=== PATIENT | female | born 1980 | race African-American/Black ===

== ENCOUNTER 2016-07-03 20:55 | Emergency (ER) | payer MEDICARE, OTHER ==
[2016-07-03] MEDS ORDERED: AMOXIC-POT CLAV 875MG STARTER 2 EACH TABLET PO STA (22:50)
--- NOTE | 2016-07-03 22:53 | ED ---
ENT HPI - General Chief complaint: ENT Stated complaint: Throat Pain Time Seen by Provider: 07/03/16 22:39 Source: patient Mode of arrival: ambulatory Limitations: no limitations - History of Present Illness Initial comments: 36-year-old female presents to the ER complaining of sudden onset of sore throat and tooth pain mainly on the left side that started this morning. She states that she did try saltwater gargles but it wasn't helping. She was concerned that this may irritate her asthma and wanted to be evaluated at the ER. She also states that she does not have a primary care physician that she follows with normally. She states that she is having pain with swallowing and does feel hot and cold chills. She is not taking any medications at this time. She denies nausea, vomiting, diarrhea, headache, abdominal pain. - Related Data Home Medications Medication Instructions Recorded Confirmed Ergocalciferol [Vitamin D2] 50,000 unit PO MO 04/25/16 04/25/16 Ibuprofen [Motrin] 800 mg PO BID 04/25/16 04/25/16 Previous Rx's Medication Instructions Recorded Amoxicillin/Potassium Clav 1 tab PO Q12HR #20 tab 07/03/16 [Augmentin 875-125 Tablet] Fluconazole [Diflucan] 150 mg PO ONCE #1 tab 07/03/16 Allergies Allergy/AdvReac Type Severity Reaction Status Date / Time prednisone Allergy Swelling Verified 04/25/16 08:53 ibuprofen [From Motrin] AdvReac Nausea & Verified 04/25/16 08:53 Vomiting Review of Systems ROS Statement: Those systems with pertinent positive or pertinent negative responses have been documented in the HPI. ROS Other: All systems not noted in ROS Statement are negative. Past Medical History Past Medical History: Asthma, COPD Additional Past Medical History / Comment(s): bipolar, schizophrenia History of Any Multi-Drug Resistant Organisms: None Reported Past Surgical History: Section Past Psychological History: Anxiety, Bipolar, Depression, Schizophrenia Smoking Status: Former smoker Past Alcohol Use History: None Reported Past Drug Use History: None Reported General Exam Limitations: no limitations General appearance: alert, in no apparent distress Head exam: Present: atraumatic, normocephalic Eye exam: Present: normal appearance, PERRL, EOMI Pupils: Present: normal accommodation ENT exam: Present: mucous membranes moist, TM's normal bilaterally, normal external ear exam, other (Mild tonsillitis bilaterally, left upper tooth pain with palpation without obvious abscess or facial swelling.) Neck exam: Present: normal inspection, full ROM, lymphadenopathy (Mild left cervical) Respiratory exam: Present: normal lung sounds bilaterally Cardiovascular Exam: Present: regular rate, normal rhythm Neurological exam: Present: alert, oriented X3, CN II-XII intact Psychiatric exam: Present: normal affect, normal mood Skin exam: Present: warm, dry, intact Course Vital Signs 07/03/16 07/03/16 21:46 22:59 Temperature 97.6 F 97.8 F Pulse Rate 75 72 Respiratory 18 16 Rate Blood Pressure 110/71 118/80 O2 Sat by Pulse 100 100 Oximetry Medical Decision Making - Medical Decision Making 36-year-old female presented to the ER with complaints of pharyngitis and tooth pain. She did have some tooth tenderness with palpation in the upper right as well as some mild tonsillitis. Due to tooth pain will recommend oral antibiotics. Since I will be placing the patient on antibiotics that did not feel it necessary to do a throat swab that she also was not running a fever. The antibiotics would cover if there is any bacterial component to the pharyngitis. Explained to patient that the throat swab would not change my treatment plan and she was agreeable and understanding of this. Instructed to finish the full course of antibiotics and was given starter pack today. She may take Tylenol at home for any pain or discomfort and continue saltwater gargles. I stressed the importance of her having a primary care physician and going to them for chronic problems and issues that can be handled by them. She stated that the current certified lactation educator family physician would not work for her because she had a falling out with that physician in the past. All questions were answered and patient should return to the ER if any worsening symptoms or concerns. Disposition Clinical Impression: Acute viral pharyngitis, Pain in tooth Disposition: HOME SELF-CARE Condition: Good Instructions: Pharyngitis (ED), Toothache (ED) Additional Instructions: Return to ER if worsening symptoms or concerns. Prescriptions: Amoxicillin/Potassium Clav [Augmentin 875-125 Tablet] 1 tab PO Q12HR #20 tab Fluconazole [Diflucan] 150 mg PO ONCE #1 tab Referrals: Marcial Portillo MD [STAFF PHYSICIAN] - 1-2 days Time of Disposition: 22:53
[2016-07-03 23:00] VITALS: BP 118/80; PULSE 72; RESP 16; TEMP 97.8
== END 2016-07-03 22:59 | disposition home or self-care (01) ==
LOC: EC 20:55
DX: J02.8 Acute pharyngitis due to other specified organisms (principal); B97.89 Other viral agents as the cause of diseases classified elsewhere; K08.89 Other specified disorders of teeth and supporting structures; J45.909 Unspecified asthma, uncomplicated; J44.9 Chronic obstructive pulmonary disease, unspecified; Z79.899 Other long term (current) drug therapy; Z88.8 Allergy status to other drugs, medicaments and biological substances; Z87.891 Personal history of nicotine dependence
CPT/HCPCS: 99282

== ENCOUNTER 2016-08-10 21:34 | Emergency (ER) | payer MEDICARE, OTHER ==
[2016-08-10] MEDS ORDERED: ONDANSETRON ODT 4 MG TAB PO STA (22:24)
[2016-08-10] MEDS ORDERED: AMOXICILLIN 875 MG TAB PO STA (23:14)
--- NOTE | 2016-08-10 23:16 | ED ---
General Adult HPI - General Chief complaint: Nausea/Vomiting/Diarrhea Stated complaint: Cold Symptoms Time Seen by Provider: 08/10/16 22:18 Source: patient Mode of arrival: ambulatory Limitations: no limitations - History of Present Illness Initial comments: This patient is a 36-year-old woman who presents with 2 complaints. The first complaint is that she has been having some right ear pain going on for about 2 days now. She describes a pressure, now moderate intensity, constant, without worsening or relieving factors. She has also had a few episodes of vomiting and diarrhea, without any associated abdominal pain. She denies seeing any blood in the emesis or in the bowel movements. Onset/Timin -: days(s) - Related Data Previous Rx's Medication Instructions Recorded Amoxicillin 500 mg PO Q8H #21 capsule 08/10/16 Allergies Allergy/AdvReac Type Severity Reaction Status Date / Time prednisone Allergy Swelling Verified 08/10/16 22:17 ibuprofen [From Motrin] AdvReac Nausea & Verified 08/10/16 22:17 Vomiting Review of Systems ROS Statement: Those systems with pertinent positive or pertinent negative responses have been documented in the HPI. ROS Other: All systems not noted in ROS Statement are negative. Constitutional: Denies: fever, chills ENT: Reports: as per HPI, ear pain, congestion. Denies: throat pain, hearing loss, epistaxis Respiratory: Denies: cough, dyspnea, wheezes Cardiovascular: Denies: chest pain, palpitations, syncope Gastrointestinal: Reports: nausea, vomiting. Denies: abdominal pain, diarrhea, melena, hematochezia Genitourinary: Denies: dysuria, hematuria Musculoskeletal: Denies: back pain Skin: Denies: rash Neurological: Denies: headache Past Medical History Past Medical History: Asthma, COPD Additional Past Medical History / Comment(s): bipolar, schizophrenia History of Any Multi-Drug Resistant Organisms: None Reported Past Surgical History: Section Past Psychological History: Anxiety, Bipolar, Depression, Schizophrenia Smoking Status: Former smoker Past Alcohol Use History: None Reported Past Drug Use History: None Reported General Exam Limitations: no limitations General appearance: alert, in no apparent distress Head exam: Present: atraumatic, normocephalic, normal inspection Eye exam: Present: normal appearance. Absent: scleral icterus, conjunctival injection ENT exam: Present: normal oropharynx, mucous membranes moist, other (Right tympanic membrane injected. No rupture. Trace of clear effusion. No tragus tenderness. No external auditory canal edema or erythema.) Neck exam: Present: normal inspection, full ROM. Absent: tenderness, meningismus, lymphadenopathy Respiratory exam: Present: normal lung sounds bilaterally. Absent: respiratory distress, wheezes, rales, rhonchi, stridor Cardiovascular Exam: Present: regular rate, normal rhythm, normal heart sounds. Absent: systolic murmur, diastolic murmur, rubs, gallop GI/Abdominal exam: Present: soft. Absent: distended, tenderness, guarding, rebound, mass Extremities exam: Present: normal inspection, normal capillary refill. Absent: pedal edema, calf tenderness Back exam: Absent: CVA tenderness (R), CVA tenderness (L) Neurological exam: Present: alert Skin exam: Present: warm, dry, intact, normal color. Absent: rash Course Vital Signs 08/10/16 08/10/16 21:43 22:35 Temperature 97.6 F 98.2 F Pulse Rate 70 72 Respiratory 18 16 Rate Blood Pressure 128/72 87/56 O2 Sat by Pulse 100 98 Oximetry Disposition Clinical Impression: Otitis media, Vomiting Disposition: HOME SELF-CARE Condition: Good Instructions: Acute Nausea and Vomiting (ED) Prescriptions: Amoxicillin 500 mg PO Q8H #21 capsule Referrals: None,Stated [Primary Care Provider] - 1-2 days
[2016-08-11] VITALS: BP 101/57; PULSE 85; RESP 18; TEMP 98
== END 2016-08-10 23:59 | disposition home or self-care (01) ==
LOC: EC 21:34
DX: R11.2 Nausea with vomiting, unspecified (principal); H66.91 Otitis media, unspecified, right ear; R19.7 Diarrhea, unspecified; Z87.891 Personal history of nicotine dependence; Z88.6 Allergy status to analgesic agent; Z88.8 Allergy status to other drugs, medicaments and biological substances
CPT/HCPCS: 99283

== ENCOUNTER 2016-09-24 07:02 | Observation (INO) | payer MEDICARE, OTHER ==
[2016-09-24] MEDS ORDERED: IPRATROPIUM-ALBUTEROL 3 ML NEB INHALATION STA (07:36)
[2016-09-24] MEDS ORDERED: SODIUM CHLORIDE 0.9% 1,000 ML IV STA (07:36)
[2016-09-24 08:09] LABS: Basophils % (A) 0 %; CHCM 33.2; Eosinophils # (A) 0.1 k/uL (0-0.7); Eosinophils % (A) 2 %; HDW 2.35; Luc # (Auto) 0.13; Luc % (Auto) 3; Lymphocytes # (A) 1.4 k/uL (1.0-4.8); Lymphocytes % (A) 29 %; MCH 29.5 pg (25.0-35.0); MCHC 32.5 g/dL (31.0-37.0); MCV 90.8 fL (80.0-100.0); Mean Platelet Volume 7.3; Monocytes # (A) 0.4 k/uL (0-1.0); Monocytes % (A) 8 %; Neutrophils # (A) 2.7 k/uL (1.3-7.7); Neutrophils % (A) 58 %; RBC 4.07 m/uL (3.80-5.40); RDW 13.3 % (11.5-15.5); WBC 4.6 k/uL (3.8-10.6); WBC (Perox) 4.59
[2016-09-24] MEDS: NITROGLYCERIN OINT 1 INCH/GM PACKET TOPICAL STA ×2 (08:25→08:26)
[2016-09-24 08:28] LABS: Prothrombin Time 10.5 sec (9.0-12.0)
[2016-09-24 08:30] LABS: ALT 24 U/L (9-52); AST 24 U/L (14-36); Alkaline Phosphatase 50 U/L (38-126); Anion Gap 10 mmol/L; Blood Urea Nitrogen 14 mg/dL (7-17); Calcium 9.3 mg/dL (8.4-10.2); Carbon Dioxide 24 mmol/L (22-30); Chloride 108 mmol/L (98-107); Glucose 99 mg/dL (74-99); Non-African American GFR(MDRD) >60 (>60 ml/min/1.73 sqM); Potassium 3.9 mmol/L (3.5-5.1); Sodium 142 mmol/L (137-145); Total Bilirubin 0.5 mg/dL (0.2-1.3); Total Protein 7.6 g/dL (6.3-8.2)
[2016-09-24 08:35] LABS: Creatine Kinase 201 U/L (30-135)
--- NOTE | 2016-09-24 08:40 | ED ---
SOB HPI - General Chief Complaint: Shortness of Breath Stated Complaint: Diff breathing Time Seen by Provider: 09/24/16 07:27 Source: patient Mode of arrival: ambulatory Limitations: no limitations - History of Present Illness Initial Comments: 36 years old female presented with a palpitation and the chest pain, she stated she felt that she had a panic attack with chest pain and the palpitation and she feel it hurts to breathe it all started 6 AM today she does have a history of asthma she had some chills and she been coughing up some phlegm she quit smoking in in recent past. Denies any fever at this point no abdominal pain no frequency urgency dysuria no symptoms of TIA or CVA - Related Data Previous Rx's Medication Instructions Recorded Amoxicillin 500 mg PO Q8H #21 capsule 08/10/16 Allergies Allergy/AdvReac Type Severity Reaction Status Date / Time prednisone Allergy Swelling Verified 09/24/16 07:16 ibuprofen [From Motrin] AdvReac Nausea & Verified 09/24/16 07:16 Vomiting Review of Systems ROS Statement: Those systems with pertinent positive or pertinent negative responses have been documented in the HPI. ROS Other: All systems not noted in ROS Statement are negative. Past Medical History Past Medical History: Asthma, COPD Additional Past Medical History / Comment(s): bipolar, schizophrenia History of Any Multi-Drug Resistant Organisms: None Reported Past Surgical History: Section Past Psychological History: Anxiety, Bipolar, Depression, Schizophrenia Smoking Status: Former smoker Past Alcohol Use History: None Reported Past Drug Use History: None Reported General Exam Limitations: no limitations Course Vital Signs 09/24/16 09/24/16 09/24/16 07:12 07:23 08:13 Temperature 97.4 F L Pulse Rate 79 88 Respiratory 18 18 Rate Blood Pressure 98/54 O2 Sat by Pulse 99 Oximetry 09/24/16 08:22 Temperature Pulse Rate 84 Respiratory Rate Blood Pressure O2 Sat by Pulse Oximetry EKG is normal sinus rhythm ventricular rate is 65 NM interval is 156 QRS duration is 90 QT/QTc is 46/422 review of this EKG reveal a T-wave inversion in lead [address] elevation or ST depression noticed in the other leads, but this EKG was compared with old EKG from 04/25/2016 looks pretty similar Medical Decision Making - Lab Data Result diagrams: 09/24/16 07:50 09/24/16 07:50 Lab Results 09/24/16 09/24/16 09/24/16 Range/Units 07:50 07:50 07:50 WBC 4.6 (3.8-10.6) k/uL RBC 4.07 (3.80-5.40) m/uL Hgb 12.0 (11.4-16.0) gm/dL Hct 37.0 (34.0-46.0) % MCV 90.8 (80.0-100.0) fL MCH 29.5 (25.0-35.0) pg MCHC 32.5 (31.0-37.0) g/dL RDW 13.3 (11.5-15.5) % Plt Count 279 (150-450) k/uL Neutrophils % 58 % Lymphocytes % 29 % Monocytes % 8 % Eosinophils % 2 % Basophils % 0 % Neutrophils # 2.7 (1.3-7.7) k/uL Lymphocytes # 1.4 (1.0-4.8) k/uL Monocytes # 0.4 (0-1.0) k/uL Eosinophils # 0.1 (0-0.7) k/uL Basophils # 0.0 (0-0.2) k/uL PT (9.0-12.0) sec INR (<1.1) APTT (22.0-30.0) sec D-Dimer (<0.60) mg/L FEU Sodium 142 (137-145) mmol/L Potassium 3.9 (3.5-5.1) mmol/L Chloride 108 H (98-107) mmol/L Carbon Dioxide 24 (22-30) mmol/L Anion Gap 10 mmol/L BUN 14 (7-17) mg/dL Creatinine 0.60 (0.52-1.04) mg/dL Est GFR (MDRD) Af Amer >60 (>60 ml/min/1.73 sqM) Est GFR (MDRD) Non-Af >60 (>60 ml/min/1.73 sqM) Glucose 99 (74-99) mg/dL Calcium 9.3 (8.4-10.2) mg/dL Total Bilirubin 0.5 (0.2-1.3) mg/dL AST 24 (14-36) U/L ALT 24 (9-52) U/L Alkaline Phosphatase 50 (38-126) U/L Total Creatine Kinase 201 H (30-135) U/L CK-MB (CK-2) 0.6 (0.0-2.4) ng/mL CK-MB (CK-2) Rel Index 0.3 Troponin I <0.012 (0.000-0.034) ng/mL NT-Pro-B Natriuret Pep pg/mL Total Protein 7.6 (6.3-8.2) g/dL Albumin 4.1 (3.5-5.0) g/dL TSH 0.953 (0.465-4.680) mIU/L 09/24/16 09/24/16 Range/Units 07:50 07:50 WBC (3.8-10.6) k/uL RBC (3.80-5.40) m/uL Hgb (11.4-16.0) gm/dL Hct (34.0-46.0) % MCV (80.0-100.0) fL MCH (25.0-35.0) pg MCHC (31.0-37.0) g/dL RDW (11.5-15.5) % Plt Count (150-450) k/uL Neutrophils % % Lymphocytes % % Monocytes % % Eosinophils % % Basophils % % Neutrophils # (1.3-7.7) k/uL Lymphocytes # (1.0-4.8) k/uL Monocytes # (0-1.0) k/uL Eosinophils # (0-0.7) k/uL Basophils # (0-0.2) k/uL PT 10.5 (9.0-12.0) sec INR 1.0 (<1.1) APTT 19.6 L (22.0-30.0) sec D-Dimer 0.32 (<0.60) mg/L FEU Sodium (137-145) mmol/L Potassium (3.5-5.1) mmol/L Chloride (98-107) mmol/L Carbon Dioxide (22-30) mmol/L Anion Gap mmol/L BUN (7-17) mg/dL Creatinine (0.52-1.04) mg/dL Est GFR (MDRD) Af Amer (>60 ml/min/1.73 sqM) Est GFR (MDRD) Non-Af (>60 ml/min/1.73 sqM) Glucose (74-99) mg/dL Calcium (8.4-10.2) mg/dL Total Bilirubin (0.2-1.3) mg/dL AST (14-36) U/L ALT (9-52) U/L Alkaline Phosphatase (38-126) U/L Total Creatine Kinase (30-135) U/L CK-MB (CK-2) (0.0-2.4) ng/mL CK-MB (CK-2) Rel Index Troponin I (0.000-0.034) ng/mL NT-Pro-B Natriuret Pep 17 pg/mL Total Protein (6.3-8.2) g/dL Albumin (3.5-5.0) g/dL TSH (0.465-4.680) mIU/L Critical Care Time Total Critical Care Time: 45 Critical Care Time: She has chest pain since 6 AM with shortness of breath, labs were reviewed, d- dimer, CBC, compressive metabolic panel, troponin, chest x-ray are unremarkable and these were discussed with the patient patient still has chest pain and she said her dad at very young age with heart disease and mother has heart disease as well as her brother does she will feel more comfortable staying in the hospital I agree with that she be heparinized and now she be admitted under unstable angina to hospitalist with a cardiology consult Disposition Clinical Impression: Shortness of breath, Chest pain Disposition: ADMITTED IP TO THIS HOSP Condition: Fair
[2016-09-24 08:47] LABS: Creatine Kinase MB 0.6 ng/mL (0.0-2.4); Troponin I <0.012 ng/mL (0.000-0.034)
[2016-09-24 08:52] LABS: Partial Thromboplastin Time 19.6 sec (22.0-30.0)
--- NOTE | 2016-09-24 08:59 | XR ---
EXAMINATION TYPE: XR chest 2V DATE OF EXAM: 09/24/2016 8:54 AM COMPARISON: 04/25/2016 HISTORY: 36-year-old female difficulty breathing TECHNIQUE: AP and lateral views FINDINGS: The cardiomediastinal silhouette, aorta, and pulmonary vasculature are within normal limits. Some und erpenetration due to AP portable technique. Strandy atelectasis at the left base. Otherwise, lungs an d pleural spaces are clear. IMPRESSION: Strandy atelectasis at the left base. Otherwise, no acute process.
[2016-09-24] MEDS ORDERED: HEPARIN SODIUM,PORCINE 5,000 UNIT/ML 1 ML VIAL IV ONE (09:29)
[2016-09-24] MEDS ORDERED: NITROGLYCERIN SL TABS 0.4 MG TAB SUBLINGUAL PRN (09:29)
[2016-09-24] MEDS ORDERED: MORPHINE SULFATE 2 MG/ML SYRINGE IVP PRN (09:29)
[2016-09-24] MEDS ORDERED: METOPROLOL TARTRATE 25 MG TAB PO STA (09:36)
[2016-09-24] MEDS: HEPARIN SODIUM,PORCINE/D5W PMX 25,000 UNIT in DEXTROSE/WATER 1 500ML.BAG IV SCH (10:49)
[2016-09-24] MEDS ORDERED: CARISOPRODOL 350 MG TAB PO PRN (12:34)
[2016-09-24] MEDS ORDERED: ERGOCALCIFEROL 50,000 UNIT CAP PO SCH (12:45)
[2016-09-24 14:32] LABS: Creatine Kinase 166 U/L (30-135)
[2016-09-24 14:43] LABS: Creatine Kinase MB 0.5 ng/mL (0.0-2.4); Troponin I <0.012 ng/mL (0.000-0.034)
--- NOTE | 2016-09-24 18:54 | HP ---
DATE OF ADMISSION: 09/25/2015 CHIEF COMPLAINT: Shortness of breath. HISTORY OF PRESENT ILLNESS: Ms. Castellanos is a 36-year-old female with a past medical history of asthma, bipolar disorder, schizophrenia, anxiety attacks, coming into the hospital with a chief complaint of difficulty in breathing and chest pain. The patient states that she has been having some chest heaviness in the substernal area and also had palpitations and it was difficult for her to breathe this morning and so she came into the hospital for further evaluation. Patient states that she has some cough with some productive sputum since this morning. She denies having any fevers. She denies having any radiation of the chest pain, which is substernal in nature. No aggravating or relieving factors. She also complains of tightness and in her throat area, but no difficulty in swallowing. Patient denies having any epigastric pain. No nausea, vomiting or diarrhea. She denies having any problems with her bowels or bladder. She denies having any recent travel. She states that she recent quit smoking. She does endorse having history of panic attacks and she thinks she might have had one, but really not sure because she is still has persistent chest pain. REVIEW OF SYSTEMS: All 13 review of systems are done, are within normal limits except for ones mentioned in the HPI. Past medical history significant for asthma, bipolar disorder and schizophrenia. ALLERGIES TO METHYLPREDNISONE, PREDNISONE, IBUPROFEN. Patient's home medications: 1. Lamictal 25 mg p.o. b.i.d. 2. Vitamin D2 50,000 units p.o. once a week. 3. Senokot 200 mg p.o. b.i.d. 4. [place] 10/325 1 tablet p.o. daily p.r.n. for pain. 5. Soma 350 mg p.o. q.h.s. p.r.n. for pain. PAST SURGICAL HISTORY: . PSYCHIATRIC HISTORY: Anxiety, bipolar disorder, depression schizophrenia. SOCIAL HISTORY: Former smoker, quit a few days back. Occasional alcohol use. No history of intravenous drug abuse. Family history is positive for rheumatoid arthritis in her father and mother has coronary artery disease. On examination, patient's vital signs: Temperature 98, heart rate 72, respiratory rate 15, blood pressure is 109/70, saturating at 98% on 2L of nasal cannula. The patient appears to be in no acute distress. She is comfortably sleeping in her bed with her daughter in the room with her. HEAD: Atraumatic, normocephalic. EYES: Pupils, round, and reactive to light. No pallor. No icterus. NECK: No JVD. No thyromegaly. CARDIOVASCULAR: S1, S2 heard. No additional sounds. ORAL CAVITY: No pharyngeal erythema or pharyngeal exudate. No nasal congestion. LUNGS: Bilateral breath sounds are positive. No wheezes or crackles. CVS: S1, S2 heard. GI: Abdomen is soft, nontender. No organomegaly. Bowel sounds are positive. EXTREMITIES: No edema. No cyanosis. No clubbing. Peripheral pulses are felt. 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 No focal neurological deficits. SKIN: No rash. MUSCULOSKELETAL: No joint swelling or deformity. PSYCHIATRIC: Appropriate mood and affect. Patient's labs: White count of 4.6, hemoglobin is 12, platelets of 279. Sodium 142, potassium 3.9, chloride 108, bicarb 24, BUN 14, creatinine 0.60. Troponin less than 0.012 x 2. D-dimer is 032. Patient had a chest x-ray done in the ER showing strandy atelectasis at the left base. Otherwise no acute process. ASSESSMENT AND PLAN: 1. Atypical chest pain. 2. Acute shortness of breath, most likely related to panic attack. 3. History of anxiety and depression. 4. History of bipolar disorder. 5. History of schizophrenia. 6. History of asthma, not in acute exacerbation. PLAN: The plan is to get serial troponins and EKGs and if they are within normal limits, patient will be discharged in the next 24 hours.
[2016-09-24] MEDS: METOPROLOL TARTRATE 25 MG TAB PO SCH (20:14)
[2016-09-24] MEDS: QUEtiapine 200 MG TAB PO SCH ×2 (20:18→21:52)
[2016-09-24] MEDS: lamoTRIgine 25 MG TAB PO SCH ×2 (20:18→21:52)
[2016-09-24] MEDS ORDERED: ATORVASTATIN 40 MG TAB PO SCH (21:00)
[2016-09-24 21:25] LABS: Creatine Kinase 175 U/L (30-135)
[2016-09-24 21:37] LABS: Creatine Kinase MB 0.3 ng/mL (0.0-2.4); Troponin I <0.012 ng/mL (0.000-0.034)
[2016-09-24] MEDS: HYDROcodone/APAP 10-325MG 1 EACH TAB PO PRN (21:52)
[2016-09-25 01:24] VITALS: RESP 16
[2016-09-25 04:08] LABS: Cholesterol 160 mg/dL (<200); HDL Cholesterol 40 mg/dL (40-60); Triglycerides 70 mg/dL (<150)
[2016-09-25] MEDS: METOPROLOL TARTRATE 25 MG TAB PO SCH (08:49)
[2016-09-25] MEDS: QUEtiapine 200 MG TAB PO SCH (08:51)
[2016-09-25] MEDS: HYDROcodone/APAP 10-325MG 1 EACH TAB PO PRN (08:51)
[2016-09-25] MEDS: lamoTRIgine 25 MG TAB PO SCH (08:51)
[2016-09-25] MEDS ORDERED: ASPIRIN 325 MG TAB PO SCH (09:00)
[2016-09-25] MEDS: HEPARIN SODIUM,PORCINE/D5W PMX 25,000 UNIT in DEXTROSE/WATER 1 500ML.BAG IV SCH (11:18)
[2016-09-25 11:28] VITALS: BP 114/54; PULSE 65; TEMP 99
--- NOTE | 2016-09-25 12:58 | CONS ---
DATE OF CONSULTATION: Alejandro Castellanos is a 36-year-old pleasant lady with a history of some bipolar disorder and also anxiety type symptoms. She came into the hospital yesterday with complaints of having some palpitations and sharp pains in the chest and shortness of breath. She thought she was having panic attack, but then she had pain all over her body. She has some bronchial asthma as well. She sees one of my associates and had a stress test within the last 6 months, which was unremarkable. She does have a history of anxiety, bipolar disorder and bronchial asthma and chronic obstructive pulmonary disease. She is very comfortable, asymptomatic and relaxed at the time of my evaluation. Her pain seems quite atypical. Troponins are normal. EKG is unremarkable. She is resting comfortably without symptoms. PAST MEDICAL HISTORY: Bipolar disorder and anxiety and chronic obstructive pulmonary disease and bronchial asthma. Laboratory data revealed unremarkable troponins, thyroid functions are normal. On examination, blood pressure is 118/70, pulse rate 70 per minute, regular. HEENT: Unremarkable. Fundus was not examined by me. Neck is supple. No JVD. I do not hear a carotid bruit. There is no thyromegaly. Heart exam reveals S1 and S2 heard normally without rub, murmur or gallop. Lungs are clear. ABDOMEN: Soft, nontender. No organomegaly. Lower extremities reveal normal pulses. No edema. Central nervous system is normal. EKG revealed a sinus mechanism. No acute changes. IMPRESSION: 1. Atypical chest pain in the setting of anxiety and probably low-grade panic disorder, which has resolved. 2. History of bronchial asthma. 3. History of bipolar disorder and anxiety disorder. RECOMMENDATIONS: I am recommending that from a cardiac standpoint, no intervention is necessary. She can be discharged and keep her appointment with her intake coordinator in the next 3 weeks or so. Thank you very much for the consult.
[2016-09-26] MEDS ORDERED: ERGOCALCIFEROL 50,000 UNIT CAP PO SCH (09:00)
--- NOTE | 2016-09-26 17:01 | DS ---
DATE OF ADMISSION: 09/24/2016 DATE OF DISCHARGE: 09/25/2016 HOSPITAL COURSE: Ms. Castellanos is a 36-year-old female with a past medical history of asthma, bipolar disorder, schizophrenia, anxiety admitted to the hospital with the chief complaint of difficulty in breathing and chest pain. The patient was admitted to rule out acute coronary syndrome. She had serial troponins and EKGs that were within normal limits. Cardiology was consulted, who evaluated the patient. She was cleared by them to be discharged home. The chest pain was thought to be secondary to her anxiety and low-grade panic disorder. The patient is back to her normal baseline. Denies having any symptoms today. She is being discharged home in stable condition. Patient did ask me for refills of her home medications, but the patient on antipsychotics and narcotics, so discussed with her that she has to get them through her regular doctor from whom she gets her medications. Patient states she does not have a PCP, so we are giving her the list of primary care physicians in our area. DISCHARGE DIAGNOSES: 1. Atypical chest pain, most likely secondary to panic attack. 2. Acute shortness of breath, probably related to her panic attack. 3. History of bipolar disorder. 4. History of schizophrenia. 5. History of mild intermittent asthma. 6. History of anxiety and depression. PATIENT'S DISCHARGE MEDICATIONS: 1. Soma 350 mg p.o. at bedtime p.r.n. for pain. 2. Vitamin D2 50,000 units once a week. 3. [place] 10/325 one tablet p.o. daily p.r.n. for pain. 4. Seroquel 200 mg p.o. b.i.d. 5. Lamictal 25 mg p.o. b.i.d. Patient is advised to follow up with a primary care physician within 2 to 3 days. Patient is being discharged home in stable condition. Normal diet. Activity as tolerated. Patient is advised to seek medical attention if symptoms recur. MTDD
== END 2016-09-25 14:27 | disposition home or self-care (01) ==
LOC: EC 07:02 → 3OBS 09:29
PROVIDERS: ADMIT Internal Medicine; ATTEND Internal Medicine
DX: R07.89 Other chest pain (principal); J44.9 Chronic obstructive pulmonary disease, unspecified; J45.20 Mild intermittent asthma, uncomplicated; F41.9 Anxiety disorder, unspecified; F20.9 Schizophrenia, unspecified; F31.9 Bipolar disorder, unspecified; F41.0 Panic disorder [episodic paroxysmal anxiety]; Z79.899 Other long term (current) drug therapy; Z82.49 Family history of ischemic heart disease and other diseases of the circulatory system; Z87.891 Personal history of nicotine dependence; R00.2 Palpitations; Z88.6 Allergy status to analgesic agent; Z88.8 Allergy status to other drugs, medicaments and biological substances
CPT/HCPCS: 99291 ×2; 96360 ×2; 96361 ×3; 36415; 94640; 93005; 85379; 83880; 80061; 80053; 82550; 82553; 84443; 84484; 85025; 85610; 85730; 71020; G0378 ×2

== ENCOUNTER 2016-11-21 23:04 | Emergency (ER) | payer MEDICARE, OTHER ==
[2016-11-21 23:10] VITALS: BP 141/76; PULSE 70; RESP 18; TEMP 98.3
[2016-11-22] LABS: Basophils % (A) 0 %; CH 29.7; CHCM 32.9; Eosinophils # (A) 0.1 k/uL (0-0.7); Eosinophils % (A) 1 %; HCT 35.4 % (34.0-46.0); HDW 2.37; HGB 11.6 gm/dL (11.4-16.0); Luc % (Auto) 2; Lymphocytes # (A) 2.2 k/uL (1.0-4.8); Lymphocytes % (A) 36 %; MCH 29.7 pg (25.0-35.0); MCHC 32.8 g/dL (31.0-37.0); MCV 90.5 fL (80.0-100.0); Mean Platelet Volume 7.2; Monocytes # (A) 0.3 k/uL (0-1.0); Monocytes % (A) 5 %; Neutrophils # (A) 3.5 k/uL (1.3-7.7); Neutrophils % (A) 56 %; RBC 3.92 m/uL (3.80-5.40); RDW 13.1 % (11.5-15.5); WBC 6.3 k/uL (3.8-10.6); WBC (Perox) 6.33
[2016-11-22 00:10] LABS: ALT 25 U/L (9-52); AST 21 U/L (14-36); Alkaline Phosphatase 50 U/L (38-126); Anion Gap 8 mmol/L; Blood Urea Nitrogen 16 mg/dL (7-17); Calcium 9.3 mg/dL (8.4-10.2); Carbon Dioxide 26 mmol/L (22-30); Chloride 109 mmol/L (98-107); Glucose 125 mg/dL (74-99); Non-African American GFR(MDRD) >60 (>60 ml/min/1.73 sqM); Potassium 3.6 mmol/L (3.5-5.1); Sodium 143 mmol/L (137-145); Total Bilirubin 0.1 mg/dL (0.2-1.3)
--- NOTE | 2016-11-22 00:36 | XR ---
EXAM: XR Chest, 2 Views CLINICAL HISTORY: Reason: Chest Pain TECHNIQUE: Frontal and lateral views of the chest. COMPARISON: Chest radiographs 09/24/2016 FINDINGS: Lungs: Minimal left base fibrotic scarring or subsegmental atelectasis. Lungs are otherwise clear. No focal infiltrates or consolidations. Pleural space: No evidence of pleural effusion or pneumothorax. Heart: Heart size is within normal limits. Mediastinum: Mediastinal structures are within normal limits. Bones/joints: Imaged bony thorax is unremarkable. Other findings: Changes for a 2017. IMPRESSION: Mild left base subsegmental atelectasis or scarring. No evidence of acute cardiopulmonary disease.
--- NOTE | 2016-11-22 00:49 | ED ---
Chest Pain HPI - General Chief Complaint: Chest Pain Stated Complaint: Chest Pain Time Seen by Provider: 11/21/16 23:04 Source: patient, EMS Mode of arrival: EMS Limitations: no limitations - History of Present Illness MD Complaint: chest pain -: hour(s) Onset: during rest Pain Location: substernal Pain Radiation: none Severity: moderate Quality: sharp Consistency: now resolved Improves With: nothing Worsens With: nothing Treatments Prior to Arrival: none - Related Data Home Medications Medication Instructions Recorded Confirmed Carisoprodol [Soma] 350 mg PO HS PRN 09/24/16 11/21/16 Ergocalciferol [Vitamin D2 50,000 unit PO MO 09/24/16 11/21/16 (DRISDOL)] HYDROcodone/APAP 10-325MG [[place] 1 tab PO BID PRN 09/24/16 11/21/16 10-325] QUEtiapine [SEROquel] 200 mg PO BID 09/24/16 11/21/16 lamoTRIgine [LaMICtal] 25 mg PO BID 09/24/16 11/21/16 Allergies Allergy/AdvReac Type Severity Reaction Status Date / Time ibuprofen [From Motrin] Allergy Anaphylaxis Verified 11/21/16 23:24 methylprednisolone Allergy Anaphylaxis Verified 11/21/16 23:24 prednisone Allergy Anaphylaxis Verified 11/21/16 23:24 Review of Systems ROS Statement: Those systems with pertinent positive or pertinent negative responses have been documented in the HPI. ROS Other: All systems not noted in ROS Statement are negative. Constitutional: Denies: fever, chills Respiratory: Denies: cough, dyspnea Cardiovascular: Reports: chest pain. Denies: palpitations, orthopnea, edema, syncope Gastrointestinal: Denies: abdominal pain, vomiting, diarrhea Genitourinary: Denies: dysuria, frequency Musculoskeletal: Denies: back pain Skin: Denies: rash Neurological: Denies: headache, weakness, numbness Past Medical History Past Medical History: Asthma, COPD Additional Past Medical History / Comment(s): bipolar, schizophrenia History of Any Multi-Drug Resistant Organisms: None Reported Past Surgical History: Section Past Psychological History: Anxiety, Bipolar, Depression, Schizophrenia Smoking Status: Former smoker Past Alcohol Use History: None Reported Past Drug Use History: None Reported General Exam Limitations: no limitations General appearance: alert, in no apparent distress Head exam: Present: atraumatic, normocephalic Eye exam: Present: normal appearance. Absent: scleral icterus, conjunctival injection Neck exam: Present: normal inspection, full ROM Respiratory exam: Present: normal lung sounds bilaterally, chest wall tenderness. Absent: respiratory distress, wheezes, rales, rhonchi, stridor Cardiovascular Exam: Present: regular rate, normal rhythm, normal heart sounds. Absent: systolic murmur, diastolic murmur, rubs, gallop GI/Abdominal exam: Present: soft. Absent: distended, tenderness, guarding, rebound, rigid Extremities exam: Present: normal inspection, normal capillary refill. Absent: pedal edema, calf tenderness Back exam: Absent: CVA tenderness (R), CVA tenderness (L) Neurological exam: Present: alert Skin exam: Present: warm, dry, intact, normal color. Absent: rash Course Vital Signs 11/21/16 11/22/16 23:07 00:30 Temperature 98.3 F Pulse Rate 70 70 Respiratory 18 18 Rate Blood Pressure 141/76 141/76 O2 Sat by Pulse 97 96 Oximetry Disposition Clinical Impression: Chest pain Disposition: HOME SELF-CARE Condition: Good Instructions: Chest Pain (ED) Referrals: None,Stated [Primary Care Provider] - 1-2 days Katelynn Mckay MD [REFERRING] - 1-2 days
== END 2016-11-22 01:07 | disposition home or self-care (01) ==
LOC: EC 23:04
DX: R07.9 Chest pain, unspecified (principal); F20.9 Schizophrenia, unspecified; F31.9 Bipolar disorder, unspecified; Z88.6 Allergy status to analgesic agent; Z88.8 Allergy status to other drugs, medicaments and biological substances; Z87.891 Personal history of nicotine dependence; Z79.899 Other long term (current) drug therapy
CPT/HCPCS: 36415; 71020; 80053; 83735; 84484; 85025; 85379; 93005; 99285

== ENCOUNTER 2016-12-09 12:31 | Emergency (ER) | payer MEDICARE, OTHER ==
[2016-12-09 12:48] VITALS: RESP 18
--- NOTE | 2016-12-09 13:44 | ED ---
Abdominal Pain HPI - General Chief Complaint: Abdominal Pain Stated Complaint: Constipation Time Seen by Provider: 12/09/16 13:34 Source: patient, RN notes reviewed Mode of arrival: ambulatory Limitations: no limitations - History of Present Illness Initial Comments: 28-year-old female presents emergency Department with chief complaint of constipation. Patient states she's been having constipation last few months. Patient states that she did try magnesium citrate which cleared up but states then she became constipated again. She states that she only drinks improving use today and has not tried anything else. Patient denies any fevers or chills denies any dysuria. Denies any melena or hematochezia. Patient states that she has not tried any stool softeners or a daily laxative patient states that she is not denies any chance of . - Related Data Home Medications Medication Instructions Recorded Confirmed Carisoprodol [Soma] 350 mg PO HS PRN 09/24/16 12/09/16 Ergocalciferol [Vitamin D2 50,000 unit PO MO 09/24/16 12/09/16 (DRISDOL)] HYDROcodone/APAP 10-325MG [[place] 1 tab PO BID PRN 09/24/16 12/09/16 10-325] QUEtiapine [SEROquel] 200 mg PO BID 09/24/16 12/09/16 lamoTRIgine [LaMICtal] 25 mg PO BID 09/24/16 12/09/16 Previous Rx's Medication Instructions Recorded Docusate [Colace] 100 mg PO DAILY #30 capsule 12/09/16 Peg 3350-Na Sulf,Bicarb,Cl/KCl 4,000 ml PO DIRECTED #1 bottle 12/09/16 [Golytely Lavage] Allergies Allergy/AdvReac Type Severity Reaction Status Date / Time ibuprofen [From Motrin] Allergy Anaphylaxis Verified 12/09/16 13:37 methylprednisolone Allergy Anaphylaxis Verified 12/09/16 13:37 prednisone Allergy Anaphylaxis Verified 12/09/16 13:37 Review of Systems ROS Statement: Those systems with pertinent positive or pertinent negative responses have been documented in the HPI. ROS Other: All systems not noted in ROS Statement are negative. Past Medical History Past Medical History: Asthma, COPD Additional Past Medical History / Comment(s): bipolar, schizophrenia History of Any Multi-Drug Resistant Organisms: None Reported Past Surgical History: Section Past Psychological History: Anxiety, Bipolar, Depression, Schizophrenia Smoking Status: Former smoker Past Alcohol Use History: None Reported Past Drug Use History: None Reported General Exam Limitations: no limitations General appearance: alert, in no apparent distress Respiratory exam: Present: normal lung sounds bilaterally. Absent: respiratory distress, wheezes, rales, rhonchi, stridor Cardiovascular Exam: Present: regular rate, normal rhythm, normal heart sounds. Absent: systolic murmur, diastolic murmur, rubs, gallop, clicks GI/Abdominal exam: Present: soft, normal bowel sounds. Absent: distended, tenderness, guarding, rebound, rigid Back exam: Absent: CVA tenderness (R), CVA tenderness (L) Skin exam: Present: warm, dry, intact, normal color. Absent: rash Course Vital Signs 12/09/16 12:45 Temperature 97.5 F L Pulse Rate 93 Respiratory 18 Rate Blood Pressure 130/75 O2 Sat by Pulse 100 Oximetry Medical Decision Making - Medical Decision Making 28-year-old female presented for constipation. Patient x-ray is consistent with constipation. Patient be discharged with GoLYTELY and stool softener. Return parameters were discussed. Disposition Clinical Impression: Constipation Disposition: HOME SELF-CARE Condition: Stable Instructions: Constipation (ED) Additional Instructions: Please return to the Emergency Department if symptoms worsen or any other concerns. Prescriptions: Docusate [Colace] 100 mg PO DAILY #30 capsule Peg 3350-Na Sulf,Bicarb,Cl/KCl [Golytely Lavage] 4,000 ml PO DIRECTED #1 bottle Referrals: None,Stated [Primary Care Provider] - 1-2 days Time of Disposition: 14:22
--- NOTE | 2016-12-09 14:09 | XR ---
EXAMINATION TYPE: XR KUB DATE OF EXAM: 12/09/2016 COMPARISON: NONE HISTORY: Pain and constipation TECHNIQUE: One view abdominal series FINDINGS: The osseous structures are intact. The bowel gas pattern is nonspecific. Lung bases are clear. Ther e is retained fecal debris throughout the colon. Calcifications in pelvis are nonspecific but likely vascular. Correlate clinically. IMPRESSION: 1. Nonspecific abdomen. No evidence of obstruction. Correlate for constipation.
[2016-12-09 14:35] VITALS: BP 107/55; PULSE 76; TEMP 97.6
== END 2016-12-09 14:43 | disposition home or self-care (01) ==
LOC: EC 12:31
DX: K59.00 Constipation, unspecified (principal); R10.9 Unspecified abdominal pain; F20.9 Schizophrenia, unspecified; F31.9 Bipolar disorder, unspecified; F41.9 Anxiety disorder, unspecified; Z87.891 Personal history of nicotine dependence; Z79.899 Other long term (current) drug therapy; Z88.6 Allergy status to analgesic agent; Z88.8 Allergy status to other drugs, medicaments and biological substances
CPT/HCPCS: 74000; 99284

== ENCOUNTER 2017-01-18 20:32 | Emergency (ER) | payer MEDICARE, OTHER ==
[2017-01-18 20:42] VITALS: TEMP 97.9
--- NOTE | 2017-01-18 21:07 | ED ---
General Adult HPI - General Chief complaint: Extremity Problem,Nontraumatic Stated complaint: Right side numbness Time Seen by Provider: 01/18/17 20:45 Source: patient, RN notes reviewed Mode of arrival: ambulatory Limitations: no limitations - History of Present Illness Initial comments: Patient is a 36-year-old female presents to the emergency room for multiple complaints. Patient states over the past 3 days she's been having right-sided upper and lower extremity numbness/tingling, abdominal discomfort, constipation , chest pain and shortness of breath. Patient states she's been taking prune juice and [id number] laxatives with no relief of symptoms. Patient states she feels like she has to make a bowel movement but is unable to. Patient states she's not sure if her thyroid is off or if it is because she is constipated. Patient also states when she has been waking up over the past few days she's been feeling short of breath with chest tightness. Patient denies smoking. Patient denies alcohol or drug use. Patient denies any weakness. Patient does states she has a history of chronic low back issues. Patient denies any specific injury to her neck or lower back. Patient states when having a mild headache over the past 3 days. Patient denies nausea or vomiting. Patient denies any known neck pain. Patient denies fevers or chills. - Related Data Home Medications Medication Instructions Recorded Confirmed Carisoprodol [Soma] 350 mg PO HS PRN 09/24/16 01/18/17 HYDROcodone/APAP 10-325MG [[place] 1 tab PO BID PRN 09/24/16 01/18/17 10-325] QUEtiapine [SEROquel] 200 mg PO BID 09/24/16 01/18/17 lamoTRIgine [LaMICtal] 25 mg PO BID 09/24/16 01/18/17 Allergies Allergy/AdvReac Type Severity Reaction Status Date / Time ibuprofen [From Motrin] Allergy Anaphylaxis Verified 01/18/17 20:50 methylprednisolone Allergy Anaphylaxis Verified 01/18/17 20:50 prednisone Allergy Anaphylaxis Verified 01/18/17 20:50 Review of Systems ROS Statement: Those systems with pertinent positive or pertinent negative responses have been documented in the HPI. ROS Other: All systems not noted in ROS Statement are negative. Past Medical History Past Medical History: Asthma, COPD Additional Past Medical History / Comment(s): bipolar, schizophrenia History of Any Multi-Drug Resistant Organisms: None Reported Past Surgical History: Section Past Psychological History: Anxiety, Bipolar, Depression, Schizophrenia Smoking Status: Former smoker Past Alcohol Use History: None Reported Past Drug Use History: None Reported General Exam - General Exam Comments Initial Comments: Laying in exam room, no acute distress. Limitations: no limitations General appearance: alert, in no apparent distress Head exam: Present: atraumatic, normocephalic, normal inspection Eye exam: Present: normal appearance, PERRL, EOMI Pupils: Present: normal accommodation ENT exam: Present: normal exam, mucous membranes moist Neck exam: Present: normal inspection, full ROM. Absent: tenderness, lymphadenopathy Respiratory exam: Present: normal lung sounds bilaterally. Absent: respiratory distress Cardiovascular Exam: Present: regular rate, normal rhythm, normal heart sounds GI/Abdominal exam: Present: soft, distended, normal bowel sounds. Absent: tenderness, guarding, rebound, rigid Extremities exam: Present: normal inspection, full ROM, normal capillary refill. Absent: tenderness Back exam: Present: normal inspection Neurological exam: Present: alert, oriented X3, CN II-XII intact, normal gait Expanded Speech: Present: fluid speech Sensory exam: Upper Extremity Light Touch: Normal, Lower Extremity Light Touch: Normal Motor strength exam: RUE: 5, LUE: 5, RLE: 5, LLE: 5 Psychiatric exam: Present: normal affect, normal mood Skin exam: Present: warm, dry, intact, normal color. Absent: rash Course Vital Signs 01/18/17 01/18/17 01/19/17 20:38 23:25 00:32 Temperature 97.9 F Pulse Rate 81 86 66 Respiratory 18 16 16 Rate Blood Pressure 118/77 114/60 104/57 O2 Sat by Pulse 96 98 98 Oximetry EKG Findings - EKG Comments: EKG Findings:: ventricular rate 72 bpm, [place] interval 162 ms, QRS duration 92 ms, QT/QTC 378/413 ms Medical Decision Making - Medical Decision Making patient is a 36-year-old female presents emergency room for multiple complaints. Patient has equal and great strength bilaterally in upper and lower extremities. No neuro deficit noted. Patient is complaining of slight neck and low back pain. Patient denies any significant injury to neck or low back. Patient does state she has a history of chronic neck and back pain. It is likely patient is experiencing paresthesias from chronic pain. Cardiac workup negative for any acute findings. Patient states that she feels like she feels short of breath due to being constipated. D-dimer was elevated. CT a chest negative for PE. Patient is requesting GoLYTELY. Patient will be sent home with GoLYTELY for constipation. Patient states she understands everything that was discussed with her. Return parameters discussed. Case discussed Dr. Reese. - Lab Data Result diagrams: 01/18/17 21:10 01/18/17 21:10 Lab Results 01/18/17 01/18/17 01/18/17 Range/Units 21:10 21:10 21:10 WBC 6.3 (3.8-10.6) k/uL RBC 4.18 (3.80-5.40) m/uL Hgb 12.4 (11.4-16.0) gm/dL Hct 37.8 (34.0-46.0) % MCV 90.3 (80.0-100.0) fL MCH 29.7 (25.0-35.0) pg MCHC 32.9 (31.0-37.0) g/dL RDW 14.2 (11.5-15.5) % Plt Count 284 (150-450) k/uL Neutrophils % 57 % Lymphocytes % 35 % Monocytes % 5 % Eosinophils % 1 % Basophils % 0 % Neutrophils # 3.6 (1.3-7.7) k/uL Lymphocytes # 2.2 (1.0-4.8) k/uL Monocytes # 0.3 (0-1.0) k/uL Eosinophils # 0.1 (0-0.7) k/uL Basophils # 0.0 (0-0.2) k/uL PT (9.0-12.0) sec INR (<1.2) APTT (22.0-30.0) sec D-Dimer (<0.60) mg/L FEU Sodium 138 (137-145) mmol/L Potassium 3.7 (3.5-5.1) mmol/L Chloride 106 (98-107) mmol/L Carbon Dioxide 25 (22-30) mmol/L Anion Gap 7 mmol/L BUN 10 (7-17) mg/dL Creatinine 0.71 (0.52-1.04) mg/dL Est GFR (MDRD) Af Amer >60 (>60 ml/min/1.73 sqM) Est GFR (MDRD) Non-Af >60 (>60 ml/min/1.73 sqM) Glucose 106 H (74-99) mg/dL Calcium 8.9 (8.4-10.2) mg/dL Magnesium 1.9 (1.6-2.3) mg/dL Total Bilirubin 0.2 (0.2-1.3) mg/dL AST 23 (14-36) U/L ALT 28 (9-52) U/L Alkaline Phosphatase 50 (38-126) U/L Total Creatine Kinase 183 H (30-135) U/L CK-MB (CK-2) 0.4 (0.0-2.4) ng/mL CK-MB (CK-2) Rel Index 0.2 Troponin I <0.012 (0.000-0.034) ng/mL NT-Pro-B Natriuret Pep pg/mL Total Protein 7.2 (6.3-8.2) g/dL Albumin 4.0 (3.5-5.0) g/dL Amylase 75 (30-110) U/L Lipase 55 (23-300) U/L TSH 1.590 (0.465-4.680) mIU/L Urine Color Urine Appearance (Clear) Urine pH (5.0-8.0) Ur Specific [place] (1.001-1.035) Urine Protein (Negative) Urine Glucose (UA) (Negative) Urine Ketones (Negative) Urine Blood (Negative) Urine Nitrite (Negative) Urine Bilirubin (Negative) Urine Urobilinogen (<2.0) mg/dL Ur Leukocyte Esterase (Negative) Urine HCG, Qual (Not Detectd) 01/18/17 01/18/17 01/18/17 Range/Units 21:10 21:10 22:05 WBC (3.8-10.6) k/uL RBC (3.80-5.40) m/uL Hgb (11.4-16.0) gm/dL Hct (34.0-46.0) % MCV (80.0-100.0) fL MCH (25.0-35.0) pg MCHC (31.0-37.0) g/dL RDW (11.5-15.5) % Plt Count (150-450) k/uL Neutrophils % % Lymphocytes % % Monocytes % % Eosinophils % % Basophils % % Neutrophils # (1.3-7.7) k/uL Lymphocytes # (1.0-4.8) k/uL Monocytes # (0-1.0) k/uL Eosinophils # (0-0.7) k/uL Basophils # (0-0.2) k/uL PT 10.1 (9.0-12.0) sec INR 1.0 (<1.2) APTT 25.8 (22.0-30.0) sec D-Dimer 0.66 H (<0.60) mg/L FEU Sodium (137-145) mmol/L Potassium (3.5-5.1) mmol/L Chloride (98-107) mmol/L Carbon Dioxide (22-30) mmol/L Anion Gap mmol/L BUN (7-17) mg/dL Creatinine (0.52-1.04) mg/dL Est GFR (MDRD) Af Amer (>60 ml/min/1.73 sqM) Est GFR (MDRD) Non-Af (>60 ml/min/1.73 sqM) Glucose (74-99) mg/dL Calcium (8.4-10.2) mg/dL Magnesium (1.6-2.3) mg/dL Total Bilirubin (0.2-1.3) mg/dL AST (14-36) U/L ALT (9-52) U/L Alkaline Phosphatase (38-126) U/L Total Creatine Kinase (30-135) U/L CK-MB (CK-2) (0.0-2.4) ng/mL CK-MB (CK-2) Rel Index Troponin I (0.000-0.034) ng/mL NT-Pro-B Natriuret Pep 28 pg/mL Total Protein (6.3-8.2) g/dL Albumin (3.5-5.0) g/dL Amylase (30-110) U/L Lipase (23-300) U/L TSH (0.465-4.680) mIU/L Urine Color Yellow Urine Appearance Clear (Clear) Urine pH 5.5 (5.0-8.0) Ur Specific [place] 1.013 (1.001-1.035) Urine Protein Negative (Negative) Urine Glucose (UA) Negative (Negative) Urine Ketones Negative (Negative) Urine Blood Negative (Negative) Urine Nitrite Negative (Negative) Urine Bilirubin Negative (Negative) Urine Urobilinogen <2.0 (<2.0) mg/dL Ur Leukocyte Esterase Negative (Negative) Urine HCG, Qual (Not Detectd) 01/18/17 Range/Units 22:05 WBC (3.8-10.6) k/uL RBC (3.80-5.40) m/uL Hgb (11.4-16.0) gm/dL Hct (34.0-46.0) % MCV (80.0-100.0) fL MCH (25.0-35.0) pg MCHC (31.0-37.0) g/dL RDW (11.5-15.5) % Plt Count (150-450) k/uL Neutrophils % % Lymphocytes % % Monocytes % % Eosinophils % % Basophils % % Neutrophils # (1.3-7.7) k/uL Lymphocytes # (1.0-4.8) k/uL Monocytes # (0-1.0) k/uL Eosinophils # (0-0.7) k/uL Basophils # (0-0.2) k/uL PT (9.0-12.0) sec INR (<1.2) APTT (22.0-30.0) sec D-Dimer (<0.60) mg/L FEU Sodium (137-145) mmol/L Potassium (3.5-5.1) mmol/L Chloride (98-107) mmol/L Carbon Dioxide (22-30) mmol/L Anion Gap mmol/L BUN (7-17) mg/dL Creatinine (0.52-1.04) mg/dL Est GFR (MDRD) Af Amer (>60 ml/min/1.73 sqM) Est GFR (MDRD) Non-Af (>60 ml/min/1.73 sqM) Glucose (74-99) mg/dL Calcium (8.4-10.2) mg/dL Magnesium (1.6-2.3) mg/dL Total Bilirubin (0.2-1.3) mg/dL AST (14-36) U/L ALT (9-52) U/L Alkaline Phosphatase (38-126) U/L Total Creatine Kinase (30-135) U/L CK-MB (CK-2) (0.0-2.4) ng/mL CK-MB (CK-2) Rel Index Troponin I (0.000-0.034) ng/mL NT-Pro-B Natriuret Pep pg/mL Total Protein (6.3-8.2) g/dL Albumin (3.5-5.0) g/dL Amylase (30-110) U/L Lipase (23-300) U/L TSH (0.465-4.680) mIU/L Urine Color Urine Appearance (Clear) Urine pH (5.0-8.0) Ur Specific [place] (1.001-1.035) Urine Protein (Negative) Urine Glucose (UA) (Negative) Urine Ketones (Negative) Urine Blood (Negative) Urine Nitrite (Negative) Urine Bilirubin (Negative) Urine Urobilinogen (<2.0) mg/dL Ur Leukocyte Esterase (Negative) Urine HCG, Qual Not Detected (Not Detectd) - Radiology Data Radiology results: report reviewed, image reviewed Disposition Clinical Impression: Constipation, Intermittent paresthesia of right hand and foot, Costochondral chest pain Disposition: HOME SELF-CARE Condition: Good Instructions: Constipation (ED), High Fiber Diet (ED), Costochondritis (ED), Paresthesia (ED) Additional Instructions: Take 8 oz of GoLYTELY every 10 minutes until symptoms improve. Please follow up with primary care provider in 1-2 days for further evaluation. If any new symptom arises, symptoms worsen, return to ER as soon as possible. Referrals: Narda Alba MD [STAFF PHYSICIAN] - 1-2 days Time of Disposition: 00:27
[2017-01-18 21:29] LABS: Basophils % (A) 0 %; CH 29.9; CHCM 33.3; Eosinophils # (A) 0.1 k/uL (0-0.7); Eosinophils % (A) 1 %; HCT 37.8 % (34.0-46.0); HDW 2.33; HGB 12.4 gm/dL (11.4-16.0); Luc # (Auto) 0.11; Luc % (Auto) 2; Lymphocytes # (A) 2.2 k/uL (1.0-4.8); Lymphocytes % (A) 35 %; MCH 29.7 pg (25.0-35.0); MCHC 32.9 g/dL (31.0-37.0); MCV 90.3 fL (80.0-100.0); Mean Platelet Volume 7.7; Monocytes # (A) 0.3 k/uL (0-1.0); Monocytes % (A) 5 %; Neutrophils # (A) 3.6 k/uL (1.3-7.7); Neutrophils % (A) 57 %; RBC 4.18 m/uL (3.80-5.40); RDW 14.2 % (11.5-15.5); WBC 6.3 k/uL (3.8-10.6); WBC (Perox) 6.32
[2017-01-18 21:39] LABS: ALT 28 U/L (9-52); AST 23 U/L (14-36); Alkaline Phosphatase 50 U/L (38-126); Amylase 75 U/L (30-110); Anion Gap 7 mmol/L; Blood Urea Nitrogen 10 mg/dL (7-17); Calcium 8.9 mg/dL (8.4-10.2); Carbon Dioxide 25 mmol/L (22-30); Chloride 106 mmol/L (98-107); Glucose 106 mg/dL (74-99); Magnesium 1.9 mg/dL (1.6-2.3); Non-African American GFR(MDRD) >60 (>60 ml/min/1.73 sqM); Potassium 3.7 mmol/L (3.5-5.1); Sodium 138 mmol/L (137-145); Total Bilirubin 0.2 mg/dL (0.2-1.3); Total Protein 7.2 g/dL (6.3-8.2)
[2017-01-18 21:45] LABS: Partial Thromboplastin Time 25.8 sec (22.0-30.0); Prothrombin Time 10.1 sec (9.0-12.0)
[2017-01-18 21:46] LABS: Creatine Kinase 183 U/L (30-135)
--- NOTE | 2017-01-18 21:55 | XR ---
EXAMINATION TYPE: XR KUB DATE OF EXAM: 01/18/2017 COMPARISON: 12/09/2016 HISTORY: Abdominal pain TECHNIQUE: 2 views FINDINGS: There is no sign of intestinal obstruction or pneumoperitoneum. Fecal pattern is normal. Th ere are no pathologic calcifications over the kidneys. There is no sign of a mass. IMPRESSION: Nonacute abdomen. No change. Small phleboliths are noted in the pelvis.
--- NOTE | 2017-01-18 21:56 | XR ---
EXAMINATION TYPE: XR chest 2V DATE OF EXAM: 01/18/2017 COMPARISON: 11/22/2016 HISTORY: Chest pain TECHNIQUE: Frontal and lateral views of the chest are obtained. FINDINGS: Heart and mediastinum are normal. Lungs are clear. Diaphragm is normal. Bony thorax is int act. IMPRESSION: Normal chest. No change.
[2017-01-18 22:00] LABS: Creatine Kinase MB 0.4 ng/mL (0.0-2.4); Troponin I <0.012 ng/mL (0.000-0.034)
[2017-01-18 22:44] LABS: Appearance,Urine Clear (Clear); Bilirubin,Urine Negative (Negative); Glucose,Urine (UA) Negative (Negative); Ketones,Urine Negative (Negative); Leukocyte Esterase,Urine Negative (Negative); Nitrite,Urine Negative (Negative); PH, Urine 5.5 (5.0-8.0); Protein,Urine Negative (Negative); Specific Gravity,Urine 1.013 (1.001-1.035); UA Billing (MACRO vs. MICRO) CHEM; Urobilinogen,Urine <2.0 mg/dL (<2.0)
[2017-01-18] MEDS ORDERED: RX INFO: IV CONTRAST WAS GIVEN 1 EACH MISC MISCELLANE PRN (22:46)
[2017-01-18 23:27] VITALS: RESP 16
--- NOTE | 2017-01-19 00:25 | CT ---
EXAM: CT Angiography Chest With Intravenous Contrast CLINICAL HISTORY: Reason: Pain TECHNIQUE: Axial computed tomographic angiography images of the chest with intravenous contrast using pulmonary embolism protocol. CTDI is 49.51 mGy and DLP is 48.64 mGy-cm. This CT exam was performed using one or more of the following dose reduction techniques: automated exposure control, adjustment of the mA and/or kV according to patient size, and/or use of iterative reconstruction technique. MIP reconstructed images were created and reviewed. COMPARISON: No relevant prior studies available. FINDINGS: Pulmonary arteries: Unremarkable. No pulmonary embolism. Aorta: No acute findings. No thoracic aortic aneurysm. Lungs: Unremarkable. No mass. No consolidation. Pleural space: Unremarkable. No significant effusion. No pneumothorax. Heart: Unremarkable. No cardiomegaly. No significant pericardial effusion. No evidence of RV dysfunction. Bones/joints: No acute fracture. No dislocation. Soft tissues: Unremarkable. Lymph nodes: Unremarkable. No enlarged lymph nodes. IMPRESSION: Normal chest CTA. No pulmonary embolism.
[2017-01-19] MEDS ORDERED: PEG 3350-NA SULF,BICARB,CL/KCL 4,000 ML BOTTLE PO STA (00:32)
[2017-01-19 00:33] VITALS: BP 104/57; PULSE 66
== END 2017-01-19 00:54 | disposition home or self-care (01) ==
LOC: EC 20:32
DX: R20.2 Paresthesia of skin (principal); R07.89 Other chest pain; K59.00 Constipation, unspecified; F31.9 Bipolar disorder, unspecified; F20.9 Schizophrenia, unspecified; Z88.6 Allergy status to analgesic agent; Z88.8 Allergy status to other drugs, medicaments and biological substances; Z79.899 Other long term (current) drug therapy; Z87.891 Personal history of nicotine dependence
CPT/HCPCS: 99284; 36415; 93005; 85379; 83880; 80053; 82150; 82550; 82553; 83690; 83735; 84443; 84484; 85025; 85610; 85730; 81003; 81025; 71020; 74000; 71275; Q9967

== ENCOUNTER 2017-03-03 18:24 | Emergency (ER) | payer MEDICARE, OTHER ==
[2017-03-03 18:46] VITALS: BP 136/65; RESP 18; TEMP 98.8
[2017-03-03] MEDS ORDERED: IPRATROPIUM-ALBUTEROL 3 ML NEB INHALATION STA (18:55)
--- NOTE | 2017-03-03 18:58 | ED ---
General Adult HPI - General Chief complaint: Upper Respiratory Infection Stated complaint: chest pressure, cold symptoms, dizziness Time Seen by Provider: 03/03/17 18:49 Source: patient, RN notes reviewed Mode of arrival: ambulatory Limitations: no limitations - History of Present Illness Initial comments: Patient 36-year-old female seen in the past mental history for asthma, who presents emergency room today with chief complaint of cough congestion over the last day. She does admit that symptoms started yesterday. She admits that her son has had similar symptoms was recently seen here in the emergency room for this as well. She admits that she has breathing treatments at home but has not used and she is unsure if they are still closed or . Patient denies any other complaints or associated symptoms at this time. She missed that she has had cough congestion and some sputum production. She admits to chills but no recorded temperatures. She admits that the symptoms are consistent with her asthma. Patient denies any recent fever, back pain, abdominal pain, nausea or vomiting, numbness or tingling, dysuria or hematuria, constipation or diarrhea, headaches or visual changes, or any other complaints. - Related Data Home Medications Medication Instructions Recorded Confirmed Carisoprodol [Soma] 350 mg PO HS PRN 09/24/16 01/18/17 HYDROcodone/APAP 10-325MG [[place] 1 tab PO BID PRN 09/24/16 01/18/17 10-325] QUEtiapine [SEROquel] 200 mg PO BID 09/24/16 01/18/17 lamoTRIgine [LaMICtal] 25 mg PO BID 09/24/16 01/18/17 Previous Rx's Medication Instructions Recorded Albuterol Nebulized [Ventolin 2.5 mg INHALATION Q4H PRN 10 Days 03/03/17 Nebulized] Amoxicillin/Potassium Clav 1 each PO Q12HR #20 tab 03/03/17 [Augmentin 875-125 Tablet] guaiFENesin 400 mg PO Q4-6H #30 tablet 03/03/17 Allergies Allergy/AdvReac Type Severity Reaction Status Date / Time methylprednisolone Allergy Anaphylaxis Verified 03/03/17 19:23 prednisone Allergy Anaphylaxis Verified 03/03/17 19:23 ibuprofen [From Motrin] AdvReac Nausea & Verified 03/03/17 19:23 Vomiting Review of Systems ROS Statement: Those systems with pertinent positive or pertinent negative responses have been documented in the HPI. ROS Other: All systems not noted in ROS Statement are negative. Past Medical History Past Medical History: Asthma, COPD Additional Past Medical History / Comment(s): bipolar, schizophrenia History of Any Multi-Drug Resistant Organisms: None Reported Past Surgical History: Section Past Psychological History: Anxiety, Bipolar, Depression, Schizophrenia Smoking Status: Former smoker Past Alcohol Use History: None Reported Past Drug Use History: None Reported General Exam - General Exam Comments Initial Comments: General: The patient is awake and alert, in no distress, and does not appear acutely ill. Eye: Pupils are equal, round and reactive to light, extra-ocular movements are intact. No nystagmus. There is normal conjunctiva bilaterally. No signs of icterus. Ears, nose, mouth and throat: There are moist mucous membranes and no oral lesions. Neck: The neck is supple, there is no tenderness or JVD. Cardiovascular: There is a regular rate and rhythm. No murmur, rub or gallop is appreciated. Respiratory: Lungs are clear to auscultation, respirations are non-labored, breath sounds are equal. No wheezes, stridor, rales, or rhonchi. Gastrointestinal: Soft, non-distended, non-tender abdomen without masses or organomegaly noted. There is no rebound or guarding present. No CVA tenderness. Bowel sounds are unremarkable. Musculoskeletal: Normal ROM, no tenderness. Strength 5/5. Sensation intact. Pulses equal bilaterally 2+. Neurological: A&O x 3. CN II-XII intact, There are no obvious motor or sensory deficits. Coordination appears grossly intact. Speech is normal. Skin: Skin is warm and dry and no rashes or lesions are noted. Psychiatric: Cooperative, appropriate mood & affect, normal judgment. Limitations: no limitations Course Vital Signs 03/03/17 03/03/17 03/03/17 18:42 19:06 19:20 Temperature 98.8 F Pulse Rate 74 77 78 Respiratory 18 Rate Blood Pressure 136/65 O2 Sat by Pulse 100 Oximetry Medical Decision Making - Medical Decision Making Chest x-ray reviewed shows possible pneumonia. Patient will be started she states that she's been on Augmentin she felt that this worked well for which she had pneumonia in the past. She'll be given a prescription for Augmentin. She is advised to continue with her treatments at home. Her vitals are stable here in emergency room her oxygenation is 100% on room air. She was given a breathing treatment which does admit helped her some. She has breathing treatments at home she'll be given a prescription for updated prescription. Advised faulted family doctor return here to the emergency room over the next 2 days Disposition Clinical Impression: Acute bronchitis Disposition: HOME SELF-CARE Condition: Good Instructions: Upper Respiratory Infection (ED) Additional Instructions: Please use medication as discussed. Please follow-up with family doctor in the next 2 days of symptoms have not improved. Please return to emergency room if the symptoms increase or worsen or for any other concerns. Prescriptions: Albuterol Nebulized [Ventolin Nebulized] 2.5 mg INHALATION Q4H PRN 10 Days PRN Reason: Cough Amoxicillin/Potassium Clav [Augmentin 875-125 Tablet] 1 each PO Q12HR #20 tab guaiFENesin 400 mg PO Q4-6H #30 tablet Referrals: Kierra Gamble MD [Primary Care Provider] - 1-2 days Time of Disposition: 19:30
--- NOTE | 2017-03-03 19:16 | XR ---
EXAMINATION TYPE: XR chest 2V DATE OF EXAM: 03/03/2017 COMPARISON: 01/18/2017 HISTORY: Cough TECHNIQUE: Frontal and lateral views of the chest are obtained. FINDINGS: Heart and mediastinum are normal. Lungs are clear of consolidation. There is no heart fail ure. Bony thorax is intact. There is no sign of pleural effusion. IMPRESSION: No active cardiopulmonary disease.
[2017-03-03 19:20] VITALS: PULSE 78
== END 2017-03-03 19:46 | disposition home or self-care (01) ==
LOC: EC 18:24
DX: J20.9 Acute bronchitis, unspecified (principal); F20.9 Schizophrenia, unspecified; F31.9 Bipolar disorder, unspecified; F41.9 Anxiety disorder, unspecified; Z87.891 Personal history of nicotine dependence; Z79.899 Other long term (current) drug therapy; Z88.6 Allergy status to analgesic agent; Z88.8 Allergy status to other drugs, medicaments and biological substances
CPT/HCPCS: 71020; 94640; 99283

== ENCOUNTER 2017-03-11 08:00 | Emergency (ER) | payer MEDICARE, OTHER ==
[2017-03-11 08:08] VITALS: RESP 18
[2017-03-11] MEDS ORDERED: IPRATROPIUM-ALBUTEROL 3 ML NEB INHALATION STA (08:23)
--- NOTE | 2017-03-11 08:31 | ED ---
URI HPI - General Chief Complaint: Upper Respiratory Infection Stated Complaint: diff breathing,asthma Time Seen by Provider: 03/11/17 08:17 Source: patient, RN notes reviewed Mode of arrival: ambulatory Limitations: no limitations - History of Present Illness Initial Comments: 36-year-old female presents emergency Department chief complaint of cough congestion shortness of breath. Patient states since last week was seen in emergency department placed on antibiotics in hospital. Patient states she cannot take steroids as she states makes her breathing worse. Patient states that she has asthma and she's having some difficulty with it with warm water. Patient states this morning she was brushing her teeth, started gagging and had a coughing fit. Patient states on that she developed left rib pain. She denies any chest pain or palpitations. Patient states that she coughs so hard she felt like she broke her rib. Patient denies any nausea at the time but did have a vomiting episode with coughing. - Related Data Home Medications Medication Instructions Recorded Confirmed Carisoprodol [Soma] 350 mg PO HS PRN 09/24/16 01/18/17 HYDROcodone/APAP 10-325MG [[place] 1 tab PO BID PRN 09/24/16 01/18/17 10-325] QUEtiapine [SEROquel] 200 mg PO BID 09/24/16 01/18/17 lamoTRIgine [LaMICtal] 25 mg PO BID 09/24/16 01/18/17 Previous Rx's Medication Instructions Recorded Albuterol Nebulized [Ventolin 2.5 mg INHALATION Q4H PRN 10 Days 03/03/17 Nebulized] Amoxicillin/Potassium Clav 1 each PO Q12HR #20 tab 03/03/17 [Augmentin 875-125 Tablet] guaiFENesin 400 mg PO Q4-6H #30 tablet 03/03/17 Allergies Allergy/AdvReac Type Severity Reaction Status Date / Time methylprednisolone Allergy Anaphylaxis Verified 03/03/17 19:23 prednisone Allergy Anaphylaxis Verified 03/03/17 19:23 ibuprofen [From Motrin] AdvReac Nausea & Verified 03/03/17 19:23 Vomiting Review of Systems ROS Statement: Those systems with pertinent positive or pertinent negative responses have been documented in the HPI. ROS Other: All systems not noted in ROS Statement are negative. Past Medical History Past Medical History: Asthma, COPD Additional Past Medical History / Comment(s): bipolar, schizophrenia History of Any Multi-Drug Resistant Organisms: None Reported Past Surgical History: Section Past Psychological History: Anxiety, Bipolar, Depression, Schizophrenia Smoking Status: Former smoker Past Alcohol Use History: None Reported Past Drug Use History: None Reported General Exam Limitations: no limitations General appearance: alert, in no apparent distress Head exam: Present: atraumatic, normocephalic, normal inspection Eye exam: Present: normal appearance, PERRL, EOMI. Absent: scleral icterus, conjunctival injection, periorbital swelling ENT exam: Present: normal exam, normal oropharynx, mucous membranes moist, TM's normal bilaterally, normal external ear exam Neck exam: Present: normal inspection, full ROM. Absent: tenderness, meningismus, lymphadenopathy Respiratory exam: Present: wheezes (Faint expiratory). Absent: normal lung sounds bilaterally, respiratory distress, rales, rhonchi, stridor Cardiovascular Exam: Present: regular rate, normal rhythm, normal heart sounds. Absent: systolic murmur, diastolic murmur, rubs, gallop, clicks Neurological exam: Present: alert, oriented X3, CN II-XII intact, reflexes normal. Absent: motor sensory deficit Skin exam: Present: warm, dry, intact, normal color. Absent: rash Course Vital Signs 03/11/17 03/11/17 03/11/17 08:05 08:57 09:07 Temperature 98.1 F Pulse Rate 72 64 64 Respiratory 18 Rate Blood Pressure 113/53 O2 Sat by Pulse 100 Oximetry Medical Decision Making - Medical Decision Making 36-year-old male presented for cough congestion as well issues. Patient is improved after DuoNeb treatment. Patient's EKG does not show acute abnormality' s and chest x-ray is within normal limits. Patient is ALLERGIC to steroids per patient. Patient will continue albuterol treatments at home. Disposition Clinical Impression: Asthmatic bronchitis Disposition: HOME SELF-CARE Condition: Stable Instructions: Upper Respiratory Infection (ED) Additional Instructions: Continue albuterol treatments at home as directed.Please return to the Emergency Department if symptoms worsen or any other concerns. Referrals: Kierra Gamble MD [Primary Care Provider] - 1-2 days Time of Disposition: 09:44
--- NOTE | 2017-03-11 09:00 | XR ---
EXAMINATION TYPE: XR chest 2V DATE OF EXAM: 03/11/2017 HISTORY: Pain. REFERENCE: Previous study dated 03/03/2017. FINDINGS: The lungs are clear. Pleural spaces are clear. Heart size is normal. IMPRESSION: NO ACUTE INTRATHORACIC ABNORMALITY.
[2017-03-11 09:55] VITALS: BP 93/57; PULSE 58; TEMP 97.6
== END 2017-03-11 10:12 | disposition home or self-care (01) ==
LOC: EC 08:00
DX: J45.909 Unspecified asthma, uncomplicated (principal); F20.9 Schizophrenia, unspecified; F31.9 Bipolar disorder, unspecified; Z87.891 Personal history of nicotine dependence; Z79.899 Other long term (current) drug therapy; Z88.6 Allergy status to analgesic agent; Z88.8 Allergy status to other drugs, medicaments and biological substances
CPT/HCPCS: 71020; 93005; 94640; 99283

== ENCOUNTER 2017-06-24 07:54 | Emergency (ER) | payer MEDICARE, OTHER ==
[2017-06-24 07:59] VITALS: RESP 16
[2017-06-24] MEDS ORDERED: IPRATROPIUM-ALBUTEROL 3 ML NEB INHALATION STA (08:11)
[2017-06-24] MEDS ORDERED: ACETAMINOPHEN TAB 500 MG TAB PO STA (08:12)
[2017-06-24] MEDS ORDERED: IBUPROFEN 600 MG STARTER PACK 4 TAB BTL PO STA (08:13)
--- NOTE | 2017-06-24 08:15 | ED ---
URI HPI - General Chief Complaint: Upper Respiratory Infection Stated Complaint: Anxiety-cough Time Seen by Provider: 06/24/17 08:00 Source: patient, RN notes reviewed, old records reviewed Mode of arrival: ambulatory Limitations: no limitations - History of Present Illness Initial Comments: This is a 36-year-old female presents emergency Department with her son chief complaint of 1 day of cough, and shortness of breath. Patient reports that she was having difficulty breathing due to coughing at home, is caused her to have an anxiety attack. She reports that that made her breathing worse. She states that she has not had any fevers. She started with a runny nose 2 days ago. She reports that a child at her daycare has similar symptoms. Patient reports she is not taking any Motrin Tylenol. She reports that she takes Daypro she has a sharp pain in her chest. She states that she has a nonproductive cough. Denies any nausea or vomiting or abdominal pain. - Related Data Home Medications Medication Instructions Recorded Confirmed Carisoprodol [Soma] 350 mg PO HS PRN 09/24/16 01/18/17 HYDROcodone/APAP 10-325MG [[place] 1 tab PO BID PRN 09/24/16 01/18/17 10-325] QUEtiapine [SEROquel] 200 mg PO BID 09/24/16 01/18/17 lamoTRIgine [LaMICtal] 25 mg PO BID 09/24/16 01/18/17 Previous Rx's Medication Instructions Recorded Albuterol Inhaler [Ventolin Hfa 1 - 2 puff INHALATION Q6HR PRN #1 06/24/17 Inhaler] inhaler Azithromycin [Zithromax Z-pack] 250 mg PO DIRECTED #6 tab 06/24/17 Fluconazole [Diflucan] 150 mg PO ONCE #2 tab 06/24/17 Ibuprofen [Motrin] 800 mg PO TID #20 tab 06/24/17 Pseudoephedrine HCl 120 mg PO BID #20 tablet.er 06/24/17 [Pseudoephedrine ER] Allergies Allergy/AdvReac Type Severity Reaction Status Date / Time methylprednisolone Allergy Anaphylaxis Verified 06/24/17 07:59 prednisone Allergy Anaphylaxis Verified 06/24/17 07:59 ibuprofen [From Motrin] AdvReac Nausea & Verified 06/24/17 07:59 Vomiting Review of Systems ROS Statement: Those systems with pertinent positive or pertinent negative responses have been documented in the HPI. ROS Other: All systems not noted in ROS Statement are negative. Past Medical History Past Medical History: Asthma, COPD Additional Past Medical History / Comment(s): bipolar, schizophrenia History of Any Multi-Drug Resistant Organisms: None Reported Past Surgical History: Section Past Psychological History: Anxiety, Bipolar, Depression, Schizophrenia Smoking Status: Former smoker Past Alcohol Use History: None Reported Past Drug Use History: None Reported General Exam - General Exam Comments Initial Comments: This is a 36 year old female, no distress. Limitations: no limitations General appearance: alert, in no apparent distress Head exam: Present: atraumatic, normocephalic, normal inspection Eye exam: Present: normal appearance, PERRL, EOMI. Absent: scleral icterus, conjunctival injection, periorbital swelling ENT exam: Present: normal exam, mucous membranes moist, other (Sinus congestion) Neck exam: Present: normal inspection. Absent: tenderness, meningismus, lymphadenopathy Respiratory exam: Present: normal lung sounds bilaterally, other (Productive cough). Absent: respiratory distress, wheezes, rales, rhonchi, stridor Cardiovascular Exam: Present: regular rate, normal rhythm, normal heart sounds. Absent: systolic murmur, diastolic murmur, rubs, gallop, clicks GI/Abdominal exam: Present: soft Extremities exam: Present: normal inspection, full ROM, normal capillary refill. Absent: tenderness, pedal edema, joint swelling, calf tenderness Back exam: Present: normal inspection Neurological exam: Present: alert, oriented X3, CN II-XII intact Psychiatric exam: Present: normal affect, normal mood Skin exam: Present: warm, dry, intact, normal color. Absent: rash Course Vital Signs 06/24/17 06/24/17 06/24/17 07:55 08:35 08:45 Temperature 98.9 F Pulse Rate 87 88 88 Respiratory 16 Rate Blood Pressure 110/63 O2 Sat by Pulse 100 Oximetry 06/24/17 06/24/17 09:47 09:49 Temperature 98.7 F 98.7 F Pulse Rate 80 80 Respiratory 16 16 Rate Blood Pressure 139/72 139/72 O2 Sat by Pulse 98 98 Oximetry Medical Decision Making - Medical Decision Making 28-year-old female presents today chief complaint of difficulty in breathing due to sinus congestion and cough. Patient has no wheezing at this time. Lungs are clear. She states that she's was somewhat anxious when this all started. Patient's influenza testing is negative. Patient given Tylenol for body aches. Patient chest x-ray was reviewed and negative for any acute process. Questionable borderline cardiomegaly. Patient informed of this. Denies any pain at this time, no peripheral edema. Discussed patient likely has bronchitis, discussed dosing this steroids, and breathing treatments with albuterol inhaler. Patient reports he does not like how steroids field. Will discharge patient with azithromycin for bronchitis, pseudophed and albuterol inhaler. Patient agrees treatment plan will comply. Return parameters were discussed. Patient requests Diflucan for antibiotic prescription to use after. She reports she freely gets yeast infections. - Lab Data Lab Results 06/24/17 Range/Units 08:12 Influenza Type A RNA Not Detected (Not Detectd) Influenza Type B (PCR) Not Detected (Not Detectd) - Radiology Data Radiology results: report reviewed CXR shows borderline cardiomegaly. Disposition Clinical Impression: URI (upper respiratory infection), Shortness of breath Disposition: HOME SELF-CARE Condition: Good Instructions: Upper Respiratory Infection (ED) Additional Instructions: Patient is alternate between Motrin and Tylenol. Patient should take the decongestant medication as well as use your albuterol inhaler. start Antibiotic if symptoms continue to persist after 2-3 more days. Follow-up with your primary care provider within next 2-3 days if symptoms continue to persist. Prescriptions: Albuterol Inhaler [Ventolin Hfa Inhaler] 1 - 2 puff INHALATION Q6HR PRN #1 inhaler PRN Reason: Shortness Of Breath Azithromycin [Zithromax Z-pack] 250 mg PO DIRECTED #6 tab Fluconazole [Diflucan] 150 mg PO ONCE #2 tab Ibuprofen [Motrin] 800 mg PO TID #20 tab Pseudoephedrine HCl [Pseudoephedrine ER] 120 mg PO BID #20 tablet.er Referrals: Kierra Gamble MD [Primary Care Provider] - 1-2 days Time of Disposition: 09:10
--- NOTE | 2017-06-24 09:38 | XR ---
EXAMINATION TYPE: XR chest 2V DATE OF EXAM: 06/24/2017 HISTORY: Difficulty breathing. REFERENCE: Previous study dated 03/11/2017. FINDINGS: The lungs remain clear. Heart size is upper limits of normal. Pleural spaces are clear. IMPRESSION: BORDERLINE CARDIOMEGALY.
[2017-06-24 09:50] VITALS: BP 139/72; PULSE 80; TEMP 98.7
== END 2017-06-24 09:47 | disposition home or self-care (01) ==
LOC: EC 07:54
DX: J06.9 Acute upper respiratory infection, unspecified (principal); R07.9 Chest pain, unspecified; J44.9 Chronic obstructive pulmonary disease, unspecified; F20.9 Schizophrenia, unspecified; F31.9 Bipolar disorder, unspecified; Z87.891 Personal history of nicotine dependence; Z79.899 Other long term (current) drug therapy; Z88.6 Allergy status to analgesic agent; Z88.8 Allergy status to other drugs, medicaments and biological substances
CPT/HCPCS: 71046; 87502; 94640; 99284

== ENCOUNTER 2017-07-15 23:31 | Emergency (ER) | payer MEDICARE, OTHER ==
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
--- NOTE | 2017-07-16 01:08 | CT ---
EXAM: CT Head Without Intravenous Contrast CLINICAL HISTORY: Reason: Pain TECHNIQUE: Axial computed tomography images of the head/brain without intravenous contrast. CTDI is 57.4 mGy and DLP 1047.1 is mGy-cm. This CT exam was performed using one or more of the following dose reduction techniques: automated exposure control, adjustment of the mA and/or kV according to patient size, and/or use of iterative reconstruction technique. COMPARISON: No relevant prior studies available. FINDINGS: Brain: Unremarkable. No hemorrhage. No significant white matter disease. No edema. Ventricles: Unremarkable. No ventriculomegaly. Bones/joints: Unremarkable. No acute fracture. Soft tissues: Unremarkable. Sinuses: Unremarkable as visualized. No acute sinusitis. Mastoid air cells: Unremarkable as visualized. No mastoid effusion. IMPRESSION: No acute intracranial abnormality. EXAM: CT Cervical Spine Without Intravenous Contrast CLINICAL HISTORY: Reason: Pain TECHNIQUE: Axial computed tomography images of the cervical spine without intravenous contrast. CTDI is 18 mGy and DLP is 366.6 mGy-cm. This CT exam was performed using one or more of the following dose reduction techniques: automated exposure control, adjustment of the mA and/or kV according to patient size, and/or use of iterative reconstruction technique. COMPARISON: No relevant prior studies available. FINDINGS: Vertebrae: Straightening of the cervical spine. No acute fracture. Discs/spinal canal/neural foramina: No acute findings. No spinal canal stenosis. Soft tissues: Unremarkable. Lung apices: Unremarkable as visualized. IMPRESSION: No acute fracture or subluxation. Straightening of the cervical spine may be due to patient positioning versus muscle spasm.
--- NOTE | 2017-07-16 01:19 | XR ---
ADDENDUM - Added by Manjinder Schmidt MD on 07/16/2017 1:21 AM (-08:00) Addendum: Above order is for the lumbar spine. Please disregard thoracic spine report. Impression: There are 5 [id number] lumbar-type vertebral bodies. Lumbar vertebral body alignment is normal. No evidence of fracture or osseous malalignment. Soft tissues grossly unremarkable. EXAM: XR Thoracic Spine, 3 Views CLINICAL HISTORY: Reason: Pain TECHNIQUE: Frontal, lateral and swimmer's views of the thoracic spine. COMPARISON: No relevant prior studies available. FINDINGS: Vertebrae: Unremarkable. No acute fracture. Normal alignment. Disc spaces: No acute findings. No significant narrowing. Soft tissues: Unremarkable. IMPRESSION: Normal thoracic spine x-rays.
--- NOTE | 2017-07-16 01:22 | XR ---
EXAM: XR Thoracic Spine, 3 Views CLINICAL HISTORY: Reason: Pain TECHNIQUE: Frontal, lateral and swimmer's views of the thoracic spine. COMPARISON: No relevant prior studies available. FINDINGS: Vertebrae: Unremarkable. No acute fracture. Normal alignment. Disc spaces: No acute findings. No significant narrowing. Soft tissues: Unremarkable. IMPRESSION: Normal thoracic spine x-rays.
[2017-07-16 02:58] VITALS: BP 138/70; PULSE 73; RESP 16; TEMP 98.3
== END 2017-07-16 02:57 | disposition home or self-care (01) ==
LOC: EC 23:31
DX: S16.1XXA Strain of muscle, fascia and tendon at neck level, initial encounter (principal); M54.9 Dorsalgia, unspecified; F20.9 Schizophrenia, unspecified; F31.9 Bipolar disorder, unspecified; Z87.891 Personal history of nicotine dependence; Z79.899 Other long term (current) drug therapy; Z88.6 Allergy status to analgesic agent; Z88.8 Allergy status to other drugs, medicaments and biological substances; V48.5XXA Car driver injured in noncollision transport accident in traffic accident, initial encounter; Y93.89 Activity, other specified; Y92.410 Unspecified street and highway as the place of occurrence of the external cause
CPT/HCPCS: 70450; 72072; 72100; 72125; 99285

== ENCOUNTER 2017-10-01 20:34 | Emergency (ER) | payer MEDICARE, OTHER ==
--- NOTE | 2017-10-01 20:57 | ED ---
Lower Extremity Injury HPI - General Chief Complaint: Extremity Injury, Lower Stated Complaint: ankle pain Time Seen by Provider: 10/01/17 20:47 Source: patient, RN notes reviewed, old records reviewed Mode of arrival: ambulatory Limitations: no limitations - History of Present Illness Initial Comments: This patient is a 37-year-old female chief complaint of left medial ankle and proximal foot pain for the past week. She reports that she may have injured this while she was at work she is not sure of the specific injury. Patient reports that she feels like her ankle is swollen and warm to touch. She denies any fever or chills. No cuts or lacerations. She also complains of irritation of her left great toenail. She reports she removed it because her toenail was thickened and falling off, and "ugly" today. Patient reports is painful to walk on her foot. Patient denies any recent fever, chills, shortness of breath , chest pain, back pain, abdominal pain, nausea vomiting, numbness or tingling, dysuria or hematuria, constipation or diarrhea, headaches or visual changes, or any other current symptoms - Related Data Home Medications Medication Instructions Recorded Confirmed Carisoprodol [Soma] 350 mg PO HS PRN 09/24/16 01/18/17 HYDROcodone/APAP 10-325MG [[place] 1 tab PO BID PRN 09/24/16 01/18/17 10-325] QUEtiapine [SEROquel] 200 mg PO BID 09/24/16 01/18/17 lamoTRIgine [LaMICtal] 25 mg PO BID 09/24/16 01/18/17 Previous Rx's Medication Instructions Recorded Albuterol Inhaler [Ventolin Hfa 1 - 2 puff INHALATION Q6HR PRN #1 06/24/17 Inhaler] inhaler Azithromycin [Zithromax Z-pack] 250 mg PO DIRECTED #6 tab 06/24/17 Fluconazole [Diflucan] 150 mg PO ONCE #2 tab 06/24/17 Ibuprofen [Motrin] 800 mg PO TID #20 tab 06/24/17 Pseudoephedrine HCl 120 mg PO BID #20 tablet.er 06/24/17 [Pseudoephedrine ER] HYDROcodone/APAP 5-325MG [[place] 1 tab PO Q6HR PRN #12 tab 07/16/17 5-325] Ibuprofen 600 mg PO TID #30 tablet 10/01/17 traMADol HCl [Ultram] 50 mg PO QID PRN #10 tab 10/01/17 Allergies Allergy/AdvReac Type Severity Reaction Status Date / Time methylprednisolone Allergy Anaphylaxis Verified 10/01/17 20:40 prednisone Allergy Anaphylaxis Verified 10/01/17 20:40 ibuprofen [From Motrin] AdvReac Nausea & Verified 10/01/17 20:40 Vomiting Review of Systems ROS Statement: Those systems with pertinent positive or pertinent negative responses have been documented in the HPI. ROS Other: All systems not noted in ROS Statement are negative. Past Medical History Past Medical History: Asthma, COPD Additional Past Medical History / Comment(s): bipolar, schizophrenia History of Any Multi-Drug Resistant Organisms: None Reported Past Surgical History: Section Past Psychological History: Anxiety, Bipolar, Depression, Schizophrenia Smoking Status: Former smoker Past Alcohol Use History: None Reported Past Drug Use History: None Reported General Exam - General Exam Comments Initial Comments: 37-year-old female. No distress. Limitations: no limitations General appearance: alert, in no apparent distress Head exam: Present: atraumatic, normocephalic, normal inspection Eye exam: Present: normal appearance, PERRL, EOMI. Absent: scleral icterus, conjunctival injection, periorbital swelling ENT exam: Present: normal exam, mucous membranes moist Neck exam: Present: normal inspection. Absent: tenderness, meningismus, lymphadenopathy Respiratory exam: Present: normal lung sounds bilaterally. Absent: respiratory distress, wheezes, rales, rhonchi, stridor Left Knee exam: Present: normal inspection, full ROM Lower Leg exam: Present: normal inspection, full ROM Ankle exam: Present: tenderness, swelling (medial malleolus). Absent: normal inspection Foot/Toe exam: Present: normal inspection, full ROM, nail avulsion (First great toenail avulsion due to significant thickened toenail due to fungus.) Neurovascular tendon exam: Present: no vascular compromise Gait: observed and normal Back exam: Present: normal inspection Neurological exam: Present: alert, oriented X3, CN II-XII intact Psychiatric exam: Present: normal affect, normal mood Skin exam: Present: warm, dry, intact, normal color. Absent: rash Course Vital Signs 10/01/17 20:38 Temperature 98.9 F Pulse Rate 72 Respiratory 20 Rate Blood Pressure 114/73 O2 Sat by Pulse 100 Oximetry Procedures - Orthopedic Splinting/Casting Injury #1 Side: left Lower Extremity Injury Location: ankle Lower Extremity Immobilizer: AirCast, Christo wrap Additional Comments: Patient is neurovascularly intact. Medical Decision Making - Medical Decision Making 37-year-old female chief complaint of left ankle pain and swelling. Patient has some tenderness over the medial malleolus and some swelling noted. She also ripped off her great toenail due to fungal infection and falling off. Patient informed of the sinuses difficult to treat toenail infections. She can follow-up with podiatry. Her x-rays of her foot and ankle reviewed and normal. Discussed she could likely aspirated or has some tendinitis. We'll start the patient on anti-inflammatory medication and given Christo wrap and ankle stirrup splint. We'll have the patient follow-up with software applications specialist as well as symptoms are continuing to persist. All questions answered and return parameters were discussed. Disposition Clinical Impression: Left ankle pain, Tendinitis, Toenail fungus Disposition: HOME SELF-CARE Condition: Good Instructions: Ankle Sprain (ED) Additional Instructions: Rest, ice, and elevate the ankle. Patient should take anti-inflammatory medication. Wear the Christo wrap and use the ankle stirrup splint while ambulating. Follow-up with orthopedic if symptoms are continuing to persist. Also recommended following up with podiatry in regards to condition of toenails. Prescriptions: Ibuprofen 600 mg PO TID #30 tablet traMADol HCl [Ultram] 50 mg PO QID PRN #10 tab PRN Reason: Pain Referrals: Kierra Gamble MD [Primary Care Provider] - 1-2 days Yhair Núñez MD [STAFF PHYSICIAN] - 1-2 days Viet Aguilar DPM [STAFF PHYSICIAN] - 1-2 days Time of Disposition: 21:34
--- NOTE | 2017-10-01 21:19 | XR ---
EXAMINATION TYPE: XR ankle complete 3 views LT, XR foot complete 3 views LT DATE OF EXAM: 10/01/2017 COMPARISON: NONE HISTORY: 37-year-old female with pain FINDINGS: Ankle: Ankle mortise is congruent with preservation of the distal tibiofibular overlap. Mild anterior soft t issue swelling. No acute fracture, subluxation, or dislocation. Subtalar joint is aligned. Foot: No acute fracture, subluxation, or dislocation. Joint spaces throughout are maintained. IMPRESSION: Ankle and foot without acute osseous abnormality seen.
--- NOTE | 2017-10-01 21:45 | ED ---
Disposition Clinical Impression: Left ankle pain, Tendinitis, Toenail fungus Disposition: HOME SELF-CARE Condition: Good Instructions: Ankle Sprain (ED) Additional Instructions: Rest, ice, and elevate the ankle. Patient should take anti-inflammatory medication. Wear the Christo wrap and use the ankle stirrup splint while ambulating. Follow-up with orthopedic if symptoms are continuing to persist. Also recommended following up with podiatry in regards to condition of toenails. Prescriptions: Ibuprofen 600 mg PO TID #30 tablet Terbinafine 1% Cream [LamISIL] 1 applic TOPICAL BID #1 tube traMADol HCl [Ultram] 50 mg PO QID PRN #10 tab PRN Reason: Pain Referrals: Kierra Gamble MD [Primary Care Provider] - 1-2 days Viet Aguilar DPM [STAFF PHYSICIAN] - 1-2 days Yahir Núñez MD [STAFF PHYSICIAN] - 1-2 days Time of Disposition: 21:44
[2017-10-01 21:48] VITALS: BP 135/77; PULSE 77; RESP 16; TEMP 98.6
== END 2017-10-01 21:47 | disposition home or self-care (01) ==
LOC: EC 20:34
DX: M77.9 Enthesopathy, unspecified (principal); B35.1 Tinea unguium; F20.9 Schizophrenia, unspecified; F32.9 Major depressive disorder, single episode, unspecified; Z87.891 Personal history of nicotine dependence; Z79.899 Other long term (current) drug therapy; Z88.8 Allergy status to other drugs, medicaments and biological substances; Z88.6 Allergy status to analgesic agent
CPT/HCPCS: 99284; 29515; 73610; 73630; L4350

== ENCOUNTER 2018-01-15 13:24 | Emergency (ER) | payer MEDICARE, OTHER ==
[2018-01-15 14:17] VITALS: RESP 18
--- NOTE | 2018-01-15 15:49 | ED ---
General Adult HPI - General Chief complaint: Abdominal Pain Stated complaint: upset stomach Time Seen by Provider: 01/15/18 15:09 Source: patient, RN notes reviewed, old records reviewed Mode of arrival: ambulatory Limitations: no limitations - History of Present Illness Initial comments: This is a 36-year-old female the ER for evaluation of bowel pain. Patient is nonspecific abdominal pain both suprapubic epigastric abdominal pain. Patient is calm patient states pain is go for over week. She does have a medical history of positive surgery , no takes no medication refill basis no modifying factors for symptoms. No nausea no vomiting, a few bouts of loose stools. - Related Data Home Medications Medication Instructions Recorded Confirmed Albuterol Inhaler [Ventolin Hfa 1 - 2 puff INHALATION RT-Q6H PRN 01/15/18 Inhaler] Allergies Allergy/AdvReac Type Severity Reaction Status Date / Time methylprednisolone Allergy Anaphylaxis Verified 01/15/18 15:50 prednisone Allergy Anaphylaxis Verified 01/15/18 15:50 ibuprofen [From Motrin] AdvReac Nausea & Verified 01/15/18 15:50 Vomiting Review of Systems ROS Statement: Those systems with pertinent positive or pertinent negative responses have been documented in the HPI. ROS Other: All systems not noted in ROS Statement are negative. Past Medical History Past Medical History: Asthma, COPD Additional Past Medical History / Comment(s): bipolar, schizophrenia History of Any Multi-Drug Resistant Organisms: None Reported Past Surgical History: Section Past Psychological History: Anxiety, Bipolar, Depression, Schizophrenia Smoking Status: Former smoker Past Alcohol Use History: None Reported Past Drug Use History: None Reported General Exam Limitations: no limitations General appearance: alert, in no apparent distress, obese Head exam: Present: atraumatic, normocephalic, normal inspection Eye exam: Present: normal appearance, PERRL, EOMI. Absent: scleral icterus, conjunctival injection, periorbital swelling ENT exam: Present: normal exam, mucous membranes moist Neck exam: Present: normal inspection. Absent: tenderness, meningismus, lymphadenopathy Respiratory exam: Present: normal lung sounds bilaterally. Absent: respiratory distress, wheezes, rales, rhonchi, stridor Cardiovascular Exam: Present: regular rate, normal rhythm, normal heart sounds. Absent: systolic murmur, diastolic murmur, rubs, gallop, clicks GI/Abdominal exam: Present: soft, normal bowel sounds. Absent: distended, tenderness, guarding, rebound, rigid Extremities exam: Present: normal inspection, full ROM, normal capillary refill. Absent: tenderness, pedal edema, joint swelling, calf tenderness Back exam: Present: normal inspection Neurological exam: Present: alert, oriented X3, CN II-XII intact Psychiatric exam: Present: normal affect, normal mood Skin exam: Present: warm, dry, intact, normal color. Absent: rash Course Vital Signs 01/15/18 14:14 Temperature 98.5 F Pulse Rate 74 Respiratory 18 Rate Blood Pressure 118/70 O2 Sat by Pulse 99 Oximetry - Reevaluation(s) Reevaluation #1: 01/15/18 17:54 Medical records reviewed and noncontributory Medical Decision Making - Medical Decision Making 37 female the ER for bowel pain normal lab tests, patient with nonspecific abdominal tenderness ultrasound is negative of pelvis, patient has urinary tract infection we'll treat appropriately with antibiotics and discharged home - Lab Data Result diagrams: 01/15/18 16:35 01/15/18 16:35 Lab Results 01/15/18 01/15/18 01/15/18 Range/Units 16:30 16:30 16:35 WBC 4.0 (3.8-10.6) k/uL RBC 4.51 (3.80-5.40) m/uL Hgb 12.8 (11.4-16.0) gm/dL Hct 39.8 (34.0-46.0) % MCV 88.3 (80.0-100.0) fL MCH 28.4 (25.0-35.0) pg MCHC 32.1 (31.0-37.0) g/dL RDW 13.5 (11.5-15.5) % Plt Count 247 (150-450) k/uL Neutrophils % 54 % Lymphocytes % 36 % Monocytes % 7 % Eosinophils % 1 % Basophils % 0 % Neutrophils # 2.2 (1.3-7.7) k/uL Lymphocytes # 1.5 (1.0-4.8) k/uL Monocytes # 0.3 (0-1.0) k/uL Eosinophils # 0.0 (0-0.7) k/uL Basophils # 0.0 (0-0.2) k/uL Sodium (137-145) mmol/L Potassium (3.5-5.1) mmol/L Chloride (98-107) mmol/L Carbon Dioxide (22-30) mmol/L Anion Gap mmol/L BUN (7-17) mg/dL Creatinine (0.52-1.04) mg/dL Est GFR (CKD-EPI)AfAm (>60 ml/min/1.73 sqM) Est GFR (CKD-EPI)NonAf (>60 ml/min/1.73 sqM) Glucose (74-99) mg/dL Calcium (8.4-10.2) mg/dL Total Bilirubin (0.2-1.3) mg/dL AST (14-36) U/L ALT (9-52) U/L Alkaline Phosphatase (38-126) U/L Total Protein (6.3-8.2) g/dL Albumin (3.5-5.0) g/dL Amylase (30-110) U/L Lipase (23-300) U/L Urine Color Light Yellow Urine Appearance Cloudy H (Clear) Urine pH 6.5 (5.0-8.0) Ur Specific [place] 1.009 (1.001-1.035) Urine Protein Trace H (Negative) Urine Glucose (UA) Negative (Negative) Urine Ketones Negative (Negative) Urine Blood Small H (Negative) Urine Nitrite Negative (Negative) Urine Bilirubin Negative (Negative) Urine Urobilinogen <2.0 (<2.0) mg/dL Ur Leukocyte Esterase Large H (Negative) Urine RBC 8 H (0-5) /hpf Urine WBC 34 H (0-5) /hpf Ur Squamous Epith Cells 22 H (0-4) /hpf Urine Bacteria Many H (None) /hpf Urine Mucus Occasional H (None) /hpf Urine HCG, Qual Not Detected (Not Detectd) 01/15/18 Range/Units 16:35 WBC (3.8-10.6) k/uL RBC (3.80-5.40) m/uL Hgb (11.4-16.0) gm/dL Hct (34.0-46.0) % MCV (80.0-100.0) fL MCH (25.0-35.0) pg MCHC (31.0-37.0) g/dL RDW (11.5-15.5) % Plt Count (150-450) k/uL Neutrophils % % Lymphocytes % % Monocytes % % Eosinophils % % Basophils % % Neutrophils # (1.3-7.7) k/uL Lymphocytes # (1.0-4.8) k/uL Monocytes # (0-1.0) k/uL Eosinophils # (0-0.7) k/uL Basophils # (0-0.2) k/uL Sodium 140 (137-145) mmol/L Potassium 4.6 (3.5-5.1) mmol/L Chloride 108 H (98-107) mmol/L Carbon Dioxide 23 (22-30) mmol/L Anion Gap 9 mmol/L BUN 11 (7-17) mg/dL Creatinine 0.60 (0.52-1.04) mg/dL Est GFR (CKD-EPI)AfAm >90 (>60 ml/min/1.73 sqM) Est GFR (CKD-EPI)NonAf >90 (>60 ml/min/1.73 sqM) Glucose 80 (74-99) mg/dL Calcium 9.3 (8.4-10.2) mg/dL Total Bilirubin 0.4 (0.2-1.3) mg/dL AST 29 (14-36) U/L ALT 22 (9-52) U/L Alkaline Phosphatase 52 (38-126) U/L Total Protein 7.8 (6.3-8.2) g/dL Albumin 4.2 (3.5-5.0) g/dL Amylase 63 (30-110) U/L Lipase 45 (23-300) U/L Urine Color Urine Appearance (Clear) Urine pH (5.0-8.0) Ur Specific [place] (1.001-1.035) Urine Protein (Negative) Urine Glucose (UA) (Negative) Urine Ketones (Negative) Urine Blood (Negative) Urine Nitrite (Negative) Urine Bilirubin (Negative) Urine Urobilinogen (<2.0) mg/dL Ur Leukocyte Esterase (Negative) Urine RBC (0-5) /hpf Urine WBC (0-5) /hpf Ur Squamous Epith Cells (0-4) /hpf Urine Bacteria (None) /hpf Urine Mucus (None) /hpf Urine HCG, Qual (Not Detectd) - Radiology Data Radiology results: report reviewed (Ultrasound pelvis is negative), image reviewed Disposition Clinical Impression: Abdominal pain, UTI (urinary tract infection) Disposition: HOME SELF-CARE Condition: Good Instructions: Abdominal Pain (ED), Urinary Tract Infection in Women (ED) Is patient prescribed a controlled substance at d/c from ED?: No Referrals: Kierra Gamble MD [Primary Care Provider] - 1-2 days
[2018-01-15] MEDS ORDERED: SODIUM CHLORIDE 0.9% 1,000 ML IV STA (16:14)
[2018-01-15 16:52] LABS: Appearance,Urine Cloudy (Clear); Bacteria,Urine Many /hpf; Bilirubin,Urine Negative (Negative); Blood,Urine Small (Negative); Color,Urine Light Yellow; Glucose,Urine (UA) Negative (Negative); Ketones,Urine Negative (Negative); Leukocyte Esterase,Urine Large (Negative); Mucus,Urine Occasional /hpf; Nitrite,Urine Negative (Negative); PH, Urine 6.5 (5.0-8.0); Protein,Urine Trace (Negative); RBC,Urine 8 /hpf (0-5); Specific Gravity,Urine 1.009 (1.001-1.035); Squamous Epithelial Cell,Urine 22 /hpf (0-4); Urobilinogen,Urine <2.0 mg/dL (<2.0); WBC,Urine 34 /hpf (0-5)
[2018-01-15] MEDS ORDERED: cefTRIAXone 250 MG VIAL IM STA (17:00)
[2018-01-15 17:51] LABS: Basophils % (A) 0 %; Eosinophils % (A) 1 %; HCT 39.8 % (34.0-46.0); HGB 12.8 gm/dL (11.4-16.0); Lymphocytes # (A) 1.5 k/uL (1.0-4.8); Lymphocytes % (A) 36 %; MCH 28.4 pg (25.0-35.0); MCHC 32.1 g/dL (31.0-37.0); MCV 88.3 fL (80.0-100.0); Mean Platelet Volume 9.9; Monocytes # (A) 0.3 k/uL (0-1.0); Monocytes % (A) 7 %; Neutrophils # (A) 2.2 k/uL (1.3-7.7); Neutrophils % (A) 54 %; Platelet Count 247 k/uL (150-450); RBC 4.51 m/uL (3.80-5.40); RDW 13.5 % (11.5-15.5)
[2018-01-15 18:06] LABS: ALT 22 U/L (9-52); AST 29 U/L (14-36); Albumin 4.2 g/dL (3.5-5.0); Alkaline Phosphatase 52 U/L (38-126); Amylase 63 U/L (30-110); Anion Gap 9 mmol/L; Blood Urea Nitrogen 11 mg/dL (7-17); Calcium 9.3 mg/dL (8.4-10.2); Carbon Dioxide 23 mmol/L (22-30); Chloride 108 mmol/L (98-107); Glucose 80 mg/dL (74-99); Lipase 45 U/L (23-300); Potassium 4.6 mmol/L (3.5-5.1); Sodium 140 mmol/L (137-145); Total Bilirubin 0.4 mg/dL (0.2-1.3); Total Protein 7.8 g/dL (6.3-8.2)
--- NOTE | 2018-01-15 18:20 | US ---
EXAMINATION TYPE: US transvaginal DATE OF EXAM: 01/15/2018 COMPARISON: Ultrasound 01/05/2016 CLINICAL HISTORY: Pain. TECHNIQUE: Transvaginal sonographic images were acquired. EXAM MEASUREMENTS: Uterus: 8.3 x 4.4 x 4.5 cm Endometrial Stripe: 0.4 cm Right Ovary: 3.2 x 2.4 x 2.3 cm Left Ovary: Obscured by overlying bowel gas 1. Uterus: Anteverted; myometrial leiomyoma noted, measuring 1.3 x 1.4 x 1.2cm. 2. Endometrium: wnl 3. Right Ovary: wnl 4. Left Ovary: Obscured by overlying bowel gas; no left axilla mass was encountered. Spectral, color and waveform doppler imaging shows good arterial and venous flow within the right o vary; there is no evidence for ovarian torsion on right. Left ovary could not be evaluated. 5. Bilateral Adnexa: wnl 6. Posterior cul-de-sac: wnl IMPRESSION: 1. NO ACUTE SONOGRAPHIC PROCESS. 2. Note: left ovary not visualized.
[2018-01-15 19:08] VITALS: BP 112/70; PULSE 76; TEMP 98.6
[2018-01-17 14:18] LABS: C. trachomatis,PCR Negative (Neg,Equiv); Chlamydia trachomatis Source Urine; N. gonorrhoeae,PCR Negative (Neg,Equiv); Neisseria Source Urine
== END 2018-01-15 19:10 | disposition home or self-care (01) ==
LOC: EC 13:24
DX: N39.0 Urinary tract infection, site not specified (principal); R10.31 Right lower quadrant pain; J44.9 Chronic obstructive pulmonary disease, unspecified; Z87.891 Personal history of nicotine dependence; Z88.8 Allergy status to other drugs, medicaments and biological substances; Z88.6 Allergy status to analgesic agent; Z53.20 Procedure and treatment not carried out because of patient's decision for unspecified reasons
CPT/HCPCS: 36415; 76830; 80053; 81001; 81025; 82150; 83690; 85025; 87086; 87491; 87591; 93976; 99284

== ENCOUNTER 2018-01-25 23:10 | Emergency (ER) | payer MEDICARE, OTHER ==
[2018-01-25 23:19] VITALS: RESP 18
[2018-01-25] MEDS ORDERED: ONDANSETRON 4 MG/2 ML VIAL IVP STA (23:44)
[2018-01-25] MEDS ORDERED: MORPHINE SULFATE 2 MG/ML SYRINGE IVP STA (23:44)
[2018-01-25] MEDS ORDERED: SODIUM CHLORIDE 0.9% 1,000 ML IV STA (23:44)
--- NOTE | 2018-01-26 00:14 | ED ---
General Adult HPI - General Chief complaint: Urogenital Stated complaint: Back Pain, weakness Time Seen by Provider: 01/25/18 23:33 Source: patient Mode of arrival: ambulatory Limitations: no limitations - History of Present Illness Initial comments: 37-year-old female patient presents the emergency department today for evaluation of low back pain that radiates to her abdomen, feeling "weird", and unbalanced. Patient states that she's been feeling like this for the last week or so. States that her pain starts in the low back and "shoots" around to the abdomen, present on both sides, but worse on the right. States that she was seen and evaluated here on 01/15/2018 was diagnosed with urinary tract infection. States that she started taking antibiotics but they made her feel worse. States that she saw her primary care physician who told her she would give her a new antibiotic but she never did. Patient states that she has intermittent nausea and vomiting with this. States that she has felt chilled but has not checked her temperature. Denies any diarrhea but states she has been constipated which is not unusual for her. Patient denies any recent rash, shortness breath, chest pain, numbness, tingling, dizziness, weakness, hematuria , dysuria, urinary urgency, urinary frequency, headache, visual changes, or any other complaints. - Related Data Home Medications Medication Instructions Recorded Confirmed Albuterol Inhaler [Ventolin Hfa 1 - 2 puff INHALATION RT-Q6H PRN 01/15/18 Inhaler] Previous Rx's Medication Instructions Recorded Doxycycline Monohydrate [Monodox] 100 mg PO Q12HR #14 cap 01/15/18 Allergies Allergy/AdvReac Type Severity Reaction Status Date / Time methylprednisolone Allergy Anaphylaxis Verified 01/25/18 23:31 prednisone Allergy Anaphylaxis Verified 01/25/18 23:31 doxycycline AdvReac Nausea & Verified 01/25/18 23:31 Vomiting ibuprofen [From Motrin] AdvReac Nausea & Verified 01/25/18 23:31 Vomiting Review of Systems ROS Statement: Those systems with pertinent positive or pertinent negative responses have been documented in the HPI. ROS Other: All systems not noted in ROS Statement are negative. Past Medical History Past Medical History: Asthma, COPD Additional Past Medical History / Comment(s): bipolar, schizophrenia, UTI History of Any Multi-Drug Resistant Organisms: None Reported Past Surgical History: Section Past Psychological History: Anxiety, Bipolar, Depression, Schizophrenia Smoking Status: Former smoker Past Alcohol Use History: None Reported Past Drug Use History: None Reported General Exam Limitations: no limitations General appearance: alert, in no apparent distress, other (Well-developed, well- nourished adult female patient in no acute distress. Vital signs upon presentation are temperature 97.7F, pulse 85, respirations 18, blood pressure 96/67, pulse ox 100% on room air.) Eye exam: Present: normal appearance, PERRL, EOMI. Absent: scleral icterus, conjunctival injection, periorbital swelling ENT exam: Present: normal exam, normal oropharynx, mucous membranes moist Respiratory exam: Present: normal lung sounds bilaterally. Absent: respiratory distress, wheezes, rales, rhonchi, stridor Cardiovascular Exam: Present: regular rate, normal rhythm, normal heart sounds. Absent: systolic murmur, diastolic murmur, rubs, gallop, clicks GI/Abdominal exam: Present: soft, tenderness (Suprapubic tenderness, left lower quadrant tenderness.), normal bowel sounds. Absent: distended, guarding, rebound, rigid Back exam: Present: normal inspection, CVA tenderness (R), CVA tenderness (L) Neurological exam: Present: alert, oriented X3, CN II-XII intact, other ( Strength in all 4 extremities is 5/5.) Psychiatric exam: Present: normal affect, normal mood Skin exam: Present: warm, dry, intact, normal color. Absent: rash Course Vital Signs 01/25/18 01/26/18 01/26/18 23:15 01:47 03:15 Temperature 97.7 F 98.3 F Pulse Rate 85 75 Pulse Rate [ 83 Right Sitting Pulse Oximetery ] Pulse Rate [ 95 Right Standing Pulse Oximetery ] Pulse Rate [ 76 Right Supine Pulse Oximetery ] Respiratory 18 18 18 Rate Blood Pressure 96/67 105/71 Blood Pressure 96/54 [Right Arm Sitting] Blood Pressure 104/68 [Right Arm Standing] Blood Pressure 102/56 [Right Arm Supine] O2 Sat by Pulse 100 98 97 Oximetry EKG Findings - EKG Comments: EKG Findings:: EKG obtained at 00 24 shows normal sinus rhythm with a sinus arrhythmia. Ventricular rate is 67, FL interval 160, QRS duration 90, QT 396, QTC 418. No evidence of ST elevation or depression. Medical Decision Making - Medical Decision Making 37-year-old female patient presented to the emergency department today for complaints of feeling "weird and unbalanced". She was also complaining of low back pain that radiated to her abdomen. Physical examination was relatively unremarkable. Patient is neurologically intact. Orthostatic vital signs were obtained, patient did have blood pressures in the 90s over 50s while in the department. She was mildly orthostatic. She was given 1500 mL of fluid here in the department. She is feeling better at time of discharge. She refused all pain medications. She is instructed to follow-up with her primary care physician for recheck in 1-2 days. She is instructed to follow-up with gynecology as she has planned. Return parameters were discussed in detail. She verbalizes understanding and agrees with this plan. - Lab Data Result diagrams: 01/26/18 00:20 01/26/18 00:20 Lab Results 01/26/18 01/26/18 01/26/18 Range/Units 00:05 00:05 00:20 WBC (3.8-10.6) k/uL RBC (3.80-5.40) m/uL Hgb (11.4-16.0) gm/dL Hct (34.0-46.0) % MCV (80.0-100.0) fL MCH (25.0-35.0) pg MCHC (31.0-37.0) g/dL RDW (11.5-15.5) % Plt Count (150-450) k/uL Neutrophils % % Lymphocytes % % Monocytes % % Eosinophils % % Basophils % % Neutrophils # (1.3-7.7) k/uL Lymphocytes # (1.0-4.8) k/uL Monocytes # (0-1.0) k/uL Eosinophils # (0-0.7) k/uL Basophils # (0-0.2) k/uL PT (9.0-12.0) sec INR (<1.2) APTT (22.0-30.0) sec Sodium 140 (137-145) mmol/L Potassium 4.6 (3.5-5.1) mmol/L Chloride 108 H (98-107) mmol/L Carbon Dioxide 25 (22-30) mmol/L Anion Gap 7 mmol/L BUN 19 H (7-17) mg/dL Creatinine 0.60 (0.52-1.04) mg/dL Est GFR (CKD-EPI)AfAm >90 (>60 ml/min/1.73 sqM) Est GFR (CKD-EPI)NonAf >90 (>60 ml/min/1.73 sqM) Glucose 103 H (74-99) mg/dL Calcium 9.2 (8.4-10.2) mg/dL Total Bilirubin 0.2 (0.2-1.3) mg/dL AST 23 (14-36) U/L ALT 25 (9-52) U/L Alkaline Phosphatase 50 (38-126) U/L Total Creatine Kinase (30-135) U/L CK-MB (CK-2) (0.0-2.4) ng/mL CK-MB (CK-2) Rel Index Troponin I (0.000-0.034) ng/mL Total Protein 7.4 (6.3-8.2) g/dL Albumin 4.2 (3.5-5.0) g/dL Amylase 61 (30-110) U/L Lipase 45 (23-300) U/L Urine Color Yellow Urine Appearance Clear (Clear) Urine pH 6.5 (5.0-8.0) Ur Specific [place] 1.029 (1.001-1.035) Urine Protein Trace H (Negative) Urine Glucose (UA) Negative (Negative) Urine Ketones Negative (Negative) Urine Blood Negative (Negative) Urine Nitrite Negative (Negative) Urine Bilirubin Negative (Negative) Urine Urobilinogen 2.0 (<2.0) mg/dL Ur Leukocyte Esterase Small H (Negative) Urine RBC 1 (0-5) /hpf Urine WBC 3 (0-5) /hpf Ur Squamous Epith Cells 4 (0-4) /hpf Urine Mucus Moderate H (None) /hpf Urine HCG, Qual Not Detected (Not Detectd) 01/26/18 01/26/18 01/26/18 Range/Units 00:20 00:20 00:20 WBC 7.3 (3.8-10.6) k/uL RBC 4.24 (3.80-5.40) m/uL Hgb 12.3 (11.4-16.0) gm/dL Hct 36.7 (34.0-46.0) % MCV 86.8 (80.0-100.0) fL MCH 29.0 (25.0-35.0) pg MCHC 33.4 (31.0-37.0) g/dL RDW 13.6 (11.5-15.5) % Plt Count 298 (150-450) k/uL Neutrophils % 59 % Lymphocytes % 34 % Monocytes % 5 % Eosinophils % 1 % Basophils % 0 % Neutrophils # 4.3 (1.3-7.7) k/uL Lymphocytes # 2.5 (1.0-4.8) k/uL Monocytes # 0.4 (0-1.0) k/uL Eosinophils # 0.1 (0-0.7) k/uL Basophils # 0.0 (0-0.2) k/uL PT 10.2 (9.0-12.0) sec INR 1.0 (<1.2) APTT 24.8 (22.0-30.0) sec Sodium (137-145) mmol/L Potassium (3.5-5.1) mmol/L Chloride (98-107) mmol/L Carbon Dioxide (22-30) mmol/L Anion Gap mmol/L BUN (7-17) mg/dL Creatinine (0.52-1.04) mg/dL Est GFR (CKD-EPI)AfAm (>60 ml/min/1.73 sqM) Est GFR (CKD-EPI)NonAf (>60 ml/min/1.73 sqM) Glucose (74-99) mg/dL Calcium (8.4-10.2) mg/dL Total Bilirubin (0.2-1.3) mg/dL AST (14-36) U/L ALT (9-52) U/L Alkaline Phosphatase (38-126) U/L Total Creatine Kinase 131 (30-135) U/L CK-MB (CK-2) 0.3 (0.0-2.4) ng/mL CK-MB (CK-2) Rel Index 0.2 Troponin I <0.012 (0.000-0.034) ng/mL Total Protein (6.3-8.2) g/dL Albumin (3.5-5.0) g/dL Amylase (30-110) U/L Lipase (23-300) U/L Urine Color Urine Appearance (Clear) Urine pH (5.0-8.0) Ur Specific [place] (1.001-1.035) Urine Protein (Negative) Urine Glucose (UA) (Negative) Urine Ketones (Negative) Urine Blood (Negative) Urine Nitrite (Negative) Urine Bilirubin (Negative) Urine Urobilinogen (<2.0) mg/dL Ur Leukocyte Esterase (Negative) Urine RBC (0-5) /hpf Urine WBC (0-5) /hpf Ur Squamous Epith Cells (0-4) /hpf Urine Mucus (None) /hpf Urine HCG, Qual (Not Detectd) - Radiology Data Radiology results: report reviewed, image reviewed 2 views of the abdomen are obtained. There is no sign of intestinal obstruction or pneumoperitoneum. Fecal pattern is normal. Lung bases are clear. There are no pathologic calcifications. There are chest leads. There is no evidence of a mass. Impression by Dr. Strauss shows nonacute abdomen. No change. Disposition Clinical Impression: Dehydration, Abdominal pain Disposition: HOME SELF-CARE Condition: Good Instructions: Dehydration (ED), Abdominal Pain (ED), Dizziness (ED) Additional Instructions: Increase fluids. 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 Return here immediately for any new, worsening, or concerning symptoms. Is patient prescribed a controlled substance at d/c from ED?: No Referrals: Kierra Gamble MD [Primary Care Provider] - 1-2 days Time of Disposition: 02:22
[2018-01-26 00:36] LABS: Basophils % (A) 0 %; Eosinophils # (A) 0.1 k/uL (0-0.7); Eosinophils % (A) 1 %; HCT 36.7 % (34.0-46.0); HGB 12.3 gm/dL (11.4-16.0); Lymphocytes # (A) 2.5 k/uL (1.0-4.8); Lymphocytes % (A) 34 %; MCHC 33.4 g/dL (31.0-37.0); MCV 86.8 fL (80.0-100.0); Mean Platelet Volume 7.5; Monocytes # (A) 0.4 k/uL (0-1.0); Monocytes % (A) 5 %; Neutrophils # (A) 4.3 k/uL (1.3-7.7); Neutrophils % (A) 59 %; Platelet Count 298 k/uL (150-450); RBC 4.24 m/uL (3.80-5.40); RDW 13.6 % (11.5-15.5); WBC 7.3 k/uL (3.8-10.6)
[2018-01-26 00:42] LABS: Appearance,Urine Clear (Clear); Bilirubin,Urine Negative (Negative); Blood,Urine Negative (Negative); Color,Urine Yellow; Glucose,Urine (UA) Negative (Negative); Ketones,Urine Negative (Negative); Leukocyte Esterase,Urine Small (Negative); Mucus,Urine Moderate /hpf; Nitrite,Urine Negative (Negative); PH, Urine 6.5 (5.0-8.0); Protein,Urine Trace (Negative); RBC,Urine 1 /hpf (0-5); Specific Gravity,Urine 1.029 (1.001-1.035); Squamous Epithelial Cell,Urine 4 /hpf (0-4); WBC,Urine 3 /hpf (0-5)
[2018-01-26 00:44] LABS: Partial Thromboplastin Time 24.8 sec (22.0-30.0); Prothrombin Time 10.2 sec (9.0-12.0)
[2018-01-26 00:45] LABS: ALT 25 U/L (9-52); AST 23 U/L (14-36); Albumin 4.2 g/dL (3.5-5.0); Alkaline Phosphatase 50 U/L (38-126); Amylase 61 U/L (30-110); Anion Gap 7 mmol/L; Blood Urea Nitrogen 19 mg/dL (7-17); Calcium 9.2 mg/dL (8.4-10.2); Carbon Dioxide 25 mmol/L (22-30); Chloride 108 mmol/L (98-107); Glucose 103 mg/dL (74-99); Lipase 45 U/L (23-300); Potassium 4.6 mmol/L (3.5-5.1); Sodium 140 mmol/L (137-145); Total Bilirubin 0.2 mg/dL (0.2-1.3); Total Protein 7.4 g/dL (6.3-8.2)
[2018-01-26 00:56] LABS: Creatine Kinase 131 U/L (30-135)
--- NOTE | 2018-01-26 01:08 | XR ---
EXAMINATION TYPE: XR KUB DATE OF EXAM: 01/26/2018 COMPARISON: 01/18/2017 HISTORY: Abdominal pain TECHNIQUE: 2 upright views FINDINGS: There is no sign of intestinal obstruction or pneumoperitoneum. Fecal pattern is normal. [place] ng bases are clear. There are no pathologic calcifications. There are chest leads. There is no eviden ce of a mass. IMPRESSION: Nonacute abdomen. No change.
[2018-01-26 01:10] LABS: Creatine Kinase MB 0.3 ng/mL (0.0-2.4); Troponin I <0.012 ng/mL (0.000-0.034)
[2018-01-26] MEDS ORDERED: SODIUM CHLORIDE 0.9% 500 ML IV ONE (02:20)
[2018-01-26 03:16] VITALS: BP 105/71; PULSE 75; TEMP 98.3
== END 2018-01-26 03:16 | disposition home or self-care (01) ==
LOC: EC 23:10
DX: E86.0 Dehydration (principal); R10.32 Left lower quadrant pain; M54.5 Low back pain; J44.9 Chronic obstructive pulmonary disease, unspecified; Z87.891 Personal history of nicotine dependence; Z88.6 Allergy status to analgesic agent; Z88.1 Allergy status to other antibiotic agents; Z88.8 Allergy status to other drugs, medicaments and biological substances; Z53.29 Procedure and treatment not carried out because of patient's decision for other reasons
CPT/HCPCS: 36415; 74018; 80053; 81001; 81025; 82150; 82550; 82553; 83690; 84484; 85025; 85610; 85730; 93005; 96360; 96361; 99285

== ENCOUNTER 2018-02-05 21:33 | Emergency (ER) | payer MEDICARE, OTHER ==
[2018-02-05] MEDS ORDERED: SODIUM CHLORIDE 0.9% 1,000 ML IV STA (23:56)
[2018-02-06 00:16] LABS: Appearance,Urine Cloudy (Clear); Bilirubin,Urine Negative (Negative); Blood,Urine Moderate (Negative); Color,Urine Yellow; Glucose,Urine (UA) Negative (Negative); Ketones,Urine Trace (Negative); Leukocyte Esterase,Urine Trace (Negative); Mucus,Urine Many /hpf; Nitrite,Urine Negative (Negative); Protein,Urine 1+ (Negative); RBC,Urine 1 /hpf (0-5); Specific Gravity,Urine 1.031 (1.001-1.035); Squamous Epithelial Cell,Urine 8 /hpf (0-4); WBC,Urine 8 /hpf (0-5)
[2018-02-06 00:31] VITALS: RESP 16
[2018-02-06 00:38] LABS: Basophils % (A) 0 %; Eosinophils # (A) 0.1 k/uL (0-0.7); Eosinophils % (A) 2 %; HCT 36.4 % (34.0-46.0); HGB 11.5 gm/dL (11.4-16.0); Lymphocytes # (A) 2.3 k/uL (1.0-4.8); Lymphocytes % (A) 39 %; MCH 28.1 pg (25.0-35.0); MCHC 31.7 g/dL (31.0-37.0); MCV 88.7 fL (80.0-100.0); Mean Platelet Volume 6.9; Monocytes # (A) 0.3 k/uL (0-1.0); Monocytes % (A) 5 %; Neutrophils # (A) 2.9 k/uL (1.3-7.7); Neutrophils % (A) 51 %; Platelet Count 296 k/uL (150-450); RDW 13.7 % (11.5-15.5); WBC 5.8 k/uL (3.8-10.6)
[2018-02-06 00:50] LABS: ALT 25 U/L (9-52); AST 23 U/L (14-36); Albumin 4.1 g/dL (3.5-5.0); Alkaline Phosphatase 52 U/L (38-126); Amylase 69 U/L (30-110); Anion Gap 6 mmol/L; Blood Urea Nitrogen 19 mg/dL (7-17); Calcium 9.3 mg/dL (8.4-10.2); Carbon Dioxide 28 mmol/L (22-30); Chloride 107 mmol/L (98-107); Glucose 103 mg/dL (74-99); Lipase 53 U/L (23-300); Sodium 141 mmol/L (137-145); Total Bilirubin 0.1 mg/dL (0.2-1.3); Total Protein 7.4 g/dL (6.3-8.2)
--- NOTE | 2018-02-06 01:09 | CT ---
EXAMINATION TYPE: CT abdomen pelvis wo con DATE OF EXAM: 02/06/2018 COMPARISON: HISTORY: pain CT DLP: 622.80 mGycm Automated exposure control for dose reduction was used. TECHNIQUE: Helical acquisition of images was performed from the lung bases through the pelvis. FINDINGS: Lung bases are clear. There is no pleural effusion. Heart appears enlarged. The liver spleen pancreas appear normal. Bile ducts are not dilated. The bladder is contracted. There is no adrenal mass. Kidneys have normal size and contour. There is no hydronephrosis. Ureters a re not dilated. Appendix appears normal. There is no intestinal wall thickening. There are no dilated loops. There are numerous phleboliths in the pelvis. Bladder distends smoothly. Uterus is anteverted . I see no pelvic mass. The lumbar spine is intact. There is no compression fracture. There is no int estinal wall thickening. There are no dilated loops. IMPRESSION: NO RENAL STONE OR OBSTRUCTION. NORMAL APPENDIX. I DO NOT SEE A CAUSE FOR LEFT SIDE PAIN.
--- NOTE | 2018-02-06 01:22 | ED ---
Back Pain HPI - General Chief Complaint: Back Pain/Injury Stated Complaint: Weakness Time Seen by Provider: 02/05/18 23:27 Source: patient Limitations: no limitations - History of Present Illness Initial Comments: 37-year-old female patient presents to the emergency department today for evaluation of left flank pain. Patient states that this pain has been going on for quite some time but has gotten worse this evening. Patient describes pain as a sharp stabbing back pain. States that it causes her whole body to hurt and feel weak. States she has been nauseated but has not vomited. She denies any fevers or chills. She denies any abnormal vaginal bleeding or discharge. Denies any hematuria, dysuria, urinary frequency, urinary urgency. She admits that she may not be drinking enough water. States that she also may be tired and worn out from distress. She denies any radiation of the pain into her legs. Denies any numbness or tingling to her lower external use. Denies any loss of bowel or bladder control or saddle anesthesia. Patient denies any recent rash, shortness breath, chest pain, diarrhea, constipation, back pain, numbness, tingling, dizziness, weakness, headache, visual changes, or any other complaints. - Related Data Home Medications Medication Instructions Recorded Confirmed Albuterol Inhaler [Ventolin Hfa 1 - 2 puff INHALATION RT-Q6H PRN 01/15/18 Inhaler] Previous Rx's Medication Instructions Recorded Doxycycline Monohydrate [Monodox] 100 mg PO Q12HR #14 cap 01/15/18 Allergies Allergy/AdvReac Type Severity Reaction Status Date / Time methylprednisolone Allergy Anaphylaxis Verified 01/25/18 23:31 prednisone Allergy Anaphylaxis Verified 01/25/18 23:31 doxycycline AdvReac Nausea & Verified 01/25/18 23:31 Vomiting ibuprofen [From Motrin] AdvReac Nausea & Verified 01/25/18 23:31 Vomiting Review of Systems ROS Statement: Those systems with pertinent positive or pertinent negative responses have been documented in the HPI. ROS Other: All systems not noted in ROS Statement are negative. Past Medical History Past Medical History: Asthma, COPD Additional Past Medical History / Comment(s): bipolar, schizophrenia, UTI History of Any Multi-Drug Resistant Organisms: None Reported Past Surgical History: Section Past Psychological History: Anxiety, Bipolar, Depression, Schizophrenia Smoking Status: Former smoker Past Alcohol Use History: None Reported Past Drug Use History: None Reported General Exam Limitations: no limitations General appearance: alert, in no apparent distress, other (This is a well- developed, well-nourished adult female patient in no acute distress. Vital signs upon presentation are temperature 97.9F, pulse 88, respirations 18, blood pressure 111/74, pulse ox 100% on room air.) Eye exam: Present: normal appearance, PERRL, EOMI. Absent: scleral icterus, conjunctival injection, periorbital swelling ENT exam: Present: normal exam, normal oropharynx, mucous membranes moist Respiratory exam: Present: normal lung sounds bilaterally. Absent: respiratory distress, wheezes, rales, rhonchi, stridor Cardiovascular Exam: Present: regular rate, normal rhythm, normal heart sounds. Absent: systolic murmur, diastolic murmur, rubs, gallop, clicks GI/Abdominal exam: Present: soft, normal bowel sounds. Absent: distended, tenderness, guarding, rebound, rigid Back exam: Present: normal inspection, CVA tenderness (L). Absent: CVA tenderness (R) Neurological exam: Present: alert, oriented X3, CN II-XII intact Psychiatric exam: Present: normal affect, normal mood Skin exam: Present: warm, dry, intact, normal color. Absent: rash Course Vital Signs 02/05/18 02/06/18 02/06/18 21:59 00:30 01:34 Temperature 97.9 F 97.7 F Pulse Rate 88 70 Respiratory 16 16 Rate Blood Pressure 111/74 92/52 O2 Sat by Pulse 100 98 Oximetry Medical Decision Making - Medical Decision Making 37-year-old female patient presents the emergency department today for evaluation of left flank pain. Physical exam does reveal some left CVA tenderness. Lungs are clear to auscultation with good air movement. Labs reviewed and are relatively unremarkable however urine did show some evidence of blood and given patient's symptoms of sharp stabbing flank pain in addition to blood in the urine was concern for kidney stone. CT abdomen and pelvis without contrast was obtained and shows no evidence for kidney stones or other abnormalities to account for the patient's symptoms. We did discuss mechanical back pain as a possible cause for her symptoms. She refuses pain medication or prescriptions at this time. She is instructed to follow-up with her primary care physician for recheck in 1-2 days. Return parameters were discussed in detail. She verbalizes understanding and agrees with this plan. - Lab Data Result diagrams: 02/06/18 00:29 02/06/18 00:29 Lab Results 02/05/18 02/06/18 02/06/18 Range/Units 23:55 00:29 00:29 WBC 5.8 (3.8-10.6) k/uL RBC 4.10 (3.80-5.40) m/uL Hgb 11.5 (11.4-16.0) gm/dL Hct 36.4 (34.0-46.0) % MCV 88.7 (80.0-100.0) fL MCH 28.1 (25.0-35.0) pg MCHC 31.7 (31.0-37.0) g/dL RDW 13.7 (11.5-15.5) % Plt Count 296 (150-450) k/uL Neutrophils % 51 % Lymphocytes % 39 % Monocytes % 5 % Eosinophils % 2 % Basophils % 0 % Neutrophils # 2.9 (1.3-7.7) k/uL Lymphocytes # 2.3 (1.0-4.8) k/uL Monocytes # 0.3 (0-1.0) k/uL Eosinophils # 0.1 (0-0.7) k/uL Basophils # 0.0 (0-0.2) k/uL Sodium 141 (137-145) mmol/L Potassium 4.0 (3.5-5.1) mmol/L Chloride 107 (98-107) mmol/L Carbon Dioxide 28 (22-30) mmol/L Anion Gap 6 mmol/L BUN 19 H (7-17) mg/dL Creatinine 0.70 (0.52-1.04) mg/dL Est GFR (CKD-EPI)AfAm >90 (>60 ml/min/1.73 sqM) Est GFR (CKD-EPI)NonAf >90 (>60 ml/min/1.73 sqM) Glucose 103 H (74-99) mg/dL Calcium 9.3 (8.4-10.2) mg/dL Total Bilirubin 0.1 L (0.2-1.3) mg/dL AST 23 (14-36) U/L ALT 25 (9-52) U/L Alkaline Phosphatase 52 (38-126) U/L Total Protein 7.4 (6.3-8.2) g/dL Albumin 4.1 (3.5-5.0) g/dL Amylase 69 (30-110) U/L Lipase 53 (23-300) U/L Urine Color Yellow Urine Appearance Cloudy H (Clear) Urine pH 6.0 (5.0-8.0) Ur Specific [place] 1.031 (1.001-1.035) Urine Protein 1+ H (Negative) Urine Glucose (UA) Negative (Negative) Urine Ketones Trace H (Negative) Urine Blood Moderate H (Negative) Urine Nitrite Negative (Negative) Urine Bilirubin Negative (Negative) Urine Urobilinogen 2.0 (<2.0) mg/dL Ur Leukocyte Esterase Trace H (Negative) Urine RBC 1 (0-5) /hpf Urine WBC 8 H (0-5) /hpf Ur Squamous Epith Cells 8 H (0-4) /hpf Urine Mucus Many H (None) /hpf - Radiology Data Radiology results: report reviewed, image reviewed CT abdomen and pelvis without contrast was obtained. Report was reviewed in its entirety. Impression by Dr. Strauss shows no renal stone or obstruction. Normal appendix. Did not see a cause for left side pain. Disposition Clinical Impression: Back pain, Flank pain Disposition: HOME SELF-CARE Condition: Good Instructions: Acute Low Back Pain (ED), Flank Pain (ED) Additional Instructions: Take, Motrin for pain control. Follow-up with your primary care physician for recheck in 1-2 days. Return here immediately for any new, worsening, or concerning symptoms. Is patient prescribed a controlled substance at d/c from ED?: No Referrals: Kierra Gamble MD [Primary Care Provider] - 1-2 days Time of Disposition: 01:22
[2018-02-06 01:38] VITALS: BP 92/52; PULSE 70; TEMP 97.7
== END 2018-02-06 01:40 | disposition home or self-care (01) ==
LOC: EC 21:33
DX: M54.9 Dorsalgia, unspecified (principal); R10.9 Unspecified abdominal pain; R11.0 Nausea; R53.1 Weakness; J44.9 Chronic obstructive pulmonary disease, unspecified; Z87.891 Personal history of nicotine dependence; Z88.1 Allergy status to other antibiotic agents; Z88.6 Allergy status to analgesic agent; Z88.8 Allergy status to other drugs, medicaments and biological substances
CPT/HCPCS: 36415; 74176; 80053; 81001; 82150; 83690; 85025; 96360; 99284

== ENCOUNTER 2018-02-13 21:40 | Emergency (ER) | payer MEDICARE, OTHER ==
[2018-02-13 21:56] VITALS: BP 112/75; PULSE 80; RESP 18; TEMP 98.4
--- NOTE | 2018-02-13 23:17 | ED ---
General Adult HPI - General Chief complaint: ENT Stated complaint: cannot hear out of left ear Time Seen by Provider: 02/13/18 22:02 Source: patient, RN notes reviewed, old records reviewed Mode of arrival: ambulatory Limitations: no limitations - History of Present Illness Initial comments: 37-year-old female presents for evaluation of left ear pain. Pain is been present today. Denies any tooth pain. Denies difficulty swallowing. Denies fever or chills. Denies pain in her right ear. She does have some decreased hearing in her left ear. Patient denies any URI symptoms. Denies symptoms of TMJ. - Related Data Home Medications Medication Instructions Recorded Confirmed Albuterol Inhaler [Ventolin Hfa 1 - 2 puff INHALATION RT-Q6H PRN 01/15/18 Inhaler] Allergies Allergy/AdvReac Type Severity Reaction Status Date / Time methylprednisolone Allergy Anaphylaxis Verified 02/13/18 23:05 prednisone Allergy Anaphylaxis Verified 02/13/18 23:05 doxycycline AdvReac Nausea & Verified 02/13/18 23:05 Vomiting ibuprofen [From Motrin] AdvReac Nausea & Verified 02/13/18 23:05 Vomiting Review of Systems ROS Statement: Those systems with pertinent positive or pertinent negative responses have been documented in the HPI. ROS Other: All systems not noted in ROS Statement are negative. Past Medical History Past Medical History: Asthma, COPD Additional Past Medical History / Comment(s): bipolar, schizophrenia, UTI History of Any Multi-Drug Resistant Organisms: None Reported Past Surgical History: Section Past Psychological History: Anxiety, Bipolar, Depression, Schizophrenia Smoking Status: Former smoker Past Alcohol Use History: None Reported Past Drug Use History: None Reported General Exam Limitations: no limitations General appearance: alert, in no apparent distress Head exam: Present: atraumatic, normocephalic Eye exam: Present: normal appearance, PERRL ENT exam: Present: normal exam. Absent: TM's normal bilaterally (Cerumen impaction left external ear canal.) Neck exam: Present: normal inspection. Absent: tenderness, meningismus Respiratory exam: Present: normal lung sounds bilaterally. Absent: respiratory distress, wheezes Cardiovascular Exam: Present: regular rate, normal rhythm GI/Abdominal exam: Present: soft. Absent: distended, tenderness, guarding Neurological exam: Present: alert, oriented X3, CN II-XII intact. Absent: motor sensory deficit Psychiatric exam: Present: normal affect, normal mood Course Vital Signs 02/13/18 21:54 Temperature 98.4 F Pulse Rate 80 Respiratory 18 Rate Blood Pressure 112/75 O2 Sat by Pulse 98 Oximetry Medical Decision Making - Medical Decision Making 37-year-old female presenting with left ear pain, on exam she has cerumen impaction. This was irrigated in the emergency department. Patient's symptoms improved. TM is within normal limits. She will be discharged home with outpatient follow-up. Disposition Clinical Impression: Impacted cerumen of left ear Disposition: HOME SELF-CARE Condition: Good Instructions: Cerumen Impaction (ED) Additional Instructions: Please avoid use of Q-tips, use Debrox earwax remover if symptoms return. Is patient prescribed a controlled substance at d/c from ED?: No Referrals: Kierra Gamble MD [Primary Care Provider] - 1-2 days Time of Disposition: 23:25
== END 2018-02-13 23:28 | disposition home or self-care (01) ==
LOC: EC 21:40
DX: H61.22 Impacted cerumen, left ear (principal); J44.9 Chronic obstructive pulmonary disease, unspecified; Z87.891 Personal history of nicotine dependence; Z88.8 Allergy status to other drugs, medicaments and biological substances; Z88.1 Allergy status to other antibiotic agents; Z88.6 Allergy status to analgesic agent
CPT/HCPCS: 69209; 99283

== ENCOUNTER → 2018-02-16 | Outpatient (CLI) | payer MEDICARE, OTHER ==
--- NOTE | 2018-02-18 08:21 | MR ---
EXAMINATION TYPE: MR lumbar spine wo con DATE OF EXAM: 02/16/2018 COMPARISON: None HISTORY: 37-year-old female with low back pain, Lumbago with Sciatica Left Side TECHNIQUE: Multiplanar, multisequence images of the lumbar spine were acquired. 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 Vertebral body heights are preserved and alignment is maintained. No suspicious bone marrow replacement. Conus medullaris is located at the L1-L2 level. There is minimal disc bulging seen at L3-L4 and L4-L5 that does not contribute any significant spinal canal or neuroforaminal stenosis. No focal disc herniation seen. No prevertebral or paravertebral soft tissue abnormality. IMPRESSION: 1. 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 2. There is minimal disc bulging at L3-L4 and L4-L5 without any focal disc herniation or significant spinal canal or neuroforaminal stenosis.
== END | disposition home or self-care (01) ==
LOC: RADMRIMAIN 11:17
PROVIDERS: ATTEND Family Medicine
DX: M51.26 Other intervertebral disc displacement, lumbar region (principal); Q76.49 Other congenital malformations of spine, not associated with scoliosis
CPT/HCPCS: 72148

== ENCOUNTER 2018-03-11 02:03 | Emergency (ER) | payer MEDICARE, OTHER ==
[2018-03-11 02:13] VITALS: RESP 18
--- NOTE | 2018-03-11 03:11 | ED ---
General Adult HPI - General Chief complaint: Extremity Injury, Lower Stated complaint: Lt toe injury Time Seen by Provider: 03/11/18 02:16 Source: patient, RN notes reviewed Mode of arrival: ambulatory Limitations: no limitations - History of Present Illness Initial comments: 37-year-old female presents to the emergency department for a chief complaint of injury to the great left toenail 3 days. Patient states she was sleeping in the passenger side of the car when she suddenly jumped in her sleep and caught her toenail on a metal bar. Patient denies any other injuries to the foot or toe. Patient states she has been walking on the foot without difficulty for the past 3 days. She states the nail becomes painful when it is night on anything or moved. Patient states she has been keeping it clean with soap and water. Patient has no other complaints at this time including shortness of breath, chest pain, abdominal pain, nausea or vomiting, headache, or visual changes. - Related Data Home Medications Medication Instructions Recorded Confirmed No Known Home Medications 03/11/18 03/11/18 Allergies Allergy/AdvReac Type Severity Reaction Status Date / Time methylprednisolone Allergy Anaphylaxis Verified 03/11/18 02:13 prednisone Allergy Anaphylaxis Verified 03/11/18 02:13 doxycycline AdvReac Nausea & Verified 03/11/18 02:13 Vomiting ibuprofen [From Motrin] AdvReac Nausea & Verified 03/11/18 02:13 Vomiting Review of Systems ROS Statement: Those systems with pertinent positive or pertinent negative responses have been documented in the HPI. ROS Other: All systems not noted in ROS Statement are negative. Past Medical History Past Medical History: Asthma, COPD Additional Past Medical History / Comment(s): bipolar, schizophrenia, History of Any Multi-Drug Resistant Organisms: None Reported Past Surgical History: Section Past Psychological History: Anxiety, Bipolar, Depression, Schizophrenia Smoking Status: Former smoker Past Alcohol Use History: Rare Past Drug Use History: None Reported General Exam Limitations: no limitations General appearance: alert, in no apparent distress Head exam: Present: atraumatic, normocephalic, normal inspection Eye exam: Present: normal appearance, PERRL, EOMI. Absent: scleral icterus, conjunctival injection, periorbital swelling ENT exam: Present: normal exam, mucous membranes moist Neck exam: Present: normal inspection. Absent: tenderness, meningismus, lymphadenopathy Respiratory exam: Present: normal lung sounds bilaterally. Absent: respiratory distress, wheezes, rales, rhonchi, stridor Cardiovascular Exam: Present: regular rate, normal rhythm, normal heart sounds. Absent: systolic murmur, diastolic murmur, rubs, gallop, clicks Extremities exam: Present: full ROM (Full range of motion of the left great toe as well as left foot), tenderness (Tenderness when moving the nail of the left great toe. No tenderness in the remainder of the great toe or proximal phalanx. No tenderness in the left foot.), normal capillary refill (Capillary refill less than 2 seconds and PT pulse 2+ in the left foot and great toe. Sensation intact in the left foot.), other (Left great toe nail is partially removed from the nail bed and is attached at the lateral nail fold. No evidence of infection, no spreading or streaking redness. No purulent drainage. ) Neurological exam: Present: alert, oriented X3, CN II-XII intact Psychiatric exam: Present: normal affect, normal mood Course Vital Signs 03/11/18 02:09 Temperature 98.4 F Pulse Rate 60 Respiratory 18 Rate Blood Pressure 109/68 O2 Sat by Pulse 100 Oximetry Medical Decision Making - Medical Decision Making 37-year-old female process to the emergency determine for a chief complaint of left great toenail avulsion 3 days. Patient accidentally caught it on something in her sleep but did not cause any other injuries to the foot. She has been walking on it without difficulty. Nail is partially avulsed from the nailbed and is connected at the lateral nail fold. No evidence of infection. Discussed with patient that the best practice is to keep the nail on his leg as possible. Patient did have an acrylic nail so this cannot be sutured in place or trimmed. Foot was soaked in soap and water and cleaned thoroughly. Gauze and tape was used to hold the nail in place with the proximal aspect of the nail secured within the eponychia. Patient was educated to change dressing daily and keep the area clean. She will monitor for signs of infection such as spreading or streaking redness and return if this occurs. Disposition Clinical Impression: Nail avulsion of toe Disposition: HOME SELF-CARE Condition: Good Instructions: Nail Avulsion (ED) Additional Instructions: Please monitor for any spreading or streaking redness and return if this occurs. Please change dressing daily. Please keep nail in place for as long as possible. Follow-up with primary care in 1-2 days. Return to the emergency department if you have any worsening symptoms. Is patient prescribed a controlled substance at d/c from ED?: No Referrals: Kierra Gamble MD [Primary Care Provider] - 1-2 days Time of Disposition: 03:18
[2018-03-11 03:41] VITALS: BP 102/64; PULSE 65; TEMP 97
== END 2018-03-11 03:41 | disposition home or self-care (01) ==
LOC: EC 02:03
DX: S91.202A Unspecified open wound of left great toe with damage to nail, initial encounter (principal); Z87.891 Personal history of nicotine dependence; Z88.8 Allergy status to other drugs, medicaments and biological substances; Z88.1 Allergy status to other antibiotic agents; Z88.6 Allergy status to analgesic agent; W23.1XXA Caught, crushed, jammed, or pinched between stationary objects, initial encounter; Y92.810 Car as the place of occurrence of the external cause
CPT/HCPCS: 99283

== ENCOUNTER 2018-03-29 10:33 | Emergency (ER) | payer MEDICARE, OTHER ==
[2018-03-29 10:40] VITALS: BP 115/73; PULSE 80; RESP 18; TEMP 98.1
[2018-03-29] MEDS ORDERED: SODIUM CHLORIDE 0.9% 500 ML IV STA (10:54)
[2018-03-29] MEDS ORDERED: SODIUM CHLORIDE 0.9% 500 ML IV ONE (11:05)
--- NOTE | 2018-03-29 11:06 | ED ---
General Adult HPI - General Chief complaint: Dizziness Stated complaint: near syncope Time Seen by Provider: 03/29/18 10:53 Source: patient, RN notes reviewed, old records reviewed Mode of arrival: ambulatory Limitations: no limitations - History of Present Illness Initial comments: 37-year-old female presents for evaluation of lightheadedness and near syncope. Patient states that when she stands she feels very lightheaded. Denies any chest pain. She has had some palpitations felt like her heart is racing. Denies dyspnea. Denies abdominal pain. Denies nausea or vomiting. Denies lower extremity pain or swelling. Denies focal numbness or weakness. Denies headache or vision changes. Chronic medical history includes asthma, no current medications daily. - Related Data Home Medications Medication Instructions Recorded Confirmed No Known Home Medications 03/11/18 03/29/18 Allergies Allergy/AdvReac Type Severity Reaction Status Date / Time methylprednisolone Allergy Anaphylaxis Verified 03/29/18 11:35 prednisone Allergy Anaphylaxis Verified 03/29/18 11:35 doxycycline AdvReac Nausea & Verified 03/29/18 11:35 Vomiting ibuprofen [From Motrin] AdvReac Nausea & Verified 03/29/18 11:35 Vomiting Review of Systems ROS Statement: Those systems with pertinent positive or pertinent negative responses have been documented in the HPI. ROS Other: All systems not noted in ROS Statement are negative. Past Medical History Past Medical History: Asthma, COPD Additional Past Medical History / Comment(s): bipolar, schizophrenia, History of Any Multi-Drug Resistant Organisms: None Reported Past Surgical History: Section Past Psychological History: Anxiety, Bipolar, Depression, Schizophrenia Smoking Status: Former smoker Past Alcohol Use History: Rare Past Drug Use History: None Reported General Exam Limitations: no limitations General appearance: alert, in no apparent distress Head exam: Present: atraumatic, normocephalic Eye exam: Present: normal appearance, PERRL, EOMI ENT exam: Present: mucous membranes dry Neck exam: Present: normal inspection. Absent: tenderness, meningismus Respiratory exam: Present: normal lung sounds bilaterally. Absent: respiratory distress, wheezes Cardiovascular Exam: Present: regular rate, normal rhythm GI/Abdominal exam: Present: soft. Absent: distended, tenderness, guarding Extremities exam: Present: normal inspection, normal capillary refill. Absent: pedal edema, calf tenderness Neurological exam: Present: alert, oriented X3, CN II-XII intact. Absent: motor sensory deficit Psychiatric exam: Present: normal affect, normal mood Skin exam: Present: warm, dry, intact. Absent: cyanosis, diaphoretic Course Vital Signs 03/29/18 10:37 Temperature 98.1 F Pulse Rate 80 Respiratory 18 Rate Blood Pressure 115/73 O2 Sat by Pulse 99 Oximetry Medical Decision Making - Medical Decision Making 37-year-old female presenting with lightheadedness and near syncope. Further history obtained patient does admit to drinking large quantities of alcohol yesterday evening. She refuses blood draw, refuses IV, refuses any further testing or evaluation. She wishes to leave, she does sign out AGAINST MEDICAL ADVICE as I would prefer the patient receives some laboratory testing, EKG, chest x-ray and IV fluids. She declines. Her vital signs are stable. Disposition Clinical Impression: Dehydration Disposition: Left Against Medical Advice Condition: Fair Is patient prescribed a controlled substance at d/c from ED?: No Referrals: Kierra Gamble MD [Primary Care Provider] - 1-2 days
== END 2018-03-29 11:45 | disposition left against medical advice (07) ==
LOC: EC 10:33
DX: E86.0 Dehydration (principal); R00.2 Palpitations; Z87.891 Personal history of nicotine dependence; Z88.1 Allergy status to other antibiotic agents; Z88.6 Allergy status to analgesic agent; Z88.8 Allergy status to other drugs, medicaments and biological substances
CPT/HCPCS: 99284

== ENCOUNTER 2018-05-01 09:09 | Emergency (ER) | payer MEDICARE, OTHER ==
[2018-05-01 09:20] VITALS: BP 106/75; PULSE 74; RESP 20; TEMP 98.3
--- NOTE | 2018-05-01 09:59 | ED ---
General Adult HPI - General Chief complaint: Upper Respiratory Infection Stated complaint: sinus pain Time Seen by Provider: 05/01/18 09:43 Source: patient, RN notes reviewed Mode of arrival: ambulatory Limitations: no limitations - History of Present Illness Initial comments: Patient 37-year-old female presenting to the emergency room today with a chief complaint of cough congestion over the last 4 days. Patient does admit to increased sputum production it's been when color. Admits to history of asthma. Patient admits that she's had increased sinus pressure and congestion. Patient denies any complaints or symptoms currently. Patient denies any recent fever, chills, shortness of breath, chest pain, back pain, abdominal pain, nausea or vomiting, numbness or tingling, dysuria or hematuria, constipation or diarrhea, headaches or visual changes, or any other complaints. - Related Data Previous Rx's Medication Instructions Recorded Albuterol Nebulized [Ventolin 2.5 mg INHALATION Q4H PRN 10 Days 05/01/18 Nebulized] nebu Amoxicillin/Potassium Clav 1 each PO Q12HR #20 tab 05/01/18 [Augmentin 875-125 Tablet] Benzonatate [Tessalon Perles] 100 mg PO TID PRN #20 capsule 05/01/18 Allergies Allergy/AdvReac Type Severity Reaction Status Date / Time methylprednisolone Allergy Anaphylaxis Verified 05/01/18 09:20 prednisone Allergy Anaphylaxis Verified 05/01/18 09:20 doxycycline AdvReac Nausea & Verified 05/01/18 09:20 Vomiting ibuprofen [From Motrin] AdvReac Nausea & Verified 05/01/18 09:20 Vomiting Review of Systems ROS Statement: Those systems with pertinent positive or pertinent negative responses have been documented in the HPI. ROS Other: All systems not noted in ROS Statement are negative. Past Medical History Past Medical History: Asthma, COPD Additional Past Medical History / Comment(s): bipolar, schizophrenia, History of Any Multi-Drug Resistant Organisms: None Reported Past Surgical History: Section Past Psychological History: Anxiety, Bipolar, Depression, Schizophrenia Smoking Status: Former smoker Past Alcohol Use History: Rare Past Drug Use History: None Reported General Exam - General Exam Comments Initial Comments: General: The patient is awake and alert, in no distress, and does not appear acutely ill. Eye: Pupils are equal, round and reactive to light. Extra-ocular movements are intact. No nystagmus. There is normal conjunctiva bilaterally. No signs of icterus. Ears, nose, mouth and throat: There are moist mucous membranes and no oral lesions. Tender palpation over the frontal and maxillary sinuses. Neck: The neck is supple, there is no tenderness or JVD. Cardiovascular: There is a regular rate and rhythm. No murmur, rub or gallop is appreciated. Respiratory: Lungs are clear to auscultation, respirations are non-labored, breath sounds are equal. No wheezes, stridor, rales, or rhonchi. Musculoskeletal: Normal ROM, no tenderness. Sensation intact. Strength 5/5. Pulses equal bilaterally 2+. Neurological: A&O x 3. CN II-XII intact, There are no obvious motor or sensory deficits. Coordination appears grossly intact. Speech is normal. Skin: Skin is warm and dry and no rashes or lesions are noted. Psychiatric: Cooperative, appropriate mood & affect, normal judgment. Limitations: no limitations Course Vital Signs 05/01/18 09:18 Temperature 98.3 F Pulse Rate 74 Respiratory 20 Rate Blood Pressure 106/75 O2 Sat by Pulse 98 Oximetry Medical Decision Making - Medical Decision Making Patient will be treated for sinus infections her on Augmentin also given cough medication for symptoms. She is advised follow-up family doctor return if symptoms increase or worsen. Disposition Clinical Impression: Acute sinusitis Disposition: HOME SELF-CARE Condition: Good Instructions: Upper Respiratory Infection (ED) Additional Instructions: Please use medication as discussed. Please follow-up with family doctor in the next 2 days of symptoms have not improved. Please return to emergency room if the symptoms increase or worsen or for any other concerns. Prescriptions: Albuterol Nebulized [Ventolin Nebulized] 2.5 mg INHALATION Q4H PRN 10 Days nebu PRN Reason: Cough Amoxicillin/Potassium Clav [Augmentin 875-125 Tablet] 1 each PO Q12HR #20 tab Benzonatate [Tessalon Perles] 100 mg PO TID PRN #20 capsule PRN Reason: Cough Is patient prescribed a controlled substance at d/c from ED?: No Referrals: Kierra Gamble MD [Primary Care Provider] - 1-2 days Time of Disposition: 09:59
== END 2018-05-01 10:08 | disposition home or self-care (01) ==
LOC: EC 09:09
DX: J01.90 Acute sinusitis, unspecified (principal); Z87.891 Personal history of nicotine dependence; Z88.1 Allergy status to other antibiotic agents; Z88.6 Allergy status to analgesic agent; Z88.8 Allergy status to other drugs, medicaments and biological substances
CPT/HCPCS: 99283

== ENCOUNTER 2018-05-01 21:52 | Emergency (ER) | payer MEDICARE, OTHER ==
[2018-05-01 22:04] VITALS: BP 106/72; PULSE 67; TEMP 97.9
[2018-05-01 23:00] VITALS: RESP 20
[2018-05-01] MEDS ORDERED: BENZONATATE 100 MG CAP PO STA (23:21)
--- NOTE | 2018-05-02 00:22 | XR ---
EXAMINATION TYPE: XR chest 2V DATE OF EXAM: 05/01/2018 COMPARISON: 03/11/2017 HISTORY: Chest pain TECHNIQUE: Frontal and lateral views of the chest are obtained. FINDINGS: Heart and mediastinum are normal. Lungs are clear of consolidation. There is subsegmental atelectasis at the left lung base. There is no heart failure. There is no pleural effusion. Bony thor ax is intact. IMPRESSION: Subsegmental atelectasis left lower lobe. Normal heart. Inspiration is decreased compare d to last exam.
--- NOTE | 2018-05-02 00:39 | ED ---
General Adult HPI - General Chief complaint: Upper Respiratory Infection Stated complaint: URI Source: patient, RN notes reviewed, old records reviewed Mode of arrival: ambulatory Limitations: no limitations - History of Present Illness Initial comments: 37-year-old female patient comes to ED for cough and congestion. Patient was evaluated earlier today in this ED, was discharged with by mouth antibiotic, Tessalon Perles, Ventolin inhaler. Patient re-presents today in order to receive chest x-ray. Patient has no new complaints. PT complaints of 4 day history of cough congestion, rhinitis, sinus pain. Patient denies nausea vomiting diarrhea, chest pain, shortness of breath. Systemic: Pt denies fatigue, myalgia, fever/chills, rash. Pt denies weakness, night sweats, weight loss. Neuro: Pt denies headache, visual disturbances, syncope or pre-syncope. HEENT: Pt denies ocular discharge or irritation, otalgia, pharyngitis or notable lymphadenopathy. Cardiopulmonary: Pt denies chest pain, SOB, heart palpitations, dyspnea on exertion. Abdominal/GI: Pt denies abdominal pain, n/v/d. : Pt denies dysuria, burning w/ urination, frequency/urgency. Denies new onset urinary or bowel incontinence. MSK: Pt denies myalgia, loss of strength or function in extremities. - Related Data Home Medications Medication Instructions Recorded Confirmed Multivitamins, Thera [Multivitamin 1 tab PO DAILY 05/01/18 05/01/18 (formulary)] Previous Rx's Medication Instructions Recorded Albuterol Nebulized [Ventolin 2.5 mg INHALATION Q4H PRN 10 Days 05/01/18 Nebulized] nebu Amoxicillin/Potassium Clav 1 each PO Q12HR #20 tab 05/01/18 [Augmentin 875-125 Tablet] Benzonatate [Tessalon Perles] 100 mg PO TID PRN #20 capsule 05/01/18 Allergies Allergy/AdvReac Type Severity Reaction Status Date / Time methylprednisolone Allergy Anaphylaxis Verified 05/01/18 09:20 prednisone Allergy Anaphylaxis Verified 05/01/18 09:20 doxycycline AdvReac Nausea & Verified 05/01/18 09:20 Vomiting ibuprofen [From Motrin] AdvReac Nausea & Verified 05/01/18 09:20 Vomiting Review of Systems ROS Statement: Those systems with pertinent positive or pertinent negative responses have been documented in the HPI. ROS Other: All systems not noted in ROS Statement are negative. Past Medical History Past Medical History: Asthma, COPD Additional Past Medical History / Comment(s): bipolar, schizophrenia, History of Any Multi-Drug Resistant Organisms: None Reported Past Surgical History: Section Past Psychological History: Anxiety, Bipolar, Depression, Schizophrenia Smoking Status: Former smoker Past Alcohol Use History: Rare Past Drug Use History: None Reported General Exam - General Exam Comments Initial Comments: Constitutional: NAD, AOX3, Pt has pleasant affect. HEENT: NC/AT, trachea midline, neck supple, no lymphadenopathy. Posterior pharynx non erythematous, without exudates. External ears appear normal, without discharge. Mucous membranes moist. Eyes PERRLA, EOM intact. There is no scleral icterus. No pallor noted. Sinus tenderness on palpation. Cardiopulmonary: RRR, no murmurs, rubs or gallops, no JVD noted. Lungs CTAB in anterior and posterior terrell. No peripheral edema. Abdominal exam: Abdomen soft and non-distended. Abdomen non-tender to palpation in all 4 quadrants. Bowel sounds active in LLQ. No hepatosplenomegaly. Neuro: CN II-XII grossly intact. Limitations: no limitations Course Vital Signs 05/01/18 05/01/18 22:01 22:57 Temperature 97.9 F Pulse Rate 67 Respiratory 18 20 Rate Blood Pressure 106/72 O2 Sat by Pulse 100 Oximetry Medical Decision Making - Medical Decision Making 37-year-old female patient who was evaluated earlier todayre presents to ED because she wishes to receive a chest x-ray. Patient was evaluated previously and diagnosed with bacterial sinusitis, given an antibiotic, an inhaler and tessalon perles. Patients complaints have not changed. Physical exam was benign. Patient was given Tessalon Perles in ED for cough. Chest x-ray is ordered for patient, displayed minor lower lobe atelectasis. Explained findings to patient. Patient to be discharged with orders to adhere to previous treatment plan from earlier today. Patient to return to ED if new signs symptoms develop including, pleuritic chest pain, chest pain, shortness of breath, nausea vomiting diarrhea, fevers or chills. Patient to f/u with PCP in 1-2 days. Case discussed with Dr. Pierce. Disposition Clinical Impression: Acute sinusitis Disposition: HOME SELF-CARE Condition: Good Instructions: Sinusitis (ED) Additional Instructions: Patient to adhere to previously discussed treatment plan and will take medication(s) as directed. Patient to follow up with PCP in 1-2 days. Patient to return to ED if symptoms do not improve. Is patient prescribed a controlled substance at d/c from ED?: No Referrals: Kierra Gamble MD [Primary Care Provider] - 1-2 days Time of Disposition: 00:42
== END 2018-05-02 00:56 | disposition home or self-care (01) ==
LOC: EC 21:52
DX: J01.90 Acute sinusitis, unspecified (principal); J98.11 Atelectasis; Z88.1 Allergy status to other antibiotic agents; Z88.6 Allergy status to analgesic agent; Z88.8 Allergy status to other drugs, medicaments and biological substances; Z87.891 Personal history of nicotine dependence
CPT/HCPCS: 71046; 99283; 99284

== ENCOUNTER 2018-05-04 20:04 | Emergency (ER) | payer MEDICARE, OTHER ==
[2018-05-04] MEDS ORDERED: ALBUTEROL NEBULIZED 2.5 MG/3 ML INHALATION STA (21:00)
[2018-05-04 21:23] LABS: Basophils % (A) 0 %; Eosinophils # (A) 0.1 k/uL (0-0.7); Eosinophils % (A) 2 %; HCT 36.3 % (34.0-46.0); HGB 12.1 gm/dL (11.4-16.0); Lymphocytes % (A) 32 %; MCH 29.9 pg (25.0-35.0); MCHC 33.4 g/dL (31.0-37.0); MCV 89.6 fL (80.0-100.0); Mean Platelet Volume 7.4; Monocytes # (A) 0.3 k/uL (0-1.0); Monocytes % (A) 4 %; Neutrophils # (A) 3.8 k/uL (1.3-7.7); Neutrophils % (A) 60 %; Platelet Count 312 k/uL (150-450); RBC 4.05 m/uL (3.80-5.40); RDW 13.6 % (11.5-15.5); WBC 6.3 k/uL (3.8-10.6)
[2018-05-04 21:27] LABS: Anion Gap 7 mmol/L; Blood Urea Nitrogen 14 mg/dL (7-17); Calcium 9.7 mg/dL (8.4-10.2); Carbon Dioxide 25 mmol/L (22-30); Chloride 108 mmol/L (98-107); Glucose 114 mg/dL (74-99); HCG,Qualitative Serum Not Detected; Potassium 3.9 mmol/L (3.5-5.1); Sodium 140 mmol/L (137-145)
[2018-05-04 21:31] VITALS: RESP 16
--- NOTE | 2018-05-04 21:46 | ED ---
General Adult HPI - General Chief complaint: Chest Pain Stated complaint: SOB,Chest pain Time Seen by Provider: 05/04/18 20:37 Source: patient Mode of arrival: wheelchair Limitations: no limitations - History of Present Illness Initial comments: Patient is a 37-year-old female presents with a chief complaint of chest pain and cough. This is going on for about a week. She has been seen in this emergency department 2 times prior, both visits on the . She was started on Augmentin for a sinus infection. She returns because now the pain in her chest is worse. She characterizes it as a pressure. There are no aggravating or alleviating factors. Timing is been constant. Patient states that she has driven to [place] and back several times over the last 3 months. - Related Data Home Medications Medication Instructions Recorded Confirmed Multivitamins, Thera [Multivitamin 1 tab PO DAILY 05/01/18 05/04/18 (formulary)] Previous Rx's Medication Instructions Recorded Albuterol Nebulized [Ventolin 2.5 mg INHALATION Q4H PRN 10 Days 05/01/18 Nebulized] nebu Amoxicillin/Potassium Clav 1 each PO Q12HR #20 tab 05/01/18 [Augmentin 875-125 Tablet] Benzonatate [Tessalon Perles] 100 mg PO TID PRN #20 capsule 05/01/18 Albuterol Inhaler [Ventolin Hfa 1 - 2 puff INHALATION RT-Q6H #1 05/05/18 Inhaler] inhaler Albuterol Nebulized [Ventolin 2.5 mg INHALATION Q6H #20 nebu 05/05/18 Nebulized] Allergies Allergy/AdvReac Type Severity Reaction Status Date / Time methylprednisolone Allergy Anaphylaxis Verified 05/04/18 20:44 prednisone Allergy Anaphylaxis Verified 05/04/18 20:44 doxycycline AdvReac Nausea & Verified 05/04/18 20:44 Vomiting ibuprofen [From Motrin] AdvReac Nausea & Verified 05/04/18 20:44 Vomiting Review of Systems ROS Statement: Those systems with pertinent positive or pertinent negative responses have been documented in the HPI. ROS Other: All systems not noted in ROS Statement are negative. Respiratory: Reports: cough Cardiovascular: Reports: chest pain Past Medical History Past Medical History: Asthma, COPD Additional Past Medical History / Comment(s): bipolar, schizophrenia, History of Any Multi-Drug Resistant Organisms: None Reported Past Surgical History: Section Past Psychological History: Anxiety, Bipolar, Depression, Schizophrenia Smoking Status: Former smoker Past Alcohol Use History: Rare Past Drug Use History: None Reported General Exam Limitations: no limitations General appearance: alert, in no apparent distress Head exam: Present: atraumatic, normocephalic Eye exam: Present: normal appearance ENT exam: Present: normal exam Neck exam: Present: normal inspection Respiratory exam: Present: decreased breath sounds. Absent: respiratory distress, wheezes, rales, rhonchi Cardiovascular Exam: Present: regular rate, normal rhythm, normal heart sounds. Absent: systolic murmur, diastolic murmur, rubs, gallop, clicks GI/Abdominal exam: Present: soft, normal bowel sounds. Absent: distended, tenderness, guarding, rebound, rigid Rectal exam: Present: deferred Back exam: Present: normal inspection Neurological exam: Present: alert, oriented X3, CN II-XII intact, normal gait Psychiatric exam: Present: normal affect, normal mood Skin exam: Present: warm, dry, intact Course Vital Signs 05/04/18 05/04/18 05/04/18 20:09 21:28 21:50 Temperature 98.1 F Pulse Rate 88 86 89 Respiratory 18 16 16 Rate Blood Pressure 106/69 O2 Sat by Pulse 99 Oximetry Medical Decision Making - Medical Decision Making Patient presents with chief complaint of cough and chest pain. On initial evaluation, vital signs are stable, patient is in no acute distress. During the initial interview, patient on her cell phone and watching television as I asked questions. No signs of respiratory distress. KG performed at 2030 shows normal sinus rhythm with a rate of 69 bpm. Segments. Within normal limits, there are no acute signs of ischemia. When compared to previous study performed on 01/26/2018, waveforms are similar, no changes noted. Review of patient's records shows unremarkable workups for the same issue. We'll repeat labs today, one troponin will be sent, d-dimer will be sent given patient's travel history and given her worsening symptoms however TE thought to be unlikely given her stable vital signs. 12:31 AM Evaluation of this patient is unremarkable. Chest x-ray shows evidence of bronchitis. Patient instructed to continue taking antibiotics as previous prescribed. She states that the albuterol treatments gave her relief. She is prescribed albuterol inhaler and albuterol nebulizer solution and she is able to find her nebulizer at home. She was instructed to follow up with primary care in 1-2 days, return to the emergency department if symptoms worsen or change. - Lab Data Result diagrams: 05/04/18 20:40 05/04/18 20:40 Lab Results 05/04/18 05/04/18 05/04/18 Range/Units 20:40 20:40 20:40 WBC 6.3 (3.8-10.6) k/uL RBC 4.05 (3.80-5.40) m/uL Hgb 12.1 (11.4-16.0) gm/dL Hct 36.3 (34.0-46.0) % MCV 89.6 (80.0-100.0) fL MCH 29.9 (25.0-35.0) pg MCHC 33.4 (31.0-37.0) g/dL RDW 13.6 (11.5-15.5) % Plt Count 312 (150-450) k/uL Neutrophils % 60 % Lymphocytes % 32 % Monocytes % 4 % Eosinophils % 2 % Basophils % 0 % Neutrophils # 3.8 (1.3-7.7) k/uL Lymphocytes # 2.0 (1.0-4.8) k/uL Monocytes # 0.3 (0-1.0) k/uL Eosinophils # 0.1 (0-0.7) k/uL Basophils # 0.0 (0-0.2) k/uL D-Dimer (<0.60) mg/L FEU VBG pH (7.31-7.41) VBG pCO2 (37-51) mmHg VBG HCO3 (24-28) mmol/L Sodium 140 (137-145) mmol/L Potassium 3.9 (3.5-5.1) mmol/L Chloride 108 H (98-107) mmol/L Carbon Dioxide 25 (22-30) mmol/L Anion Gap 7 mmol/L BUN 14 (7-17) mg/dL Creatinine 0.71 (0.52-1.04) mg/dL Est GFR (CKD-EPI)AfAm >90 (>60 ml/min/1.73 sqM) Est GFR (CKD-EPI)NonAf >90 (>60 ml/min/1.73 sqM) Glucose 114 H (74-99) mg/dL Calcium 9.7 (8.4-10.2) mg/dL Troponin I (0.000-0.034) ng/mL NT-Pro-B Natriuret Pep 17 pg/mL HCG, Qual Not Detected Urine Color Urine Appearance (Clear) Urine pH (5.0-8.0) Ur Specific [place] (1.001-1.035) Urine Protein (Negative) Urine Glucose (UA) (Negative) Urine Ketones (Negative) Urine Blood (Negative) Urine Nitrite (Negative) Urine Bilirubin (Negative) Urine Urobilinogen (<2.0) mg/dL Ur Leukocyte Esterase (Negative) Urine RBC (0-5) /hpf Urine WBC (0-5) /hpf Ur Squamous Epith Cells (0-4) /hpf Urine Bacteria (None) /hpf Urine Mucus (None) /hpf 05/04/18 05/04/18 05/04/18 Range/Units 20:40 20:40 20:40 WBC (3.8-10.6) k/uL RBC (3.80-5.40) m/uL Hgb (11.4-16.0) gm/dL Hct (34.0-46.0) % MCV (80.0-100.0) fL MCH (25.0-35.0) pg MCHC (31.0-37.0) g/dL RDW (11.5-15.5) % Plt Count (150-450) k/uL Neutrophils % % Lymphocytes % % Monocytes % % Eosinophils % % Basophils % % Neutrophils # (1.3-7.7) k/uL Lymphocytes # (1.0-4.8) k/uL Monocytes # (0-1.0) k/uL Eosinophils # (0-0.7) k/uL Basophils # (0-0.2) k/uL D-Dimer 0.47 (<0.60) mg/L FEU VBG pH (7.31-7.41) VBG pCO2 (37-51) mmHg VBG HCO3 (24-28) mmol/L Sodium (137-145) mmol/L Potassium (3.5-5.1) mmol/L Chloride (98-107) mmol/L Carbon Dioxide (22-30) mmol/L Anion Gap mmol/L BUN (7-17) mg/dL Creatinine (0.52-1.04) mg/dL Est GFR (CKD-EPI)AfAm (>60 ml/min/1.73 sqM) Est GFR (CKD-EPI)NonAf (>60 ml/min/1.73 sqM) Glucose (74-99) mg/dL Calcium (8.4-10.2) mg/dL Troponin I <0.012 (0.000-0.034) ng/mL NT-Pro-B Natriuret Pep pg/mL HCG, Qual Urine Color Light Yellow Urine Appearance Clear (Clear) Urine pH 6.0 (5.0-8.0) Ur Specific [place] 1.011 (1.001-1.035) Urine Protein Negative (Negative) Urine Glucose (UA) Negative (Negative) Urine Ketones Negative (Negative) Urine Blood Trace H (Negative) Urine Nitrite Negative (Negative) Urine Bilirubin Negative (Negative) Urine Urobilinogen <2.0 (<2.0) mg/dL Ur Leukocyte Esterase Trace H (Negative) Urine RBC <1 (0-5) /hpf Urine WBC 1 (0-5) /hpf Ur Squamous Epith Cells 3 (0-4) /hpf Urine Bacteria Moderate H (None) /hpf Urine Mucus Rare H (None) /hpf 05/04/18 Range/Units 22:50 WBC (3.8-10.6) k/uL RBC (3.80-5.40) m/uL Hgb (11.4-16.0) gm/dL Hct (34.0-46.0) % MCV (80.0-100.0) fL MCH (25.0-35.0) pg MCHC (31.0-37.0) g/dL RDW (11.5-15.5) % Plt Count (150-450) k/uL Neutrophils % % Lymphocytes % % Monocytes % % Eosinophils % % Basophils % % Neutrophils # (1.3-7.7) k/uL Lymphocytes # (1.0-4.8) k/uL Monocytes # (0-1.0) k/uL Eosinophils # (0-0.7) k/uL Basophils # (0-0.2) k/uL D-Dimer (<0.60) mg/L FEU VBG pH 7.40 (7.31-7.41) VBG pCO2 42 (37-51) mmHg VBG HCO3 26 (24-28) mmol/L Sodium (137-145) mmol/L Potassium (3.5-5.1) mmol/L Chloride (98-107) mmol/L Carbon Dioxide (22-30) mmol/L Anion Gap mmol/L BUN (7-17) mg/dL Creatinine (0.52-1.04) mg/dL Est GFR (CKD-EPI)AfAm (>60 ml/min/1.73 sqM) Est GFR (CKD-EPI)NonAf (>60 ml/min/1.73 sqM) Glucose (74-99) mg/dL Calcium (8.4-10.2) mg/dL Troponin I (0.000-0.034) ng/mL NT-Pro-B Natriuret Pep pg/mL HCG, Qual Urine Color Urine Appearance (Clear) Urine pH (5.0-8.0) Ur Specific [place] (1.001-1.035) Urine Protein (Negative) Urine Glucose (UA) (Negative) Urine Ketones (Negative) Urine Blood (Negative) Urine Nitrite (Negative) Urine Bilirubin (Negative) Urine Urobilinogen (<2.0) mg/dL Ur Leukocyte Esterase (Negative) Urine RBC (0-5) /hpf Urine WBC (0-5) /hpf Ur Squamous Epith Cells (0-4) /hpf Urine Bacteria (None) /hpf Urine Mucus (None) /hpf Disposition Clinical Impression: Bronchitis Disposition: HOME SELF-CARE Condition: Good Instructions: Acute Bronchitis (ED) Prescriptions: Albuterol Inhaler [Ventolin Hfa Inhaler] 1 - 2 puff INHALATION RT-Q6H #1 inhaler Albuterol Nebulized [Ventolin Nebulized] 2.5 mg INHALATION Q6H #20 nebu Is patient prescribed a controlled substance at d/c from ED?: No Referrals: Kierra Gamble MD [Primary Care Provider] - 1-2 days
[2018-05-04 21:51] VITALS: PULSE 89
[2018-05-04 22:26] LABS: Appearance,Urine Clear (Clear); Bacteria,Urine Moderate /hpf; Bilirubin,Urine Negative (Negative); Blood,Urine Trace (Negative); Color,Urine Light Yellow; Glucose,Urine (UA) Negative (Negative); Ketones,Urine Negative (Negative); Leukocyte Esterase,Urine Trace (Negative); Mucus,Urine Rare /hpf; Nitrite,Urine Negative (Negative); Protein,Urine Negative (Negative); RBC,Urine <1 /hpf (0-5); Specific Gravity,Urine 1.011 (1.001-1.035); Squamous Epithelial Cell,Urine 3 /hpf (0-4); Urobilinogen,Urine <2.0 mg/dL (<2.0); WBC,Urine 1 /hpf (0-5)
[2018-05-04 23:07] LABS: VBG PH 7.4 (7.31-7.41)
--- NOTE | 2018-05-04 23:50 | XR ---
EXAMINATION TYPE: XR chest 2V DATE OF EXAM: 05/04/2018 COMPARISON: 05/01/2018 HISTORY: Short of breath TECHNIQUE: Frontal and lateral views of the chest are obtained. FINDINGS: Heart and mediastinum are normal. Lungs are clear of consolidation. There is minimal pleur al reaction at the left lateral lung base. Bony thorax is intact. IMPRESSION: New minimal pleural reaction at the left lateral lung base compared to old exam. Normal heart.
[2018-05-05 02:34] VITALS: BP 110/82; TEMP 98
== END 2018-05-05 01:00 | disposition home or self-care (01) ==
LOC: EC 20:04
DX: J40 Bronchitis, not specified as acute or chronic (principal); Z87.891 Personal history of nicotine dependence; Z88.1 Allergy status to other antibiotic agents; Z88.6 Allergy status to analgesic agent; Z88.8 Allergy status to other drugs, medicaments and biological substances
CPT/HCPCS: 36415; 71046; 80048; 81001; 82803; 83880; 84484; 84703; 85025; 85379; 93005; 94640; 99285

== ENCOUNTER 2018-05-08 07:06 | Emergency (ER) | payer MEDICARE, OTHER ==
[2018-05-08 07:42] VITALS: BP 114/75; PULSE 79; RESP 18; TEMP 98.3
[2018-05-08] MEDS ORDERED: NITROGLYCERIN OINT 1 INCH/GM PACKET TOPICAL STA (08:13)
[2018-05-08] MEDS ORDERED: ASPIRIN 81 MG PO STA (08:13)
--- NOTE | 2018-05-08 08:17 | ED ---
General Adult HPI - General Chief complaint: Chest Pain Stated complaint: Chest congestion/pain, side pain Time Seen by Provider: 05/08/18 07:30 Source: patient, RN notes reviewed Mode of arrival: ambulatory Limitations: no limitations - History of Present Illness Initial comments: This is a 37-year-old female who presents emergency Department complaining of chest pain shortness of breath and worsening chest pain with deep breathing. Patient denies any fever. Patient states it's worse with deep breathing. Patient states she was in the emergency department recently and I asked her what she was here for and she stated she doesn't know because she didn't listen to them. Patient denied any abdominal pain patient denies nausea vomiting. Patient denied palpitations. Patient denied headache patient denies numbness weakness. Patient denies lightheadedness or dizziness. Patient denies any recent injury or trauma. - Related Data Home Medications Medication Instructions Recorded Confirmed Multivitamins, Thera [Multivitamin 1 tab PO DAILY 05/01/18 05/08/18 (formulary)] Previous Rx's Medication Instructions Recorded Amoxicillin/Potassium Clav 1 each PO Q12HR #20 tab 05/01/18 [Augmentin 875-125 Tablet] Allergies Allergy/AdvReac Type Severity Reaction Status Date / Time methylprednisolone Allergy Anaphylaxis Verified 05/08/18 08:13 prednisone Allergy Anaphylaxis Verified 05/08/18 08:13 doxycycline AdvReac Nausea & Verified 05/08/18 08:13 Vomiting ibuprofen [From Motrin] AdvReac Nausea & Verified 05/08/18 08:13 Vomiting Review of Systems ROS Statement: Those systems with pertinent positive or pertinent negative responses have been documented in the HPI. ROS Other: All systems not noted in ROS Statement are negative. Past Medical History Past Medical History: Asthma, COPD Additional Past Medical History / Comment(s): bipolar, schizophrenia, History of Any Multi-Drug Resistant Organisms: None Reported Past Surgical History: Section Past Psychological History: Anxiety, Bipolar, Depression, Schizophrenia Smoking Status: Former smoker Past Alcohol Use History: Rare Past Drug Use History: None Reported General Exam - General Exam Comments Initial Comments: GENERAL: Patient is well-developed and well-nourished. Patient is nontoxic and well- hydrated and is in mild distress. ENT: Neck is soft and supple. No significant lymphadenopathy is noted. Oropharynx is clear. Moist mucous membranes. Neck has full range of motion without eliciting any pain. EYES: The sclera were anicteric and conjunctiva were pink and moist. Extraocular movements were intact and pupils were equal round and reactive to light. Eyelids were unremarkable. PULMONARY: Unlabored respirations. Good breath sounds bilaterally. No audible rales rhonchi or wheezing was noted. CARDIOVASCULAR: There is a regular rate and rhythm without any murmurs gallops or rubs. SKIN: Skin is clear with no lesions or rashes and otherwise unremarkable. NEUROLOGIC: Patient is alert and oriented x3. Cranial nerves II through XII are grossly intact. Motor and sensory are also intact. Normal speech, volume and content. Symmetrical smile. MUSCULOSKELETAL: Normal extremities with adequate strength and full range of motion. LYMPHATICS: No significant lymphadenopathy is noted PSYCHIATRIC: Normal psychiatric evaluation. Limitations: no limitations Course Vital Signs 05/08/18 07:37 Temperature 98.3 F Pulse Rate 79 Respiratory 18 Rate Blood Pressure 114/75 O2 Sat by Pulse 100 Oximetry Disposition Clinical Impression: Chest pain Disposition: Left Against Medical Advice Is patient prescribed a controlled substance at d/c from ED?: No Referrals: Kierra Gamble MD [Primary Care Provider] - 1-2 days
== END 2018-05-08 08:19 | disposition left against medical advice (07) ==
LOC: EC 07:06
DX: R07.9 Chest pain, unspecified (principal); R06.02 Shortness of breath; Z87.891 Personal history of nicotine dependence; Z88.1 Allergy status to other antibiotic agents; Z88.6 Allergy status to analgesic agent; Z88.8 Allergy status to other drugs, medicaments and biological substances; Z53.29 Procedure and treatment not carried out because of patient's decision for other reasons
CPT/HCPCS: 99284

== ENCOUNTER → 2019-06-10 | Outpatient (CLI) | payer MEDICARE ==
--- NOTE | 2019-06-10 16:09 | US ---
EXAMINATION TYPE: US pelvic complete DATE OF EXAM: 06/10/2019 COMPARISON: 01/15/2018 CLINICAL HISTORY: 38-year-old female N92.6 IRREGULAR MENSES. Pt states irregular menses, having two p eriods in the month of April TECHNIQUE: Transabdominal (TA). Transabdominal sonographic images of the pelvis were acquired. 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 However, we note that the blad donna is only partially distended. EXAM MEASUREMENTS: Uterus: 9.0 x 4.1 x 5.8 cm Endometrial Stripe: 0.5 cm Right Ovary: 2.8 x 2.1 x 1.8 cm Left Ovary: 2.5 x 1.9 x 1.8 cm 1. Uterus: Anteverted, Heterogeneous myometrium. No focal fibroid seen. 2. Endometrium: Appeared wnl 3. Right Ovary: wnl 4. Left Ovary: wnl 5. Bilateral Adnexa: wnl 6. Posterior cul-de-sac: wnl IMPRESSION: 1. The patient reports the bladder feeling very full during the exam. Images show that it is only par tially distended. Correlate to exclude UTI. 2. Heterogeneous appearance to the myometrium may be on a technical basis but can also be seen with a denomyosis and diffuse small fibroid change. Clinically correlate.
== END | disposition home or self-care (01) ==
LOC: RADUSWWP 14:38
PROVIDERS: ATTEND Family Medicine
DX: N32.89 Other specified disorders of bladder (principal)
CPT/HCPCS: 76856

== ENCOUNTER → 2019-08-21 | Outpatient (CLI) | payer MEDICARE, OTHER ==
--- NOTE | 2019-08-21 10:38 | MM ---
Reason for exam: screening (asymptomatic). Baseline mammogram. History: Took hormonal contraceptives for 3 years. Physical Findings: Nurse did not find any significant physical abnormalities on exam. MG 3D Screening Mammo W/Cad Bilateral CC and MLO view(s) were taken. The breast tissue is heterogeneously dense. This may lower the sensitivity of mammography. No suspicious abnormality. These results were verbally communicated with the patient and result sheet given to the patient on 08/21/19. ASSESSMENT: Negative, BI-RAD 1 RECOMMENDATION: Routine screening mammogram of both breasts in 1 year.
== END | disposition home or self-care (01) ==
LOC: RADMAMWWP 08:21
PROVIDERS: ATTEND Family Medicine
DX: Z12.31 Encounter for screening mammogram for malignant neoplasm of breast (principal)
CPT/HCPCS: 77063; 77067

== ENCOUNTER → 2020-05-21 | Outpatient (CLI) | payer MEDICARE, OTHER ==
--- NOTE | 2020-05-21 15:04 | CT ---
EXAMINATION TYPE: CT brain wo con DATE OF EXAM: 05/21/2020 COMPARISON: CT brain December 14, 2017 HISTORY: JI X2 MONTHS CT DLP: 973.1 mGycm. Automated Exposure Control for Dose Reduction was Utilized. TECHNIQUE: CT scan of the head is performed without contrast. FINDINGS: There is no acute intracranial hemorrhage, mass effect, or midline shift identified. The ventricles and sulci are within normal limits in size. Vega-white matter differentiation is maintai susan. The globes are intact and the visualized sinuses remain clear. IMPRESSION: No acute intracranial hemorrhage or midline shift is seen. No significant change from pr ior.
== END | disposition home or self-care (01) ==
LOC: RADCTMAIN 14:35
PROVIDERS: ATTEND Family Medicine
DX: R51.9 Headache, unspecified (principal)
CPT/HCPCS: 70450

== ENCOUNTER → 2020-08-05 | Outpatient (CLI) | payer MEDICARE, OTHER ==
[2020-08-05 14:17] LABS: Basophils % (A) 0 %; Eosinophils # (A) 0.1 k/uL (0-0.7); Eosinophils % (A) 1 %; HCT 39.5 % (34.0-46.0); HGB 12.8 gm/dL (11.4-16.0); Lymphocytes # (A) 1.6 k/uL (1.0-4.8); Lymphocytes % (A) 27 %; MCH 29.1 pg (25.0-35.0); MCHC 32.5 g/dL (31.0-37.0); MCV 89.4 fL (80.0-100.0); Mean Platelet Volume 7.6; Monocytes # (A) 0.3 k/uL (0-1.0); Monocytes % (A) 5 %; Neutrophils % (A) 67 %; Platelet Count 341 k/uL (150-450); RBC 4.41 m/uL (3.80-5.40); RDW 13.5 % (11.5-15.5)
[2020-08-05 17:25] LABS: Erythrocyte Sedimentation Rate 50 mm/hr (0-20)
[2020-08-05 21:32] LABS: Anti-DNA, DS unit <1.0 IU/mL; Anti-Smith Ab Interp NEGATIVE (NEGATIVE); DNA Double-Stranded NEGATIVE (NEGATIVE)
--- NOTE | 2020-08-07 11:02 | MM ---
Reason for exam: screening (asymptomatic). Last mammogram was performed 11 months ago. History: Took hormonal contraceptives for 3 years. Physical Findings: A clinical breast exam by your physician is recommended on an annual basis and results should be correlated with mammographic findings. MG 3D Screening Mammo W/Cad Bilateral CC and MLO view(s) were taken. Prior study comparison: August 21, 2019, bilateral MG 3d screening mammo w/cad. There are scattered fibroglandular densities. No significant changes when compared with prior studies. ASSESSMENT: Negative, BI-RAD 1 RECOMMENDATION: Routine screening mammogram of both breasts in 1 year.
== END | disposition home or self-care (01) ==
LOC: RADMAMWWP 12:53
PROVIDERS: ATTEND Family Medicine
DX: Z12.31 Encounter for screening mammogram for malignant neoplasm of breast (principal); R35.0 Frequency of micturition; R51.9 Headache, unspecified; H53.9 Unspecified visual disturbance; R76.8 Other specified abnormal immunological findings in serum; L65.8 Other specified nonscarring hair loss
CPT/HCPCS: 77063; 77067; 82550; 85025; 85652; 86038; 86225; 86235

== ENCOUNTER → 2020-08-17 | Outpatient (CLI) | payer MEDICARE, OTHER | END | disposition home or self-care (01) | LOC: RADMRIMAIN 18:27 | PROVIDERS: ATTEND Family Medicine | DX: Z53.9 Procedure and treatment not carried out, unspecified reason (principal) ==

== ENCOUNTER 2021-04-24 06:52 | Emergency (ER) | payer MEDICARE, OTHER ==
[2021-04-24 07:05] VITALS: RESP 18
[2021-04-24] MEDS ORDERED: ACETAMINOPHEN TAB 325 MG TAB PO STA (07:13)
--- NOTE | 2021-04-24 07:13 | ED ---
URI HPI - General Chief Complaint: Upper Respiratory Infection Stated Complaint: COVID+ Time Seen by Provider: 04/24/21 07:03 Source: patient, EMS, RN notes reviewed Mode of arrival: EMS Limitations: no limitations - History of Present Illness Initial Comments: 40-year-old female presents emergency Department with chief complaint of cough congestion body aches. Patient states she's been sick for 1 week. Patient states that she had a test week ago at [facility] in which it was negative. Patient states she went to [facility] few days ago does not have results. She states she saw her PCP yesterday who told her it was probably positive. Patient examined nonproductive cough bodyaches years chills. - Related Data Home Medications Medication Instructions Recorded Confirmed Multivitamins, Thera [Multivitamin 1 tab PO DAILY 05/01/18 05/08/18 (formulary)] Previous Rx's Medication Instructions Recorded Amoxicillin/Potassium Clav 1 each PO Q12HR #20 tab 05/01/18 [Augmentin 875-125 Tablet] Allergies Allergy/AdvReac Type Severity Reaction Status Date / Time methylprednisolone Allergy Anaphylaxis Verified 05/08/18 08:13 prednisone Allergy Anaphylaxis Verified 05/08/18 08:13 doxycycline AdvReac Nausea & Verified 05/08/18 08:13 Vomiting ibuprofen [From Motrin] AdvReac Nausea & Verified 05/08/18 08:13 Vomiting Review of Systems ROS Statement: Those systems with pertinent positive or pertinent negative responses have been documented in the HPI. ROS Other: All systems not noted in ROS Statement are negative. Past Medical History Past Medical History: Asthma, COPD Additional Past Medical History / Comment(s): bipolar, schizophrenia, History of Any Multi-Drug Resistant Organisms: None Reported Past Surgical History: Section Past Psychological History: Anxiety, Bipolar, Depression, Schizophrenia Smoking Status: Never smoker Past Alcohol Use History: Occasional, Rare Past Drug Use History: None Reported General Exam Limitations: no limitations General appearance: alert, in no apparent distress Head exam: Present: atraumatic, normocephalic, normal inspection Eye exam: Present: normal appearance, PERRL, EOMI. Absent: scleral icterus, conjunctival injection, periorbital swelling ENT exam: Present: normal exam, normal oropharynx, mucous membranes moist Neck exam: Present: normal inspection. Absent: tenderness, meningismus, lymphadenopathy Respiratory exam: Present: normal lung sounds bilaterally. Absent: respiratory distress, wheezes, rales, rhonchi, stridor Cardiovascular Exam: Present: regular rate, normal rhythm, normal heart sounds. Absent: systolic murmur, diastolic murmur, rubs, gallop, clicks Neurological exam: Present: alert Skin exam: Present: warm, dry, intact, normal color. Absent: rash Course Vital Signs 04/24/21 07:01 Temperature 100.2 F H Pulse Rate 94 Respiratory 18 Rate Blood Pressure 109/77 O2 Sat by Pulse 98 Oximetry Medical Decision Making - Medical Decision Making 40-year-old female presented for COVID-19 patient did receive monoclonal antibodies and discharged in stable condition return parameters discussed. - Lab Data Lab Results 04/24/21 Range/Units 07:34 Coronavirus (PCR) Detected A (Not Detectd) Disposition Clinical Impression: COVID-19 Disposition: HOME SELF-CARE Condition: Stable Instructions (If sedation given, give patient instructions): Coronavirus Disease 2019 (COVID-19) Additional Instructions: Please return to the Emergency Department if symptoms worsen or any other concerns. Is patient prescribed a controlled substance at d/c from ED?: No Referrals: Kierra Gamble MD [Primary Care Provider] - 1-2 days Time of Disposition: 08:30
[2021-04-24] MEDS ORDERED: SODIUM CHLORIDE 0.9% 50 ML IVPB ONE (08:45)
[2021-04-24] MEDS ORDERED: BAMLANIVIMAB (EUA) 700 MG, ETESEVIMAB (EUA) 1,400 MG in SODIUM CHLORIDE 0.9% 50 ML IVPB ONE (09:15)
[2021-04-24 10:30] VITALS: BP 126/78; PULSE 88; TEMP 99.9
== END 2021-04-24 11:31 | disposition home or self-care (01) ==
LOC: EC 06:52
DX: U07.1 COVID-19 (principal); J44.9 Chronic obstructive pulmonary disease, unspecified; Z88.6 Allergy status to analgesic agent; Z88.8 Allergy status to other drugs, medicaments and biological substances; Z88.1 Allergy status to other antibiotic agents
CPT/HCPCS: 36415; 87635; 99283; 96365; J3490

== ENCOUNTER 2021-04-24 23:23 | Emergency (ER) | payer MEDICARE, OTHER ==
[2021-04-24 23:28] VITALS: RESP 18
[2021-04-24] MEDS ORDERED: ACETAMINOPHEN TAB 325 MG TAB PO STA (23:45)
[2021-04-24] MEDS ORDERED: IBUPROFEN 400 MG TAB PO STA (23:45)
[2021-04-24] MEDS ORDERED: SODIUM CHLORIDE 0.9% 1,000 ML IV ONE (23:45)
--- NOTE | 2021-04-24 23:51 | ED ---
General Adult HPI - General Chief complaint: Upper Respiratory Infection Stated complaint: Chest Pain, Covid+ Time Seen by Provider: 04/24/21 23:33 Source: patient Mode of arrival: ambulatory Limitations: no limitations - History of Present Illness Initial comments: This patient is a 40-year-old woman who complains of a constellation of symptoms had started a week ago though there were mild. Over the past couple of days she has had worsening of headache, body aches, cough, fever and chills. Patient then had tested positive for coronavirus, the patient had been seen here earlier and received monoclonal antibodies area she states that after she had gone home her fever recurred, she was feeling nauseated, and didn't think she could keep any fluids down. Patient's last dose of antipyretic 3:00. Onset/Timin -: days(s) Improves with: none Worsens with: none Associated Symptoms: cough, fever/chills, nausea/vomiting Treatments Prior to Arrival: other (Tylenol) - Related Data Home Medications Medication Instructions Recorded Confirmed Multivitamins, Thera [Multivitamin 1 tab PO DAILY 05/01/18 05/08/18 (formulary)] Previous Rx's Medication Instructions Recorded Amoxicillin/Potassium Clav 1 each PO Q12HR #20 tab 05/01/18 [Augmentin 875-125 Tablet] Ibuprofen [Motrin] 600 mg PO Q8HR PRN #20 tab 04/25/21 Ondansetron Odt [Zofran ODT] 4 mg PO Q8HR PRN #10 tab 04/25/21 Allergies Allergy/AdvReac Type Severity Reaction Status Date / Time methylprednisolone Allergy Anaphylaxis Verified 04/24/21 23:29 prednisone Allergy Anaphylaxis Verified 04/24/21 23:29 doxycycline AdvReac Nausea & Verified 04/24/21 23:29 Vomiting Review of Systems ROS Statement: Those systems with pertinent positive or pertinent negative responses have been documented in the HPI. ROS Other: All systems not noted in ROS Statement are negative. Constitutional: Reports: fever, chills. Denies: weakness Eyes: Denies: vision change Respiratory: Reports: cough. Denies: dyspnea, hemoptysis Cardiovascular: Denies: chest pain Gastrointestinal: Reports: nausea. Denies: abdominal pain, vomiting, diarrhea Genitourinary: Denies: dysuria, hematuria Musculoskeletal: Reports: myalgia Skin: Denies: rash Neurological: Reports: headache. Denies: weakness Past Medical History Past Medical History: Asthma, COPD Additional Past Medical History / Comment(s): bipolar, schizophrenia, History of Any Multi-Drug Resistant Organisms: None Reported Past Surgical History: Section Past Psychological History: Anxiety, Bipolar, Depression, Schizophrenia Smoking Status: Never smoker Past Alcohol Use History: Occasional, Rare Past Drug Use History: None Reported General Exam Limitations: no limitations General appearance: alert, in no apparent distress Head exam: Present: atraumatic, normocephalic Eye exam: Present: normal appearance. Absent: scleral icterus, conjunctival injection Neck exam: Present: normal inspection, full ROM. Absent: meningismus Respiratory exam: Present: normal lung sounds bilaterally. Absent: respiratory distress, wheezes, rales, rhonchi, stridor Cardiovascular Exam: Present: regular rate, normal rhythm, normal heart sounds. Absent: systolic murmur, diastolic murmur, rubs, gallop GI/Abdominal exam: Present: soft. Absent: distended, tenderness, guarding, rebound, rigid, mass Extremities exam: Present: normal inspection, normal capillary refill. Absent: pedal edema, calf tenderness Back exam: Present: normal inspection. Absent: CVA tenderness (R), CVA tenderness (L) Neurological exam: Present: alert Skin exam: Present: warm, dry, intact, normal color. Absent: rash Course Vital Signs 04/24/21 23:24 Temperature 102.3 F H Pulse Rate 99 Respiratory 18 Rate Blood Pressure 117/68 O2 Sat by Pulse 100 Oximetry Medical Decision Making - Lab Data Result diagrams: 04/25/21 00:17 04/25/21 00:17 Lab Results 04/25/21 04/25/21 Range/Units 00:17 00:17 WBC 4.6 (3.8-10.6) k/uL RBC 4.61 (3.80-5.40) m/uL Hgb 13.5 (11.4-16.0) gm/dL Hct 39.9 (34.0-46.0) % MCV 86.5 (80.0-100.0) fL MCH 29.3 (25.0-35.0) pg MCHC 33.8 (31.0-37.0) g/dL RDW 13.8 (11.5-15.5) % Plt Count 222 (150-450) k/uL MPV 8.0 Neutrophils % 80 % Lymphocytes % 12 % Monocytes % 7 % Eosinophils % 0 % Basophils % 0 % Neutrophils # 3.7 (1.3-7.7) k/uL Lymphocytes # 0.5 L (1.0-4.8) k/uL Monocytes # 0.3 (0-1.0) k/uL Eosinophils # 0.0 (0-0.7) k/uL Basophils # 0.0 (0-0.2) k/uL Sodium 132 L (137-145) mmol/L Potassium 4.3 (3.5-5.1) mmol/L Chloride 102 (98-107) mmol/L Carbon Dioxide 21 L (22-30) mmol/L Anion Gap 9 mmol/L BUN 11 (7-17) mg/dL Creatinine 0.63 (0.52-1.04) mg/dL Est GFR (CKD-EPI)AfAm >90 (>60 ml/min/1.73 sqM) Est GFR (CKD-EPI)NonAf >90 (>60 ml/min/1.73 sqM) Glucose 131 H (74-99) mg/dL Calcium 8.8 (8.4-10.2) mg/dL Total Bilirubin 0.8 (0.2-1.3) mg/dL AST 51 H (14-36) U/L ALT 21 (4-34) U/L Alkaline Phosphatase 43 (38-126) U/L Total Protein 8.2 (6.3-8.2) g/dL Albumin 4.4 (3.5-5.0) g/dL Disposition Clinical Impression: COVID-19 Disposition: HOME SELF-CARE Condition: Good Instructions (If sedation given, give patient instructions): Coronavirus Disease 2019 (COVID-19) Prescriptions: Ibuprofen [Motrin] 600 mg PO Q8HR PRN #20 tab PRN Reason: Pain Ondansetron Odt [Zofran ODT] 4 mg PO Q8HR PRN #10 tab PRN Reason: Nausea Is patient prescribed a controlled substance at d/c from ED?: No Referrals: Kierra Gamble MD [Primary Care Provider] - 1-2 days
--- NOTE | 2021-04-25 00:29 | XR ---
EXAMINATION TYPE: XR chest 1V portable DATE OF EXAM: 04/25/2021 COMPARISON: NONE HISTORY: Short of breath TECHNIQUE: Single view FINDINGS: There is no heart failure nor confluent pneumonic infiltrate. There is some linear density at the left lung base. There are no hilar masses. There is small linear density also at right lung ba se. IMPRESSION: There is some mild pleural reaction and atelectasis at the lung bases which is new compar ed to old exam. Normal heart.
[2021-04-25 00:38] LABS: Basophils % (A) 0 %; Eosinophils % (A) 0 %; HCT 39.9 % (34.0-46.0); HGB 13.5 gm/dL (11.4-16.0); Lymphocytes # (A) 0.5 k/uL (1.0-4.8); Lymphocytes % (A) 12 %; MCH 29.3 pg (25.0-35.0); MCHC 33.8 g/dL (31.0-37.0); MCV 86.5 fL (80.0-100.0); Monocytes # (A) 0.3 k/uL (0-1.0); Monocytes % (A) 7 %; Neutrophils # (A) 3.7 k/uL (1.3-7.7); Neutrophils % (A) 80 %; Platelet Count 222 k/uL (150-450); RBC 4.61 m/uL (3.80-5.40); RDW 13.8 % (11.5-15.5); WBC 4.6 k/uL (3.8-10.6)
[2021-04-25 01:08] LABS: ALT 21 U/L (4-34); AST 51 U/L (14-36); African American GFR (CKD) >90 (>60 ml/min/1.73 sqM); Albumin 4.4 g/dL (3.5-5.0); Alkaline Phosphatase 43 U/L (38-126); Anion Gap 9 mmol/L; Blood Urea Nitrogen 11 mg/dL (7-17); Calcium 8.8 mg/dL (8.4-10.2); Carbon Dioxide 21 mmol/L (22-30); Chloride 102 mmol/L (98-107); Glucose 131 mg/dL (74-99); Non-African American GFR(CKD) >90 (>60 ml/min/1.73 sqM); Sodium 132 mmol/L (137-145); Total Bilirubin 0.8 mg/dL (0.2-1.3); Total Protein 8.2 g/dL (6.3-8.2)
[2021-04-25 01:20] LABS: Potassium 4.3 mmol/L (3.5-5.1)
[2021-04-25 01:25] VITALS: BP 123/87; PULSE 84; TEMP 99.1
== END 2021-04-25 01:05 | disposition home or self-care (01) ==
LOC: EC 23:23
DX: U07.1 COVID-19 (principal); J44.9 Chronic obstructive pulmonary disease, unspecified; F41.9 Anxiety disorder, unspecified; F31.9 Bipolar disorder, unspecified; Z88.1 Allergy status to other antibiotic agents
CPT/HCPCS: 36415; 71045; 80053; 85025; 93005; 99285

== ENCOUNTER 2021-05-04 19:03 | Emergency (ER) | payer MEDICARE, OTHER ==
[2021-05-04] MEDS ORDERED: HYDROCORTISONE 2.5% RECTAL CREAM 30 GM TUBE RECTAL STA (21:58)
[2021-05-04] MEDS ORDERED: KETOROLAC 30 MG/ML 1 ML VIAL IM STA (21:59)
--- NOTE | 2021-05-04 22:00 | ED ---
General Adult HPI - General Chief complaint: Abdominal Pain Stated complaint: Hemorrhoids Time Seen by Provider: 05/04/21 21:44 Source: patient Mode of arrival: ambulatory Limitations: no limitations - History of Present Illness Initial comments: 40-year-old female patient presents to the emergency department today for evaluation of hemorrhoids. Patient states that she has been sick with cold for the last 2 weeks. States she had a lot of diarrhea during that time she developed hemorrhoids. States she has pain near the rectal region whenever she has a bowel movement or bites to area. States she does feel uncomfortable somewhat while sitting. States she has been applying the hot water to run over the area and applying Vaseline. Denies taking any medication for pain. States she is having normal bowel movements. Denies any bleeding from the area. Patient states she still has some leftover weakness and occasional shortness of breath related to Covid but nothing worsening. - Related Data Home Medications Medication Instructions Recorded Confirmed Multivitamins, Thera [Multivitamin 1 tab PO DAILY 05/01/18 05/08/18 (formulary)] Previous Rx's Medication Instructions Recorded Amoxicillin/Potassium Clav 1 each PO Q12HR #20 tab 05/01/18 [Augmentin 875-125 Tablet] Ibuprofen [Motrin] 600 mg PO Q8HR PRN #20 tab 04/25/21 Ondansetron Odt [Zofran ODT] 4 mg PO Q8HR PRN #10 tab 04/25/21 Allergies Allergy/AdvReac Type Severity Reaction Status Date / Time methylprednisolone Allergy Anaphylaxis Verified 05/04/21 20:17 prednisone Allergy Anaphylaxis Verified 05/04/21 20:17 doxycycline AdvReac Nausea & Verified 05/04/21 20:17 Vomiting Review of Systems ROS Statement: Those systems with pertinent positive or pertinent negative responses have been documented in the HPI. ROS Other: All systems not noted in ROS Statement are negative. Past Medical History Past Medical History: Asthma, COPD Additional Past Medical History / Comment(s): bipolar, schizophrenia, History of Any Multi-Drug Resistant Organisms: None Reported Past Surgical History: Section Past Psychological History: Anxiety, Bipolar, Depression, Schizophrenia Smoking Status: Never smoker Past Alcohol Use History: Occasional, Rare Past Drug Use History: None Reported General Exam Limitations: no limitations General appearance: alert, in no apparent distress, other (This is a well- developed, well-nourished adult female patient in no acute distress.) Respiratory exam: Present: normal lung sounds bilaterally. Absent: respiratory distress, wheezes, rales, rhonchi, stridor Cardiovascular Exam: Present: regular rate, normal rhythm, normal heart sounds. Absent: systolic murmur, diastolic murmur, rubs, gallop, clicks GI/Abdominal exam: Present: soft, normal bowel sounds. Absent: distended, tenderness, guarding, rebound, rigid Rectal exam: Present: hemorrhoids (Non-thrombosed external hemorrhoids, no bleeding) Neurological exam: Present: alert, oriented X3, CN II-XII intact Psychiatric exam: Present: normal affect, normal mood Skin exam: Present: warm, dry, intact, normal color. Absent: rash Course Vital Signs 05/04/21 05/04/21 20:17 22:37 Temperature 98.7 F 98.1 F Pulse Rate 89 80 Respiratory 18 20 Rate Blood Pressure 115/76 116/60 O2 Sat by Pulse 97 97 Oximetry Medical Decision Making - Medical Decision Making 40-year-old female patient presents to the emergency department for evaluation of her hemorrhoids. Physical examination did reveal large nonthrombosed external hemorrhoid with no bleeding. I was going to provide her with hemorrhoid cream here but we only have steroid containing cream on formulary, she has anaphylactic reaction to steroids. She is advised to obtain over the counter preparation H without steroids, do warm sitz baths and to follow up with her [facility] physician. Return parameters were discussed in detail. She verbalizes understanding and agrees with this plan. My attending is Dr. Reese. Disposition Clinical Impression: Hemorrhoids Disposition: HOME SELF-CARE Condition: Good Instructions (If sedation given, give patient instructions): Hemorrhoids (ED) Additional Instructions: Obtain Preparation H over the counter. Apply this cream 2-3 times per day. Is patient prescribed a controlled substance at d/c from ED?: No Referrals: Kierra Gamble MD [Primary Care Provider] - 1-2 days Time of Disposition: 22:00
[2021-05-04 22:38] VITALS: BP 116/60; PULSE 80; RESP 20; TEMP 98.1
== END 2021-05-04 22:37 | disposition home or self-care (01) ==
LOC: EC 19:03
DX: K64.4 Residual hemorrhoidal skin tags (principal); J44.9 Chronic obstructive pulmonary disease, unspecified; F41.9 Anxiety disorder, unspecified; F31.9 Bipolar disorder, unspecified; Z88.1 Allergy status to other antibiotic agents
CPT/HCPCS: 99283

== ENCOUNTER 2021-05-15 10:47 | Emergency (ER) | payer MEDICARE, OTHER ==
[2021-05-15 10:52] VITALS: BP 139/85; PULSE 77; RESP 18; TEMP 97.9
[2021-05-15] MEDS ORDERED: SODIUM CHLORIDE 0.9% 1,000 ML IV STA (11:06)
[2021-05-15] MEDS ORDERED: LOPERAMIDE 2 MG CAP PO STA (11:06)
[2021-05-15 11:50] LABS: Basophils % (A) 0 %; Eosinophils # (A) 0.1 k/uL (0-0.7); Eosinophils % (A) 3 %; HCT 35.3 % (34.0-46.0); Lymphocytes # (A) 1.1 k/uL (1.0-4.8); Lymphocytes % (A) 31 %; MCH 29.4 pg (25.0-35.0); MCHC 33.9 g/dL (31.0-37.0); MCV 86.8 fL (80.0-100.0); Mean Platelet Volume 7.7; Monocytes # (A) 0.2 k/uL (0-1.0); Monocytes % (A) 7 %; Neutrophils % (A) 57 %; Platelet Count 252 k/uL (150-450); RBC 4.07 m/uL (3.80-5.40); RDW 13.7 % (11.5-15.5); WBC 3.5 k/uL (3.8-10.6)
[2021-05-15 12:01] LABS: ALT 23 U/L (4-34); AST 26 U/L (14-36); African American GFR (CKD) >90 (>60 ml/min/1.73 sqM); Albumin 3.9 g/dL (3.5-5.0); Alkaline Phosphatase 43 U/L (38-126); Amylase 76 U/L (30-110); Anion Gap 6 mmol/L; Blood Urea Nitrogen 13 mg/dL (7-17); Calcium 9.1 mg/dL (8.4-10.2); Carbon Dioxide 25 mmol/L (22-30); Chloride 108 mmol/L (98-107); Glucose 102 mg/dL (74-99); Lipase 72 U/L (23-300); Non-African American GFR(CKD) >90 (>60 ml/min/1.73 sqM); Potassium 3.9 mmol/L (3.5-5.1); Sodium 139 mmol/L (137-145); Total Bilirubin 0.2 mg/dL (0.2-1.3)
[2021-05-15 12:19] LABS: Appearance,Urine Clear (Clear); Bilirubin,Urine Negative (Negative); Blood,Urine Negative (Negative); Color,Urine Yellow; Glucose,Urine (UA) Negative (Negative); Ketones,Urine Negative (Negative); Leukocyte Esterase,Urine Negative (Negative); Nitrite,Urine Negative (Negative); PH, Urine 6.5 (5.0-8.0); Protein,Urine Negative (Negative); Specific Gravity,Urine 1.025 (1.001-1.035); Urobilinogen,Urine <2.0 mg/dL (<2.0)
--- NOTE | 2021-05-15 12:43 | XR ---
EXAMINATION TYPE: XR KUB DATE OF EXAM: 05/15/2021 12:15 PM CLINICAL HISTORY: Pain and diarrhea TECHNIQUE: Two Upright KUB images of the abdomen are obtained. COMPARISON: CT abdomen and pelvis February 06, 2018. FINDINGS: Some paucity of bowel gas. Gas seen in nondistended small and large bowel loops. Right-side d pelvic phleboliths redemonstrated. Lung bases are clear. Osseous structures are intact. IMPRESSION: Overall nonspecific strongly favor nonobstructive bowel gas pattern.
--- NOTE | 2021-05-15 13:00 | ED ---
Nausea/Vomiting/Diarrhea HPI - General Chief complaint: Nausea/Vomiting/Diarrhea Stated complaint: diarrhea Time Seen by Provider: 05/15/21 10:53 Source: patient, RN notes reviewed Mode of arrival: ambulatory Limitations: no limitations - History of Present Illness Initial comments: Patient is a 40-year-old female that presents to the emergency room complaining of 3 episodes of diarrhea and some abdominal discomfort. Patient notes she was sent seen at [facility] and told showed mildly low potassium. Patient was well- appearing. She did appear to be somewhat anxious and concerned about her left her lites. She did state that she's got several x-rays over the past few days and then had a 5G phone that she talked on a lot which she thinks might of caused her electrolytes to be imbalance. Patient was otherwise well-appearing. She denied any chest pain shortness of breath headache nausea vomiting constipation fever fatigue chills. - Related Data Home Medications Medication Instructions Recorded Confirmed Multivitamins, Thera [Multivitamin 1 tab PO DAILY 05/01/18 05/08/18 (formulary)] Previous Rx's Medication Instructions Recorded Amoxicillin/Potassium Clav 1 each PO Q12HR #20 tab 05/01/18 [Augmentin 875-125 Tablet] Ibuprofen [Motrin] 600 mg PO Q8HR PRN #20 tab 04/25/21 Ondansetron Odt [Zofran ODT] 4 mg PO Q8HR PRN #10 tab 04/25/21 Allergies Allergy/AdvReac Type Severity Reaction Status Date / Time methylprednisolone Allergy Anaphylaxis Verified 05/15/21 10:52 prednisone Allergy Anaphylaxis Verified 05/15/21 10:52 doxycycline AdvReac Nausea & Verified 05/15/21 10:52 Vomiting Review of Systems ROS Statement: Those systems with pertinent positive or pertinent negative responses have been documented in the HPI. ROS Other: All systems not noted in ROS Statement are negative. Past Medical History Past Medical History: Asthma, COPD Additional Past Medical History / Comment(s): bipolar, schizophrenia, History of Any Multi-Drug Resistant Organisms: None Reported Past Surgical History: Section Past Psychological History: Anxiety, Bipolar, Depression, Schizophrenia Smoking Status: Never smoker Past Alcohol Use History: Occasional, Rare Past Drug Use History: None Reported General Exam Limitations: no limitations General appearance: alert, in no apparent distress Head exam: Present: atraumatic, normocephalic, normal inspection Eye exam: Present: normal appearance, PERRL, EOMI. Absent: scleral icterus, conjunctival injection, periorbital swelling ENT exam: Present: normal exam, mucous membranes moist Neck exam: Present: normal inspection Respiratory exam: Present: normal lung sounds bilaterally. Absent: respiratory distress, wheezes, rales, rhonchi, stridor Cardiovascular Exam: Present: regular rate, normal rhythm, normal heart sounds. Absent: systolic murmur, diastolic murmur, rubs, gallop, clicks GI/Abdominal exam: Present: soft, normal bowel sounds. Absent: distended, tenderness, guarding, rebound, rigid Extremities exam: Present: normal inspection, full ROM, normal capillary refill. Absent: tenderness, pedal edema, joint swelling, calf tenderness Neurological exam: Present: alert, oriented X3 Psychiatric exam: Present: normal affect, normal mood Skin exam: Present: warm, dry, intact, normal color. Absent: rash Course Vital Signs 05/15/21 10:48 Temperature 97.9 F Pulse Rate 77 Respiratory 18 Rate Blood Pressure 139/85 O2 Sat by Pulse 100 Oximetry Medical Decision Making - Medical Decision Making 40-year-old female complaining of diarrhea. Labs, 1 L normal saline, one tablet of Imodium ordered. Labs unremarkable. KUB ordered shows a nonobstructive bowel gas pattern. Case discussed with Dr. Fong, patient discharge home with follow-up primary care. - Lab Data Result diagrams: 05/15/21 11:44 05/15/21 11:44 Lab Results 05/15/21 05/15/21 05/15/21 Range/Units 11:44 11:44 11:53 WBC 3.5 L (3.8-10.6) k/uL RBC 4.07 (3.80-5.40) m/uL Hgb 12.0 (11.4-16.0) gm/dL Hct 35.3 (34.0-46.0) % MCV 86.8 (80.0-100.0) fL MCH 29.4 (25.0-35.0) pg MCHC 33.9 (31.0-37.0) g/dL RDW 13.7 (11.5-15.5) % Plt Count 252 (150-450) k/uL MPV 7.7 Neutrophils % 57 % Lymphocytes % 31 % Monocytes % 7 % Eosinophils % 3 % Basophils % 0 % Neutrophils # 2.0 (1.3-7.7) k/uL Lymphocytes # 1.1 (1.0-4.8) k/uL Monocytes # 0.2 (0-1.0) k/uL Eosinophils # 0.1 (0-0.7) k/uL Basophils # 0.0 (0-0.2) k/uL Sodium 139 (137-145) mmol/L Potassium 3.9 (3.5-5.1) mmol/L Chloride 108 H (98-107) mmol/L Carbon Dioxide 25 (22-30) mmol/L Anion Gap 6 mmol/L BUN 13 (7-17) mg/dL Creatinine 0.65 (0.52-1.04) mg/dL Est GFR (CKD-EPI)AfAm >90 (>60 ml/min/1.73 sqM) Est GFR (CKD-EPI)NonAf >90 (>60 ml/min/1.73 sqM) Glucose 102 H (74-99) mg/dL Calcium 9.1 (8.4-10.2) mg/dL Total Bilirubin 0.2 (0.2-1.3) mg/dL AST 26 (14-36) U/L ALT 23 (4-34) U/L Alkaline Phosphatase 43 (38-126) U/L Total Protein 7.0 (6.3-8.2) g/dL Albumin 3.9 (3.5-5.0) g/dL Amylase 76 (30-110) U/L Lipase 72 (23-300) U/L Urine Color Yellow Urine Appearance Clear (Clear) Urine pH 6.5 (5.0-8.0) Ur Specific Mobile 1.025 (1.001-1.035) Urine Protein Negative (Negative) Urine Glucose (UA) Negative (Negative) Urine Ketones Negative (Negative) Urine Blood Negative (Negative) Urine Nitrite Negative (Negative) Urine Bilirubin Negative (Negative) Urine Urobilinogen <2.0 (<2.0) mg/dL Ur Leukocyte Esterase Negative (Negative) - Radiology Data Radiology results: report reviewed, image reviewed AB: Highly suggestive of nonobstructive bowel gas pattern. Disposition Clinical Impression: Dehydration, Diarrhea Disposition: HOME SELF-CARE Condition: Stable Instructions (If sedation given, give patient instructions): Acute Diarrhea (ED) Additional Instructions: Please return to the Emergency Department if symptoms worsen or any other concerns. Follow-up with primary care 1-2 days. Plenty of fluids. Is patient prescribed a controlled substance at d/c from ED?: No Referrals: Kierra Gamble MD [Primary Care Provider] - 1-2 days Time of Disposition: 12:59
== END 2021-05-15 13:12 | disposition home or self-care (01) ==
LOC: EC 10:47
DX: E86.0 Dehydration (principal); R19.7 Diarrhea, unspecified; J44.9 Chronic obstructive pulmonary disease, unspecified; Z79.1 Long term (current) use of non-steroidal anti-inflammatories (NSAID); Z79.899 Other long term (current) drug therapy
CPT/HCPCS: 36415; 74018; 80053; 81003; 82150; 83690; 85025; 99284

== ENCOUNTER 2021-08-21 17:45 | Emergency (ER) | payer MEDICARE, OTHER ==
[2021-08-21 17:56] VITALS: BP 118/68; RESP 20
[2021-08-21] MEDS ORDERED: SODIUM CHLORIDE 0.9% 1,000 ML IV STA (18:35)
--- NOTE | 2021-08-21 18:38 | ED ---
General Adult HPI - General Chief complaint: Abdominal Pain Stated complaint: ABD pain Time Seen by Provider: 08/21/21 18:08 Source: patient, RN notes reviewed Mode of arrival: ambulatory Limitations: no limitations - History of Present Illness Initial comments: 41-year-old female presents to the emergency department for evaluation of right flank and diffuse lower abdomen pain 10 days. Patient states pain is slightly worse with palpation, though does not change with activity. Does have mild nausea as well. Also complains of urinary frequency. Reports bowel moveoment yesterday. Denies fever, chills, chest pain, shortness of breath, cough, tonja estion, diarrhea, dysuria, or hematuria. - Related Data Home Medications Medication Instructions Recorded Confirmed Multivitamins, Thera [Multivitamin 1 tab PO DAILY 05/01/18 05/08/18 (formulary)] Previous Rx's Medication Instructions Recorded Amoxicillin/Potassium Clav 1 each PO Q12HR #20 tab 05/01/18 [Augmentin 875-125 Tablet] Ibuprofen [Motrin] 600 mg PO Q8HR PRN #20 tab 04/25/21 Ondansetron Odt [Zofran ODT] 4 mg PO Q8HR PRN #10 tab 04/25/21 Allergies Allergy/AdvReac Type Severity Reaction Status Date / Time methylprednisolone Allergy Anaphylaxis Verified 05/15/21 10:52 prednisone Allergy Anaphylaxis Verified 05/15/21 10:52 doxycycline AdvReac Nausea & Verified 05/15/21 10:52 Vomiting Review of Systems ROS Statement: Those systems with pertinent positive or pertinent negative responses have been documented in the HPI. ROS Other: All systems not noted in ROS Statement are negative. Past Medical History Past Medical History: Asthma, COPD Additional Past Medical History / Comment(s): bipolar, schizophrenia, +covid -05/09 History of Any Multi-Drug Resistant Organisms: None Reported Past Surgical History: Section Past Psychological History: Anxiety, Bipolar, Depression, Schizophrenia Smoking Status: Never smoker Past Alcohol Use History: Occasional, Rare Past Drug Use History: None Reported General Exam Limitations: no limitations (Well-developed, well-nourished female in no acute distress. Initial temperature 98.7, pulse 82, respirations 20, blood pressure 118/68, pulse ox 99% on room air.) General appearance: alert, in no apparent distress ENT exam: Present: normal oropharynx Respiratory exam: Present: normal lung sounds bilaterally. Absent: respiratory distress, wheezes, rales, rhonchi, stridor Cardiovascular Exam: Present: regular rate, normal rhythm, normal heart sounds. Absent: systolic murmur, diastolic murmur, rubs, gallop, clicks GI/Abdominal exam: Present: soft, guarding (lower abdomen), normal bowel sounds. Absent: distended, tenderness, rebound, rigid Back exam: Present: CVA tenderness (R) Neurological exam: Present: alert, oriented X3, CN II-XII intact Psychiatric exam: Present: normal affect, normal mood Skin exam: Present: warm, dry, intact, normal color. Absent: rash Course Vital Signs 08/21/21 08/21/21 17:53 20:25 Temperature 98.7 F 98.4 F Pulse Rate 82 84 Respiratory 20 Rate Blood Pressure 118/68 O2 Sat by Pulse 99 Oximetry - Reevaluation(s) Reevaluation #1: 08/21/21 20:13 Patient suspects her symptoms are due to constipation. States she forgot to report that she had hard formed stool today and that this lower abdominal pain was dre to previous episode of constipation. 08/21/21 21:02 Patient is noted to no longer be in her room. IV had been removed. Medical Decision Making - Medical Decision Making This is a 41-year-old female with a past medical history of mental illness and COPD. Presents to the emergency department for evaluation of abdominal pain. Upon exam, patient is resting comfortably and no acute distress. She is moving freely. Vital signs are stable. Patient is afebrile. She is nontoxic in appearance. Laboratory studies were reviewed and are unremarkable. Urinalysis is negative. Patient is not . Discussed CT of the abdomen and pelvis versus KUB x-ray. Patient declined CT, however eloped prior to receiving x-ray. There was no opportunity to reassess patient. Patient was not advised on discharge plan of care. Attending: Dr. Andrew. - Lab Data Result diagrams: 08/21/21 18:57 08/21/21 18:57 Lab Results 08/21/21 08/21/21 08/21/21 Range/Units 18:57 18:57 18:57 WBC 3.9 (3.8-10.6) k/uL RBC 3.92 (3.80-5.40) m/uL Hgb 11.8 (11.4-16.0) gm/dL Hct 35.9 (34.0-46.0) % MCV 91.6 (80.0-100.0) fL MCH 30.2 (25.0-35.0) pg MCHC 33.0 (31.0-37.0) g/dL RDW 14.0 (11.5-15.5) % Plt Count 118 L (150-450) k/uL MPV 9.3 Neutrophils % 56 % Lymphocytes % 36 % Monocytes % 5 % Eosinophils % 1 % Basophils % 0 % Neutrophils # 2.2 (1.3-7.7) k/uL Lymphocytes # 1.4 (1.0-4.8) k/uL Monocytes # 0.2 (0-1.0) k/uL Eosinophils # 0.1 (0-0.7) k/uL Basophils # 0.0 (0-0.2) k/uL Sodium (137-145) mmol/L Potassium (3.5-5.1) mmol/L Chloride (98-107) mmol/L Carbon Dioxide (22-30) mmol/L Anion Gap mmol/L BUN (7-17) mg/dL Creatinine (0.52-1.04) mg/dL Est GFR (CKD-EPI)AfAm (>60 ml/min/1.73 sqM) Est GFR (CKD-EPI)NonAf (>60 ml/min/1.73 sqM) Glucose (74-99) mg/dL Calcium (8.4-10.2) mg/dL Total Bilirubin (0.2-1.3) mg/dL AST (14-36) U/L ALT (4-34) U/L Alkaline Phosphatase (38-126) U/L Total Protein (6.3-8.2) g/dL Albumin (3.5-5.0) g/dL Urine Color Yellow Urine Appearance Clear (Clear) Urine pH 6.0 (5.0-8.0) Ur Specific [place] 1.024 (1.001-1.035) Urine Protein Negative (Negative) Urine Glucose (UA) Negative (Negative) Urine Ketones Negative (Negative) Urine Blood Negative (Negative) Urine Nitrite Negative (Negative) Urine Bilirubin Negative (Negative) Urine Urobilinogen <2.0 (<2.0) mg/dL Ur Leukocyte Esterase Negative (Negative) Urine HCG, Qual Not Detected (Not Detectd) 08/21/21 Range/Units 18:57 WBC (3.8-10.6) k/uL RBC (3.80-5.40) m/uL Hgb (11.4-16.0) gm/dL Hct (34.0-46.0) % MCV (80.0-100.0) fL MCH (25.0-35.0) pg MCHC (31.0-37.0) g/dL RDW (11.5-15.5) % Plt Count (150-450) k/uL MPV Neutrophils % % Lymphocytes % % Monocytes % % Eosinophils % % Basophils % % Neutrophils # (1.3-7.7) k/uL Lymphocytes # (1.0-4.8) k/uL Monocytes # (0-1.0) k/uL Eosinophils # (0-0.7) k/uL Basophils # (0-0.2) k/uL Sodium 136 L (137-145) mmol/L Potassium 4.6 (3.5-5.1) mmol/L Chloride 105 (98-107) mmol/L Carbon Dioxide 24 (22-30) mmol/L Anion Gap 7 mmol/L BUN 12 (7-17) mg/dL Creatinine 0.56 (0.52-1.04) mg/dL Est GFR (CKD-EPI)AfAm >90 (>60 ml/min/1.73 sqM) Est GFR (CKD-EPI)NonAf >90 (>60 ml/min/1.73 sqM) Glucose 90 (74-99) mg/dL Calcium 8.8 (8.4-10.2) mg/dL Total Bilirubin 0.7 (0.2-1.3) mg/dL AST 37 H (14-36) U/L ALT 14 (4-34) U/L Alkaline Phosphatase 43 (38-126) U/L Total Protein 7.8 (6.3-8.2) g/dL Albumin 4.2 (3.5-5.0) g/dL Urine Color Urine Appearance (Clear) Urine pH (5.0-8.0) Ur Specific [place] (1.001-1.035) Urine Protein (Negative) Urine Glucose (UA) (Negative) Urine Ketones (Negative) Urine Blood (Negative) Urine Nitrite (Negative) Urine Bilirubin (Negative) Urine Urobilinogen (<2.0) mg/dL Ur Leukocyte Esterase (Negative) Urine HCG, Qual (Not Detectd) Disposition Clinical Impression: Abdominal pain Disposition: HOME SELF-CARE Condition: Stable Instructions (If sedation given, give patient instructions): Abdominal Pain (ED) Additional Instructions: Follow-up with your PCP for further evaluation and treatment. Return to the emergency department with any new, worsening, or concerning symptoms. Is patient prescribed a controlled substance at d/c from ED?: No Referrals: Kierra Gamble MD [Primary Care Provider] - 1-2 days
[2021-08-21] MEDS: ONDANSETRON 4 MG/2 ML VIAL IVP STA ×2 (19:00→19:01)
[2021-08-21 19:11] LABS: Appearance,Urine Clear (Clear); Bilirubin,Urine Negative (Negative); Blood,Urine Negative (Negative); Color,Urine Yellow; Glucose,Urine (UA) Negative (Negative); Ketones,Urine Negative (Negative); Leukocyte Esterase,Urine Negative (Negative); Nitrite,Urine Negative (Negative); Protein,Urine Negative (Negative); Specific Gravity,Urine 1.024 (1.001-1.035); Urobilinogen,Urine <2.0 mg/dL (<2.0)
[2021-08-21 19:19] LABS: Basophils % (A) 0 %; Eosinophils # (A) 0.1 k/uL (0-0.7); Eosinophils % (A) 1 %; HCT 35.9 % (34.0-46.0); HGB 11.8 gm/dL (11.4-16.0); Lymphocytes # (A) 1.4 k/uL (1.0-4.8); Lymphocytes % (A) 36 %; MCH 30.2 pg (25.0-35.0); MCV 91.6 fL (80.0-100.0); Mean Platelet Volume 9.3; Monocytes # (A) 0.2 k/uL (0-1.0); Monocytes % (A) 5 %; Neutrophils # (A) 2.2 k/uL (1.3-7.7); Neutrophils % (A) 56 %; Platelet Count 118 k/uL (150-450); RBC 3.92 m/uL (3.80-5.40); WBC 3.9 k/uL (3.8-10.6)
[2021-08-21 19:20] LABS: ALT 14 U/L (4-34); AST 37 U/L (14-36); African American GFR (CKD) >90 (>60 ml/min/1.73 sqM); Albumin 4.2 g/dL (3.5-5.0); Alkaline Phosphatase 43 U/L (38-126); Anion Gap 7 mmol/L; Blood Urea Nitrogen 12 mg/dL (7-17); Calcium 8.8 mg/dL (8.4-10.2); Carbon Dioxide 24 mmol/L (22-30); Chloride 105 mmol/L (98-107); Glucose 90 mg/dL (74-99); Non-African American GFR(CKD) >90 (>60 ml/min/1.73 sqM); Sodium 136 mmol/L (137-145); Total Bilirubin 0.7 mg/dL (0.2-1.3); Total Protein 7.8 g/dL (6.3-8.2)
[2021-08-21 19:25] LABS: Potassium 4.6 mmol/L (3.5-5.1)
[2021-08-21] MEDS ORDERED: KETOROLAC 15 MG/ML 1 ML VIAL IVP STA (19:39)
[2021-08-21 20:25] VITALS: PULSE 84; TEMP 98.4
== END 2021-08-21 21:09 | disposition home or self-care (01) ==
LOC: EC 17:45
DX: R10.84 Generalized abdominal pain (principal); J44.9 Chronic obstructive pulmonary disease, unspecified; F41.9 Anxiety disorder, unspecified; F31.9 Bipolar disorder, unspecified; F25.9 Schizoaffective disorder, unspecified; Z88.1 Allergy status to other antibiotic agents
CPT/HCPCS: 36415; 80053; 81003; 81025; 85025; 99284

== ENCOUNTER 2021-10-06 16:39 | Emergency (ER) | payer MEDICARE, OTHER ==
[2021-10-06] MEDS ORDERED: ACETAMINOPHEN TAB 500 MG TAB PO STA (16:53)
--- NOTE | 2021-10-06 17:10 | ED ---
General Adult HPI - General Chief complaint: ENT Stated complaint: sorethroat, congestion Time Seen by Provider: 10/06/21 16:46 Source: patient Mode of arrival: ambulatory Limitations: no limitations - History of Present Illness Initial comments: Dictation was produced using [employer] dictation software. please excuse any grammatical, word or spelling errors. Chief Complaint: 41-year-old female presents emergency department for fever, sore throat and cough History of Present Illness: She is a 41-year-old female she has no significant comorbidities. She states she was holding her grandson yesterday. Today she started to feel a cough and some sore throat. Denies any fevers she does feel perhaps a little hot. Patient also requesting blood work. She was at her primary care physician's office recently was told that she should have outpatient blood work done for migraine headaches. She had an ESR done at her PCPs office that was found to be elevated. Patient states that her PCP told her that there is some suspicion of temporal arteritis. Patient denies any chest pain. No pain complaints. No nausea vomiting. No diarrhea. She does not have a headache or vision loss today. She's had COVID-19 in the past. The ROS documented in this emergency department record has been reviewed and confirmed by me. Those systems with pertinent positive or negative responses have been documented in the HPI. All other systems are other negative and/or noncontributory. PHYSICAL EXAM: General Impression: Alert and oriented x3, not in acute distress HEENT: Normocephalic atraumatic, extra-ocular movements intact, pupils equal and reactive to light bilaterally, mucous membranes moist. Cardiovascular: Heart regular rate and rhythm Chest: Able to complete full sentences, no retractions, no tachypnea Abdomen: abdomen soft, non-tender, non-distended, no organomegaly Musculoskeletal: Pulses present and equal in all extremities, no peripheral edema Motor: no focal deficits noted Neurological: CN II-XII grossly intact, no focal motor or sensory deficits noted Skin: Intact with no visualized rashes Psych: Normal affect and mood ED course: 41-year-old well-appearing female presents emergency department for symptoms of URI. Vital signs upon arrival shows low-grade temperature 100.5, heart rate of 108, rest of vital signs within acceptable limits. Patient's well-appearing at the bedside. Laboratory evaluation obtained. CBC unremarkable. Metabolic panel is negative. Patient positive for COVID-19. ESR is 30 and CRP is 2.6 per these do not meet the threshold for suggesting temporal arteritis. Patient reevaluated at bedside states she has a mild headache. She does not have any jaw claudication, vision changes, pain over the temporal artery. Patient advised to follow-up with primary care doctor. She states she's had symptoms of possible cold for more than one week. She does not meet criteria for monoclonal antibody infusion. She'll be discharge. - Related Data Home Medications Medication Instructions Recorded Confirmed Multivitamins, Thera [Multivitamin 1 tab PO DAILY 05/01/18 05/08/18 (formulary)] Previous Rx's Medication Instructions Recorded Amoxicillin/Potassium Clav 1 each PO Q12HR #20 tab 05/01/18 [Augmentin 875-125 Tablet] Ibuprofen [Motrin] 600 mg PO Q8HR PRN #20 tab 04/25/21 Ondansetron Odt [Zofran ODT] 4 mg PO Q8HR PRN #10 tab 04/25/21 Allergies Allergy/AdvReac Type Severity Reaction Status Date / Time methylprednisolone Allergy Anaphylaxis Verified 05/15/21 10:52 prednisone Allergy Anaphylaxis Verified 05/15/21 10:52 doxycycline AdvReac Nausea & Verified 05/15/21 10:52 Vomiting Review of Systems ROS Statement: Those systems with pertinent positive or pertinent negative responses have been documented in the HPI. ROS Other: All systems not noted in ROS Statement are negative. Past Medical History Past Medical History: Asthma, COPD Additional Past Medical History / Comment(s): bipolar, schizophrenia, +covid - 05/09 History of Any Multi-Drug Resistant Organisms: None Reported Past Surgical History: Section Past Psychological History: Anxiety, Bipolar, Depression, Schizophrenia Smoking Status: Former smoker Past Alcohol Use History: Occasional, Rare Past Drug Use History: None Reported General Exam Limitations: no limitations Course Vital Signs 10/06/21 10/06/21 10/06/21 16:40 18:00 19:00 Temperature 100.5 F H 99.2 F Pulse Rate 108 H 90 Respiratory 18 18 20 Rate Blood Pressure 125/69 114/76 114/76 O2 Sat by Pulse 98 98 98 Oximetry 10/06/21 19:20 Temperature Pulse Rate Respiratory Rate Blood Pressure 114/76 O2 Sat by Pulse 100 Oximetry Medical Decision Making - Lab Data Result diagrams: 10/06/21 17:45 10/06/21 17:45 Lab Results 10/06/21 10/06/21 10/06/21 Range/Units 17:45 17:45 17:45 WBC 6.6 (3.8-10.6) k/uL RBC 4.21 (3.80-5.40) m/uL Hgb 12.3 (11.4-16.0) gm/dL Hct 37.4 (34.0-46.0) % MCV 89.0 (80.0-100.0) fL MCH 29.2 (25.0-35.0) pg MCHC 32.8 (31.0-37.0) g/dL RDW 13.5 (11.5-15.5) % Plt Count 335 D (150-450) k/uL MPV 7.1 Neutrophils % 82 % Lymphocytes % 10 % Monocytes % 6 % Eosinophils % 1 % Basophils % 0 % Neutrophils # 5.4 (1.3-7.7) k/uL Lymphocytes # 0.7 L (1.0-4.8) k/uL Monocytes # 0.4 (0-1.0) k/uL Eosinophils # 0.1 (0-0.7) k/uL Basophils # 0.0 (0-0.2) k/uL ESR 30 H (0-20) mm/hr Sodium (137-145) mmol/L Potassium (3.5-5.1) mmol/L Chloride (98-107) mmol/L Carbon Dioxide (22-30) mmol/L Anion Gap mmol/L BUN (7-17) mg/dL Creatinine (0.52-1.04) mg/dL Est GFR (CKD-EPI)AfAm (>60 ml/min/1.73 sqM) Est GFR (CKD-EPI)NonAf (>60 ml/min/1.73 sqM) Glucose (74-99) mg/dL Calcium (8.4-10.2) mg/dL C-Reactive Protein (<1.0) mg/dL Influenza Type A (PCR) Not Detected (Not Detectd) Influenza Type B (PCR) Not Detected (Not Detectd) RSV (PCR) Not Detected (Not Detectd) SARS-CoV-2 (PCR) Detected A (Not Detectd) Group A Strep Rapid Negative (Negative) 10/06/21 Range/Units 17:45 WBC (3.8-10.6) k/uL RBC (3.80-5.40) m/uL Hgb (11.4-16.0) gm/dL Hct (34.0-46.0) % MCV (80.0-100.0) fL MCH (25.0-35.0) pg MCHC (31.0-37.0) g/dL RDW (11.5-15.5) % Plt Count (150-450) k/uL MPV Neutrophils % % Lymphocytes % % Monocytes % % Eosinophils % % Basophils % % Neutrophils # (1.3-7.7) k/uL Lymphocytes # (1.0-4.8) k/uL Monocytes # (0-1.0) k/uL Eosinophils # (0-0.7) k/uL Basophils # (0-0.2) k/uL ESR (0-20) mm/hr Sodium 139 (137-145) mmol/L Potassium 3.8 (3.5-5.1) mmol/L Chloride 107 (98-107) mmol/L Carbon Dioxide 26 (22-30) mmol/L Anion Gap 6 mmol/L BUN 10 (7-17) mg/dL Creatinine 0.67 (0.52-1.04) mg/dL Est GFR (CKD-EPI)AfAm >90 (>60 ml/min/1.73 sqM) Est GFR (CKD-EPI)NonAf >90 (>60 ml/min/1.73 sqM) Glucose 99 (74-99) mg/dL Calcium 9.1 (8.4-10.2) mg/dL C-Reactive Protein 2.6 H (<1.0) mg/dL Influenza Type A (PCR) (Not Detectd) Influenza Type B (PCR) (Not Detectd) RSV (PCR) (Not Detectd) SARS-CoV-2 (PCR) (Not Detectd) Group A Strep Rapid (Negative) Disposition Clinical Impression: COVID-19 Disposition: HOME SELF-CARE Condition: Fair Instructions (If sedation given, give patient instructions): Coronavirus Disease 2019 (COVID-19) Is patient prescribed a controlled substance at d/c from ED?: No Referrals: Kierra Gamble MD [Primary Care Provider] - 1-2 days Time of Disposition: 20:17
--- NOTE | 2021-10-06 17:40 | XR ---
EXAMINATION TYPE: XR chest 2V DATE OF EXAM: 10/06/2021 COMPARISON: NONE HISTORY: Cough TECHNIQUE: Frontal and lateral views of the chest are obtained. FINDINGS: No focal airspace opacity pneumothorax or effusion. Cardiomediastinal silhouette within nor mal limits. Osseous structures are acutely intact. IMPRESSION: No acute cardiopulmonary process.
[2021-10-06 18:27] LABS: Basophils % (A) 0 %; Eosinophils # (A) 0.1 k/uL (0-0.7); Eosinophils % (A) 1 %; HCT 37.4 % (34.0-46.0); HGB 12.3 gm/dL (11.4-16.0); Lymphocytes # (A) 0.7 k/uL (1.0-4.8); Lymphocytes % (A) 10 %; MCH 29.2 pg (25.0-35.0); MCHC 32.8 g/dL (31.0-37.0); Mean Platelet Volume 7.1; Monocytes # (A) 0.4 k/uL (0-1.0); Monocytes % (A) 6 %; Neutrophils # (A) 5.4 k/uL (1.3-7.7); Neutrophils % (A) 82 %; RBC 4.21 m/uL (3.80-5.40); RDW 13.5 % (11.5-15.5); WBC 6.6 k/uL (3.8-10.6)
[2021-10-06 18:44] LABS: Platelet Count 335 k/uL (150-450)
[2021-10-06 18:46] LABS: African American GFR (CKD) >90 (>60 ml/min/1.73 sqM); Anion Gap 6 mmol/L; Blood Urea Nitrogen 10 mg/dL (7-17); C Reactive Protein 2.6 mg/dL (<1.0); Calcium 9.1 mg/dL (8.4-10.2); Carbon Dioxide 26 mmol/L (22-30); Chloride 107 mmol/L (98-107); Glucose 99 mg/dL (74-99); Non-African American GFR(CKD) >90 (>60 ml/min/1.73 sqM); Potassium 3.8 mmol/L (3.5-5.1); Sodium 139 mmol/L (137-145)
[2021-10-06 19:41] LABS: Erythrocyte Sedimentation Rate 30 mm/hr (0-20)
[2021-10-06 20:54] VITALS: BP 112/84; PULSE 89; RESP 18; TEMP 98.6
== END 2021-10-06 20:57 | disposition home or self-care (01) ==
LOC: EC 16:39
DX: U07.1 COVID-19 (principal); J44.9 Chronic obstructive pulmonary disease, unspecified; F41.9 Anxiety disorder, unspecified; F31.9 Bipolar disorder, unspecified; F25.9 Schizoaffective disorder, unspecified; Z88.1 Allergy status to other antibiotic agents; Z87.891 Personal history of nicotine dependence
CPT/HCPCS: 36415; 71046; 80048; 85025; 85652; 86140; 87081; 87430; 87636; 99284

== ENCOUNTER → 2021-10-19 | Outpatient (CLI) | payer MEDICARE, OTHER ==
--- NOTE | 2021-10-19 08:18 | CT ---
EXAMINATION TYPE: CT chest wo con DATE OF EXAM: 10/19/2021 COMPARISON: [id number] HISTORY: Pulmonary nodule CT DLP: 364.9 mGycm. Automated Exposure Control for Dose Reduction was Utilized. TECHNIQUE: CT scan of the thorax is performed without IV contrast. FINDINGS: LUNGS: No consolidative process. The nodule at the left lung base measuring 4.2 mm subpleural nodule superior segment right lower lobe axial image 24 measuring 2 mm.. There is no pleural effusion or p neumothorax seen. The tracheobronchial tree is patent. MEDIASTINUM: Lack of IV contrast is noted to limit evaluation for mediastinal and especially hilar ad enopathy. There are no definitive greater than 1 cm hilar or mediastinal lymph nodes. No cardiomega ly or pericardial effusion is seen. Residual thymic tissue noted. Aorta of normal caliber. OTHER: Hypertrophic and degenerative changes spine.. IMPRESSION: 1. There are 2 small pulmonary nodules measuring 5 mm or less likely benign. Recommend six-month foll ow-up to confirm stability.
--- NOTE | 2021-10-19 08:25 | US ---
EXAMINATION TYPE: US thyroid st tissue head/neck DATE OF EXAM: 10/19/2021 COMPARISON: CT cervical spine 2018. MRI cervical spine 2014 CLINICAL HISTORY: E04.1 THYROID NODULE. GLAND SIZE: Right Lobe: 5.3 x 1.8 x 2.2 cm Overall Parenchyma: homogenous Left Lobe: 4.3 x 1.4 x 2.0 cm Overall Parenchyma: homogeneous Isthmus Thickness: 0.2 cm NODULES RIGHT: # of nodules measured on right: 1. 0.7 X 0.4 x 0.7 cm, lower lateral, solid or almost completely solid, anechoic nodule, which is w ider than tall, with ill-defined margins, without echogenic foci. No prior LEFT: # of nodules measured on left: 0 ISTHMUS: # of nodules measured in the isthmus: 0 Bilateral neck scanned, no evidence of lymphadenopathy. Homogeneous normal-size thyroid with 7 mm posterior upper pole hypoechoic solid nodule marked by tech nologist. IMPRESSION: As above. No follow-up needed for the subcentimeter right-sided nodule. 2017 ACR TI-RADS LEVEL: TR-RADS 4 - Moderately Suspicious: Follow if > 1 cm, FNA if > 1.5 cm *Highest TI-RADS level nodule reported
== END | disposition home or self-care (01) ==
LOC: RADCTMAIN 07:31
PROVIDERS: ATTEND Family Medicine
DX: E04.1 Nontoxic single thyroid nodule (principal); R91.8 Other nonspecific abnormal finding of lung field
CPT/HCPCS: 71250; 76536

== ENCOUNTER 2022-01-08 12:54 | Emergency (ER) | payer MEDICARE, OTHER ==
[2022-01-08 13:03] VITALS: RESP 18; TEMP 98.2
[2022-01-08] MEDS ORDERED: SODIUM CHLORIDE 0.9% 1,000 ML IV ONE (13:15)
[2022-01-08] MEDS ORDERED: KETOROLAC 15 MG/ML 1 ML VIAL IVP STA (13:15)
--- NOTE | 2022-01-08 13:22 | ED ---
General Adult HPI - General Chief complaint: Altered Mental Status Stated complaint: hallucinations Time Seen by Provider: 01/08/22 13:05 Source: patient, family, RN notes reviewed, old records reviewed Mode of arrival: ambulatory Limitations: no limitations - History of Present Illness Initial comments: 41-year-old female presenting for evaluation of hallucination and headache patient has history of schizophrenia. The patient is complaining of generalized weakness and headache which began today. Her daughter is accompanying her who said that all of her symptoms began today. There was no reported suicidal or homicidal ideation. She states the headache began this morning, this was not sudden onset and she describes it as bilateral and she describes a robot hallucination in her bilateral visual terrell. She also states that she has been fasting and praying a lot and has not eaten recently. She began fasting up to 18 hours daily. This is an acute change in her diet. - Related Data Home Medications Medication Instructions Recorded Confirmed Multivitamins, Thera [Multivitamin 1 tab PO DAILY 05/01/18 05/08/18 (formulary)] Previous Rx's Medication Instructions Recorded Amoxicillin/Potassium Clav 1 each PO Q12HR #20 tab 05/01/18 [Augmentin 875-125 Tablet] Ibuprofen [Motrin] 600 mg PO Q8HR PRN #20 tab 04/25/21 Ondansetron Odt [Zofran ODT] 4 mg PO Q8HR PRN #10 tab 04/25/21 Ibuprofen [Motrin] 600 mg PO Q8HR PRN #24 tab 01/08/22 Allergies Allergy/AdvReac Type Severity Reaction Status Date / Time methylprednisolone Allergy Anaphylaxis Verified 01/08/22 13:03 prednisone Allergy Anaphylaxis Verified 01/08/22 13:03 doxycycline AdvReac Nausea & Verified 01/08/22 13:03 Vomiting Review of Systems ROS Statement: Those systems with pertinent positive or pertinent negative responses have been documented in the HPI. ROS Other: All systems not noted in ROS Statement are negative. Past Medical History Past Medical History: Asthma, COPD Additional Past Medical History / Comment(s): bipolar, schizophrenia, +covid - 05/09 History of Any Multi-Drug Resistant Organisms: None Reported Past Surgical History: Section Past Psychological History: Anxiety, Bipolar, Depression, Schizophrenia Smoking Status: Former smoker Past Alcohol Use History: Occasional, Rare Past Drug Use History: None Reported General Exam Limitations: no limitations General appearance: alert, in no apparent distress Head exam: Present: atraumatic, normocephalic Eye exam: Present: normal appearance, PERRL ENT exam: Present: normal exam Neck exam: Present: normal inspection. Absent: tenderness, meningismus Respiratory exam: Present: normal lung sounds bilaterally. Absent: respiratory distress, wheezes Cardiovascular Exam: Present: regular rate, normal rhythm GI/Abdominal exam: Present: soft. Absent: distended, tenderness, guarding, rebound Extremities exam: Present: normal inspection, normal capillary refill Neurological exam: Present: alert, oriented X3, CN II-XII intact. Absent: motor sensory deficit Psychiatric exam: Present: anxious. Absent: suicidal ideation Skin exam: Present: warm, dry, intact. Absent: cyanosis, diaphoretic Course Vital Signs 01/08/22 01/08/22 12:58 16:18 Temperature 98.2 F Pulse Rate 67 89 Respiratory 18 18 Rate Blood Pressure 112/77 107/72 O2 Sat by Pulse 99 98 Oximetry EKG Findings - EKG Comments: EKG Findings:: EKG: Sinus rhythm, rate of 61, CA interval 158, QRS duration 96, QTC [address] segment elevation. Medical Decision Making - Medical Decision Making 41-year-old female presenting for evaluation of headache. Patient states headache began today this was not a thunderclap headache. She had some visual disturbance which she described as a robotic hallucination. She is not suicidal or homicidal per she does have history of psychiatric illness. She recently started periods of fasting up to 18 hours. She did not eat yet today she's given IV fluid and IV Toradol while her workup was initiated. She has head CT which is negative for acute intracranial abnormality, normal laboratory testing. Reevaluated she states the visual disturbances gone. Her headache is improved. She's hungry. I again discussed the possibility of EPS evaluation for hallucination. She declines. Her daughter is at bedside. She is eager for discharge. - Lab Data Result diagrams: 01/08/22 13:25 01/08/22 13:25 Lab Results 01/08/22 01/08/22 01/08/22 Range/Units 13:25 13:25 13:25 WBC 3.7 L (3.8-10.6) k/uL RBC 4.25 (3.80-5.40) m/uL Hgb 12.1 (11.4-16.0) gm/dL Hct 38.0 (34.0-46.0) % MCV 89.4 (80.0-100.0) fL MCH 28.4 (25.0-35.0) pg MCHC 31.7 (31.0-37.0) g/dL RDW 13.3 (11.5-15.5) % Plt Count 315 (150-450) k/uL MPV 8.1 Neutrophils % 53 % Lymphocytes % 38 % Monocytes % 6 % Eosinophils % 1 % Basophils % 0 % Neutrophils # 1.9 (1.3-7.7) k/uL Lymphocytes # 1.4 (1.0-4.8) k/uL Monocytes # 0.2 (0-1.0) k/uL Eosinophils # 0.0 (0-0.7) k/uL Basophils # 0.0 (0-0.2) k/uL PT 11.0 (9.0-12.0) sec INR 1.0 (<1.2) APTT 25.5 (22.0-30.0) sec Sodium (137-145) mmol/L Potassium (3.5-5.1) mmol/L Chloride (98-107) mmol/L Carbon Dioxide (22-30) mmol/L Anion Gap mmol/L BUN (7-17) mg/dL Creatinine (0.52-1.04) mg/dL Est GFR (CKD-EPI)AfAm (>60 ml/min/1.73 sqM) Est GFR (CKD-EPI)NonAf (>60 ml/min/1.73 sqM) Glucose (74-99) mg/dL Calcium (8.4-10.2) mg/dL Total Bilirubin (0.2-1.3) mg/dL AST (14-36) U/L ALT (4-34) U/L Alkaline Phosphatase (38-126) U/L Total Protein (6.3-8.2) g/dL Albumin (3.5-5.0) g/dL Urine Color Yellow Urine Appearance Cloudy H (Clear) Urine pH 6.0 (5.0-8.0) Ur Specific [place] 1.029 (1.001-1.035) Urine Protein Trace H (Negative) Urine Glucose (UA) Negative (Negative) Urine Ketones Negative (Negative) Urine Blood Negative (Negative) Urine Nitrite Negative (Negative) Urine Bilirubin Negative (Negative) Urine Urobilinogen <2.0 (<2.0) mg/dL Ur Leukocyte Esterase Negative (Negative) Urine RBC 1 (0-5) /hpf Urine WBC 3 (0-5) /hpf Ur Squamous Epith Cells 1 (0-4) /hpf Urine Bacteria Occasional H (None) /hpf Urine Mucus Many H (None) /hpf Urine Opiates Screen Not Detected (NotDetected) Ur Oxycodone Screen Not Detected (NotDetected) Urine Methadone Screen Not Detected (NotDetected) Ur Propoxyphene Screen Not Detected (NotDetected) Ur Barbiturates Screen Not Detected (NotDetected) U Tricyclic Antidepress Not Detected (NotDetected) Ur Phencyclidine Scrn Not Detected (NotDetected) Ur Amphetamines Screen Not Detected (NotDetected) U Methamphetamines Scrn Not Detected (NotDetected) U Benzodiazepines Scrn Not Detected (NotDetected) Urine Cocaine Screen Not Detected (NotDetected) U Marijuana (THC) Screen Not Detected (NotDetected) Serum Alcohol mg/dL 01/08/22 Range/Units 13:25 WBC (3.8-10.6) k/uL RBC (3.80-5.40) m/uL Hgb (11.4-16.0) gm/dL Hct (34.0-46.0) % MCV (80.0-100.0) fL MCH (25.0-35.0) pg MCHC (31.0-37.0) g/dL RDW (11.5-15.5) % Plt Count (150-450) k/uL MPV Neutrophils % % Lymphocytes % % Monocytes % % Eosinophils % % Basophils % % Neutrophils # (1.3-7.7) k/uL Lymphocytes # (1.0-4.8) k/uL Monocytes # (0-1.0) k/uL Eosinophils # (0-0.7) k/uL Basophils # (0-0.2) k/uL PT (9.0-12.0) sec INR (<1.2) APTT (22.0-30.0) sec Sodium 139 (137-145) mmol/L Potassium 3.6 (3.5-5.1) mmol/L Chloride 107 (98-107) mmol/L Carbon Dioxide 25 (22-30) mmol/L Anion Gap 7 mmol/L BUN 14 (7-17) mg/dL Creatinine 0.69 (0.52-1.04) mg/dL Est GFR (CKD-EPI)AfAm >90 (>60 ml/min/1.73 sqM) Est GFR (CKD-EPI)NonAf >90 (>60 ml/min/1.73 sqM) Glucose 101 H (74-99) mg/dL Calcium 9.3 (8.4-10.2) mg/dL Total Bilirubin 0.3 (0.2-1.3) mg/dL AST 24 (14-36) U/L ALT 14 (4-34) U/L Alkaline Phosphatase 50 (38-126) U/L Total Protein 7.1 (6.3-8.2) g/dL Albumin 4.1 (3.5-5.0) g/dL Urine Color Urine Appearance (Clear) Urine pH (5.0-8.0) Ur Specific [place] (1.001-1.035) Urine Protein (Negative) Urine Glucose (UA) (Negative) Urine Ketones (Negative) Urine Blood (Negative) Urine Nitrite (Negative) Urine Bilirubin (Negative) Urine Urobilinogen (<2.0) mg/dL Ur Leukocyte Esterase (Negative) Urine RBC (0-5) /hpf Urine WBC (0-5) /hpf Ur Squamous Epith Cells (0-4) /hpf Urine Bacteria (None) /hpf Urine Mucus (None) /hpf Urine Opiates Screen (NotDetected) Ur Oxycodone Screen (NotDetected) Urine Methadone Screen (NotDetected) Ur Propoxyphene Screen (NotDetected) Ur Barbiturates Screen (NotDetected) U Tricyclic Antidepress (NotDetected) Ur Phencyclidine Scrn (NotDetected) Ur Amphetamines Screen (NotDetected) U Methamphetamines Scrn (NotDetected) U Benzodiazepines Scrn (NotDetected) Urine Cocaine Screen (NotDetected) U Marijuana (THC) Screen (NotDetected) Serum Alcohol <10 mg/dL Disposition Clinical Impression: Headache Disposition: HOME SELF-CARE Condition: Fair Instructions (If sedation given, give patient instructions): Acute Headache (ED) Prescriptions: Ibuprofen [Motrin] 600 mg PO Q8HR PRN #24 tab PRN Reason: Pain Is patient prescribed a controlled substance at d/c from ED?: No Referrals: Kierra Gamble MD [Primary Care Provider] - 1-2 days Time of Disposition: 15:32
[2022-01-08 13:35] LABS: Basophils % (A) 0 %; Eosinophils % (A) 1 %; HGB 12.1 gm/dL (11.4-16.0); Lymphocytes # (A) 1.4 k/uL (1.0-4.8); Lymphocytes % (A) 38 %; MCH 28.4 pg (25.0-35.0); MCHC 31.7 g/dL (31.0-37.0); MCV 89.4 fL (80.0-100.0); Mean Platelet Volume 8.1; Monocytes # (A) 0.2 k/uL (0-1.0); Monocytes % (A) 6 %; Neutrophils # (A) 1.9 k/uL (1.3-7.7); Neutrophils % (A) 53 %; Platelet Count 315 k/uL (150-450); RBC 4.25 m/uL (3.80-5.40); RDW 13.3 % (11.5-15.5); WBC 3.7 k/uL (3.8-10.6)
[2022-01-08 13:44] LABS: Partial Thromboplastin Time 25.5 sec (22.0-30.0)
[2022-01-08 14:06] LABS: ALT 14 U/L (4-34); AST 24 U/L (14-36); African American GFR (CKD) >90 (>60 ml/min/1.73 sqM); Albumin 4.1 g/dL (3.5-5.0); Alcohol <10 mg/dL; Alkaline Phosphatase 50 U/L (38-126); Anion Gap 7 mmol/L; Blood Urea Nitrogen 14 mg/dL (7-17); Calcium 9.3 mg/dL (8.4-10.2); Carbon Dioxide 25 mmol/L (22-30); Chloride 107 mmol/L (98-107); Glucose 101 mg/dL (74-99); Non-African American GFR(CKD) >90 (>60 ml/min/1.73 sqM); Potassium 3.6 mmol/L (3.5-5.1); Sodium 139 mmol/L (137-145); Total Bilirubin 0.3 mg/dL (0.2-1.3); Total Protein 7.1 g/dL (6.3-8.2)
--- NOTE | 2022-01-08 14:46 | CT ---
EXAMINATION TYPE: CT brain wo con CT DLP: 1103.6 mGycm, Automated exposure control for dose reduction was used. DATE OF EXAM: 01/08/2022 2:39 PM COMPARISON: Prior CT Brain from 05/21/2020. CLINICAL INDICATION:Female, 41 years old with history of Altered mental status, TECHNIQUE: Brain: Multiple axial CT images of the brain were obtained without IV contrast. FINDINGS: Brain: Extra-axial spaces: No abnormal extra-axial fluid collections. Ventricular system: Within normal limits Cerebral parenchyma: No acute intraparenchymal hemorrhage or mass effect. The pringle-white junction is well differentiated. Cerebellum: Unremarkable. Mass effect: No evidence of midline shift. Intracranial vasculature: unremarkable Soft tissues: Normal. Calvarium/osseous structures: No depressed skull fracture. Paranasal sinuses and mastoid air cells: Clear Visualized orbits: Orbital contents are intact. IMPRESSION: No acute intracranial process.
[2022-01-08 15:00] LABS: Amphetamine Screen,Urine Not Detected (NotDetected); Appearance,Urine Cloudy (Clear); Bacteria,Urine Occasional /hpf; Barbiturate Screen,Urine Not Detected (NotDetected); Benzodiazepines Screen,Urine Not Detected (NotDetected); Bilirubin,Urine Negative (Negative); Blood,Urine Negative (Negative); Cocaine Screen,Urine Not Detected (NotDetected); Color,Urine Yellow; Glucose,Urine (UA) Negative (Negative); Ketones,Urine Negative (Negative); Leukocyte Esterase,Urine Negative (Negative); Methadone Screen, Urine Not Detected (NotDetected); Mucus,Urine Many /hpf; Nitrite,Urine Negative (Negative); Opiate Screen,Urine Not Detected (NotDetected); Oxycodone Screen, Urine Not Detected (NotDetected); Phencyclidine Screen,Urine Not Detected (NotDetected); Protein,Urine Trace (Negative); RBC,Urine 1 /hpf (0-5); Specific Gravity,Urine 1.029 (1.001-1.035); Squamous Epithelial Cell,Urine 1 /hpf (0-4); Tricyclic Antidepressant,Urine Not Detected (NotDetected); Urn Cannabinoid Scrn Not Detected (NotDetected); Urobilinogen,Urine <2.0 mg/dL (<2.0); WBC,Urine 3 /hpf (0-5)
[2022-01-08 16:22] VITALS: BP 107/72; PULSE 89
== END 2022-01-08 16:23 | disposition home or self-care (01) ==
LOC: EC 12:54
DX: R51.9 Headache, unspecified (principal); J45.909 Unspecified asthma, uncomplicated; Z87.891 Personal history of nicotine dependence; Z88.8 Allergy status to other drugs, medicaments and biological substances; Z88.1 Allergy status to other antibiotic agents
CPT/HCPCS: 36415; 93005; 80053; 85025; 85610; 85730; 81001; 80306; 70450; 99285; 96374; 96361; G0480; J1885; 80320

== ENCOUNTER → 2022-05-26 | Outpatient (CLI) | payer MEDICARE, OTHER ==
--- NOTE | 2022-05-26 08:25 | CT ---
EXAMINATION TYPE: CT chest wo con DATE OF EXAM: 05/26/2022 COMPARISON: 10/19/2021 HISTORY: Pulmonary nodule CT DLP: 300.[address] of the chest was performed with lung and mediastinal window settings submitted. The la ck of contrast limits evaluation of the vascular, mediastinal and parenchymal structures including th e upper abdomen. LUNGS: Linear parenchymal scarring is noted at the left lung base. No nodule is redemonstrated at thi s time. Pleural-based nodule right lower lobe image 33 persists and measures 2 mm. No additional nodu les present at this time. No evidence for infiltrate or atelectasis. No pleural effusion. MEDIASTINUM/NASRIN: Thoracic aorta is of normal caliber with limited evaluation given lack of contrast . The heart is not enlarged. No evidence for mediastinal mass. No lymph nodes greater than 1cm. UPPER ABDOMEN: No significant abnormality is seen. OTHER: No significant other abnormality. IMPRESSION: 1. Linear parenchymal scarring is noted at the left lung base. No nodule is redemonstrated at this t roger. 2. Stable 2 mm pleural-based nodule right lower lobe.
--- NOTE | 2022-05-26 09:11 | XR ---
EXAMINATION TYPE: XR cervical spine comp DATE OF EXAM: 05/26/2022 COMPARISON: 07/14/2015 HISTORY: Pain TECHNIQUE: Four views are submitted. FINDINGS: The odontoid is intact. There are no compression deformities. The prevertebral soft tissue structur es are within normal limits. Small bilateral cervical ribs. Hypertrophic spurring C4-5 C5-C6. IMPRESSION: 1. Hypertrophic spurring C4-5 and C5-C6. Correlate with MRI as clinically warranted..
--- NOTE | 2022-05-26 09:12 | XR ---
EXAM TYPE: LUMBAR SPINE X RAY SERIES COMPARISON: NONE HISTORY: Pain TECHNIQUE: 4 views are submitted. FINDINGS: Alignment is anatomic. The pedicles are intact. The transverse processes are intact. There is no s pondylolysis or spondylolisthesis. Minimal spurring C3, C4 and C5. Spina bifida occulta S1 level. IMPRESSION: 1. No acute process.
--- NOTE | 2022-05-26 09:21 | XR ---
EXAMINATION TYPE: XR thoracic spine 2V DATE OF EXAM: 05/26/2022 COMPARISON: NONE HISTORY: Pain TECHNIQUE: 3 views submitted FINDINGS: Alignment is anatomic. There is no compression deformities. Vertebral body height and disc interspa caridad are maintained. Hypertrophic spurring involving the lower cervical spine. Mild degenerative disc disease at multiple levels. IMPRESSION: 1. Mild multilevel degenerative disc disease..
--- NOTE | 2022-05-27 07:27 | MM ---
Reason for Exam: Screening (asymptomatic). Last mammogram was performed 1 year(s) and 10 month(s) ago. Patient History: Menarche at age 7. First Full-Term at age 19. Patient has history of breast feeding. Patient used Hormonal Contraceptives for 3 years. Risk Values: Amber 5 year model risk: 0.7%. NCI Lifetime model risk: 9.6%. Prior Study Comparison: 08/21/2019 Bilateral Screening Mammogram, [facility]. 08/05/2020 Bilateral Screening Mammogram, [facility]. Tissue Density: There are scattered fibroglandular densities. Findings: Analyzed By CAD. There is no suspicious group of microcalcifications or new suspicious mass in either breast. Overall Assessment: Negative, BI-RAD 1 Management: Screening Mammogram of both breasts in 1 year. A clinical breast exam by your physician is recommended on an annual basis and results should be correlated with mammographic findings. Electronically signed and approved by: Braydon Blanchard M.D.
== END | disposition home or self-care (01) ==
LOC: RADCTMAIN 07:05
PROVIDERS: ATTEND Family Medicine
DX: Z12.31 Encounter for screening mammogram for malignant neoplasm of breast (principal); R91.1 Solitary pulmonary nodule; J98.4 Other disorders of lung; M46.02 Spinal enthesopathy, cervical region; L90.5 Scar conditions and fibrosis of skin
CPT/HCPCS: 71250; 72050; 72070; 72110; 77063; 77067

== ENCOUNTER 2022-10-31 07:42 | Emergency (ER) | payer MEDICARE, OTHER ==
[2022-10-31] MEDS ORDERED: SODIUM CHLORIDE 0.9% 1,000 ML IV STA (07:52)
[2022-10-31] MEDS ORDERED: ORPHENADRINE 30 MG/ML 2 ML VIAL IVP STA (07:52)
[2022-10-31] MEDS ORDERED: KETOROLAC 15 MG/ML 1 ML VIAL IVP STA (07:52)
[2022-10-31 08:03] VITALS: RESP 18
[2022-10-31 08:20] LABS: Basophils % (A) 0 %; Eosinophils % (A) 1 %; HGB 12.1 gm/dL (11.4-16.0); Lymphocytes # (A) 1.6 k/uL (1.0-4.8); Lymphocytes % (A) 32 %; MCH 28.9 pg (25.0-35.0); MCHC 32.6 g/dL (31.0-37.0); MCV 88.5 fL (80.0-100.0); Mean Platelet Volume 7.8; Monocytes # (A) 0.3 k/uL (0-1.0); Monocytes % (A) 6 %; Neutrophils # (A) 2.9 k/uL (1.3-7.7); Neutrophils % (A) 59 %; Platelet Count 271 k/uL (150-450); RBC 4.18 m/uL (3.80-5.40); RDW 13.8 % (11.5-15.5); WBC 4.9 k/uL (3.8-10.6)
--- NOTE | 2022-10-31 08:23 | XR ---
EXAMINATION TYPE: XR chest 2V DATE OF EXAM: 10/31/2022 COMPARISON: 10/06/2021 TECHNIQUE: PA and lateral views submitted. HISTORY: Pain FINDINGS: The lungs are clear and there is no pneumothorax, pleural effusion, or focal pneumonia. Heart size normal and no overt failure. Osseous structures intact. IMPRESSION: 1. No acute process.
[2022-10-31 08:30] LABS: ALT 16 U/L (4-34); AST 23 U/L (14-36); African American GFR (CKD) >90 (>60 ml/min/1.73 sqM); Albumin 4.1 g/dL (3.5-5.0); Alkaline Phosphatase 56 U/L (38-126); Anion Gap 7 mmol/L; Blood Urea Nitrogen 15 mg/dL (7-17); Calcium 9.1 mg/dL (8.4-10.2); Carbon Dioxide 25 mmol/L (22-30); Chloride 106 mmol/L (98-107); Glucose 101 mg/dL (74-99); Non-African American GFR(CKD) >90 (>60 ml/min/1.73 sqM); Potassium 4.1 mmol/L (3.5-5.1); Sodium 138 mmol/L (137-145); Total Bilirubin 0.4 mg/dL (0.2-1.3); Total Protein 7.5 g/dL (6.3-8.2)
--- NOTE | 2022-10-31 08:30 | ED ---
Chest Pain HPI - General Chief Complaint: Chest Pain Stated Complaint: back pain Time Seen by Provider: 10/31/22 07:48 Source: patient, RN notes reviewed Mode of arrival: ambulatory Limitations: no limitations - History of Present Illness Initial Comments: 42-year-old female presents emergency Department with chief complaint of thoracic back pain. Patient states that started yesterday states is hurting to move states that worsened today. She denies any anterior chest pain. Patient states that she felt like she twisted wrong lifted something. She is no prior cardiac disease denies any history of hypertension hyperlipidemia diabetes. Denies any fevers chills no cough or symptoms. No headache no dizziness. - Related Data Home Medications Medication Instructions Recorded Confirmed Multivitamins, Thera [Multivitamin 1 tab PO DAILY 05/01/18 05/08/18 (formulary)] Previous Rx's Medication Instructions Recorded Amoxicillin/Potassium Clav 1 each PO Q12HR #20 tab 05/01/18 [Augmentin 875-125 Tablet] Ibuprofen [Motrin] 600 mg PO Q8HR PRN #20 tab 04/25/21 Ondansetron Odt [Zofran ODT] 4 mg PO Q8HR PRN #10 tab 04/25/21 Ibuprofen [Motrin] 600 mg PO Q8HR PRN #24 tab 01/08/22 Cyclobenzaprine [Flexeril] 10 mg PO TID PRN #15 tab 10/31/22 Ibuprofen [Motrin] 600 mg PO Q8HR PRN #20 tab 10/31/22 Allergies Allergy/AdvReac Type Severity Reaction Status Date / Time methylprednisolone Allergy Anaphylaxis Verified 10/31/22 07:46 prednisone Allergy Anaphylaxis Verified 10/31/22 07:46 doxycycline AdvReac Nausea & Verified 10/31/22 07:46 Vomiting Review of Systems ROS Statement: Those systems with pertinent positive or pertinent negative responses have been documented in the HPI. ROS Other: All systems not noted in ROS Statement are negative. EKG Findings - EKG Comments: EKG Findings:: EKG performed at 17:55 rate of 75 KS 164 QRS 112 QT/QTC 354/383 - EKG Results: EKG: interpreted by CHICHI Past Medical History Past Medical History: Asthma, COPD Additional Past Medical History / Comment(s): bipolar, schizophrenia, +covid - 05/09 History of Any Multi-Drug Resistant Organisms: None Reported Past Surgical History: Section Past Psychological History: Anxiety, Bipolar, Depression, Schizophrenia Smoking Status: Former smoker Past Alcohol Use History: Occasional, Rare Past Drug Use History: None Reported General Exam Limitations: no limitations General appearance: alert, in no apparent distress Head exam: Present: atraumatic, normocephalic, normal inspection Eye exam: Present: normal appearance, PERRL, EOMI. Absent: scleral icterus, conjunctival injection, periorbital swelling ENT exam: Present: normal exam, normal oropharynx, mucous membranes moist Neck exam: Present: normal inspection, full ROM. Absent: tenderness, meningismus, lymphadenopathy Respiratory exam: Present: normal lung sounds bilaterally. Absent: respiratory distress, wheezes, rales, rhonchi, stridor Cardiovascular Exam: Present: regular rate, normal rhythm, normal heart sounds. Absent: systolic murmur, diastolic murmur, rubs, gallop, clicks GI/Abdominal exam: Present: soft, normal bowel sounds. Absent: distended, tenderness, guarding, rebound, rigid Back exam: Present: normal inspection, full ROM, tenderness, paraspinal tenderness Neurological exam: Present: alert Skin exam: Present: warm, dry, intact, normal color. 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 sent in by a medical professional or institution (, PA, CAMPER ASSEMBLER, urgent care, hospital, or skilled nursing...) When possible be specific @ -No Did you speak to anyone other than the patient for history (EMS, parent, family, police, friend...)? What history was obtained from this source @ -No Did you review nursing and triage notes (agree or disagree)? Why? @ -I reviewed and agree with nursing and triage notes Were old charts reviewed (outside hosp., previous admission, EMS record, old EKG, old radiological studies, urgent care reports/EKG's, skilled nursing records)? Report findings @ -Reviewed prior imaging, EKGs Differential Diagnosis (chest pain, altered mental status, abdominal pain women, abdominal pain men, vaginal bleeding, weakness, fever, dyspnea, syncope, headache, dizziness, GI bleed, back pain, seizure, CVA, palpatations, mental health, musculoskeletal)? @ -Differential Chest Pain: Stable Angina, Unstable Angina, STEMI, NSTEMI Aortic Dissection, Pneumothorax, Musculoskeletal, Esophageal Spasm GERD, Cholecystitis, Pancreatitis, Zoster, this is not meant to be an all-inclusive list. EKG interpreted by me (3pts min.). @ -As above X-rays interpreted by me (1pt min.). @ -Chest x-ray shows no acute process, no pneumothorax CT interpreted by me (1pt min.). @ -CT chest [id number] is no evidence of PE, pneumothorax or acute abnormality. U/S interpreted by me (1pt. min.). @ -None done What testing was considered but not performed or refused? (CT, X-rays, U/S, labs)? Why? @ -None What meds were considered but not given or refused? Why? @ -None Did you discuss the management of the patient with other professionals (professionals i.e. , PA, CAMPER ASSEMBLER, lab, RT, psych nurse, foster care social worker, retail agent, teacher, port patrol officer, case managers)? Give summary @ -No Was smoking cessation discussed for >3mins.? @ -No Was critical care preformed (if so, how long)? @ -No Were there social determinants of health that impacted care today? How? (Homelessness, low income, unemployed, alcoholism, drug addiction, transportation, low edu. Level, literacy, decrease access to med. care, long-term, rehab)? @ -No Was there de-escalation of care discussed even if they declined (Discuss DNR or withdrawal of care, Hospice)? DNR status @ -No What co-morbidities impacted this encounter? (DM, HTN, Smoking, COPD, CAD, Cancer, CVA, ARF, Chemo, Hep., AIDS, mental health diagnosis, sleep apnea, morbid obesity)? @ -Asthma Was patient admitted / discharged? Hospital course, mention meds given and route, prescriptions, significant lab abnormalities, going to OR and other pertinent info. @ -Discharged patient's workup was negative she has very reproducible back pain with no chest pain or EKG changes lab for a is unremarkable patient feels improved after Toradol. Undiagnosed new problem with uncertain prognosis? @ -No Drug Therapy requiring intensive monitoring for toxicity (Heparin, Nitro, Insulin, Cardizem)? @ -No Were any procedures done? @ -No Diagnosis/symptom? @ -Thoracic back pain acute Acute, or Chronic, or Acute on Chronic? @ -Acute Uncomplicated (without systemic symptoms) or Complicated (systemic symptoms)? @ -Uncomplicated Side effects of treatment? @ -No Exacerbation, Progression, or Severe Exacerbation? @ -No Poses a threat to life or bodily function? How? (Chest pain, [place], [place], pneumonia, PE, COPD, DKA, ARF, appy, cholecystitis, CVA, Diverticulitis, Homicidal, Suicidal, threat to staff... and all critical care pts) @ -No Disposition Clinical Impression: Thoracic back pain Disposition: HOME SELF-CARE Condition: Stable Instructions (If sedation given, give patient instructions): Back Pain (ED) Additional Instructions: Please return to the Emergency Department if symptoms worsen or any other concerns. Prescriptions: Cyclobenzaprine [Flexeril] 10 mg PO TID PRN #15 tab PRN Reason: Muscle Spasm Ibuprofen [Motrin] 600 mg PO Q8HR PRN #20 tab PRN Reason: Pain Is patient prescribed a controlled substance at d/c from ED?: No Referrals: Kierra Gamble MD [Primary Care Provider] - 1-2 days Time of Disposition: 10:48
[2022-10-31 08:31] LABS: Partial Thromboplastin Time 26.1 sec (22.0-30.0); Prothrombin Time 10.2 sec (9.0-12.0)
--- NOTE | 2022-10-31 10:39 | CT ---
EXAMINATION TYPE: CT chest angio for PE DATE OF EXAM: 10/31/2022 COMPARISON: 01/18/2017 HISTORY: Shortness of breath and elevated d-dimer Automated exposure control for dose reduction was used. CONTRAST: CT Chest for pulmonary embolism performed according to protocol with administration of nonionic IV co ntrast material. 3-D postprocessing was performed. FINDINGS: LUNGS: The lungs are grossly clear, there is no concerning parenchymal mass or nodule identified. T here is no pleural effusion or pneumothorax seen. The tracheobronchial tree is patent. MEDIASTINUM: There is satisfactory enhancement of the pulmonary artery and its branches, there is no CT evidence for pulmonary embolism. There are no greater than 1 cm hilar or mediastinal lymph nodes. No pericardial effusion is seen. OTHER: No additional significant abnormality is seen. IMPRESSION: 1. No pulmonary embolism. 2. No acute cardiopulmonary disease.
[2022-10-31 11:38] VITALS: BP 109/66; PULSE 79; TEMP 98.1
== END 2022-10-31 11:38 | disposition home or self-care (01) ==
LOC: EC 07:42
DX: M54.6 Pain in thoracic spine (principal); J44.9 Chronic obstructive pulmonary disease, unspecified; F41.9 Anxiety disorder, unspecified; F31.9 Bipolar disorder, unspecified; Z87.891 Personal history of nicotine dependence; Z79.899 Other long term (current) drug therapy; Z88.6 Allergy status to analgesic agent; Z88.8 Allergy status to other drugs, medicaments and biological substances
CPT/HCPCS: 36415; 93005; 85379; 80053; 83735; 84484; 85025; 85610; 85730; 71046; 71275; 99285; 96374; 96361 ×3; J1885; Q9967

== ENCOUNTER → 2023-05-01 | Outpatient (CLI) | payer MEDICARE, OTHER ==
--- NOTE | 2023-05-01 10:01 | CT ---
EXAMINATION TYPE: CT abdomen pelvis wo con CT DLP: 807 mGycm, Automated exposure control for dose reduction was used. DATE OF EXAM: 05/01/2023 9:42 AM COMPARISON: CT abdomen pelvis 02/06/2018 CLINICAL INDICATION:Female, 42 years old with history of R63.4 WEIGHT LOSS; weight loss TECHNIQUE: Standard CT of the abdomen and pelvis without IV or oral contrast. Lack of IV or oral co ntrast limits evaluation of solid and hollow organ viscera. Coronal and sagittal reformats were perfo rmed. FINDINGS: LOWER CHEST: Unremarkable ABDOMEN LIVER: Unremarkable noncontrast appearance. GALLBLADDER AND BILE DUCTS: Unremarkable noncontrast appearance. PANCREAS: Mild fatty infiltration. SPLEEN: Unremarkable noncontrast appearance. ADRENAL GLANDS: Unremarkable. KIDNEYS AND URETERS: No evidence of hydronephrosis or renal calculus. PELVIS BLADDER: Unremarkable REPRODUCTIVE: Unremarkable noncontrast appearance. ABDOMEN & PELVIS STOMACH AND BOWEL: Stomach and duodenum are unremarkable. No focal bowel wall thickening or surroundi ng inflammatory changes. The appendix is within normal limits. No evidence of bowel obstruction. PERITONEUM: No evidence of pneumoperitoneum or free fluid. VASCULATURE: No evidence of aortic aneurysm. Multiple pelvic phleboliths. MUSCULOSKELETAL: No acute osseous abnormalities LYMPH NODES: No gross evidence for lymphadenopathy. SOFT TISSUE/ABDOMINAL WALL: Unremarkable IMPRESSION: No acute abdominal/pelvic process within limitations of a noncontrast exam.
== END | disposition home or self-care (01) ==
LOC: RADCTMAIN 09:23
PROVIDERS: ATTEND Family Medicine
DX: R63.4 Abnormal weight loss (principal)
CPT/HCPCS: 74176

== ENCOUNTER 2023-09-23 10:38 | Emergency (ER) | payer MEDICARE, OTHER ==
[2023-09-23 10:52] VITALS: RESP 18
--- NOTE | 2023-09-23 11:04 | ED ---
Abdominal Pain HPI - General Chief Complaint: Abdominal Pain Stated Complaint: Right side body pain Time Seen by Provider: 09/23/23 10:46 Source: patient, RN notes reviewed Mode of arrival: ambulatory Limitations: no limitations - History of Present Illness Initial Comments: 43-year-old female presents emergency department with chief complaint of abdomin al pain. Patient states that started the other day with sudden onset of right- sided abdominal pain. Does hurt with movement. Denies any trauma denies any rashes. Patient states she was seen at [facility] had blood work, x-ray with no acute findings. Patient states that she continues to have pain no prior abdominal surgeries. No dysuria - Related Data Home Medications Medication Instructions Recorded Confirmed Multivitamins, Thera [Multivitamin 1 tab PO DAILY 05/01/18 05/08/18 (formulary)] Previous Rx's Medication Instructions Recorded Amoxicillin/Potassium Clav 1 each PO Q12HR #20 tab 05/01/18 [Augmentin 875-125 Tablet] Ibuprofen [Motrin] 600 mg PO Q8HR PRN #20 tab 04/25/21 Ondansetron Odt [Zofran ODT] 4 mg PO Q8HR PRN #10 tab 04/25/21 Ibuprofen [Motrin] 600 mg PO Q8HR PRN #24 tab 01/08/22 Cyclobenzaprine [Flexeril] 10 mg PO TID PRN #15 tab 10/31/22 Ibuprofen [Motrin] 600 mg PO Q8HR PRN #20 tab 10/31/22 Cyclobenzaprine [Flexeril] 10 mg PO TID PRN #15 tab 09/23/23 Allergies Allergy/AdvReac Type Severity Reaction Status Date / Time methylprednisolone Allergy Anaphylaxis Verified 09/23/23 10:43 prednisone Allergy Anaphylaxis Verified 09/23/23 10:43 doxycycline AdvReac Nausea & Verified 09/23/23 10:43 Vomiting Review of Systems ROS Statement: Those systems with pertinent positive or pertinent negative responses have been documented in the HPI. ROS Other: All systems not noted in ROS Statement are negative. Past Medical History Past Medical History: Asthma, COPD Additional Past Medical History / Comment(s): bipolar, schizophrenia, +covid - 05/09 History of Any Multi-Drug Resistant Organisms: None Reported Past Surgical History: Section Past Psychological History: Anxiety, Bipolar, Depression, Schizophrenia Smoking Status: Former smoker Past Alcohol Use History: Occasional, Rare Past Drug Use History: None Reported General Exam Limitations: no limitations General appearance: alert, in no apparent distress Head exam: Present: atraumatic, normocephalic, normal inspection ENT exam: Present: normal exam, normal oropharynx, mucous membranes moist Neck exam: Present: normal inspection, full ROM. Absent: tenderness, meningismus, lymphadenopathy Respiratory exam: Present: normal lung sounds bilaterally. Absent: respiratory distress, wheezes, rales, rhonchi, stridor Cardiovascular Exam: Present: regular rate, normal rhythm, normal heart sounds. Absent: systolic murmur, diastolic murmur, rubs, gallop, clicks GI/Abdominal exam: Present: soft, tenderness (Right upper quadrant), normal bowel sounds. Absent: distended, guarding, rebound, rigid Back exam: Absent: CVA tenderness (R), CVA tenderness (L) Neurological exam: Present: alert, oriented X3 Course Vital Signs 09/23/23 09/23/23 10:41 12:15 Temperature 97.9 F 98.1 F Pulse Rate 60 56 L Respiratory 18 18 Rate Blood Pressure 108/77 127/70 O2 Sat by Pulse 100 100 Oximetry Medical Decision Making - Medical Decision Making Was pt. sent in by a medical professional or institution (, PA, BLAST FURNACE KEEPER, urgent care, hospital, or usp...) When possible be specific @ -No Did you speak to anyone other than the patient for history (EMS, parent, family, police, friend...)? What history was obtained from this source @ -No Did you review nursing and triage notes (agree or disagree)? Why? @ -I reviewed and agree with nursing and triage notes Were old charts reviewed (outside hosp., previous admission, EMS record, old EKG, old radiological studies, urgent care reports/EKG's, usp records)? Report findings @ -No old charts were reviewed Differential Diagnosis (chest pain, altered mental status, abdominal pain women, abdominal pain men, vaginal bleeding, weakness, fever, dyspnea, syncope, headache, dizziness, GI bleed, back pain, seizure, CVA, palpatations, mental health, musculoskeletal)? @ -Differential Abdominal Pain Men: Appendicitis, cholecystitis, diverticulosis, ischemic bowel, pancreatitis, hepatitis, UTI, gastroenteritis, AAA, incarcerated hernia, bowel obstruction, constipation, inflammatory bowel, hepatitis, peptic ulcer disease, splenic infarction, perforated viscus, testicular torsion, this is not meant to be an all-inclusive list EKG interpreted by me (3pts min.). @ -None X-rays interpreted by me (1pt min.). @ -None done CT interpreted by me (1pt min.). @ -None done U/S interpreted by me (1pt. min.). @ -Ultra sound gallbladder shows no acute process What testing was considered but not performed or refused? (CT, X-rays, U/S, labs)? Why? @ -[Consider CT though patient had CT yesterday showing no acute process What meds were considered but not given or refused? Why? @ -None Did you discuss the management of the patient with other professionals (pr ofessionals i.e. , PA, BLAST FURNACE KEEPER, lab, RT, psych nurse, case management social worker, inseamer, teacher, staff nuclear weapons officer, registered nurse hh case manager)? Give summary @ -No Was smoking cessation discussed for >3mins.? @ -No Was critical care preformed (if so, how long)? @ -No Were there social determinants of health that impacted care today? How? (Homelessness, low income, unemployed, alcoholism, drug addiction, transportation, low edu. Level, literacy, decrease access to med. care, group home, rehab)? @ -No Was there de-escalation of care discussed even if they declined (Discuss DNR or withdrawal of care, Hospice)? DNR status @ -No What co-morbidities impacted this encounter? (DM, HTN, Smoking, COPD, CAD, Cancer, CVA, ARF, Chemo, Hep., AIDS, mental health diagnosis, sleep apnea, morbid obesity)? @ -None Was patient admitted / discharged? Hospital course, mention meds given and route, prescriptions, significant lab abnormalities, going to OR and other pertinent info. @ -Discharge patient has reproducible pain in the right flank worse with movement this may be muscular in nature as she had negative lab work, urinalysis, ultrasound and x-ray/CT at an outside facility. Patient will be discharged in stable condition will follow PCP return brands discussed. Undiagnosed new problem with uncertain prognosis? @ -No Drug Therapy requiring intensive monitoring for toxicity (Heparin, Nitro, Insulin, Cardizem)? @ -No Were any procedures done? @ -No Diagnosis/symptom? @ -Right flank pain Acute, or Chronic, or Acute on Chronic? @ -Acute Uncomplicated (without systemic symptoms) or Complicated (systemic symptoms)? @ -Uncomplicated Side effects of treatment? @ -No Exacerbation, Progression, or Severe Exacerbation? @ -No Poses a threat to life or bodily function? How? (Chest pain, [place], [place], pneumonia, PE, COPD, DKA, ARF, appy, cholecystitis, CVA, Diverticulitis, Homicidal, Suicidal, threat to staff... and all critical care pts) @ -No - Lab Data Result diagrams: 09/23/23 11:35 09/23/23 11:35 Lab Results 09/23/23 09/23/23 09/23/23 Range/Units 11:35 11:35 12:45 WBC 3.7 L (3.8-10.6) k/uL RBC 4.01 (3.80-5.40) m/uL Hgb 11.8 (11.4-16.0) gm/dL Hct 36.1 (34.0-46.0) % MCV 90.2 (80.0-100.0) fL MCH 29.4 (25.0-35.0) pg MCHC 32.5 (31.0-37.0) g/dL RDW 13.2 (11.5-15.5) % Plt Count 270 (150-450) k/uL MPV 7.9 Neutrophils % 49 % Lymphocytes % 42 % Monocytes % 5 % Eosinophils % 1 % Basophils % 1 % Neutrophils # 1.8 (1.3-7.7) k/uL Lymphocytes # 1.6 (1.0-4.8) k/uL Monocytes # 0.2 (0-1.0) k/uL Eosinophils # 0.1 (0-0.7) k/uL Basophils # 0.0 (0-0.2) k/uL Sodium 141 (137-145) mmol/L Potassium 3.9 (3.5-5.1) mmol/L Chloride 112 H (98-107) mmol/L Carbon Dioxide 23 (22-30) mmol/L Anion Gap 6 mmol/L BUN 13 (7-17) mg/dL Creatinine 0.60 (0.52-1.04) mg/dL Est GFR (CKD-EPI)AfAm >90 (>60 ml/min/1.73 sqM) Est GFR (CKD-EPI)NonAf >90 (>60 ml/min/1.73 sqM) Glucose 92 (74-99) mg/dL Calcium 8.9 (8.4-10.2) mg/dL Total Bilirubin 0.3 (0.2-1.3) mg/dL AST 22 (14-36) U/L ALT 13 (4-34) U/L Alkaline Phosphatase 46 (38-126) U/L Total Protein 6.4 (6.3-8.2) g/dL Albumin 3.4 L (3.5-5.0) g/dL Lipase 32 (23-300) U/L Urine Color Colorless Urine Appearance Cloudy H (Clear) Urine pH 6.0 (5.0-8.0) Ur Specific [place] 1.012 (1.001-1.035) Urine Protein Negative (Negative) Urine Glucose (UA) Negative (Negative) Urine Ketones Negative (Negative) Urine Blood Small H (Negative) Urine Nitrite Negative (Negative) Urine Bilirubin Negative (Negative) Urine Urobilinogen <2.0 (<2.0) mg/dL Ur Leukocyte Esterase Negative (Negative) Urine RBC 1 (0-5) /hpf Urine WBC 3 (0-5) /hpf Ur Squamous Epith Cells 9 H (0-4) /hpf Urine Mucus Rare H (None) /hpf Disposition Clinical Impression: Right flank pain Disposition: HOME SELF-CARE Condition: Stable Instructions (If sedation given, give patient instructions): Flank Pain (ED) Additional Instructions: Please return to the Emergency Department if symptoms worsen or any other concerns. Prescriptions: Cyclobenzaprine [Flexeril] 10 mg PO TID PRN #15 tab PRN Reason: Muscle Spasm Is patient prescribed a controlled substance at d/c from ED?: No Referrals: Kierra Gamble MD [Primary Care Provider] - 1-2 days Time of Disposition: 13:49
[2023-09-23] MEDS: SODIUM CHLORIDE 0.9% 1,000 ML IV STA (11:40)
[2023-09-23 11:46] LABS: Basophils % (A) 1 %; Eosinophils # (A) 0.1 k/uL (0-0.7); Eosinophils % (A) 1 %; HCT 36.1 % (34.0-46.0); HGB 11.8 gm/dL (11.4-16.0); Lymphocytes # (A) 1.6 k/uL (1.0-4.8); Lymphocytes % (A) 42 %; MCH 29.4 pg (25.0-35.0); MCHC 32.5 g/dL (31.0-37.0); MCV 90.2 fL (80.0-100.0); Mean Platelet Volume 7.9; Monocytes # (A) 0.2 k/uL (0-1.0); Monocytes % (A) 5 %; Neutrophils # (A) 1.8 k/uL (1.3-7.7); Neutrophils % (A) 49 %; Platelet Count 270 k/uL (150-450); RBC 4.01 m/uL (3.80-5.40); RDW 13.2 % (11.5-15.5); WBC 3.7 k/uL (3.8-10.6)
[2023-09-23 12:07] LABS: ALT 13 U/L (4-34); AST 22 U/L (14-36); African American GFR (CKD) >90 (>60 ml/min/1.73 sqM); Albumin 3.4 g/dL (3.5-5.0); Alkaline Phosphatase 46 U/L (38-126); Anion Gap 6 mmol/L; Blood Urea Nitrogen 13 mg/dL (7-17); Calcium 8.9 mg/dL (8.4-10.2); Carbon Dioxide 23 mmol/L (22-30); Chloride 112 mmol/L (98-107); Glucose 92 mg/dL (74-99); Lipase 32 U/L (23-300); Non-African American GFR(CKD) >90 (>60 ml/min/1.73 sqM); Potassium 3.9 mmol/L (3.5-5.1); Sodium 141 mmol/L (137-145); Total Bilirubin 0.3 mg/dL (0.2-1.3); Total Protein 6.4 g/dL (6.3-8.2)
--- NOTE | 2023-09-23 12:41 | US ---
EXAMINATION TYPE: US gallbladder DATE OF EXAM: 09/23/2023 COMPARISON: NONE CLINICAL INDICATION: Female, 43 years old with history of pain; Pt states right side back pain TECHNIQUE: Multiple sonographic images of the right upper quadrant are obtained. FINDINGS: EXAM MEASUREMENTS: Liver Length: 16.0 cm Gallbladder Wall: 0.2 cm CBD: 0.4 cm Right Kidney: 10.2 x 4.6 x5.3 cm DISABILITY AIDE NOTES: Pancreas: wnl Liver: wnl Gallbladder: wnl Evidence for sonographic Núñez's sign: No CBD: wnl Right Kidney: wnl No abnormality visualized to account for pt's symptoms IMPRESSION: No discrete abnormality appreciated.
[2023-09-23 12:47] VITALS: BP 127/70; PULSE 56; TEMP 98.1
[2023-09-23 13:01] LABS: Appearance,Urine Cloudy (Clear); Bilirubin,Urine Negative (Negative); Blood,Urine Small (Negative); Color,Urine Colorless; Glucose,Urine (UA) Negative (Negative); Ketones,Urine Negative (Negative); Leukocyte Esterase,Urine Negative (Negative); Mucus,Urine Rare /hpf; Nitrite,Urine Negative (Negative); Protein,Urine Negative (Negative); RBC,Urine 1 /hpf (0-5); Specific Gravity,Urine 1.012 (1.001-1.035); Squamous Epithelial Cell,Urine 9 /hpf (0-4); Urobilinogen,Urine <2.0 mg/dL (<2.0); WBC,Urine 3 /hpf (0-5)
[2023-09-23] MEDS: ORPHENADRINE 30 MG/ML 2 ML VIAL IVP STA (14:12)
[2023-09-23] MEDS: CYCLOBENZAPRINE 10 MG TAB PO STA (14:15)
== END 2023-09-23 14:25 | disposition home or self-care (01) ==
LOC: EC 10:38
DX: R10.11 Right upper quadrant pain (principal); Z88.1 Allergy status to other antibiotic agents; Z88.8 Allergy status to other drugs, medicaments and biological substances; Z87.891 Personal history of nicotine dependence; Z86.16 Personal history of COVID-19
CPT/HCPCS: 36415; 76705; 80053; 81001; 83690; 85025; 96360; 99284

== ENCOUNTER → 2024-03-15 | Outpatient (CLI) | payer MEDICARE, OTHER ==
--- NOTE | 2024-03-17 10:00 | MM ---
Reason for Exam: Screening (asymptomatic). Last mammogram was performed 1 year(s) and 9 month(s) ago. Patient History: Menarche at age 7. First Full-Term at age 19. Patient has history of breast feeding. Patient used Hormonal Contraceptives for 3 years. Risk Values: Amber 5 year model risk: 0.9%. NCI Lifetime model risk: 9.3%. Prior Study Comparison: 08/21/2019 Bilateral Screening Mammogram, [facility]. 08/05/2020 Bilateral Screening Mammogram, [facility]. 05/26/2022 Bilateral MG 3D screening mammo w/cad, [facility]. Tissue Density: There are scattered areas of fibroglandular density. Findings: Analyzed By CAD. The pattern is symmetrical. No significant interval change. No suspicious groups of microcalcifications, spiculated or lobular masses, architectural distortion or other secondary signs of malignancy are mammographically apparent. Overall Assessment: Benign, BI-RAD 2 Management: Screening Mammogram of both breasts in 1 year. A negative mammogram report should not preclude additional follow up of suspicious palpable abnormalities. Patient should continue monthly self breast exam. A clinical breast exam by your physician is recommended on an annual basis and results should be correlated with mammographic findings. Note on Amber scores and lifetime risk: 1. A Amber score greater than 3% is considered moderate risk. If this is the case, consider specialist referral to assess eligibility for a risk reducing agent. 2. If overall lifetime risk for the development of breast cancer is 20% or higher, the patient may qualify for future screening with alternating mammogram and breast MRI. [facility], , 03/17/2024 9:57 AM. Electronically signed and approved by: Jonas Mcneil D.O. Radiologis
== END | disposition home or self-care (01) ==
LOC: RADMAMWWP 10:11
PROVIDERS: ATTEND Family Medicine
CPT/HCPCS: 77063; 77067

== ENCOUNTER → 2024-03-19 | Outpatient (CLI) | payer MEDICARE, OTHER ==
[2024-03-19 20:39] LABS: Basophils # (A) 0.01 X 10*3/uL (0.00-0.10); Basophils % (A) 0.2 %; Eosinophils # (A) 0.03 X 10*3/uL (0.04-0.35); Eosinophils % (A) 0.5 %; HCT 36.9 % (37.2-46.3); Lymphocytes # (A) 1.62 X 10*3/uL (0.90-5.00); MCH 28.8 pg (27.0-32.0); MCHC 32.5 g/dL (32.0-37.0); MCV 88.5 FL (80.0-97.0); Mean Platelet Volume 10.9 FL (9.5-12.2); Monocytes # (A) 0.44 X 10*3/uL (0.20-1.00); Monocytes % (A) 7.3 %; NRBC Per 100 WBC 0 X 10*3/uL (0.00-0.01); Neutrophils # (A) 3.87 X 10*3/uL (1.80-7.70); Neutrophils % (A) 64.7 %; Platelet Count 331 X 10*3/uL (140-440); RBC 4.17 X 10*6/uL (4.10-5.20); RDW 13.4 % (11.5-14.5); WBC 5.99 X 10*3/uL (4.50-10.00)
[2024-03-19 21:38] LABS: ALT 14 U/L (8-44); AST 26 U/L (13-35); Albumin 4.3 g/dL (3.8-4.9); Albumin/Globulin Ratio 1.48 Ratio (1.60-3.17); Alkaline Phosphatase 61 U/L (41-126); BUN/Creat Ratio 15.14 Ratio (12.00-20.00); Blood Urea Nitrogen 10.6 mg/dL (9.0-27.0); Calcium 9.2 mg/dL (8.7-10.3); Carbon Dioxide 20.7 mmol/L (21.6-31.8); Chloride 105 mmol/L (96-109); Globulin 2.9 g/dL (1.6-3.3); Glucose 84 mg/dL (70-110); LDL Cholesterol,Calculated 150.8 mg/dL (0.0-131.0); Potassium 3.9 mmol/L (3.5-5.5); Sodium 140 mmol/L (135-145); Total Bilirubin 0.3 mg/dL (0.3-1.2); Total Protein 7.2 g/dL (6.2-8.2)
== END | disposition home or self-care (01) ==
LOC: LABWHC1 13:19
PROVIDERS: ATTEND Family Medicine
DX: E78.2 Mixed hyperlipidemia (principal); E55.9 Vitamin D deficiency, unspecified
CPT/HCPCS: 36415; 80053; 80061; 82306; 83036; 84443; 85025

== ENCOUNTER 2024-05-14 20:39 | Emergency (ER) | payer MEDICARE, OTHER ==
[2024-05-14 20:43] VITALS: RESP 18
--- NOTE | 2024-05-14 21:36 | ED ---
General Adult HPI - General Chief complaint: Recheck/Abnormal Lab/Rx Stated complaint: abd issue Time Seen by Provider: 05/14/24 21:35 Source: patient, RN notes reviewed Mode of arrival: ambulatory Limitations: no limitations - History of Present Illness Initial comments: 43-year-old female sent by PCP for abdominal x-ray. Patient states she has been struggling with constipation over the past several days. States she took an [id number] laxative 4 days ago which resulted in a multiple episodes of diarrhea up until 2 days ago. States that she has had hard, small bowel movements since then. She states it feels as though she needs to have a bowel movement but cannot. Denies nausea, vomiting, fevers, chills. Abdominal surgical history includes an emergency . Denies blood in stool. - Related Data Home Medications Medication Instructions Recorded Confirmed Multivitamins, Thera [Multivitamin 1 tab PO DAILY 05/01/18 05/08/18 (formulary)] Previous Rx's Medication Instructions Recorded Amoxicillin/Potassium Clav 1 each PO Q12HR #20 tab 05/01/18 [Augmentin 875-125 Tablet] Ibuprofen [Motrin] 600 mg PO Q8HR PRN #20 tab 04/25/21 Ondansetron Odt [Zofran ODT] 4 mg PO Q8HR PRN #10 tab 04/25/21 Ibuprofen [Motrin] 600 mg PO Q8HR PRN #24 tab 01/08/22 Cyclobenzaprine [Flexeril] 10 mg PO TID PRN #15 tab 10/31/22 Ibuprofen [Motrin] 600 mg PO Q8HR PRN #20 tab 10/31/22 Cyclobenzaprine [Flexeril] 10 mg PO TID PRN #15 tab 09/23/23 Allergies Allergy/AdvReac Type Severity Reaction Status Date / Time ibuprofen [From Motrin] Allergy Nausea & Verified 05/14/24 20:43 Vomiting methylprednisolone Allergy Anaphylaxis Verified 05/14/24 20:43 prednisone Allergy Anaphylaxis Verified 05/14/24 20:43 doxycycline AdvReac Nausea & Verified 05/14/24 20:43 Vomiting Review of Systems ROS Statement: Those systems with pertinent positive or pertinent negative responses have been documented in the HPI. ROS Other: All systems not noted in ROS Statement are negative. Past Medical History Past Medical History: Asthma, COPD Additional Past Medical History / Comment(s): bipolar, schizophrenia, +covid - 05/09 History of Any Multi-Drug Resistant Organisms: None Reported Past Surgical History: Section Past Psychological History: Anxiety, Bipolar, Depression, Schizophrenia Smoking Status: Former smoker Past Alcohol Use History: Occasional, Rare Past Drug Use History: None Reported General Exam Limitations: no limitations General appearance: alert, in no apparent distress GI/Abdominal exam: Present: soft, normal bowel sounds. Absent: distended, tenderness, guarding, rebound, rigid Neurological exam: Present: alert, oriented X3 Psychiatric exam: Present: normal affect, normal mood Skin exam: Present: warm, dry, intact, normal color. Absent: rash Course Vital Signs 05/14/24 05/14/24 20:41 23:38 Temperature 98.5 F 98.3 F Pulse Rate 84 77 Respiratory 18 18 Rate Blood Pressure 105/68 109/71 O2 Sat by Pulse 98 98 Oximetry Medical Decision Making - Medical Decision Making Was pt. sent in by a medical professional or institution (, PA, COMPUTER INFORMATION SYSTEMS PROFESSOR, urgent care, hospital, or jail...) When possible be specific @ -Sent by PCP for KUB for constipation Did you speak to anyone other than the patient for history (EMS, parent, family, police, friend...)? What history was obtained from this source @ -No Did you review nursing and triage notes (agree or disagree)? Why? @ -I reviewed and agree with nursing and triage notes Were old charts reviewed (outside hosp., previous admission, EMS record, old EKG, old radiological studies, urgent care reports/EKG's, jail records)? Report findings @ -No old charts were reviewed Differential Diagnosis (chest pain, altered mental status, abdominal pain women, abdominal pain men, vaginal bleeding, weakness, fever, dyspnea, syncope, headache, dizziness, GI bleed, back pain, seizure, CVA, palpatations, mental health, musculoskeletal)? @ -Not applicable EKG interpreted by me (3pts min.). @ -As above X-rays interpreted by me (1pt min.). @ -KUB reveals no acute process, chest x-ray reveals no acute process CT interpreted by me (1pt min.). @ -None done U/S interpreted by me (1pt. min.). @ -None done What testing was considered but not performed or refused? (CT, X-rays, U/S, labs)? Why? @ -None What meds were considered but not given or refused? Why? @ -None Did you discuss the management of the patient with other professionals (professionals i.e. , PA, COMPUTER INFORMATION SYSTEMS PROFESSOR, lab, RT, psych nurse, forensic social worker, manager embalmer funeral director, teacher, special weapons and tactics officer, case coordinator)? Give summary @ -No Was smoking cessation discussed for >3mins.? @ -No Was critical care preformed (if so, how long)? @ -No Were there social determinants of health that impacted care today? How? (Homelessness, low income, unemployed, alcoholism, drug addiction, transportation, low edu. Level, literacy, decrease access to med. care, shelter, rehab)? @ -No Was there de-escalation of care discussed even if they declined (Discuss DNR or withdrawal of care, Hospice)? DNR status @ -No What co-morbidities impacted this encounter? (DM, HTN, Smoking, COPD, CAD, Cancer, CVA, ARF, Chemo, Hep., AIDS, mental health diagnosis, sleep apnea, morbid obesity)? @ -None Was patient admitted / discharged? Hospital course, mention meds given and route, prescriptions, significant lab abnormalities, going to OR and other pertinent info. @ -Discharge. This is a 43-year-old female presenting for constipation x 2 days. Sent by PCP for KUB. No red flag symptoms. Vital signs are within acceptable limits. Abdomen is soft and nontender. Patient declined rectal exam. KUB and chest x-ray reveals no acute process. Discussed results with patient. They believe it is safe to discharge patient home with supportive care. Appropriate return precautions and follow-up care discussed. Case was discussed with my ED attending Dr. Araujo. Undiagnosed new problem with uncertain prognosis? @ -No Drug Therapy requiring intensive monitoring for toxicity (Heparin, Nitro, Insulin, Cardizem)? @ -No Were any procedures done? @ -No Diagnosis/symptom? @ -Constipation Acute, or Chronic, or Acute on Chronic? @ -Acute Uncomplicated (without systemic symptoms) or Complicated (systemic symptoms)? @ -Uncomplicated Side effects of treatment? @ -No Exacerbation, Progression, or Severe Exacerbation? @ -No Poses a threat to life or bodily function? How? (Chest pain, [place], [place], pneumonia, PE, COPD, DKA, ARF, appy, cholecystitis, CVA, Diverticulitis, Homicidal, Suicidal, threat to staff... and all critical care pts) @ -No Disposition Clinical Impression: Constipation Disposition: HOME SELF-CARE Condition: Stable Instructions (If sedation given, give patient instructions): Constipation (ED) Additional Instructions: Please return to the Emergency Department if symptoms worsen or any other concerns. Is patient prescribed a controlled substance at d/c from ED?: No Referrals: Kierra Gamble MD [Primary Care Provider] - 1-2 days Time of Disposition: 23:28
--- NOTE | 2024-05-14 21:58 | XR ---
EXAMINATION TYPE: XR KUB portable DATE OF EXAM: 05/14/2024 9:50 PM COMPARISON: Numerous prior abdominal radiograph, most recently dated 06/14/2021. CLINICAL INDICATION: Female, 43 years old with history of constipation; [facility] TECHNIQUE: One radiographic view of the abdomen was obtained. FINDINGS: The bowel gas pattern is nonspecific without dilated loops of small or large bowel. Normal colonic stool burden. The osseous structures are intact. No large densities overlying the renal shad ows. IMPRESSION: Nonobstructive gas pattern without radiographic evidence for acute process. [facility], , 05/14/2024 9:55 PM
--- NOTE | 2024-05-14 23:01 | XR ---
EXAM: XR Chest, 1 View CLINICAL HISTORY: ITS.REASON XR Reason: abd pain TECHNIQUE: Frontal view of the chest. COMPARISON: 10/31/2022. FINDINGS: Lungs: No consolidation. No overt edema. Pleural space: No pleural effusion. No pneumothorax. Heart: Unremarkable. No cardiomegaly. IMPRESSION: No acute cardiopulmonary abnormality.
[2024-05-14] MEDS: SENNOSIDES 8.6 MG TAB PO STA (23:32)
[2024-05-14 23:40] VITALS: BP 109/71; PULSE 77; TEMP 98.3
== END 2024-05-14 23:38 | disposition home or self-care (01) ==
LOC: EC 20:39
DX: K59.00 Constipation, unspecified (principal); Z87.891 Personal history of nicotine dependence; Z88.1 Allergy status to other antibiotic agents; Z88.6 Allergy status to analgesic agent; Z88.8 Allergy status to other drugs, medicaments and biological substances
CPT/HCPCS: 71045; 74018; 99283

== ENCOUNTER 2024-05-20 14:34 | Emergency (ER) | payer MEDICARE, OTHER ==
[2024-05-20 14:38] VITALS: TEMP 98.8
--- NOTE | 2024-05-20 15:28 | ED ---
General Adult HPI - General Chief complaint: Recheck/Abnormal Lab/Rx Stated complaint: Weakness Time Seen by Provider: 05/20/24 14:39 Source: patient, RN notes reviewed Mode of arrival: EMS Limitations: no limitations - History of Present Illness Initial comments: This is a 43-year-old female presenting with weakness, chest heaviness and decreased appetite x 2 weeks. Patient complaining of vague symptoms including feeling unbalanced today as well as mid back pain. Endorses decreased bulk of bowel movements as well as minimal caloric oral intake. Endorses use of MiraLAX, Fleet enema and magnesium citrate with large amount of stool expelled afterwards but only small, soft bowel movements afterwards. Patient denies fever, chills, chest pain, dyspnea, abdominal pain, N/V/D, dizziness, hematochezia, melena, urinary symptoms. MD Complaint: Constipation Onset/Timin -: week(s) Location: back, pelvis Associated Symptoms: chest pain, loss of appetite Treatments Prior to Arrival: none - Related Data Home Medications Medication Instructions Recorded Confirmed Multivitamins, Thera [Multivitamin 1 tab PO DAILY 05/01/18 05/08/18 (formulary)] Previous Rx's Medication Instructions Recorded Amoxicillin/Potassium Clav 1 each PO Q12HR #20 tab 05/01/18 [Augmentin 875-125 Tablet] Ibuprofen [Motrin] 600 mg PO Q8HR PRN #20 tab 04/25/21 Ondansetron Odt [Zofran ODT] 4 mg PO Q8HR PRN #10 tab 04/25/21 Ibuprofen [Motrin] 600 mg PO Q8HR PRN #24 tab 01/08/22 Cyclobenzaprine [Flexeril] 10 mg PO TID PRN #15 tab 10/31/22 Ibuprofen [Motrin] 600 mg PO Q8HR PRN #20 tab 10/31/22 Cyclobenzaprine [Flexeril] 10 mg PO TID PRN #15 tab 09/23/23 Allergies Allergy/AdvReac Type Severity Reaction Status Date / Time ibuprofen [From Motrin] Allergy Nausea & Verified 05/20/24 14:38 Vomiting methylprednisolone Allergy Anaphylaxis Verified 05/20/24 14:38 prednisone Allergy Anaphylaxis Verified 05/20/24 14:38 doxycycline AdvReac Nausea & Verified 05/20/24 14:38 Vomiting Review of Systems ROS Statement: Those systems with pertinent positive or pertinent negative responses have been documented in the HPI. ROS Other: All systems not noted in ROS Statement are negative. Past Medical History Past Medical History: Asthma, COPD Additional Past Medical History / Comment(s): bipolar, schizophrenia, +covid - 05/09 History of Any Multi-Drug Resistant Organisms: None Reported Past Surgical History: Section Past Psychological History: Anxiety, Bipolar, Depression, Schizophrenia Smoking Status: Former smoker Past Alcohol Use History: Occasional, Rare Past Drug Use History: None Reported General Exam Limitations: no limitations General appearance: alert, in no apparent distress Head exam: Present: atraumatic, normocephalic, normal inspection Eye exam: Present: normal appearance, PERRL, EOMI. Absent: scleral icterus, conjunctival injection, periorbital swelling ENT exam: Present: normal exam, mucous membranes dry Neck exam: Present: normal inspection. Absent: tenderness, meningismus, lymphadenopathy Respiratory exam: Present: normal lung sounds bilaterally. Absent: respiratory distress, wheezes, rales, rhonchi, stridor Cardiovascular Exam: Present: regular rate, normal rhythm, normal heart sounds. Absent: systolic murmur, diastolic murmur, rubs, gallop, clicks GI/Abdominal exam: Present: soft, hypoactive bowel sounds. Absent: distended, tenderness, guarding, rebound, rigid Extremities exam: Present: normal inspection, full ROM, normal capillary refill. Absent: tenderness, pedal edema, joint swelling, calf tenderness Back exam: Present: normal inspection, CVA tenderness (R), CVA tenderness (L) Neurological exam: Present: alert, oriented X3, CN II-XII intact Psychiatric exam: Present: normal affect, normal mood Skin exam: Present: warm, dry, intact, normal color. Absent: rash Course Vital Signs 05/20/24 14:35 Temperature 98.8 F Pulse Rate 66 Respiratory 18 Rate Blood Pressure 112/68 O2 Sat by Pulse 100 Oximetry Medical Decision Making - Medical Decision Making Was pt. sent in by a medical professional or institution (, PA, SHOP MECHANIC, urgent care, hospital, or custodial...) When possible be specific @ -No Did you speak to anyone other than the patient for history (EMS, parent, family, police, friend...)? What history was obtained from this source @ -No Did you review nursing and triage notes (agree or disagree)? Why? @ -I reviewed and agree with nursing and triage notes Were old charts reviewed (outside hosp., previous admission, EMS record, old EKG, old radiological studies, urgent care reports/EKG's, custodial records)? Report findings @ -No old charts were reviewed Differential Diagnosis (chest pain, altered mental status, abdominal pain women, abdominal pain men, vaginal bleeding, weakness, fever, dyspnea, syncope, headache, dizziness, GI bleed, back pain, seizure, CVA, palpatations, mental health, musculoskeletal)? @ -Differential Weakness: Hypoglycemia, shock, sepsis, hyponatremia, anemia, infection, OH, ETOH, adverse medicine reaction, overdose, stroke, this is not meant to be an all-inclusive list. EKG interpreted by me (3pts min.). @ -Sinus bradycardia without ST changes or T wave inversion. Ventricular rate 54 bpm, RADHA 158 ms, QRS duration 101 ms, QTc 372 ms. X-rays interpreted by me (1pt min.). @ -Chest x-ray and KUB were also unremarkable with no acute process noted in either. CT interpreted by me (1pt min.). @ -None done U/S interpreted by me (1pt. min.). @ -None done What testing was considered but not performed or refused? (CT, X-rays, U/S, labs)? Why? @ -None What meds were considered but not given or refused? Why? @ -None Did you discuss the management of the patient with other professionals (professionals i.e. , PA, SHOP MECHANIC, lab, RT, psych nurse, mental health social worker, lozenge maker, teacher, chief creative officer, case checker)? Give summary @ -No Was smoking cessation discussed for >3mins.? @ -No Was critical care preformed (if so, how long)? @ -No Were there social determinants of health that impacted care today? How? (Homelessness, low income, unemployed, alcoholism, drug addiction, transportati on, low edu. Level, literacy, decrease access to med. care, custodial, rehab)? @ -No Was there de-escalation of care discussed even if they declined (Discuss DNR or withdrawal of care, Hospice)? DNR status @ -No What co-morbidities impacted this encounter? (DM, HTN, Smoking, COPD, CAD, Cancer, CVA, ARF, Chemo, Hep., AIDS, mental health diagnosis, sleep apnea, morbid obesity)? @ -None Was patient admitted / discharged? Hospital course, mention meds given and route, prescriptions, significant lab abnormalities, going to OR and other pertinent info. @ -Lab work is unremarkable including troponin, lactic acid, UA and Cepheid test. Chest x-ray and KUB were also unremarkable with no acute process noted in either. Patient given IV normal saline for suspected dehydration. Repeat troponin after 3 hours remained negative. Advised patient to increase caloric oral intake as well as water intake. Undiagnosed new problem with uncertain prognosis? @ -No Drug Therapy requiring intensive monitoring for toxicity (Heparin, Nitro, Insulin, Cardizem)? @ -No Were any procedures done? @ -No Diagnosis/symptom? @ -Anorexia, fatigue Acute, or Chronic, or Acute on Chronic? @ -Acute Uncomplicated (without systemic symptoms) or Complicated (systemic symptoms)? @ -Complicated Side effects of treatment? @ -No Exacerbation, Progression, or Severe Exacerbation? @ -No Poses a threat to life or bodily function? How? (Chest pain, USA, OH, pneumonia, PE, COPD, DKA, ARF, appy, cholecystitis, CVA, Diverticulitis, Homicidal, Suicidal, threat to staff... and all critical care pts) @ -No - Lab Data Result diagrams: 05/20/24 15:35 05/20/24 15:26 Lab Results 05/20/24 05/20/24 05/20/24 Range/Units 15:26 15:26 15:26 WBC (3.8-10.6) k/uL RBC (3.80-5.40) m/uL Hgb (11.4-16.0) gm/dL Hct (34.0-46.0) % MCV (80.0-100.0) fL MCH (25.0-35.0) pg MCHC (31.0-37.0) g/dL RDW (11.5-15.5) % Plt Count (150-450) k/uL MPV Neutrophils % % Lymphocytes % % Monocytes % % Eosinophils % % Basophils % % Neutrophils # (1.3-7.7) k/uL Lymphocytes # (1.0-4.8) k/uL Monocytes # (0-1.0) k/uL Eosinophils # (0-0.7) k/uL Basophils # (0-0.2) k/uL Sodium 139 (137-145) mmol/L Potassium 4.0 (3.5-5.1) mmol/L Chloride 109 H (98-107) mmol/L Carbon Dioxide 25 (22-30) mmol/L Anion Gap 5 mmol/L BUN 12 (7-17) mg/dL Creatinine 0.74 (0.52-1.04) mg/dL Est GFR (CKD-EPI)AfAm >90 (>60 ml/min/1.73 sqM) Est GFR (CKD-EPI)NonAf >90 (>60 ml/min/1.73 sqM) Glucose 96 (74-99) mg/dL Plasma Lactic Acid Mars (0.7-2.0) mmol/L Calcium 9.1 (8.4-10.2) mg/dL Total Bilirubin 0.3 (0.2-1.3) mg/dL AST 20 (14-36) U/L ALT 13 (4-34) U/L Alkaline Phosphatase 52 (38-126) U/L Troponin I (0.000-0.034) ng/mL Total Protein 7.2 (6.3-8.2) g/dL Albumin 4.0 (3.5-5.0) g/dL Lipase 47 (23-300) U/L Urine Color Colorless Urine Appearance Clear (Clear) Urine pH 7.0 (5.0-8.0) Ur Specific Rock 1.006 (1.001-1.035) Urine Protein Negative (Negative) Urine Glucose (UA) Negative (Negative) Urine Ketones Negative (Negative) Urine Blood Small H (Negative) Urine Nitrite Negative (Negative) Urine Bilirubin Negative (Negative) Urine Urobilinogen <2.0 (<2.0) mg/dL Ur Leukocyte Esterase Negative (Negative) Urine WBC 1 (0-5) /hpf Ur Squamous Epith Cells 2 (0-4) /hpf Urine Bacteria Occasional H (None) /hpf Urine Mucus Rare H (None) /hpf Influenza Type A (PCR) Not Detected (Not Detectd) Influenza Type B (PCR) Not Detected (Not Detectd) RSV (PCR) Not Detected (Not Detectd) SARS-CoV-2 (PCR) Not Detected (Not Detectd) 05/20/24 05/20/24 05/20/24 Range/Units 15:26 15:35 15:35 WBC 5.1 (3.8-10.6) k/uL RBC 4.07 (3.80-5.40) m/uL Hgb 12.0 (11.4-16.0) gm/dL Hct 36.4 (34.0-46.0) % MCV 89.4 (80.0-100.0) fL MCH 29.6 (25.0-35.0) pg MCHC 33.1 (31.0-37.0) g/dL RDW 13.1 (11.5-15.5) % Plt Count 265 (150-450) k/uL MPV 7.5 Neutrophils % 52 % Lymphocytes % 40 % Monocytes % 6 % Eosinophils % 1 % Basophils % 0 % Neutrophils # 2.6 (1.3-7.7) k/uL Lymphocytes # 2.0 (1.0-4.8) k/uL Monocytes # 0.3 (0-1.0) k/uL Eosinophils # 0.1 (0-0.7) k/uL Basophils # 0.0 (0-0.2) k/uL Sodium (137-145) mmol/L Potassium (3.5-5.1) mmol/L Chloride (98-107) mmol/L Carbon Dioxide (22-30) mmol/L Anion Gap mmol/L BUN (7-17) mg/dL Creatinine (0.52-1.04) mg/dL Est GFR (CKD-EPI)AfAm (>60 ml/min/1.73 sqM) Est GFR (CKD-EPI)NonAf (>60 ml/min/1.73 sqM) Glucose (74-99) mg/dL Plasma Lactic Acid Mars 0.6 L (0.7-2.0) mmol/L Calcium (8.4-10.2) mg/dL Total Bilirubin (0.2-1.3) mg/dL AST (14-36) U/L ALT (4-34) U/L Alkaline Phosphatase (38-126) U/L Troponin I <0.012 (0.000-0.034) ng/mL Total Protein (6.3-8.2) g/dL Albumin (3.5-5.0) g/dL Lipase (23-300) U/L Urine Color Urine Appearance (Clear) Urine pH (5.0-8.0) Ur Specific Rock (1.001-1.035) Urine Protein (Negative) Urine Glucose (UA) (Negative) Urine Ketones (Negative) Urine Blood (Negative) Urine Nitrite (Negative) Urine Bilirubin (Negative) Urine Urobilinogen (<2.0) mg/dL Ur Leukocyte Esterase (Negative) Urine WBC (0-5) /hpf Ur Squamous Epith Cells (0-4) /hpf Urine Bacteria (None) /hpf Urine Mucus (None) /hpf Influenza Type A (PCR) (Not Detectd) Influenza Type B (PCR) (Not Detectd) RSV (PCR) (Not Detectd) SARS-CoV-2 (PCR) (Not Detectd) Disposition Clinical Impression: Anorexia, Fatigue Disposition: HOME SELF-CARE Condition: Good Instructions (If sedation given, give patient instructions): Fatigue (ED) Additional Instructions: Increase oral caloric and fluid intake. Follow-up with primary care in next 24 to 48 hours. Is patient prescribed a controlled substance at d/c from ED?: No Referrals: Kierra Gamble MD [Primary Care Provider] - 1-2 days Time of Disposition: 16:56
[2024-05-20] MEDS: SODIUM CHLORIDE 0.9% 1,000 ML IV STA (15:31)
[2024-05-20 15:40] LABS: Basophils % (A) 0 %; Eosinophils # (A) 0.1 k/uL (0-0.7); Eosinophils % (A) 1 %; HCT 36.4 % (34.0-46.0); Lymphocytes % (A) 40 %; MCH 29.6 pg (25.0-35.0); MCHC 33.1 g/dL (31.0-37.0); MCV 89.4 fL (80.0-100.0); Mean Platelet Volume 7.5; Monocytes # (A) 0.3 k/uL (0-1.0); Monocytes % (A) 6 %; Neutrophils # (A) 2.6 k/uL (1.3-7.7); Neutrophils % (A) 52 %; Platelet Count 265 k/uL (150-450); RBC 4.07 m/uL (3.80-5.40); RDW 13.1 % (11.5-15.5); WBC 5.1 k/uL (3.8-10.6)
[2024-05-20 15:51] LABS: Appearance,Urine Clear (Clear); Bacteria,Urine Occasional /hpf; Bilirubin,Urine Negative (Negative); Blood,Urine Small (Negative); Color,Urine Colorless; Glucose,Urine (UA) Negative (Negative); Ketones,Urine Negative (Negative); Leukocyte Esterase,Urine Negative (Negative); Mucus,Urine Rare /hpf; Nitrite,Urine Negative (Negative); Protein,Urine Negative (Negative); Specific Gravity,Urine 1.006 (1.001-1.035); Squamous Epithelial Cell,Urine 2 /hpf (0-4); Urobilinogen,Urine <2.0 mg/dL (<2.0); WBC,Urine 1 /hpf (0-5)
[2024-05-20 15:56] LABS: ALT 13 U/L (4-34); AST 20 U/L (14-36); African American GFR (CKD) >90 (>60 ml/min/1.73 sqM); Alkaline Phosphatase 52 U/L (38-126); Anion Gap 5 mmol/L; Blood Urea Nitrogen 12 mg/dL (7-17); Calcium 9.1 mg/dL (8.4-10.2); Carbon Dioxide 25 mmol/L (22-30); Chloride 109 mmol/L (98-107); Glucose 96 mg/dL (74-99); Lipase 47 U/L (23-300); Non-African American GFR(CKD) >90 (>60 ml/min/1.73 sqM); Sodium 139 mmol/L (137-145); Total Bilirubin 0.3 mg/dL (0.2-1.3); Total Protein 7.2 g/dL (6.3-8.2)
--- NOTE | 2024-05-20 16:26 | XR ---
2 view chest HISTORY: Weakness COMPARISON: 05/14/2024 TECHNIQUE: PA and lateral views chest obtained. FINDINGS: The lungs are clear of consolidative, interstitial or masslike opacity. There is no pleural effusion, pleural thickening or pneumothorax. The heart, pulmonary vasculature, mediastinum and suhas are within normal limits. The osseous structures and soft tissues of the thorax are intact. IMPRESSION: No significant abnormality. No acute cardiopulmonary disease. [facility], , 05/20/2024 4:23 PM
--- NOTE | 2024-05-20 16:34 | XR ---
EXAMINATION TYPE: XR KUB DATE OF EXAM: 05/20/2024 4:19 PM COMPARISON: 05/14/2024 CLINICAL INDICATION: Female, 43 years old with history of Abnormal GI habits; PHH nausea TECHNIQUE: One radiographic view of the abdomen was obtained. FINDINGS: The bowel gas pattern is nonspecific without dilated loops of small or large bowel. . Fecal material and gas are demonstrated throughout the colon and rectum. There is no evidence for organomegaly or pneumoperitoneum. The osseous structures are intact. No ab normal calcifications are present. IMPRESSION: Nonspecific bowel gas pattern without radiographic evidence for acute process. [facility], , 05/20/2024 4:31 PM
[2024-05-20] MEDS: SODIUM CHLORIDE 0.9% 500 ML 500 ML IV STA (17:28)
[2024-05-20 19:22] VITALS: BP 99/62; PULSE 80; RESP 16
== END 2024-05-20 19:22 | disposition home or self-care (01) ==
LOC: EC 14:34
DX: R63.0 Anorexia (principal); Z68.33 Body mass index [BMI] 33.0-33.9, adult; R53.83 Other fatigue; Z87.891 Personal history of nicotine dependence; Z88.6 Allergy status to analgesic agent; Z88.1 Allergy status to other antibiotic agents; Z88.8 Allergy status to other drugs, medicaments and biological substances
CPT/HCPCS: 36415; 71046; 74018; 80053; 81001; 83605; 83690; 84484; 85025; 87636; 93005; 96360; 96361; 99285

== ENCOUNTER 2024-05-27 18:21 | Observation (INO) | payer MEDICARE, OTHER ==
--- NOTE | 2024-05-27 19:31 | ED ---
Chest Pain HPI - General Chief Complaint: Chest Pain Stated Complaint: chest pain L side Time Seen by Provider: 05/27/24 18:40 Source: patient Mode of arrival: ambulatory Limitations: no limitations - History of Present Illness Initial Comments: Patient is a 43-year-old female the past medical history of bipolar disorder, asthma presenting for multiple complaints but predominantly chest pain. States has been ongoing for at least 3 days but potentially longer, and describes it as a sharp pain that radiates down her left arm and worsens with sitting forward and at times worse with swallowing and in the morning. Does not seem to change with exertion and yesterday took ibuprofen without improvement or relief. She has stopped wearing a bra due to pain from compression of the band. She denies shortness of breath/ GERALD, cough or hemoptysis, fevers, LE swelling, hx CAD, is a nonsmoker, no hx alcohol use, no hx CA, no hx prior PE/DVT. States she recently drove back from [place] but they took intermittent breaks to get gas and denies stretches of driving for >8 hours without getting out to walk around. No N/V/diarrhea, hematochezia or melena. No recent sick contacts. Patient states she also felt dizzy the other day, has been having right sided back pain for 3 weeks, for which she was previously seen in the ED for. Denies hematuria, dysuria or urinary frequency. - Related Data Home Medications Medication Instructions Recorded Confirmed Multivitamins, Thera [Multivitamin 1 tab PO DAILY 05/01/18 05/08/18 (formulary)] Previous Rx's Medication Instructions Recorded Amoxicillin/Potassium Clav 1 each PO Q12HR #20 tab 05/01/18 [Augmentin 875-125 Tablet] RX: Ibuprofen [Motrin] 600 mg PO Q8HR PRN #20 tab 04/25/21 RX: Ondansetron Odt [Zofran ODT] 4 mg PO Q8HR PRN #10 tab 04/25/21 Ibuprofen [Motrin] 600 mg PO Q8HR PRN #24 tab 01/08/22 Cyclobenzaprine [Flexeril] 10 mg PO TID PRN #15 tab 10/31/22 RX: Ibuprofen [Motrin] 600 mg PO Q8HR PRN #20 tab 10/31/22 Cyclobenzaprine [Flexeril] 10 mg PO TID PRN #15 tab 09/23/23 Allergies Allergy/AdvReac Type Severity Reaction Status Date / Time ibuprofen [From Motrin] Allergy Nausea & Verified 05/27/24 18:28 Vomiting methylprednisolone Allergy Anaphylaxis Verified 05/27/24 18:28 prednisone Allergy Anaphylaxis Verified 05/27/24 18:28 doxycycline AdvReac Nausea & Verified 05/27/24 18:28 Vomiting Review of Systems ROS Statement: Those systems with pertinent positive or pertinent negative responses have been documented in the HPI. ROS Other: All systems not noted in ROS Statement are negative. EKG Findings - EKG Comments: EKG Findings:: Sinus rhythm, rate 66 bpm, MI interval 174 ms, QRS duration 95 ms, QT/QTc 379/392 ms, normal axis, 0.[address] elevation in V2, otherwise no ST elevations or depressions, no arrhythmia, no STMEI. Compared to EKG performed on , compared to prior, possible 0.[address] elevation in V2 compared to prior and QRS complex in aVL does appear lower voltage today, otherwise no significant changes from prior Past Medical History Past Medical History: Asthma, COPD Additional Past Medical History / Comment(s): bipolar, schizophrenia, +covid - 05/09 History of Any Multi-Drug Resistant Organisms: None Reported Past Surgical History: Section Past Psychological History: Anxiety, Bipolar, Depression, Schizophrenia Smoking Status: Former smoker Past Alcohol Use History: Occasional, Rare Past Drug Use History: None Reported General Exam - General Exam Comments Initial Comments: PE: CONSTITUTIONAL: No apparent distress, well appearing SKIN: Warm, dry, no jaundice, hives or petechiae EYES: Pupils are equally round, extraocular movements intact without nystagmus, clear conjunctiva, non-icteric sclera HENT: Normocephalic, atraumatic, moist mucus membranes, oropharynx clear without exudates NECK: , Full range of motion, normal appearance PULMONARY: Clear to auscultation without wheezes, rhonchi, or rales, normal excursion, no accessory muscle use and no stridor CARDIOVASCULAR: Regular rate, rhythm, normal S1 and S2. No appreciated murmurs, rubs or gallops. Strong radial pulses with intact distal perfusion. No lower extremity edema. TTP chest wall overtop the sternum GASTROINTESTINAL: Soft, active bowel sounds throughout, slight epigastric TTP, Right CVA TTP, non-distended, no palpable masses, no rebound or guarding. No hepatosplenomegaly GENITOURINARY: MUSCULOSKELETAL: Extremities have no gross deformity, no edema, redness, or swelling. No calf swelling NEUROLOGIC:_a/o x 3, GCS 15, normal mentation and speech. Moves all extremities x 4 without motor or sensory deficit PSYCHIATRIC:_anxious mood and affect, thought process is at times tangential, but overall clear and linear Limitations: no limitations Course Vital Signs 05/27/24 05/27/24 18:28 23:23 Temperature 98 F Pulse Rate 74 67 Respiratory 18 15 Rate Blood Pressure 122/80 102/58 O2 Sat by Pulse 99 96 Oximetry Chest Pain MDM - MDM Was pt. sent in by a medical professional or institution (, PA, CANDLE MOLDER MACHINE, urgent care, hospital, or [facility]...) When possible be specific @ -No Did you speak to anyone other than the patient for history (EMS, parent, family, police, friend...)? What history was obtained from this source @ -No Did you review nursing and triage notes (agree or disagree)? Why? @ -I reviewed and agree with nursing and triage notes Were old charts reviewed (outside hosp., previous admission, EMS record, old EKG, old radiological studies, urgent care reports/EKG's, [facility] records)? Report findings Medical records reviewed, Patient here 05/20/24, for chest heaviness; troponin wnl at that time, CXR showed no acute process. Differential Diagnosis (chest pain, altered mental status, abdominal pain women, abdominal pain men, vaginal bleeding, weakness, fever, dyspnea, syncope, headache, dizziness, GI bleed, back pain, seizure, CVA, palpatations, mental health, musculoskeletal)? @Differential Chest Pain: Stable Angina, Unstable Angina, STEMI, NSTEMI Aortic Dissection, pericarditis, pleurisy, chostochondirits, Pneumothorax, Musculoskeletal, Esophageal Spasm GERD, Cholecystitis, Pancreatitis, Zoster, this is not meant to be an all- inclusive list. BP wnl on arrival, pain is sharp, not tearing, has equal pulses in all 4 extremi ties and has been onging for at least 3 days. For this reason I do not feel patient's presentation is consistent with aortic dissection and CT dissection study not indicated at this point. EKG interpreted by me (3pts min.). @ -As above X-rays interpreted by me (1pt min.). @ -No cardiomegaly, consolidations or pleural effusions CT interpreted by me (1pt min.). @ -None done U/S interpreted by me (1pt. min.). @ -None done What testing was considered but not performed or refused? (CT, X-rays, U/S, labs)? Why? @ A A CT PE study was considered however using YEARs criteria, with d dimer < 1.00, PE ruled out and will not further pursue at this time What meds were considered but not given or refused? Why? Considered morphine for chest pain however patient declined Did you discuss the management of the patient with other professionals (professionals i.e. , PA, CANDLE MOLDER MACHINE, lab, RT, psych nurse, social media sr strategy manager, [place]fferdam construction supervisor, teacher, disabilities services officer, mattress spring encaser)? Give summary @ -No Was smoking cessation discussed for >3mins.? @ -No Was critical care preformed (if so, how long)? @ -No Were there social determinants of health that impacted care today? How? (Homelessness, low income, unemployed, alcoholism, drug addiction, transportation, low edu. Level, literacy, decrease access to med. care, fpc, rehab)? @ -No Was there de-escalation of care discussed even if they declined (Discuss DNR or withdrawal of care, Hospice)? @ -No What co-morbidities impacted this encounter? (DM, HTN, Smoking, COPD, CAD, Cancer, CVA, ARF, Chemo, Hep., AIDS, mental health diagnosis, sleep apnea, morbid obesity)? @ -asthma, bipolar disorder Was patient admitted / discharged? Hospital course, mention meds given and route, prescriptions, significant lab abnormalities, going to OR and other pertinent info. Admission-this is a 43-year-old female the past medical history of asthma, bipolar disorder presenting today for sharp left-sided chest pain times at least 3 days. Patient also intermittently discusses additional complaints including right flank pain that she has been seen for previously and a sore in her mouth, stating that she is worried she has cancer. VS acceptable limits on arrival. Local exam as above. Patient chest pain seems highly suspicious for gastritis, esophagitis,or MSK etiology however endorses significant family history and with left chest pain radiating down her left arm concern remains for ACS. Discussed with patient plan of care for cardiac labs, D-dimer, imaging of the chest will be based on D-dimer results and urinalysis. If significant hematuria we will proceed with CT ab and pelvis without contrast for stone given CVA tenderness. Discussed with patient giving morphine for her chest pain however she platelet declined. I do suspicion that this could be secondary to musculoskeletal etiology will trial Toradol, of note patient states he is a history of ibuprofen stating it feels makes her feel nauseous but has been able to tolerate it recently and is agreeable Toradol administration. Will give 324 mg chewable ASA. Pt agreeable with POC. Labs and imaging reviewed. Grossly within normal limits. Abnormal values not concerning for acute pathology related to presenting complaint. D-dimer 0.84. Using YEARS criteria, with D-dimer less than 1, PE can be excluded without proceeding to CT PE study. Additionally discussed with the patient she is agreeable stating that she does not want IV contrast at this time. Urinalysis did not show signs of blood or infection so I do not feel CT stone study indicated. Patient states toradol did not improve CP, I offered morphine or muscle relaxant, patient willing to trial muscle relaxant. Flexeril ordered. Given questionable 0.[address] elevation in lead V2 when compared to prior, family history, patient's age elevated BMI and moderately suspicious history, heart score 4, and persistent CP, discussed with patient admission for obs. Patient agreeable with POC. Case discussed with CIRO Hernández, kindly accepts patient for admission. Undiagnosed new problem with uncertain prognosis? @ -No Drug Therapy requiring intensive monitoring for toxicity (Heparin, Nitro, Insulin, Cardizem)? @ -No Were any procedures done? @ -No Diagnosis/symptom? @Chest pain Acute, or Chronic, or Acute on Chronic? @ acute Uncomplicated (without systemic symptoms) or Complicated (systemic symptoms)? complicated Side effects of treatment? @ -No Exacerbation, Progression, or Severe Exacerbation? @ -No Poses a threat to life or bodily function? How? (Chest pain, [place], [place], pneumonia, PE, COPD, DKA, ARF, appy, cholecystitis, CVA, Diverticulitis, Homicidal, Suicidal, threat to staff... and all critical care pts) @ Potentially, yes if 2/2 cardiac etiology Disposition Clinical Impression: Chest pain Disposition: ADMITTED IP TO THIS HOSP Condition: Good
[2024-05-27] MEDS: KETOROLAC 15 MG/ML 1 ML VIAL IVP STA (19:59)
[2024-05-27] MEDS: FAMOTIDINE 20 MG/2 ML VIAL IV STA (19:59)
[2024-05-27] MEDS: SODIUM CHLORIDE 0.9% 1,000 ML IV STA (19:59)
[2024-05-27] MEDS: ASPIRIN 81 MG PO STA (20:03)
[2024-05-27] MEDS: ONDANSETRON ODT 4 MG TAB PO STA (20:10)
[2024-05-27 20:24] LABS: Basophils % (A) 0 %; Eosinophils % (A) 1 %; HCT 35.8 % (34.0-46.0); HGB 11.8 gm/dL (11.4-16.0); Lymphocytes # (A) 1.6 k/uL (1.0-4.8); Lymphocytes % (A) 26 %; MCH 29.6 pg (25.0-35.0); MCHC 32.9 g/dL (31.0-37.0); MCV 90.1 fL (80.0-100.0); Mean Platelet Volume 7.5; Monocytes # (A) 0.4 k/uL (0-1.0); Monocytes % (A) 6 %; Neutrophils # (A) 4.1 k/uL (1.3-7.7); Neutrophils % (A) 66 %; Platelet Count 275 k/uL (150-450); RBC 3.98 m/uL (3.80-5.40); RDW 13.2 % (11.5-15.5); WBC 6.2 k/uL (3.8-10.6)
[2024-05-27 20:39] LABS: ALT 13 U/L (4-34); AST 19 U/L (14-36); African American GFR (CKD) >90 (>60 ml/min/1.73 sqM); Alkaline Phosphatase 52 U/L (38-126); Anion Gap 5 mmol/L; Blood Urea Nitrogen 16 mg/dL (7-17); Calcium 9.2 mg/dL (8.4-10.2); Carbon Dioxide 27 mmol/L (22-30); Chloride 106 mmol/L (98-107); Glucose 104 mg/dL (74-99); Lipase 47 U/L (23-300); Non-African American GFR(CKD) >90 (>60 ml/min/1.73 sqM); Partial Thromboplastin Time 25.9 sec (22.0-30.0); Potassium 3.9 mmol/L (3.5-5.1); Prothrombin Time 10.7 sec (10.0-12.5); Sodium 138 mmol/L (137-145); Total Bilirubin 0.2 mg/dL (0.2-1.3); Total Protein 6.9 g/dL (6.3-8.2)
[2024-05-27 20:47] LABS: NT-Pro-B-Type Natriuretic Pept <20 pg/mL
[2024-05-27 20:49] LABS: Appearance,Urine Clear (Clear); Bilirubin,Urine Negative (Negative); Blood,Urine Negative (Negative); Color,Urine Light Yellow; Glucose,Urine (UA) Negative (Negative); Ketones,Urine Negative (Negative); Leukocyte Esterase,Urine Negative (Negative); Nitrite,Urine Negative (Negative); Protein,Urine Negative (Negative); Specific Gravity,Urine 1.025 (1.001-1.035); Urobilinogen,Urine <2.0 mg/dL (<2.0)
--- NOTE | 2024-05-27 21:35 | XR ---
EXAMINATION TYPE: XR chest 2V DATE OF EXAM: 05/27/2024 9:30 PM COMPARISON: Chest radiographs from 05/20/2024 CLINICAL INDICATION: Female, 43 years old with history of chest pain, reproducible with palpation of sternum; [facility] TECHNIQUE: XR chest 2V Frontal and lateral views of the chest. FINDINGS: Lungs/Pleura: There is no evidence of pleural effusion, focal consolidation, or pneumothorax. Pulmonary vascularity: Unremarkable. Heart/mediastinum: Cardiomediastinal silhouette is unremarkable. Musculoskeletal: No acute osseous pathology. IMPRESSION: No acute cardiopulmonary disease/process. [facility], , 05/27/2024 9:32 PM
[2024-05-27] MEDS: CYCLOBENZAPRINE 10 MG TAB PO STA (21:48)
[2024-05-27] MEDS ORDERED: CALCIUM CARBONATE 500 MG CHEWABLE PO PRN (22:09)
[2024-05-27] MEDS ORDERED: PROCHLORPERAZINE 5 MG TAB PO PRN (22:09)
[2024-05-27] MEDS ORDERED: NALOXONE 0.4 MG/ML 1 ML VIAL IV PRN (22:09)
[2024-05-27] MEDS ORDERED: ALPRAZolam 0.25 MG TAB PO PRN (22:09)
[2024-05-27] MEDS ORDERED: ACETAMINOPHEN TAB 325 MG TAB PO PRN (22:09)
[2024-05-27] MEDS ORDERED: MAG HYDROX/AL HYDROX/SIMETH 30 ML CUP PO PRN (22:09)
[2024-05-28] MEDS ORDERED: KETOROLAC 15 MG/ML 1 ML VIAL IVP PRN (01:30)
--- NOTE | 2024-05-28 09:14 | US ---
EXAMINATION TYPE: US venous doppler duplex LE BI DATE OF EXAM: 05/28/2024 9:08 AM COMPARISON: NONE CLINICAL INDICATION: Female, 43 years old with history of elevated DDimer; patient has no leg complai nts, d-dimer 0.8, no h/o dvt TECHNIQUE: The lower extremity deep venous system is examined utilizing real time linear array sonog yecenia with graded compression, color doppler sonography, and spectral doppler. SIDE PERFORMED: Bilateral FINDINGS: VESSELS IMAGED: Common Femoral Vein Deep Femoral Vein Greater Saphenous Vein * Femoral Vein Popliteal Vein Small Saphenous Vein * Proximal Calf Veins (* superficial vessels) Right Leg: Negative for DVT, Color Doppler imaging shows patency of the vessels. Spectral waveforms are within normal limits. Left Leg: Negative for DVT, Color Doppler imaging shows patency of the vessels. Spectral waveforms a re within normal limits. IMPRESSION: No ultrasound evidence for deep venous thrombosis. [facility], , 05/28/2024 9:12 AM
[2024-05-28] MEDS: SODIUM CHLORIDE 0.9% 1,000 ML IV SCH (10:39)
[2024-05-28] MEDS: FAMOTIDINE 20 MG TAB PO SCH (10:44)
[2024-05-28] MEDS: ENOXAPARIN 40 MG/0.4 ML SYRINGE SQ SCH (10:44)
--- NOTE | 2024-05-28 11:32 | P.HPIM ---
History of Present Illness 43-year-old female came in with complaints of chest pain pressure-like sensation radiating to the left shoulder area without any lightheadedness diaphoresis shortness of breath nonexertional pain patient pain starts in the neck radiates to the chest. Patient also having low back pain with crampy abdominal pain occasionally. Patient chest pain is reproducible and patient does have shooting pain when present on the neck as well as thoracic and lumbar spine. Patient EKG not show any acute ST-T wave changes cardiology evaluated the patient troponins are negative patient is mildly elevated D-dimer of 8 because of which we are obt aining a CT of the chest rule out any pulmonary embolism. Patient had a Doppler of bilateral lower extremities today which is negative for any DVT. REVIEW OF SYSTEMS: All other systems are negative except those mentioned in the HPI PHYSICAL EXAMINATION: GENERAL: The patient is alert and oriented x3, not in any acute distress. Well developed, well nourished. HEENT: Pupils are round and equally reacting to light. EOMI. No scleral icterus. No conjunctival pallor. Normocephalic, atraumatic. No pharyngeal erythema. No thyromegaly. CARDIOVASCULAR: S1 and S2 present. No murmurs, rubs, or gallops. PULMONARY: Chest is clear to auscultation, no wheezing or crackles. ABDOMEN: Soft, nontender, nondistended, normoactive bowel sounds. No palpable organomegaly. MUSCULOSKELETAL: No joint swelling or deformity. EXTREMITIES: No cyanosis, clubbing, or pedal edema. NEUROLOGICAL: Gross neurological examination did not reveal any focal deficits. SKIN: No rashes. Assessment and plan -Chest pain rule out acute coronary syndromes appears to be musculoskeletal predominantly from degenerative cervical vertebral and degenerative thoracic vertebral disease. Will rule out pulmonary embolism and if cleared by cardiology patient will be discharged today -Chronic back pain and neck pain: Patient will be given prescription for Pepcid and nonsteroidal anti-inflammatory medication follow-up with PCP patient will benefit from outpatient physical therapy and if needed military equipment specialist -Rule out pulmonary embolism -Occasional constipation will risk Drive MiraLAX as needed Patient will be discharged today if cleared by cardiology and if CT is negative for PE Past Medical History Past Medical History: Asthma, COPD Additional Past Medical History / Comment(s): bipolar, schizophrenia, +covid - 05/09 History of Any Multi-Drug Resistant Organisms: None Reported Past Surgical History: Section Past Psychological History: Anxiety, Bipolar, Depression, Schizophrenia Smoking Status: Former smoker Past Alcohol Use History: Occasional, Rare Past Drug Use History: None Reported Medications and Allergies Home Medications Medication Instructions Recorded Confirmed Type Famotidine [Pepcid] 20 mg PO BID #30 tablet 05/28/24 Rx Naproxen [Naprosyn] 375 mg PO Q12HR PRN #30 tablet 05/28/24 Rx Allergies Allergy/AdvReac Type Severity Reaction Status Date / Time ibuprofen [From Motrin] Allergy Nausea & Verified 05/28/24 10:35 Vomiting methylprednisolone Allergy Anaphylaxis Verified 05/28/24 10:35 prednisone Allergy Anaphylaxis Verified 05/28/24 10:35 sulfamethoxazole Allergy Unknown Verified 05/28/24 10:35 [From Bactrim] trimethoprim [From Bactrim] Allergy Unknown Verified 05/28/24 10:35 doxycycline AdvReac Nausea & Verified 05/28/24 10:35 Vomiting Physical Exam Vitals: Vital Signs Temp Pulse Resp BP Pulse Ox 05/28/24 10:37 81 17 112/94 99 05/28/24 07:42 66 16 110/63 96 05/28/24 07:05 71 15 99/63 97 05/28/24 03:49 98.5 F 68 16 98/55 97 05/28/24 01:57 64 15 98 05/27/24 23:23 67 15 102/58 96 05/27/24 18:28 98 F 74 18 122/80 99 Intake and Output 05/27/24 05/28/24 05/28/24 22:59 06:59 14:59 Other: Weight 83.461 kg Results CBC & Chem 7: 05/27/24 20:07 05/27/24 20:07 Labs: Abnormal Lab Results - Last 24 Hours (Table) 05/27/24 05/27/24 Range/Units 20:07 20:07 D-Dimer 0.84 H (<0.60) mg/L FEU Glucose 104 H (74-99) mg/dL
--- NOTE | 2024-05-28 11:33 | P.DS ---
Providers Date of admission: 05/27/24 22:11 Attending physician: Luan Bonilla Consults: 05/27/24 22:09 Consult Physician Routine Consulting Provider: Abelino Moraes Consult Reason/Comments: Chest pain Do you want consulting provider notified?: Yes, Notify in am Primary care physician: [facility] Course: 43-year-old female came in with complaints of chest pain pressure-like sensation radiating to the left shoulder area without any lightheadedness diaphoresis shortness of breath nonexertional pain patient pain starts in the neck radiates to the chest. Patient also having low back pain with crampy abdominal pain occasionally. Patient chest pain is reproducible and patient does have shooting pain when present on the neck as well as thoracic and lumbar spine. Patient EKG not show any acute ST-T wave changes cardiology evaluated the patient troponins are negative patient is mildly elevated D-dimer of 8 because of which we are obtaining a CT of the chest rule out any pulmonary embolism. Patient had a Doppler of bilateral lower extremities today which is negative for any DVT. REVIEW OF SYSTEMS: All other systems are negative except those mentioned in the HPI PHYSICAL EXAMINATION: GENERAL: The patient is alert and oriented x3, not in any acute distress. Well developed, well nourished. HEENT: Pupils are round and equally reacting to light. EOMI. No scleral icterus. No conjunctival pallor. Normocephalic, atraumatic. No pharyngeal erythema. No thyromegaly. CARDIOVASCULAR: S1 and S2 present. No murmurs, rubs, or gallops. PULMONARY: Chest is clear to auscultation, no wheezing or crackles. ABDOMEN: Soft, nontender, nondistended, normoactive bowel sounds. No palpable organomegaly. MUSCULOSKELETAL: No joint swelling or deformity. EXTREMITIES: No cyanosis, clubbing, or pedal edema. NEUROLOGICAL: Gross neurological examination did not reveal any focal deficits. SKIN: No rashes. Assessment and plan -Chest pain rule out acute coronary syndromes appears to be musculoskeletal predominantly from degenerative cervical vertebral and degenerative thoracic vertebral disease. Will rule out pulmonary embolism and if cleared by cardiology patient will be discharged today -Chronic back pain and neck pain: Patient will be given prescription for Pepcid and nonsteroidal anti-inflammatory medication follow-up with PCP patient will benefit from outpatient physical therapy and if needed child development specialist -Rule out pulmonary embolism -Occasional constipation will risk Drive MiraLAX as needed Patient will be discharged today if cleared by cardiology and if CT is negative for PE Patient Condition at Discharge: Good Plan - Discharge Summary New Discharge Prescriptions: New Naproxen [Naprosyn] 375 mg PO Q12HR PRN #30 tablet PRN Reason: Pain Famotidine [Pepcid] 20 mg PO BID #30 tablet Discharge Medication List Famotidine [Pepcid] 20 mg PO BID #30 tablet 05/28/24 [Rx] Naproxen [Naprosyn] 375 mg PO Q12HR PRN #30 tablet 05/28/24 [Rx] Follow up Appointment(s)/Referral(s): Kierra Gamble MD [Primary Care Provider] - 3 Days Discharge Disposition: HOME SELF-CARE
--- NOTE | 2024-05-28 11:40 | P.CRDCN ---
History of Present Illness Consult date: 05/28/24 Consult reason: chest pain History of present illness: This is a 43-year-old female with past medical history of GERD. We have been asked to evaluate the patient for chest pain. Patient gives history that she drove 9 hours from [place] and arrived to the local area on May 19. She states she has had chest pain on and off for the past 3 days that is sharp and radiates to her left arm. No shortness of breath, no cough. Patient did follow in the office with Dr. May in 2018 for chest pain atypical evaluation. Patient was scheduled for a stress test but it does not appear the patient had this done. Discussed results of the testing done. Recommended patient to have a CTA of the chest and venous Doppler done to rule out PE and DVT. Also will obtain echocardiogram to assess wall function. Blood pressure 110/63, heart rate 66, p ulse ox 96% on room air. Patient has been started on IV fluids. -EKG: Sinus rhythm with no acute ST changes. -Chest x-ray: No acute process -Laboratory studies: Troponin negative x 3. D-dimer 0.84. Influenza A, influenza B, RSV, COVID-19 not detected. Creatinine 0.73. -Home cardiac medications: None -Echocardiogram performed 2018 in the office revealed normal LV size and function, mild mitral regurgitation, mild tricuspid regurgitation, mild to moderate aortic regurgitation. Review Of Systems: At the time of my exam: CONSTITUTIONAL: Denies fever or chills. HEENT: Denies blurred vision, vision changes, or eye pain. Denies hemoptysis CARDIOVASCULAR: Denies chest pain. Denies orthopnea. Denies PND. Denies palpitations RESPIRATORY: Denies shortness of breath. GASTROINTESTINAL: Denies abdominal pain. Denies nausea or vomiting. HEMATOLOGIC: Denies bleeding disorders. GENITOURINARY: Denies any blood in urine. SKIN: Denies puritis. Denies rash. Physical examination: Gen: This is a 43-year-old black female in no acute distress VS: reviewed HEENT: Head is atraumatic, normocephalic. Pupils equal, round. Sclerae is anicteric. NECK: Supple. No JVD. LUNGS: Clear to auscultation. No wheezes or rhonchi. No intercostal retractions. HEART: Regular rate and rhythm. No murmur. ABDOMEN: Soft No tenderness. EXTREMITIES: No pedal edema. No calf tenderness. NEUROLOGICAL: Patient is awake, alert and oriented x3. Assessment: Atypical chest pain Elevated D-dimer rule out PE GERD Plan: Obtain CTA of the chest to rule out PE Obtain bilateral lower extremity venous Doppler to rule out DVT Increase IV fluids to 100 cc/h of 0.9 normal saline Obtain 2-D echocardiogram and Doppler study to assess cardiac structure and function If the above testing is unremarkable, patient is cleared for discharge from cardiology Thank you kindly for this consultation. Nurse practitioner note has been reviewed, I agree with documented findings and plan of care. Patient was seen and examined. Past Medical History Past Medical History: Asthma, COPD Additional Past Medical History / Comment(s): bipolar, schizophrenia, +covid -05/09 History of Any Multi-Drug Resistant Organisms: None Reported Past Surgical History: Section Past Psychological History: Anxiety, Bipolar, Depression, Schizophrenia Smoking Status: Former smoker Past Alcohol Use History: Occasional, Rare Past Drug Use History: None Reported Medications and Allergies Home Medications Medication Instructions Recorded Confirmed Type Famotidine [Pepcid] 20 mg PO BID #30 tablet 05/28/24 Rx Naproxen [Naprosyn] 375 mg PO Q12HR PRN #30 tablet 05/28/24 Rx Allergies Allergy/AdvReac Type Severity Reaction Status Date / Time ibuprofen [From Motrin] Allergy Nausea & Verified 05/28/24 10:35 Vomiting methylprednisolone Allergy Anaphylaxis Verified 05/28/24 10:35 prednisone Allergy Anaphylaxis Verified 05/28/24 10:35 sulfamethoxazole Allergy Unknown Verified 05/28/24 10:35 [From Bactrim] trimethoprim [From Bactrim] Allergy Unknown Verified 05/28/24 10:35 doxycycline AdvReac Nausea & Verified 05/28/24 10:35 Vomiting Physical Exam Vitals: Vital Signs Temp Pulse Resp BP Pulse Ox 05/28/24 07:42 66 16 110/63 96 05/28/24 07:05 71 15 99/63 97 05/28/24 03:49 98.5 F 68 16 98/55 97 05/28/24 01:57 64 15 98 05/27/24 23:23 67 15 102/58 96 05/27/24 18:28 98 F 74 18 122/80 99 Intake and Output 05/27/24 05/28/24 05/28/24 22:59 06:59 14:59 Other: Weight 83.461 kg Results 05/27/24 20:07 05/27/24 20:07 Cardiac Enzymes 05/27/24 05/27/24 05/28/24 Range/Units 20:07 20:07 00:09 AST 19 (14-36) U/L Troponin I <0.012 <0.012 (0.000-0.034) ng/mL 05/28/24 Range/Units 03:02 AST (14-36) U/L Troponin I <0.012 (0.000-0.034) ng/mL Coagulation 05/27/24 Range/Units 20:07 PT 10.7 (10.0-12.5) sec APTT 25.9 (22.0-30.0) sec CBC 05/27/24 Range/Units 20:07 WBC 6.2 (3.8-10.6) k/uL RBC 3.98 (3.80-5.40) m/uL Hgb 11.8 (11.4-16.0) gm/dL Hct 35.8 (34.0-46.0) % Plt Count 275 (150-450) k/uL Comprehensive Metabolic Panel 05/27/24 Range/Units 20:07 Sodium 138 (137-145) mmol/L Potassium 3.9 (3.5-5.1) mmol/L Chloride 106 (98-107) mmol/L Carbon Dioxide 27 (22-30) mmol/L BUN 16 (7-17) mg/dL Creatinine 0.73 (0.52-1.04) mg/dL Glucose 104 H (74-99) mg/dL Calcium 9.2 (8.4-10.2) mg/dL AST 19 (14-36) U/L ALT 13 (4-34) U/L Alkaline Phosphatase 52 (38-126) U/L Total Protein 6.9 (6.3-8.2) g/dL Albumin 4.0 (3.5-5.0) g/dL Current Medications Generic Name Dose Route Start Last Admin Trade Name Freq PRN Reason Stop Dose Admin Acetaminophen 650 mg 05/27/24 22:09 Acetaminophen Tab 325 Mg Tab PO Q6HR PRN Mild Pain or Fever > 100.5 Al Hydroxide/Mg Hydroxide 15 ml 05/27/24 22:09 Mag Hydrox/Al Hydrox/Simeth 30 Ml Cup PO Q6HR PRN Indigestion Alprazolam 0.25 mg 05/27/24 22:09 Alprazolam 0.25 Mg Tab PO Q6HR PRN Anxiety Calcium Carbonate/Glycine 1,000 mg 05/27/24 22:09 Calcium Carbonate 500 Mg Chewable PO Q4HR PRN Dyspepsia Enoxaparin Sodium 40 mg 05/28/24 09:00 Enoxaparin 40 Mg/0.4 Ml Syringe SQ DAILY DAPHNEY Famotidine 20 mg 05/28/24 09:00 Famotidine 20 Mg Tab PO BID [facility] Sodium Chloride 1,000 mls @ 75 mls/hr 05/28/24 08:45 Saline 0.9% IV .[id number] [facility] Naloxone HCl 0.2 mg 05/27/24 22:09 Naloxone 0.4 Mg/Ml 1 Ml Vial IV Q2M PRN Opioid Reversal Prochlorperazine Maleate 5 mg 05/27/24 22:09 Prochlorperazine 5 Mg Tab PO Q8HR PRN Nausea And Vomiting Tramadol HCl 50 mg 05/27/24 22:09 Tramadol 50 Mg Tab PO Q6H PRN Moderate Pain (Scale 4 to 6) Intake and Output 05/27/24 05/28/24 05/28/24 22:59 06:59 14:59 Other: Weight 83.461 kg 05/27/24 20:07 05/27/24 20:07
--- NOTE | 2024-05-28 12:14 | CT ---
EXAMINATION TYPE: CT angio chest CT DLP: 323.8 mGycm, Automated exposure control for dose reduction was used. DATE OF EXAM: 05/28/2024 11:48 AM COMPARISON: Chest radiograph 05/27/2024, CTA Chest 10/31/2022 CLINICAL INDICATION:Female, 43 years old with history of elevated DDimer; CHEST PAIN AND ELEVATED D-D HAMMAD TECHNIQUE/CONTRAST: CTA scan of the thorax is performed with IV Contrast, patient injected with 60ml mL of Isovue 370, pu lmonary embolism protocol. MIP images are created and reviewed. FINDINGS: Pulmonary Artery: There is no evidence for a filling defect within the pulmonary vasculature to sugge st acute pulmonary embolism. The pulmonary artery is of normal size. Lungs/Pleura: No evidence of focal consolidation, pleural effusion or pneumothorax. Minimal atelectat ic changes within the bilateral lung bases. No suspicious pulmonary nodule or mass. Airway: Large airways are patent. Heart: Heart is within normal limits for size.. No pericardial effusion. Vasculature: No evidence of aortic aneurysm. Mediastinum: No evidence of adenopathy. Musculoskeletal: No acute osseous abnormalities Soft Tissues: Unremarkable. Lower neck: No significant findings. Upper Abdomen: No significant findings. IMPRESSION: No evidence of pulmonary embolism or acute thoracic process. [facility], , 05/28/2024 12:12 PM
[2024-05-28 20:24] VITALS: RESP 16
--- NOTE | 2024-05-29 07:38 | CA ---
Transthoracic Echo Report Name: Alejandro Angelo Age: 43 Gender: F : 1980 Exam Date: 05/28/2024 13:46 Exam Location: [facility] Ht (in): 62 Wt (lb): 184 Ordering Physician: Brittny Yang Attending/Referring Phys: [id number], Trey Courtesy Bus Driver Abby Soler RDCS Procedure CPT: Indications: LVF Cardiac Hx: Technical Quality: Good Contrast 1: Total Dose (mL): Contrast 2: Total Dose (mL): MEASUREMENTS (Male / Female) Normal Values 2D ECHO LV Diastolic Diameter PLAX 3.7 cm 4.2 - 5.9 / 3.9 - 5.3 cm LV Systolic Diameter PLAX 2.2 cm IVS Diastolic Thickness 1.1 cm 0.6 - 1.0 / 0.6 - 0.9 cm LVPW Diastolic Thickness 1.2 cm 0.6 - 1.0 / 0.6 - 0.9 cm LV Relative Wall Thickness 0.6 RV Internal Dim ED PLAX 2.7 cm LA Systolic Diameter LX 3.0 cm 3.0 - 4.0 / 2.7 - 3.8 cm LV Diastolic Volume MOD BP 67.6 cm??? 67 - 155 / 56 - 104 cm??? LV Systolic Volume MOD BP 28.1 cm??? 22 - 58 / 19 - 49 cm??? LV Ejection Fraction MOD BP 58.5 % >= 55 % LV Cardiac Index MOD BP 1481.7 cm???/min???m??? LV Diastolic Volume MOD 4C 74.1 cm??? LV Systolic Volume MOD 4C 25.5 cm??? LV Ejection Fraction MOD 4C 65.6 % LV Cardiac Index MOD 4C 1821.5 cm???/min???m??? LV Diastolic Length 4C 7.5 cm LV Systolic Length 4C 6.7 cm LV Diastolic Volume MOD 2C 61.5 cm??? LV Systolic Volume MOD 2C 30.0 cm??? LV Ejection Fraction MOD 2C 51.2 % LV Cardiac Index MOD 2C 1181.1 cm???/min???m??? LV Diastolic Length 2C 7.6 cm LV Systolic Length 2C 6.3 cm M-MODE Aortic Root Diameter MM 2.7 cm LA Systolic Diameter MM 3.1 cm LA Ao Ratio MM 1.1 AV Cusp Separation MM 1.7 cm DOPPLER AI Peak Velocity 362.1 cm/s AI Peak Gradient 52.4 mmHg AI Pressure Half Time 651.9 ms Mitral E Point Velocity 88.2 cm/s Mitral A Point Velocity 78.1 cm/s Mitral E to A Ratio 1.1 MV Deceleration Time 247.8 ms MV E' Velocity 12.6 cm/s Mitral E to MV E' Ratio 7.0 TR Peak Velocity 198.7 cm/s TR Peak Gradient 15.8 mmHg FINDINGS Left Ventricle Left ventricular ejection fraction is estimated at 55-60 %. Mildly increased septal wall thickness. Mildly increased posterior wall thickness. Normal left ventricular systolic function with no obvious regional wall motion abnormalities. Left ventricular cavity size normal. Right Ventricle Normal right ventricular size and function. Right ventricular systolic pressure within normal limits. Right Atrium Normal right atrial size. Left Atrium Normal left atrial size. Mitral Valve Structurally normal mitral valve. Mild mitral regurgitation. No mitral stenosis. Aortic Valve Trileaflet aortic valve. Mild aortic regurgitation. No aortic stenosis. Tricuspid Valve Structurally normal tricuspid valve. [id number] tricuspid regurgitation. No tricuspid stenosis. Pulmonic Valve Structurally normal pulmonic valve. Mild pulmonic regurgitation. No pulmonic stenosis. Pericardium No pericardial or pleural effusion. Aorta Normal size aortic root and proximal ascending aorta. CONCLUSIONS Normal LV size and systolic function with mild concentric LVH. Mild mitral, tricuspid and aortic insufficiency. No pericardial effusion. No significant pulmonary hypertension Previewed by: Dr. Belinda Triana MD (Electronically Signed) Final Date: 29 May 2024 07:37
[2024-05-29] MEDS: traMADol 50 MG TAB PO PRN (08:47)
--- NOTE | 2024-05-29 13:55 | XR ---
EXAMINATION TYPE: XR shoulder complete LT DATE OF EXAM: 05/29/2024 1:35 PM COMPARISON: None CLINICAL INDICATION: Female, 43 years old with history of left shoulder pain; PHH, pain TECHNIQUE: XR shoulder complete LT; examined in AP, internally rotated and scapular Y projections. FINDINGS: No evidence of acute osseous pathology, joint dislocation, or soft tissue swelling. The remaining po rtions of the visualized chest are unremarkable. Mild degeneration changes of the acromion and dista l clavicle. IMPRESSION: 1. No acute osseous pathology. 2. Mild shoulder osteoarthrosis. [facility], , 05/29/2024 1:53 PM
[2024-05-29 14:55] VITALS: BP 104/65; PULSE 77; TEMP 98.3
--- NOTE | 2024-05-29 15:06 | USB ---
Reason for Exam: Clinical finding. Patient History: Menarche at age 7. First Full-Term at age 19. Patient has history of breast feeding. Patient used Hormonal Contraceptives for 3 years. Risk Values: Amber 5 year model risk: 0.9%. NCI Lifetime model risk: 9.3%. Technique: Method: Targeted. Prior Study Comparison: 08/05/2020 Bilateral Screening Mammogram, [facility]. 05/26/2022 Bilateral MG 3D screening mammo w/cad, [facility]. 03/15/2024 Bilateral MG 3D screening mammo w/cad, [facility]. Findings: The axilla of the left breast was scanned. Electronically signed and approved by: Jonas Mcneil D.O. Radiologis
--- NOTE | 2024-05-31 17:58 | P.DS ---
Providers Date of admission: 05/27/24 22:11 Attending physician: Luan Bonilla Consults: 05/27/24 22:09 Consult Physician Routine Consulting Provider: Abelino Moraes Consult Reason/Comments: Chest pain Do you want consulting provider notified?: Yes, Notify in am Primary care physician: Kierra Gamble [facility] Course: Final Diagnosis -Chest pain rule out acute coronary syndromes appears to be musculoskeletal predominantly from degenerative cervical vertebral and degenerative thoracic vertebral disease. Ruled out ACS and pulmonary embolism. -Chronic back pain and neck pain: Patient will be given prescription for Pepcid and nonsteroidal anti-inflammatory medication follow-up with PCP patient will benefit from outpatient physical therapy and if needed cash management specialist -Rule out pulmonary embolism -Occasional constipation will risk Drive MiraLAX as needed Discharge Disposition Patient is stable for discharge home. Continue naproxen and follow up with PCP. Hospital Course 43-year-old female came in with complaints of chest pain pressure-like sensation radiating to the left shoulder area without any lightheadedness diaphoresis shortness of breath nonexertional pain patient pain starts in the neck radiates to the chest. Patient also having low back pain with crampy abdominal pain occasionally. Patient chest pain is reproducible and patient does have shooting pain when present on the neck as well as thoracic and lumbar spine. Patient EKG not show any acute ST-T wave changes cardiology evaluated the patient troponins are negative patient is mildly elevated D-dimer of 8. CT angiography has been completed and PE ruled out. Echocardiogram shows EF 55-60%. Patient had a Doppler of bilateral lower extremities today which is negative for any DVT. Patient underwent cardiac evaluation and felt the pain was noncardiac. patient now describes the pain as left shoulder pain and in the axilla/and near the left breast. She feels a nodule. An ultrasound was done and also an xray of the shoulder. No clinical findings to account for her symptoms. She is encouraged to use the naproxen for pain management and follow up with her PCP in the office. Please see medication reconciliation for a list of current medications. Thank you for allowing us to participate in the care of this patient. The impression and plan of care has been dictated by Connie Gage, Nurse Practitioner as directed. Dr. Shelbi MD I have performed a history and physical examination and medical decision making of this patient, discussed the same with the dictator, and agree with the dictators assessment and plan as written, documented as a scribe. Based on total visit time, I have performed more than 50% of this visit. Patient Condition at Discharge: Good Plan - Discharge Summary New Discharge Prescriptions: New Naproxen [Naprosyn] 375 mg PO Q12HR PRN #30 tablet PRN Reason: Pain Famotidine [Pepcid] 20 mg PO BID #30 tablet polyethylene glycoL 3350 [Miralax] 17 gm PO DAILY PRN #15 packet PRN Reason: Constipation Discharge Medication List Famotidine [Pepcid] 20 mg PO BID #30 tablet 05/28/24 [Rx] Naproxen [Naprosyn] 375 mg PO Q12HR PRN #30 tablet 05/28/24 [Rx] polyethylene glycoL 3350 [Miralax] 17 gm PO DAILY PRN #15 packet 05/28/24 [Rx] Follow up Appointment(s)/Referral(s): Kierra Gamble MD [Primary Care Provider] - 3 Days Activity/Diet/Wound Care/Special Instructions: Benefit from orthopedic evaluation outpatient and also outpatient physical therapy Discharge Disposition: HOME SELF-CARE
== END 2024-05-29 15:38 | disposition home or self-care (01) ==
LOC: EC 18:21 → 6NMEDSUR 22:11
PROVIDERS: ADMIT Hospitalist; ATTEND Hospitalist
DX: R07.89 Other chest pain (principal); R79.89 Other specified abnormal findings of blood chemistry; R10.9 Unspecified abdominal pain; M51.360 Other intervertebral disc degeneration, lumbar region with discogenic back pain only; M50.90 Cervical disc disorder, unspecified, unspecified cervical region; I08.3 Combined rheumatic disorders of mitral, aortic and tricuspid valves; J44.9 Chronic obstructive pulmonary disease, unspecified; K21.9 Gastro-esophageal reflux disease without esophagitis; M19.019 Primary osteoarthritis, unspecified shoulder; K59.00 Constipation, unspecified; F20.9 Schizophrenia, unspecified; F41.9 Anxiety disorder, unspecified; F31.9 Bipolar disorder, unspecified; Z79.899 Other long term (current) drug therapy; Z87.891 Personal history of nicotine dependence; Z88.1 Allergy status to other antibiotic agents; Z88.6 Allergy status to analgesic agent; Z88.8 Allergy status to other drugs, medicaments and biological substances
CPT/HCPCS: 96361; 96374; 99285; 36415; 94760; 93005; 93306; 85379; 83880; 80053; 83690; 84484 ×2; 85025; 85610; 85730; 81003; 81025; 87636; 73030; 71046; 76642; 93970; 71275; G0378 ×3; J1885; Q9967

== ENCOUNTER 2024-06-11 09:41 | Emergency (ER) | payer MEDICARE, OTHER ==
[2024-06-11 09:49] VITALS: RESP 18; TEMP 77
--- NOTE | 2024-06-11 10:13 | ED ---
Abdominal Pain HPI - General Chief Complaint: Back Pain/Injury Stated Complaint: L side pain/unble to poop Time Seen by Provider: 06/11/24 09:53 Source: patient, RN notes reviewed Mode of arrival: ambulatory Limitations: no limitations - History of Present Illness Initial Comments: This is a 43-year-old female who presents to the emergency department for abdominal pain, constipation, and rectal bleeding. States that for the last couple of days she has found herself straining when she tries to have a bowel movement. She thought that she had some hemorrhoids and tried applying hemorrhoid cream. However, those have not been getting any better. Whenever she uses the restroom she only has small and hard pieces of stool. States that they also have bright red blood mixed in with them. Reports associated left lower quadrant pain. When she tries to push stool out, states that she starts to get fluttering in her chest and her left arm is sore. Also states that she has had problems with ongoing right-sided neck pain. Denies any injuries. MD Complaint: abdominal pain - Related Data Previous Rx's Medication Instructions Recorded Famotidine [Pepcid] 20 mg PO BID #30 tablet 05/28/24 Naproxen [Naprosyn] 375 mg PO Q12HR PRN #30 tablet 05/28/24 polyethylene glycoL 3350 [Miralax] 17 gm PO DAILY PRN #15 packet 05/28/24 Lactulose 10 gm PO DAILY PRN #473 ml 06/11/24 Meloxicam [Mobic] 15 mg PO DAILY PRN #20 tab 06/11/24 methocarbamoL [Robaxin] 1,000 mg PO TID PRN #30 tab 06/11/24 Allergies Allergy/AdvReac Type Severity Reaction Status Date / Time ibuprofen [From Motrin] Allergy Nausea & Verified 05/28/24 10:35 Vomiting methylprednisolone Allergy Anaphylaxis Verified 05/28/24 10:35 prednisone Allergy Anaphylaxis Verified 05/28/24 10:35 sulfamethoxazole Allergy Unknown Verified 05/28/24 10:35 [From Bactrim] trimethoprim [From Bactrim] Allergy Unknown Verified 05/28/24 10:35 doxycycline AdvReac Nausea & Verified 05/28/24 10:35 Vomiting Review of Systems ROS Statement: Those systems with pertinent positive or pertinent negative responses have been documented in the HPI. ROS Other: All systems not noted in ROS Statement are negative. Past Medical History Past Medical History: Asthma, COPD Additional Past Medical History / Comment(s): bipolar, schizophrenia, +covid - 05/09, pt denies COPD History of Any Multi-Drug Resistant Organisms: None Reported Past Surgical History: Section Past Psychological History: Anxiety, Bipolar, Depression, Schizophrenia Smoking Status: Former smoker Past Alcohol Use History: Occasional, Rare Past Drug Use History: None Reported General Exam Limitations: no limitations General appearance: alert, in no apparent distress Head exam: Present: atraumatic, normocephalic, normal inspection Respiratory exam: Present: normal lung sounds bilaterally. Absent: respiratory distress, wheezes, rales, rhonchi, stridor Cardiovascular Exam: Present: regular rate, normal rhythm, normal heart sounds. Absent: systolic murmur, diastolic murmur, rubs, gallop, clicks GI/Abdominal exam: Present: soft, tenderness (LLQ), normal bowel sounds. Absent: distended Neurological exam: Present: alert, oriented X3, CN II-XII intact Psychiatric exam: Present: normal affect, normal mood Skin exam: Present: warm, dry, intact, normal color. Absent: rash Course Vital Signs 06/11/24 06/11/24 09:45 12:38 Temperature 77 F L Pulse Rate 77 64 Respiratory 18 18 Rate Blood Pressure 107/72 126/78 O2 Sat by Pulse 100 98 Oximetry Medical Decision Making - Medical Decision Making This is a 43 year old female who presents to the emergency department for abdominal pain and constipation. Was pt. sent in by a medical professional or institution? @ -No Did you speak to anyone other than the patient for history? @ -No Did you review nursing and triage notes? @ -Yes, and I agree, it is accurate with regards to the patient's symptoms. Were old charts reviewed? @ -No Differential Diagnosis? @ -Differential Abdominal Pain Women: Appendicitis, Cholecystitis, diverticulosis, ischemic bowel, pancreatitis, hepatitis, UTI, gastroenteritis, AAA, incarcerated hernia, bowel obstruction, constipation, inflammatory bowel, hepatitis, peptic ulcer disease, splenic infarction, perforated viscus, vulvitis, ovarian torsion, PID, kidney stone, placenta abruption, this is not meant to be an all-inclusive list EKG interpreted by me (3pts min.)? @ -EKG interpreted by me demonstrating the following: Sinus bradycardia. Ventricular rate 55 bpm, MN interval 153 ms, QRS duration 95 ms, QTc 388 ms. X-rays interpreted by me (1pt min.)? @ -KUB x-ray obtained. My interpretation identifies no dilation of the bowel loops. CT interpreted by me (1pt min.)? @ -Not obtained U/S interpreted by me (1pt. min.)? @ -Not obtained What testing was considered but not performed? (CT, X-rays, U/S, labs)? Why? @ -None What meds were considered but not given? Why? @ -None Did you discuss the management of the patient with other professionals? @ -No Did you reconcile home meds? @ -No Was smoking cessation discussed for >3mins.? @ -No Was critical care preformed (if so, how long)? @ -No Were there social determinants of health that impacted care today? How? (Homelessness, low income, unemployed, alcoholism, drug addiction, transporta tion, low edu. Level, literacy, decrease access to med. care, [facility], rehab)? @ -No Was there de-escalation of care discussed even if they declined? (Discuss DNR or withdrawal of care, Hospice)? @ -No What co-morbidities impacted this encounter? (DM, HTN, Smoking, COPD, CAD, Cancer, CVA, Hep., AIDS, mental health diagnosis, sleep apnea, morbid obesity)? @ -Psychiatric illness Was patient admitted / discharged? @ -Discharged. Lab work unremarkable. Urinalysis contains moderate amount of blood, as the patient is on her period. It is negative for signs of infection. KUB x-ray obtained demonstrating moderate retained stool burden consistent with constipation. Findings reviewed with the patient. She was sent home with GoLytely solution, which she states has worked well for her in the past. Lactulose prescribed for further management of the constipation. Advised she try the GoLytely first and use this in the following days if absolutely needed. She is also advised to increase her fluid intake. Prescription for meloxicam and Robaxin provided for her reported neck pain/cervical strain. Advised follow-up with her PCP for reevaluation. Patient discharged home stable condition. Case discussed with ED attending Dr. Agrawal. Return precautions reviewed in depth, the patient is instructed to return to the emergency department with any new, worsening, or concerning symptoms. Patient verbalized understanding. Undiagnosed new problem with uncertain prognosis? @ -None Drug Therapy requiring intensive monitoring for toxicity (Heparin, Nitro, Insulin, Cardizem)? @ -None Were any procedures done? @ -None Diagnosis/symptom? @ -Constipation, cervical strain Acute, or Chronic, or Acute on Chronic? @ -Acute Uncomplicated (without systemic symptoms) or Complicated (systemic symptoms)? @ -Uncomplicated Side effects of treatment? @ -None Exacerbation, Progression, or Severe Exacerbation] @ -Not applicable Poses a threat to life or bodily function? @ -No - Lab Data Result diagrams: 06/11/24 10:54 06/11/24 10:54 Lab Results 06/11/24 06/11/24 06/11/24 Range/Units 10:27 10:27 10:54 WBC 4.4 (3.8-10.6) k/uL RBC 4.02 (3.80-5.40) m/uL Hgb 12.0 (11.4-16.0) gm/dL Hct 35.5 (34.0-46.0) % MCV 88.3 (80.0-100.0) fL MCH 30.0 (25.0-35.0) pg MCHC 33.9 (31.0-37.0) g/dL RDW 13.3 (11.5-15.5) % Plt Count 272 (150-450) k/uL MPV 8.3 Neutrophils % 63 % Lymphocytes % 28 % Monocytes % 7 % Eosinophils % 1 % Basophils % 0 % Neutrophils # 2.8 (1.3-7.7) k/uL Lymphocytes # 1.2 (1.0-4.8) k/uL Monocytes # 0.3 (0-1.0) k/uL Eosinophils # 0.0 (0-0.7) k/uL Basophils # 0.0 (0-0.2) k/uL PT (10.0-12.5) sec INR (<1.2) APTT (22.0-30.0) sec Sodium (137-145) mmol/L Potassium (3.5-5.1) mmol/L Chloride (98-107) mmol/L Carbon Dioxide (22-30) mmol/L Anion Gap mmol/L BUN (7-17) mg/dL Creatinine (0.52-1.04) mg/dL Est GFR (CKD-EPI)AfAm (>60 ml/min/1.73 sqM) Est GFR (CKD-EPI)NonAf (>60 ml/min/1.73 sqM) Glucose (74-99) mg/dL Plasma Lactic Acid Mars (0.7-2.0) mmol/L Calcium (8.4-10.2) mg/dL Total Bilirubin (0.2-1.3) mg/dL AST (14-36) U/L ALT (4-34) U/L Alkaline Phosphatase (38-126) U/L Troponin I (0.000-0.034) ng/mL Total Protein (6.3-8.2) g/dL Albumin (3.5-5.0) g/dL Lipase (23-300) U/L Urine Color Colorless Urine Appearance Clear (Clear) Urine pH 6.0 (5.0-8.0) Ur Specific [place] 1.006 (1.001-1.035) Urine Protein Negative (Negative) Urine Glucose (UA) Negative (Negative) Urine Ketones Trace H (Negative) Urine Blood Moderate H (Negative) Urine Nitrite Negative (Negative) Urine Bilirubin Negative (Negative) Urine Urobilinogen <2.0 (<2.0) mg/dL Ur Leukocyte Esterase Negative (Negative) Urine RBC <1 (0-5) /hpf Urine WBC <1 (0-5) /hpf Ur Squamous Epith Cells 1 (0-4) /hpf Urine HCG, Qual Not Detected (Not Detectd) 06/11/24 06/11/24 06/11/24 Range/Units 10:54 10:54 10:54 WBC (3.8-10.6) k/uL RBC (3.80-5.40) m/uL Hgb (11.4-16.0) gm/dL Hct (34.0-46.0) % MCV (80.0-100.0) fL MCH (25.0-35.0) pg MCHC (31.0-37.0) g/dL RDW (11.5-15.5) % Plt Count (150-450) k/uL MPV Neutrophils % % Lymphocytes % % Monocytes % % Eosinophils % % Basophils % % Neutrophils # (1.3-7.7) k/uL Lymphocytes # (1.0-4.8) k/uL Monocytes # (0-1.0) k/uL Eosinophils # (0-0.7) k/uL Basophils # (0-0.2) k/uL PT 11.6 (10.0-12.5) sec INR 1.1 (<1.2) APTT 25.5 (22.0-30.0) sec Sodium 139 (137-145) mmol/L Potassium 4.2 (3.5-5.1) mmol/L Chloride 107 (98-107) mmol/L Carbon Dioxide 24 (22-30) mmol/L Anion Gap 8 mmol/L BUN 12 (7-17) mg/dL Creatinine 0.70 (0.52-1.04) mg/dL Est GFR (CKD-EPI)AfAm >90 (>60 ml/min/1.73 sqM) Est GFR (CKD-EPI)NonAf >90 (>60 ml/min/1.73 sqM) Glucose 89 (74-99) mg/dL Plasma Lactic Acid Mars 1.0 (0.7-2.0) mmol/L Calcium 9.5 (8.4-10.2) mg/dL Total Bilirubin 0.3 (0.2-1.3) mg/dL AST 24 (14-36) U/L ALT 14 (4-34) U/L Alkaline Phosphatase 38 (38-126) U/L Troponin I (0.000-0.034) ng/mL Total Protein 7.3 (6.3-8.2) g/dL Albumin 4.3 (3.5-5.0) g/dL Lipase 40 (23-300) U/L Urine Color Urine Appearance (Clear) Urine pH (5.0-8.0) Ur Specific [place] (1.001-1.035) Urine Protein (Negative) Urine Glucose (UA) (Negative) Urine Ketones (Negative) Urine Blood (Negative) Urine Nitrite (Negative) Urine Bilirubin (Negative) Urine Urobilinogen (<2.0) mg/dL Ur Leukocyte Esterase (Negative) Urine RBC (0-5) /hpf Urine WBC (0-5) /hpf Ur Squamous Epith Cells (0-4) /hpf Urine HCG, Qual (Not Detectd) 06/11/ Range/Units 10:54 WBC (3.8-10.6) k/uL RBC (3.80-5.40) m/uL Hgb (11.4-16.0) gm/dL Hct (34.0-46.0) % MCV (80.0-100.0) fL MCH (25.0-35.0) pg MCHC (31.0-37.0) g/dL RDW (11.5-15.5) % Plt Count (150-450) k/uL MPV Neutrophils % % Lymphocytes % % Monocytes % % Eosinophils % % Basophils % % Neutrophils # (1.3-7.7) k/uL Lymphocytes # (1.0-4.8) k/uL Monocytes # (0-1.0) k/uL Eosinophils # (0-0.7) k/uL Basophils # (0-0.2) k/uL PT (10.0-12.5) sec INR (<1.2) APTT (22.0-30.0) sec Sodium (137-145) mmol/L Potassium (3.5-5.1) mmol/L Chloride (98-107) mmol/L Carbon Dioxide (22-30) mmol/L Anion Gap mmol/L BUN (7-17) mg/dL Creatinine (0.52-1.04) mg/dL Est GFR (CKD-EPI)AfAm (>60 ml/min/1.73 sqM) Est GFR (CKD-EPI)NonAf (>60 ml/min/1.73 sqM) Glucose (74-99) mg/dL Plasma Lactic Acid Mars (0.7-2.0) mmol/L Calcium (8.4-10.2) mg/dL Total Bilirubin (0.2-1.3) mg/dL AST (14-36) U/L ALT (4-34) U/L Alkaline Phosphatase (38-126) U/L Troponin I <0.012 (0.000-0.034) ng/mL Total Protein (6.3-8.2) g/dL Albumin (3.5-5.0) g/dL Lipase (23-300) U/L Urine Color Urine Appearance (Clear) Urine pH (5.0-8.0) Ur Specific [place] (1.001-1.035) Urine Protein (Negative) Urine Glucose (UA) (Negative) Urine Ketones (Negative) Urine Blood (Negative) Urine Nitrite (Negative) Urine Bilirubin (Negative) Urine Urobilinogen (<2.0) mg/dL Ur Leukocyte Esterase (Negative) Urine RBC (0-5) /hpf Urine WBC (0-5) /hpf Ur Squamous Epith Cells (0-4) /hpf Urine HCG, Qual (Not Detectd) - Radiology Data Radiology results: report reviewed, image reviewed Disposition Clinical Impression: Constipation, Cervical strain Disposition: HOME SELF-CARE Instructions (If sedation given, give patient instructions): Constipation (ED), Cervical Strain (ED) Additional Instructions: Return to the emergency department with any new, worsening, or concerning sympto ms. Begin taking the meloxicam once daily to help with pain. You can take the Robaxin as 1 to 2 tablets up to 3-4 times daily. Take the GoLytely when you go home. The following day you can try taking the lactulose daily as needed for constipation to help regulate your bowel movements. Follow up with your primary care provider in 1-2 days. Prescriptions: Lactulose 10 gm PO DAILY PRN #473 ml PRN Reason: Constipation Meloxicam [Mobic] 15 mg PO DAILY PRN #20 tab PRN Reason: Pain methocarbamoL [Robaxin] 1,000 mg PO TID PRN #30 tab PRN Reason: Pain Is patient prescribed a controlled substance at d/c from ED?: No Referrals: Kierra Gamble MD [Primary Care Provider] - 1-2 days Time of Disposition: 12:16
[2024-06-11 10:57] LABS: Appearance,Urine Clear (Clear); Bilirubin,Urine Negative (Negative); Blood,Urine Moderate (Negative); Color,Urine Colorless; Glucose,Urine (UA) Negative (Negative); Ketones,Urine Trace (Negative); Leukocyte Esterase,Urine Negative (Negative); Nitrite,Urine Negative (Negative); Protein,Urine Negative (Negative); RBC,Urine <1 /hpf (0-5); Specific Gravity,Urine 1.006 (1.001-1.035); Squamous Epithelial Cell,Urine 1 /hpf (0-4); Urobilinogen,Urine <2.0 mg/dL (<2.0); WBC,Urine <1 /hpf (0-5)
--- NOTE | 2024-06-11 11:08 | XR ---
EXAMINATION TYPE: XR KUB DATE OF EXAM: 06/11/2024 COMPARISON: NONE CLINICAL INDICATION: Female, 43 years old with history of Abdominal pain, constipation; TECHNIQUE: XR KUB views of the abdomen. FINDINGS: The osseous structures are intact. The bowel gas pattern is nonspecific. Lung bases are clear. Calc ifications of the pelvis are likely vascular. Moderate retained stool burden correlate for constipati on. IMPRESSION: 1. Nonspecific abdomen. No obstruction. Correlate for constipation. [facility], , 06/11/2024 11:05 AM
[2024-06-11 11:10] LABS: Basophils % (A) 0 %; Eosinophils % (A) 1 %; HCT 35.5 % (34.0-46.0); Lymphocytes # (A) 1.2 k/uL (1.0-4.8); Lymphocytes % (A) 28 %; MCHC 33.9 g/dL (31.0-37.0); MCV 88.3 fL (80.0-100.0); Mean Platelet Volume 8.3; Monocytes # (A) 0.3 k/uL (0-1.0); Monocytes % (A) 7 %; Neutrophils # (A) 2.8 k/uL (1.3-7.7); Neutrophils % (A) 63 %; Platelet Count 272 k/uL (150-450); RBC 4.02 m/uL (3.80-5.40); RDW 13.3 % (11.5-15.5); WBC 4.4 k/uL (3.8-10.6)
[2024-06-11 11:20] LABS: INR 1.1 (<1.2); Partial Thromboplastin Time 25.5 sec (22.0-30.0); Prothrombin Time 11.6 sec (10.0-12.5)
[2024-06-11 11:23] LABS: ALT 14 U/L (4-34); African American GFR (CKD) >90 (>60 ml/min/1.73 sqM); Albumin 4.3 g/dL (3.5-5.0); Anion Gap 8 mmol/L; Blood Urea Nitrogen 12 mg/dL (7-17); Calcium 9.5 mg/dL (8.4-10.2); Carbon Dioxide 24 mmol/L (22-30); Chloride 107 mmol/L (98-107); Glucose 89 mg/dL (74-99); Lipase 40 U/L (23-300); Non-African American GFR(CKD) >90 (>60 ml/min/1.73 sqM); Sodium 139 mmol/L (137-145); Total Bilirubin 0.3 mg/dL (0.2-1.3); Total Protein 7.3 g/dL (6.3-8.2)
[2024-06-11 11:53] LABS: AST 24 U/L (14-36); Alkaline Phosphatase 38 U/L (38-126); Potassium 4.2 mmol/L (3.5-5.1)
[2024-06-11 12:41] VITALS: BP 126/78; PULSE 64
[2024-06-11] MEDS: PEG 3350 (236 GM/BTL) + LYTES 4,000 ML BOTTLE PO ONE (12:41)
== END 2024-06-11 12:41 | disposition home or self-care (01) ==
LOC: EC 09:41
DX: S16.1XXA Strain of muscle, fascia and tendon at neck level, initial encounter (principal); K59.00 Constipation, unspecified; Z87.891 Personal history of nicotine dependence; Z88.2 Allergy status to sulfonamides; Z88.1 Allergy status to other antibiotic agents; Z88.6 Allergy status to analgesic agent; Z88.8 Allergy status to other drugs, medicaments and biological substances; X58.XXXA Exposure to other specified factors, initial encounter
CPT/HCPCS: 36415; 74018; 80053; 81001; 81025; 83605; 83690; 84484; 85025; 85610; 85730; 93005; 99284

== ENCOUNTER 2024-06-15 08:19 | Inpatient (IN) | payer MEDICARE, OTHER ==
--- NOTE | 2024-06-15 08:40 | ED ---
General Adult HPI - General Source: EMS Mode of arrival: EMS Limitations: no limitations <Kayla Cohen - Last Filed: 06/15/24 08:38> - General Source: family, RN notes reviewed, old records reviewed <Viral Clayton - Last Filed: 06/15/24 14:52> - General Chief complaint: Seizure Stated complaint: Poss seizure Time Seen by Provider: 06/15/24 08:38 - History of Present Illness Initial comments: Quick note: 43-year-old female presents to the emergency department for evaluation of possible loss of consciousness/seizure. Patient reports that she does not recall what happened. Her was contacted via phone and states that the patient started to fall out of bed and was calling for help and seems that she possibly lost consciousness. He states that this episode lasted for around 10 minutes. (Kayla Cohen) Patient is a 43-year-old female presents emergency department for originally seizure-like activity. Was originally seen as a quick note. Patient was taken to triage. Apparently, patient had a seizure-like episode at home and fell the bed. She was coherent did not recall what happened. Patient's was contacted and stated that she felt bad and was calling for help. Episode lasted for approximately 10 minutes. Patient was taken to triage where they started attempting an EKG when she experienced another seizure-like activity. Nursing staff was concerned and brought her to room 2 for evaluation by myself. At that time, patient had agonal respirations with no pulse. ACLS protocol was init iated for cardiac arrest, concern for V-fib arrest based on presentation. (Viral Clayton) - Related Data Home Medications Medication Instructions Recorded Confirmed Famotidine [Pepcid] 20 mg PO BID PRN 06/15/24 06/15/24 Previous Rx's Medication Instructions Recorded Naproxen [Naprosyn] 375 mg PO Q12HR PRN #30 tablet 05/28/24 polyethylene glycoL 3350 [Miralax] 17 gm PO DAILY PRN #15 packet 05/28/24 Lactulose 10 gm PO DAILY PRN #473 ml 06/11/24 Meloxicam [Mobic] 15 mg PO DAILY PRN #20 tab 06/11/24 methocarbamoL [Robaxin] 1,000 mg PO TID PRN #30 tab 06/11/24 Allergies Allergy/AdvReac Type Severity Reaction Status Date / Time ibuprofen [From Motrin] Allergy Nausea & Verified 06/15/24 10:59 Vomiting methylprednisolone Allergy Anaphylaxis Verified 06/15/24 10:59 prednisone Allergy Anaphylaxis Verified 06/15/24 10:59 sulfamethoxazole Allergy Unknown Verified 06/15/24 10:59 [From Bactrim] trimethoprim [From Bactrim] Allergy Unknown Verified 06/15/24 10:59 doxycycline AdvReac Nausea & Verified 06/15/24 10:59 Vomiting Review of Systems ROS Other: All systems not noted in ROS Statement are negative. <Kayla Cohen - Last Filed: 06/15/24 08:38> ROS Other: All systems not noted in ROS Statement are negative. <Viral Clayton - Last Filed: 06/15/24 14:52> ROS Statement: Those systems with pertinent positive or pertinent negative responses have been documented in the HPI. Past Medical History Past Medical History: Asthma, COPD Additional Past Medical History / Comment(s): bipolar, schizophrenia, +covid - 05/09, pt denies COPD History of Any Multi-Drug Resistant Organisms: None Reported Past Surgical History: Section Past Psychological History: Anxiety, Bipolar, Depression, Schizophrenia Smoking Status: Former smoker Past Alcohol Use History: Occasional, Rare Past Drug Use History: None Reported <Kayla Cohen - Last Filed: 06/15/24 08:38> General Exam Limitations: no limitations <Kayla Cohen - Last Filed: 06/15/24 08:38> <Viral Clayton - Last Filed: 06/15/24 14:52> - General Exam Comments Initial Comments: Visual Physical Exam Vital signs reviewed General: Well-appearing, nontoxic, no acute distress. Head: Normocephalic, atraumatic Eyes: PERRLA, EOMI ENT: Airway patent Chest: Nonlabored breathing Skin: No visual rash, normal skin tone Neuro: Alert and oriented 3 Musculoskeletal: No gross abnormalities (Kayla Cohen) General: Unresponsive. Agonal respirations. No tonic-clonic motions. No evidence for seizure activity at this time. HEAD: Normal with no signs of head trauma. EYES: Pupils are 3 mm and equal bilaterally. ENT: Hearing grossly intact, normal oropharynx. RESPIRATORY: Clear breath sounds bilaterally. No wheezes, rales, or rhonchi. C/V: Irregular rate and rhythm. S1 and S2 auscultated, no edema, peripheral pulses 2+ and intact throughout ABD: Abd is soft, nontender, nondistended EXT: No obvious deformity SKIN: No rashes or lesions observed on exposed skin. NEURO: Unresponsive (Viral Clayton) Course Vital Signs 06/15/24 06/15/24 06/15/24 08:24 09:39 10:13 Temperature 97.9 F Pulse Rate 73 89 Respiratory 18 18 Rate Blood Pressure 89/59 83/57 O2 Sat by Pulse 100 100 Oximetry Fraction of 100 Inspired Oxygen (FIO2) 06/15/24 06/15/24 06/15/24 10:19 10:30 10:40 Temperature Pulse Rate 126 H 106 H Respiratory 20 18 Rate Blood Pressure 118/90 131/95 O2 Sat by Pulse 100 100 Oximetry Fraction of 100 Inspired Oxygen (FIO2) 06/15/24 06/15/24 06/15/24 10:54 11:00 11:19 Temperature Pulse Rate 112 H 84 Respiratory 18 18 Rate Blood Pressure 94/61 96/63 O2 Sat by Pulse 100 100 Oximetry Fraction of 50 Inspired Oxygen (FIO2) 06/15/24 06/15/24 06/15/24 11:43 11:51 12:25 Temperature Pulse Rate 78 76 70 Respiratory 20 18 18 Rate Blood Pressure 85/56 81/60 65/30 O2 Sat by Pulse 100 100 98 Oximetry Fraction of Inspired Oxygen (FIO2) 06/15/24 06/15/24 06/15/24 12:43 12:50 12:55 Temperature Pulse Rate 67 76 71 Respiratory 18 18 18 Rate Blood Pressure 66/42 70/40 75/43 O2 Sat by Pulse 98 100 100 Oximetry Fraction of Inspired Oxygen (FIO2) 06/15/24 13:15 Temperature Pulse Rate 66 Respiratory 18 Rate Blood Pressure 93/59 O2 Sat by Pulse 96 Oximetry Fraction of Inspired Oxygen (FIO2) Procedures - Central Line Placement Left Femoral Consent Obtained: emergent situation Patient Placed on Monitor/Pulse Ox: Yes Prep: mask, gown, gloves Central Line Prep: Chlorhexidine scrub Local Anesthesia Used: Lidocaine 1% Amount of Anesthesia Used (mls): 3 Ultrasound Used for Placement: Yes Central Line Lumen Inserted: triple Bloods Obtained for Lab: No Central Line Position: good blood return, all ports aspirated, flushed, capped, sutured in place with nylon Dressing Applied: Tegaderm Patient Tolerated Procedure: well Complications: none - Intubation Sedative: Etomidate Mg Given: 20 Paralytic: Rocuronium Mg Given: 50 Laryngoscope: other (Glidescope) ET Tube Size: 7.5 ET Tube Uncuffed: Yes Tube Secured Depth (cm): 25 Tube Secured Location: lips Tube Placement Confirmation: visualized tube passing through cords, equal breath sounds bilaterally, no breath sounds over epigastrium, confirmation by capnom etry Patient Tolerated Procedure: well Intubation Complications: none <Viral Clayton - Last Filed: 06/15/24 14:52> Medical Decision Making <Kayla Cohen - Last Filed: 06/15/24 08:38> - Lab Data Result diagrams: 06/15/24 09:43 06/15/24 09:43 - EKG Data -: EKG Interpreted by Me <Viral Clayton - Last Filed: 06/15/24 14:52> - Medical Decision Making Quick note preformed and electronically signed by Kayla Cohen PA-C (Kayla Cohen) Was pt. sent in by a medical professional or institution ([facility], [employer]LE[employer]ACH, urgent care, hospital, or [facility]...) When possible be specific @ -No Did you speak to anyone other than the patient for history (EMS, parent, family, police, friend...)? What history was obtained from this source @ -Spoke at length with patient's brothers as well as over the phone regarding patient's presentation. Had possible seizure-like activity at home. Possible seizure up in triage as well. No known cardiac history according to them. Was recently started on Robaxin and lactulose. Did you review nursing and triage notes (agree or disagree)? Why? @ -I reviewed and agree with nursing and triage notes Were old charts reviewed (outside hosp., previous admission, EMS record, old EKG, old radiological studies, urgent care reports/EKG's, [facility] records)? Report findings @ -. Today's EKGs with EKG from June 11, 2024. No obvious significant change. Differential Diagnosis (chest pain, altered mental status, abdominal pain women, abdominal pain men, vaginal bleeding, weakness, fever, dyspnea, syncope, headache, dizziness, GI bleed, back pain, seizure, CVA, palpatations, mental health, musculoskeletal)? @ -Differential Altered Mental Status: Hypoglycemia, DKA, hypercapnia, ETOH, overdose, CO poisoning, trauma, myxedema coma, HTN encephalopathy, infection, encephalitis, psychosis, intercranial hemorrhage, hepatic encephalopathy, meningitis, CVA, this is not meant to be an all-inclusive list EKG interpreted by me (3pts min.). @ -As above X-rays interpreted by me (1pt min.). @ -Chest x-ray reveals no obvious acute process. Satisfactory placement of ET tube and OG tube CT interpreted by me (1pt min.). @ -CT brain reveals no evidence of acute intracranial process. U/S interpreted by me (1pt. min.). @ -None done What testing was considered but not performed or refused? (CT, X-rays, U/S, labs)? Why? @ -None What meds were considered but not given or refused? Why? @ -None Did you discuss the management of the patient with other professionals (neil gonzalez i.e. , PA, COLLEGE BASKET[employer]ALL COACH, lab, RT, psych nurse, social services coordinator, plater barrel, teacher, chairman president and chief executive officer, case management assistant)? Give summary @ -Discussed patient with ICU attending Dr. Paul who accepted the patient to the ICU. Discussed with the admitting provider, Dr. Victor who accepted the admission. Discussed at length with neonatologist, Dr. Lynch who did present at bedside to evaluate the patient. We discussed how the amiodarone was not effective in treating the patient's V-fib and he recommended IV lidocaine as well as a stat echo. He will evaluate the patient at bedside. Requested systolics above 100 with Levophed. Patient will be taken to the [facility]. Was smoking cessation discussed for >3mins.? @ -No Was critical care preformed (if so, how long)? @ -Yes, 77 minutes. Were there social determinants of health that impacted care today? How? (Homelessness, low income, unemployed, alcoholism, drug addiction, transportation, low edu. Level, literacy, decrease access to med. care, [facility], rehab)? @ -No Was there de-escalation of care discussed even if they declined (Discuss DNR or withdrawal of care, Hospice)? DNR status @ -No What co-morbidities impacted this encounter? (DM, HTN, Smoking, COPD, CAD, Cancer, CVA, ARF, Chemo, Hep., AIDS, mental health diagnosis, sleep apnea, morbid obesity)? @ -None Was patient admitted / discharged? Hospital course, mention meds given and route, prescriptions, significant lab abnormalities, going to OR and other pertinent info. @ -Based on the patient's presentation and physical exam, presents emergency department for rule out seizure but was in ventricular fibrillation arrest when she arrived in exam room 2. This is when I evaluated the patient. Originally presented in triage for possible new onset seizure at home. ACLS protocol was initiated. Patient received 1 defibrillation with return of spontaneous circulation. Patient was intubated as well. Patient started on amiodarone drip after receiving initial 150 mg bolus. Total downtime less than 4 minutes, as there was only 1 round of CPR. Patient started on IV fluids, given an empiric dose of IV Keppra, and continued with the amiodarone drip. We will continue to monitor. CT brain revealed no obvious acute process. Chest x-ray unremarkable. Laboratory studies remarkable for hypokalemia 3.1 which was replenished with IV potassium, as well as a lactic acidosis of 6.2 which could be related to the cardiac arrest or possible seizure activity. Troponin is elevated to 0.155. Remainder the workup unremarkable. I discussed the results with the patient's brothers who are now at bedside and they provided history prior to arrival. Patient will be admitted to the ICU, in tubated, on amiodarone drip. They were in agreement this plan. I spoke with Dr. Green who accepted the patient. I spoke with the admitting team, Dr. Victor who accepted the patient. I spoke with Dr. Lynch, who was in the procedure. Patient did decompensate and when Dr. May called back at start a central line on the patient and the left femoral vein. Patient had 3 additional rounds of ventricular fibrillation that she was defibrillated out of. Patient given additional 300 mg bolus of IV amiodarone. He recommended IV lidocaine if continues to have breakthrough runs of ventricular fibrillation. He will evaluate the patient at bedside. Stat echo ordered. Patient was given rectal aspirin and started on heparin for NSTEMI. Dr. Lynch evaluated patient at bedside, patient had multiple runs of ventricular fibrillation that required defibrillation again. Patient given IV bolus of li docaine and placed on a drip. Patient is being given IV potassium. Empiric antibiotics were also ordered. I discussed results of the workup with Dr. Lynch and he is arranging for the patient be taken to [facility]. Patient's family updated. Patient had numerous recurrent episodes of ventricular fibrillation and required greater than 10-15 defibrillations in the emergency department prior to dis position to catheterization suite. This was despite being on amiodarone drip as well as lidocaine drip. Undiagnosed new problem with uncertain prognosis? @ -No Drug Therapy requiring intensive monitoring for toxicity (Heparin, Nitro, Insulin, Cardizem)? @ -Heparin Were any procedures done? @ -Intubation, central line placement Diagnosis/symptom? @ -Cardiac arrest, ventricular fibrillation recurrent, intubation for airway protection, hypokalemia, NSTEMI Acute, or Chronic, or Acute on Chronic? @ -Acute Uncomplicated (without systemic symptoms) or Complicated (systemic symptoms)? @ -Complicated Side effects of treatment? @ -No Exacerbation, Progression, or Severe Exacerbation? @ -No Poses a threat to life or bodily function? How? (Chest pain, USA, VT, pneumonia, PE, COPD, DKA, ARF, appy, cholecystitis, CVA, Diverticulitis, Homicidal, Suicidal, threat to staff... and all critical care pts) @ -Yes, can result in cardiac arrest and . (Viral Clayton) - Lab Data Lab Results 06/15/24 06/15/24 06/15/24 Range/Units 08:53 08:53 09:43 WBC 8.1 (3.8-10.6) k/uL RBC 4.53 (3.80-5.40) m/uL Hgb 13.4 (11.4-16.0) gm/dL Hct 41.1 (34.0-46.0) % MCV 90.7 (80.0-100.0) fL MCH 29.6 (25.0-35.0) pg MCHC 32.7 (31.0-37.0) g/dL RDW 13.1 (11.5-15.5) % Plt Count 357 (150-450) k/uL MPV 8.0 Neutrophils % 48 % Lymphocytes % 45 % Monocytes % 5 % Eosinophils % 0 % Basophils % 0 % Neutrophils # 3.8 (1.3-7.7) k/uL Lymphocytes # 3.6 (1.0-4.8) k/uL Monocytes # 0.4 (0-1.0) k/uL Eosinophils # 0.0 (0-0.7) k/uL Basophils # 0.0 (0-0.2) k/uL Sodium (137-145) mmol/L Potassium (3.5-5.1) mmol/L Chloride (98-107) mmol/L Carbon Dioxide (22-30) mmol/L Anion Gap mmol/L BUN (7-17) mg/dL Creatinine (0.52-1.04) mg/dL Est GFR (CKD-EPI)AfAm (>60 ml/min/1.73 sqM) Est GFR (CKD-EPI)NonAf (>60 ml/min/1.73 sqM) Glucose (74-99) mg/dL Lactic Ac Sepsis Rflx Plasma Lactic Acid Mars (0.7-2.0) mmol/L Calcium (8.4-10.2) mg/dL Magnesium (1.6-2.3) mg/dL Total Bilirubin (0.2-1.3) mg/dL AST (14-36) U/L ALT (4-34) U/L Alkaline Phosphatase (38-126) U/L Ammonia (<30) umol/L Troponin I (0.000-0.034) ng/mL NT-Pro-B Natriuret Pep pg/mL Total Protein (6.3-8.2) g/dL Albumin (3.5-5.0) g/dL Urine Color Light Yellow Urine Appearance Cloudy H (Clear) Urine pH 6.0 (5.0-8.0) Ur Specific [place] 1.013 (1.001-1.035) Urine Protein 3+ H (Negative) Urine Glucose (UA) Negative (Negative) Urine Ketones 1+ H (Negative) Urine Blood Negative (Negative) Urine Nitrite Negative (Negative) Urine Bilirubin Negative (Negative) Urine Urobilinogen <2.0 (<2.0) mg/dL Ur Leukocyte Esterase Negative (Negative) Urine RBC 1 (0-5) /hpf Urine WBC 4 (0-5) /hpf Ur Squamous Epith Cells 2 (0-4) /hpf Amorphous Sediment Occasional H (None) /hpf Urine Bacteria Rare H (None) /hpf Granular Casts 4 (0) /lpf Urine Mucus Moderate H (None) /hpf Urine HCG, Qual Not Detected (Not Detectd) Urine Opiates Screen Not Detected (NotDetected) Ur Oxycodone Screen Not Detected (NotDetected) Urine Methadone Screen Not Detected (NotDetected) Ur Barbiturates Screen Not Detected (NotDetected) U Tricyclic Antidepress Not Detected (NotDetected) Ur Phencyclidine Scrn Not Detected (NotDetected) Ur Amphetamines Screen Not Detected (NotDetected) U Methamphetamines Scrn Not Detected (NotDetected) U Benzodiazepines Scrn Not Detected (NotDetected) Urine Cocaine Screen Not Detected (NotDetected) U Marijuana (THC) Screen Not Detected (NotDetected) Serum Alcohol mg/dL Influenza Type A (PCR) (Not Detectd) Influenza Type B (PCR) (Not Detectd) RSV (PCR) (Not Detectd) SARS-CoV-2 (PCR) (Not Detectd) 06/15/24 06/15/24 06/15/24 Range/Units 09:43 09:43 09:43 WBC (3.8-10.6) k/uL RBC (3.80-5.40) m/uL Hgb (11.4-16.0) gm/dL Hct (34.0-46.0) % MCV (80.0-100.0) fL MCH (25.0-35.0) pg MCHC (31.0-37.0) g/dL RDW (11.5-15.5) % Plt Count (150-450) k/uL MPV Neutrophils % % Lymphocytes % % Monocytes % % Eosinophils % % Basophils % % Neutrophils # (1.3-7.7) k/uL Lymphocytes # (1.0-4.8) k/uL Monocytes # (0-1.0) k/uL Eosinophils # (0-0.7) k/uL Basophils # (0-0.2) k/uL Sodium 141 (137-145) mmol/L Potassium 3.1 L (3.5-5.1) mmol/L Chloride 106 (98-107) mmol/L Carbon Dioxide 17 L (22-30) mmol/L Anion Gap 18 mmol/L BUN 8 (7-17) mg/dL Creatinine 0.84 (0.52-1.04) mg/dL Est GFR (CKD-EPI)AfAm >90 (>60 ml/min/1.73 sqM) Est GFR (CKD-EPI)NonAf 84 (>60 ml/min/1.73 sqM) Glucose 187 H (74-99) mg/dL Lactic Ac Sepsis Rflx Plasma Lactic Acid Mars 6.2 H* (0.7-2.0) mmol/L Calcium 9.3 (8.4-10.2) mg/dL Magnesium 2.3 (1.6-2.3) mg/dL Total Bilirubin 0.4 (0.2-1.3) mg/dL AST 155 H (14-36) U/L ALT 179 H (4-34) U/L Alkaline Phosphatase 42 (38-126) U/L Ammonia 29 (<30) umol/L Troponin I 0.155 H* (0.000-0.034) ng/mL NT-Pro-B Natriuret Pep 50 pg/mL Total Protein 7.2 (6.3-8.2) g/dL Albumin 4.2 (3.5-5.0) g/dL Urine Color Urine Appearance (Clear) Urine pH (5.0-8.0) Ur Specific [place] (1.001-1.035) Urine Protein (Negative) Urine Glucose (UA) (Negative) Urine Ketones (Negative) Urine Blood (Negative) Urine Nitrite (Negative) Urine Bilirubin (Negative) Urine Urobilinogen (<2.0) mg/dL Ur Leukocyte Esterase (Negative) Urine RBC (0-5) /hpf Urine WBC (0-5) /hpf Ur Squamous Epith Cells (0-4) /hpf Amorphous Sediment (None) /hpf Urine Bacteria (None) /hpf Granular Casts (0) /lpf Urine Mucus (None) /hpf Urine HCG, Qual (Not Detectd) Urine Opiates Screen (NotDetected) Ur Oxycodone Screen (NotDetected) Urine Methadone Screen (NotDetected) Ur Barbiturates Screen (NotDetected) U Tricyclic Antidepress (NotDetected) Ur Phencyclidine Scrn (NotDetected) Ur Amphetamines Screen (NotDetected) U Methamphetamines Scrn (NotDetected) U Benzodiazepines Scrn (NotDetected) Urine Cocaine Screen (NotDetected) U Marijuana (THC) Screen (NotDetected) Serum Alcohol <10 mg/dL Influenza Type A (PCR) (Not Detectd) Influenza Type B (PCR) (Not Detectd) RSV (PCR) (Not Detectd) SARS-CoV-2 (PCR) (Not Detectd) 06/15/24 06/15/24 06/15/24 Range/Units 10:15 10:47 10:47 WBC (3.8-10.6) k/uL RBC (3.80-5.40) m/uL Hgb (11.4-16.0) gm/dL Hct (34.0-46.0) % MCV (80.0-100.0) fL MCH (25.0-35.0) pg MCHC (31.0-37.0) g/dL RDW (11.5-15.5) % Plt Count (150-450) k/uL MPV Neutrophils % % Lymphocytes % % Monocytes % % Eosinophils % % Basophils % % Neutrophils # (1.3-7.7) k/uL Lymphocytes # (1.0-4.8) k/uL Monocytes # (0-1.0) k/uL Eosinophils # (0-0.7) k/uL Basophils # (0-0.2) k/uL Sodium (137-145) mmol/L Potassium (3.5-5.1) mmol/L Chloride (98-107) mmol/L Carbon Dioxide (22-30) mmol/L Anion Gap mmol/L BUN (7-17) mg/dL Creatinine (0.52-1.04) mg/dL Est GFR (CKD-EPI)AfAm (>60 ml/min/1.73 sqM) Est GFR (CKD-EPI)NonAf (>60 ml/min/1.73 sqM) Glucose (74-99) mg/dL Lactic Ac Sepsis Rflx Y Plasma Lactic Acid Mars (0.7-2.0) mmol/L Calcium (8.4-10.2) mg/dL Magnesium (1.6-2.3) mg/dL Total Bilirubin (0.2-1.3) mg/dL AST (14-36) U/L ALT (4-34) U/L Alkaline Phosphatase (38-126) U/L Ammonia (<30) umol/L Troponin I (0.000-0.034) ng/mL NT-Pro-B Natriuret Pep pg/mL Total Protein (6.3-8.2) g/dL Albumin (3.5-5.0) g/dL Urine Color Colorless Urine Appearance Cloudy H (Clear) Urine pH 7.5 (5.0-8.0) Ur Specific [place] 1.014 (1.001-1.035) Urine Protein 3+ H (Negative) Urine Glucose (UA) 1+ H (Negative) Urine Ketones 1+ H (Negative) Urine Blood Small H (Negative) Urine Nitrite Negative (Negative) Urine Bilirubin Negative (Negative) Urine Urobilinogen <2.0 (<2.0) mg/dL Ur Leukocyte Esterase Negative (Negative) Urine RBC 10 H (0-5) /hpf Urine WBC 3 (0-5) /hpf Ur Squamous Epith Cells 2 (0-4) /hpf Amorphous Sediment Occasional H (None) /hpf Urine Bacteria (None) /hpf Granular Casts (0) /lpf Urine Mucus Few H (None) /hpf Urine HCG, Qual (Not Detectd) Urine Opiates Screen (NotDetected) Ur Oxycodone Screen (NotDetected) Urine Methadone Screen (NotDetected) Ur Barbiturates Screen (NotDetected) U Tricyclic Antidepress (NotDetected) Ur Phencyclidine Scrn (NotDetected) Ur Amphetamines Screen (NotDetected) U Methamphetamines Scrn (NotDetected) U Benzodiazepines Scrn (NotDetected) Urine Cocaine Screen (NotDetected) U Marijuana (THC) Screen (NotDetected) Serum Alcohol mg/dL Influenza Type A (PCR) Not Detected (Not Detectd) Influenza Type B (PCR) Not Detected (Not Detectd) RSV (PCR) Not Detected (Not Detectd) SARS-CoV-2 (PCR) Not Detected (Not Detectd) - EKG Data EKG Comments: 12-lead Electrocardiogram Interpretation Note EKG was reviewed and interpreted by myself. 12-lead ECG performed at 0938 is interpreted by me as revealing indeterminate rhythm at a rate of 99 beats per minute. Left axis deviation. QRS duration is 98 ms, QTc is 3 1043 ms.. There were no ST or T wave abnormalities to suggest myocardial ischemia or injury. R wave progression across the precordium was delayed. By my interpretation this EKG is non-diagnostic for acute ischemia. 12-lead Electrocardiogram Interpretation Note EKG was reviewed and interpreted by myself. 12-lead ECG performed at 1039 is in terpreted by me as revealing sinus tachycardia at a rate of 126 beats per minute. Left axis deviation. WA interval is 158 ms, QRS duration is 103 ms, QTc is 471 ms . There were no ST or T wave abnormalities to suggest myocardial ischemia or injury. R wave progression across the precordium was satisfactory. By my interpretation this EKG is non-diagnostic for acute ischemia. 12-lead Electrocardiogram Interpretation Note EKG was reviewed and interpreted by myself. 12-lead ECG performed at 1223 is interpreted by me as revealing normal sinus rhythm at a rate of 73 beats per minute. [place] is normal. WA interval is 140 ms, QRS durations 94 ms, QTc is 453 ms.. There were no ST or T wave abnormalities to suggest myocardial ischemia or injury. R wave progression across the precordium was satisfactory. By my interpretation this EKG is non-diagnostic for acute ischemia. (Viral Clayton) Critical Care Time Critical Care Time: Yes Total Critical Care Time: 77 <Viral Clayton - Last Filed: 06/15/24 14:52> Disposition <Kayla Cohen - Last Filed: 06/15/24 08:38> Time of Disposition: 11:30 <Viral Clayton - Last Filed: 06/15/24 14:52> Clinical Impression: Ventricular fibrillation, Seizure-like activity, Cardiac arrest, Airway intubation performed without difficulty Disposition: ADMITTED IP TO THIS HOSP Condition: Serious
[2024-06-15 09:30] LABS: Amphetamine Screen,Urine Not Detected (NotDetected); Barbiturate Screen,Urine Not Detected (NotDetected); Benzodiazepines Screen,Urine Not Detected (NotDetected); Cocaine Screen,Urine Not Detected (NotDetected); Methadone Screen, Urine Not Detected (NotDetected); Opiate Screen,Urine Not Detected (NotDetected); Oxycodone Screen, Urine Not Detected (NotDetected); Phencyclidine Screen,Urine Not Detected (NotDetected); Tricyclic Antidepressant,Urine Not Detected (NotDetected); Urn Cannabinoid Scrn Not Detected (NotDetected)
[2024-06-15 09:36] LABS: Amorphous Sediment,Urine Occasional /hpf; Appearance,Urine Cloudy (Clear); Bacteria,Urine Rare /hpf; Bilirubin,Urine Negative (Negative); Blood,Urine Negative (Negative); Color,Urine Light Yellow; Glucose,Urine (UA) Negative (Negative); Granular Casts,Urine 4 /lpf (0); Ketones,Urine 1+ (Negative); Leukocyte Esterase,Urine Negative (Negative); Mucus,Urine Moderate /hpf; Nitrite,Urine Negative (Negative); Protein,Urine 3+ (Negative); RBC,Urine 1 /hpf (0-5); Specific Gravity,Urine 1.013 (1.001-1.035); Squamous Epithelial Cell,Urine 2 /hpf (0-4); Urobilinogen,Urine <2.0 mg/dL (<2.0); WBC,Urine 4 /hpf (0-5)
[2024-06-15] MEDS ORDERED: AMIODARONE 360 MG in DEXTROSE 5% IN WATER 200 ML IV ONE (09:43)
[2024-06-15] MEDS: DEXTROSE 5% IN WATER 100 ML with AMIODARONE 150 MG IV ONE (09:45)
[2024-06-15 09:51] LABS: Basophils % (A) 0 %; Eosinophils % (A) 0 %; HCT 41.1 % (34.0-46.0); HGB 13.4 gm/dL (11.4-16.0); Lymphocytes # (A) 3.6 k/uL (1.0-4.8); Lymphocytes % (A) 45 %; MCH 29.6 pg (25.0-35.0); MCHC 32.7 g/dL (31.0-37.0); MCV 90.7 fL (80.0-100.0); Monocytes # (A) 0.4 k/uL (0-1.0); Monocytes % (A) 5 %; Neutrophils # (A) 3.8 k/uL (1.3-7.7); Neutrophils % (A) 48 %; Platelet Count 357 k/uL (150-450); RBC 4.53 m/uL (3.80-5.40); RDW 13.1 % (11.5-15.5); WBC 8.1 k/uL (3.8-10.6)
[2024-06-15 10:05] LABS: ALT 179 U/L (4-34); African American GFR (CKD) >90 (>60 ml/min/1.73 sqM); Albumin 4.2 g/dL (3.5-5.0); Alcohol <10 mg/dL; Anion Gap 18 mmol/L; Blood Urea Nitrogen 8 mg/dL (7-17); Calcium 9.3 mg/dL (8.4-10.2); Carbon Dioxide 17 mmol/L (22-30); Chloride 106 mmol/L (98-107); Glucose 187 mg/dL (74-99); Non-African American GFR(CKD) 84 (>60 ml/min/1.73 sqM); Sodium 141 mmol/L (137-145); Total Bilirubin 0.4 mg/dL (0.2-1.3); Total Protein 7.2 g/dL (6.3-8.2)
[2024-06-15 10:06] LABS: Potassium 3.1 mmol/L (3.5-5.1)
[2024-06-15 10:07] LABS: AST 155 U/L (14-36); Alkaline Phosphatase 42 U/L (38-126); Magnesium 2.3 mg/dL (1.6-2.3)
--- NOTE | 2024-06-15 10:09 | XR ---
EXAMINATION TYPE: XR chest 1V DATE OF EXAM: 06/15/2024 9:51 AM COMPARISON: Chest radiographs from 05/27/2024 CLINICAL INDICATION: Female, 43 years old with history of intubation, cardiac arrest; [facility] TECHNIQUE: XR chest 1V Frontal view of the chest. FINDINGS: Lungs/Pleura: There is no evidence of pleural effusion, focal consolidation, or pneumothorax. Pulmonary vascularity: Unremarkable. Heart/mediastinum: Cardiomediastinal silhouette is unremarkable. Musculoskeletal: No acute osseous pathology. Other findings: None Lines/Tubes: Endotracheal tube with distal tip 2.8 cm above the braden. Nasogastric tube with its distal tip and side-port projecting under the diaphragm. IMPRESSION: No acute cardiopulmonary disease/process. [facility], , 06/15/2024 10:07 AM
[2024-06-15 10:11] LABS: NT-Pro-B-Type Natriuretic Pept 50 pg/mL
[2024-06-15 10:14] LABS: Lactic Acid, Venous 6.2 mmol/L (0.7-2.0)
[2024-06-15] MEDS: AMIODARONE 360 MG in DEXTROSE 5% IN WATER 200 ML IV ONE (10:23)
[2024-06-15] MEDS: levETIRAcetam IV 500 MG/5 ML VIAL IVP STA (10:36)
--- NOTE | 2024-06-15 10:36 | CT ---
EXAMINATION TYPE: CT brain wo con DATE OF EXAM: 06/15/2024 10:10 AM COMPARISON: 01/08/2022. CLINICAL INDICATION: Female, 43 years old with history of intubation, cardiac arrest, Seizure, intuba tion, cardiac arrest TECHNIQUE: Brain: Axial CT images of the brain were obtained with coronal and sagittal reformats created and rev iewed. Contrast used: None. Oral contrast used: None. CT DLP: 1224.4 mGycm, Automated exposure control for dose reduction was used. FINDINGS: Brain: Extra-axial spaces: No abnormal extra-axial fluid collections. Ventricular system: Within normal limits Cerebral parenchyma: No acute intraparenchymal hemorrhage or mass effect. The pringle-white junction is well differentiated. Cerebellum: Unremarkable. Mass effect: No evidence of midline shift. Intracranial vasculature: unremarkable Soft tissues: Normal. Calvarium/osseous structures: No depressed skull fracture. Paranasal sinuses and mastoid air cells: Mild scattered paranasal sinus disease. Visualized orbits: Orbital contents are intact. IMPRESSION: No acute intracranial process. [facility], , 06/15/2024 10:34 AM
[2024-06-15] MEDS ORDERED: HEPARIN SODIUM 1,000 UN/ML (10ML VL) IV PRN ×2 (10:41→16:36)
[2024-06-15 10:48] LABS: ABG HCO3 22 mmol/L (21-25); ABG Oxygen Saturation >100.0 % (94-97); ABG PCO2 37 mmHg (35-45); ABG PH 7.38 (7.35-7.45); ABG PO2 336 mmHg (83-108); ABG TCO2 23 mmol/L (19-24); Allen Test Performed? Yes
[2024-06-15] MEDS: LACTATED RINGERS 1,000 ML IV ONE ×2 (10:48→12:30)
[2024-06-15] MEDS: LACTATED RINGERS 1,000 ML BAG IV STA (10:49)
[2024-06-15] MEDS ORDERED: NALOXONE 0.4 MG/ML 1 ML VIAL IV PRN (11:36)
[2024-06-15] MEDS: HEPARIN SODIUM 1,000 UN/ML (10ML VL) IV ONE (11:45)
[2024-06-15 11:47] LABS: Amorphous Sediment,Urine Occasional /hpf; Appearance,Urine Cloudy (Clear); Bilirubin,Urine Negative (Negative); Blood,Urine Small (Negative); Color,Urine Colorless; Glucose,Urine (UA) 1+ (Negative); Ketones,Urine 1+ (Negative); Leukocyte Esterase,Urine Negative (Negative); Mucus,Urine Few /hpf; Nitrite,Urine Negative (Negative); PH, Urine 7.5 (5.0-8.0); Protein,Urine 3+ (Negative); RBC,Urine 10 /hpf (0-5); Specific Gravity,Urine 1.014 (1.001-1.035); Squamous Epithelial Cell,Urine 2 /hpf (0-4); Urobilinogen,Urine <2.0 mg/dL (<2.0); WBC,Urine 3 /hpf (0-5)
[2024-06-15 11:50] LABS: Influenza A Not Detected (Not Detectd); Influenza B Not Detected (Not Detectd); RSV Not Detected (Not Detectd)
[2024-06-15] MEDS: ASPIRIN 300 MG SUPP RECTAL STA (12:04)
[2024-06-15] MEDS: NOREPINEPHRINE 4 MG in SODIUM CHLORIDE 0.9% 250 ML IV ONE (12:25)
[2024-06-15] MEDS: NOREPINEPHRINE 32 MG in SODIUM CHLORIDE 0.9% 218 ML IV ONE (12:44)
[2024-06-15] MEDS: HEPARIN SOD,PORK IN 0.45% NACL 25,000 UNIT in 0.45% NACL 1 250ML.BAG IV SCH (12:57)
[2024-06-15] MEDS ORDERED: VANCOMYCIN IV PER PHARMACY 1 EACH MISC MISCELLANE PRN (12:57)
[2024-06-15] MEDS ORDERED: Potassium Replacement Protocol 1 EACH MISC MISCELLANE PRN (13:30)
[2024-06-15] MEDS: LIDOCAINE 2% SYG (PF) 100 MG/5 ML IV STA (13:31)
[2024-06-15] MEDS: LIDOCAINE 2% INJ 20 MG/ML (20 ML MDV) IVP STA (13:34)
[2024-06-15] MEDS: LIDOCAINE-D5W PMX 2G/250ML 2,000 MG in DEXTROSE/WATER 1 250ML.BAG IV SCH (13:40)
[2024-06-15] MEDS: POTASSIUM CHLORIDE 20 MEQ in WATER FOR INJECTION 1 100ML.BAG IVPB SCH (13:42)
[2024-06-15] MEDS: LACTATED RINGERS 800 ML IV ONE (14:08)
[2024-06-15] MEDS: LIDOCAINE 1% INJ 10MG/ML (20 ML MDV) SQ ONE (14:25)
[2024-06-15] MEDS: METOPROLOL TARTRATE 5 MG/5 ML VIAL IVP ONE (14:58)
--- NOTE | 2024-06-15 15:05 | CA ---
Transthoracic Echo Report Name: Alejandro Angelo Age: 43 Gender: F : 1980 Exam Date: 06/15/2024 13:11 Exam Location: [place] [facility] Ht (in): 62 Wt (lb): 171 Ordering Physician: Viral Clayton MD Attending/Referring Phys: Library Associate Veronica Doan RDCS Procedure CPT: Indications: ventricular fibrillation, recurrent. Cardiac Hx: Technical Quality: Good Contrast 1: Total Dose (mL): Contrast 2: Total Dose (mL): MEASUREMENTS (Male / Female) Normal Values 2D ECHO LV Diastolic Diameter PLAX 4.5 cm 4.2 - 5.9 / 3.9 - 5.3 cm LV Systolic Diameter PLAX 3.7 cm IVS Diastolic Thickness 1.1 cm 0.6 - 1.0 / 0.6 - 0.9 cm LVPW Diastolic Thickness 1.0 cm 0.6 - 1.0 / 0.6 - 0.9 cm LV Relative Wall Thickness 0.5 RV Internal Dim ED PLAX 2.9 cm LA Systolic Diameter LX 2.6 cm 3.0 - 4.0 / 2.7 - 3.8 cm DOPPLER AI Peak Velocity 272.2 cm/s AI Peak Gradient 29.6 mmHg AI Pressure Half Time 1810.0 ms MV Area PHT 3.3 cm??? Mitral E Point Velocity 62.7 cm/s Mitral A Point Velocity 23.3 cm/s Mitral E to A Ratio 2.7 MV Deceleration Time 227.0 ms TR Peak Velocity 240.7 cm/s TR Peak Gradient 23.2 mmHg Right Ventricular Systolic Press 38.1 mmHg FINDINGS Left Ventricle Left ventricular ejection fraction is estimated at 40-45 %. Septal basel hdyskinesis Right Ventricle Normal right ventricular size. Mild pulmonary hypertension. Right Atrium Normal right atrial size. No right atrial thrombus or mass seen. Left Atrium Normal left atrial size. No left atrial thrombus or mass present. Mitral Valve Structurally normal mitral valve. Mild mitral regurgitation. Aortic Valve Trileaflet aortic valve. Mild aortic regurgitation. Tricuspid Valve Structurally normal tricuspid valve. [id number] tricuspid regurgitation. Pulmonic Valve Structurally normal pulmonic valve. Mild pulmonic regurgitation. Pericardium No pericardial effusion. Pleural effusion. Aorta Normal size aortic root and proximal ascending aorta. CONCLUSIONS Moderate LV systolic dysfunction with an ejection fraction of 40-45% Basal inferior wall and basal septum are hypokinetic Mild pulmonary hypertension Moderate to severe tricuspid regurgitation Mild aortic regurgitation Right ventricular hypokinesis Previewed by: Dr. Stephon Lynch MD (Electronically Signed) Final Date: 15 June 2024 15:04
[2024-06-15] MEDS: PHENYLEPHRINE-0.9% NACL SYG 1,000 MCG/10 ML SYRINGE IVP ONE (15:11)
--- NOTE | 2024-06-15 15:14 | P.CNPUL ---
History of Present Illness Consult date: 06/15/24 Requesting physician: Mukul Victor Reason for consult: other (Acute respiratory failure secondary to cardiac arrest and seizures) Chief complaint: Seizures History of present illness: This is a 43-year-old -[place]ish female, brought into the ER with what seems to be a loss of consciousness, questionable seizure, this was witnessed at home, fell off the bed, the patient herself did not recall what happened. But apparently patient was brought in and she had a witnessed seizure while in the hospital. Happened while EKG was being taken, patient was noted to have agonal respiration and no pulse. Patient was coded as per ACLS protocol, she had 1 defibrillation, she also had 1 epinephrine, and 1 round of CPR. Patient then had return of spontaneous circulation. In the meantime the patient was intubated by the ER physician and felt to have cardiac arrest/V-fib cardiac arrest on presentation, apparently may have been cleared by seizure which was witnessed. In the meantime the patient was intubated, mechanically ventilated, and the patient in the ER shortly after she was intubated. She is now on assist-control 16 tidal volume 400 FiO2 of 100% and PEEP of 5 ABG showed a pO2 of 336 pCO2 37 pH of 7.37 hence FiO2 was cut down to 50%. CT of the brain showed no evidence of acute intracranial process chest x-ray showed no evidence of active cardiopulmonary disease. Tracheal tube was noted to be 2.8 cm above the braden. Nasogastric tube was noted to be in proper position looking back at the hospital chart, patient was recently in the ER for what seems to be constipation, and on the chart there is mention of being bipolar and history of schizophrenia. Patient was also admitted to the hospital on 05/27/2024, and she was discharged home on 05/29/2024, we were not consulted on this patient during her last admission apparently she came in with chest pain, seen by cardiology on consultation/Dr. LYLE Triana she had relatively normal echocardiogram except for mild mitral tricuspid and aortic insufficiency and she had a CT angiogram of the chest showing no evidence of active disease and no evidence of thromboembolic disease. Her chest pain at the time was felt to be atypical Review of Systems ROS unobtainable: due to endotracheal tube Past Medical History Past Medical History: Asthma, COPD Additional Past Medical History / Comment(s): bipolar, schizophrenia, +covid - 11/21, pt denies COPD History of Any Multi-Drug Resistant Organisms: None Reported Past Surgical History: Section Past Psychological History: Anxiety, Bipolar, Depression, Schizophrenia Smoking Status: Former smoker Past Alcohol Use History: Occasional, Rare Past Drug Use History: None Reported Medications and Allergies Home Medications Medication Instructions Recorded Confirmed Type Naproxen [Naprosyn] 375 mg PO Q12HR PRN #30 tablet 05/28/24 06/15/24 Rx polyethylene glycoL 3350 [Miralax] 17 gm PO DAILY PRN #15 packet 05/28/24 06/15/24 Rx Lactulose 10 gm PO DAILY PRN #473 ml 06/11/24 06/15/24 Rx Meloxicam [Mobic] 15 mg PO DAILY PRN #20 tab 06/11/24 06/15/24 Rx methocarbamoL [Robaxin] 1,000 mg PO TID PRN #30 tab 06/11/24 06/15/24 Rx Famotidine [Pepcid] 20 mg PO BID PRN 06/15/24 06/15/24 History Allergies Allergy/AdvReac Type Severity Reaction Status Date / Time ibuprofen [From Motrin] Allergy Nausea & Verified 06/15/24 10:59 Vomiting methylprednisolone Allergy Anaphylaxis Verified 06/15/24 10:59 prednisone Allergy Anaphylaxis Verified 06/15/24 10:59 sulfamethoxazole Allergy Unknown Verified 06/15/24 10:59 [From Bactrim] trimethoprim [From Bactrim] Allergy Unknown Verified 06/15/24 10:59 doxycycline AdvReac Nausea & Verified 06/15/24 10:59 Vomiting Physical Exam Vitals: Vital Signs Temp Pulse Resp BP Pulse Ox FiO2 06/15/24 13:15 66 18 93/59 96 06/15/24 12:55 71 18 75/43 100 06/15/24 12:50 76 18 70/40 100 06/15/24 12:43 67 18 66/42 98 06/15/24 12:25 70 18 65/30 98 06/15/24 11:51 76 18 81/60 100 06/15/24 11:43 78 20 85/56 100 06/15/24 11:19 84 18 96/63 100 06/15/24 11:00 112 H 18 94/61 100 06/15/24 10:54 50 06/15/24 10:40 106 H 18 131/95 100 06/15/24 10:30 126 H 20 118/90 100 06/15/24 10:19 100 06/15/24 10:13 89 18 83/57 100 06/15/24 09:39 100 06/15/24 08:24 97.9 F 73 18 89/59 100 Intake and Output 06/14/24 06/15/24 06/15/24 22:59 06:59 14:59 Intake Total 52.649 Balance 52.649 Intake: Intake, IV Titration 52.649 Amount Norepinephrine 32 mg In 0.489 Sodium Chloride 0.9% 218 ml @ 0.03 MCG/KG/MIN 1. 129 mls/hr IV .Q24H [facility] Rx#:[id number] Norepinephrine 4 mg In 2.906 Sodium Chloride 0.9% 250 ml @ 0.03 MCG/KG/MIN 9. 177 mls/hr IV .Q24H [facility] Rx#:[id number] propofoL 1,000 mg In 49.254 Empty Bag 1 bag @ 15 MCG/ KG/MIN 7.226 mls/hr IV . [id number] [facility] Rx#:[id number] Other: Weight 80.286 kg GENERAl: Revealed 43-year-old female intubated, mechanically ventilated, sedated on propofol also on amiodarone drip. HEENT: Pupils are round and equally reacting to light. EOMI. No scleral icterus. No conjunctival pallor. Normocephalic, atraumatic. No pharyngeal erythema. No thyromegaly. Tracheal tube and orogastric tube are intact CARDIOVASCULAR: S1 and S2 present. No murmurs, rubs, or gallops. PULMONARY: Bilaterally no crackles rhonchi or wheezes, symmetrical chest expansion. ABDOMEN: Soft, nontender, nondistended, normoactive bowel sounds. No palpable organomegaly. MUSCULOSKELETAL: No deformities EXTREMITIES: No clubbing edema or cyanosis NEUROLOGICAL:: Could not assess, patient is sedated, intubated, mechanically ventilated. Psychiatric: Could not assess SKIN: No rashes. Results - Laboratory Findings CBC and BMP: 06/15/24 09:43 06/15/24 09:43 Abnormal lab findings: Abnormal Labs 06/15/24 06/15/24 06/15/24 08:53 09:43 09:43 Potassium 3.1 L Carbon Dioxide 17 L Glucose 187 H Plasma Lactic Acid Mars 6.2 H* AST 155 H ALT 179 H Troponin I Urine Appearance Cloudy H Urine Protein 3+ H Urine Glucose (UA) Urine Ketones 1+ H Urine Blood Urine RBC Amorphous Sediment Occasional H Urine Bacteria Rare H Urine Mucus Moderate H 06/15/24 06/15/24 09:43 10:47 Potassium Carbon Dioxide Glucose Plasma Lactic Acid Mars AST ALT Troponin I 0.155 H* Urine Appearance Cloudy H Urine Protein 3+ H Urine Glucose (UA) 1+ H Urine Ketones 1+ H Urine Blood Small H Urine RBC 10 H Amorphous Sediment Occasional H Urine Bacteria Urine Mucus Few H - Diagnostic Findings Chest x-ray: image reviewed (As noted in HPI) Additional studies: CT of the brain: As noted HPI Assessment and Plan Assessment: Impression: Acute hypoxic respiratory failure secondary to V-fib cardiac arrest New onset seizure, possible Non-ST elevation myocardial infarction History of bipolar disorder and schizophrenia Recent hospital evaluation for atypical chest pain Possible anoxic brain injury, too early to tell at this point. Patient had a very brief cardiac arrest in the ER. Recommendation: Continue ventilatory support Hemodynamic support if felt necessary Cardiology to evaluate the patient and possibly consider cardiac catheterization Continue amiodarone as ordered by cardiology for her ventricular fibrillation GI and DVT prophylaxis Nutritional support Resume home meds via nasogastric tube Neurology to see on consultation continue propofol EEG to be ordered by neurology Prognosis is guarded Patient is critically ill Will continue to follow Time with Patient: Greater than 30
[2024-06-15] MEDS: EPINEPHrine 10 ML SYRINGE (0.1 MG/ML) MISCELLANE ONE (15:20)
[2024-06-15] MEDS: IOPAMIDOL-370 100ML BTL INJ ONE (16:12)
--- NOTE | 2024-06-15 16:16 | P.PN ---
Progress Note - Text Progress Note Date: 06/15/24 Going to see the patient, patient in [employer]. Discussed with patient's nurse.
[2024-06-15 16:21] LABS: O2 Sat Blood Gas 50.2 %
[2024-06-15 16:22] LABS: O2 Sat Blood Gas 39.1 %
[2024-06-15 16:24] LABS: O2 Sat Blood Gas 96.2 %
[2024-06-15 16:26] LABS: O2 Sat Blood Gas 75.1 %
[2024-06-15 16:27] LABS: O2 Sat Blood Gas 99.2 %
[2024-06-15] MEDS ORDERED: methylPREDNISolone SOD SUCCI 125 MG/2 ML VIAL IV STA (16:35)
--- NOTE | 2024-06-15 17:26 | P.PCN ---
Description of Procedure: PROCEDURES PERFORMED: Right heart catheterization, ultrasound guided venous access, placement of Impella CP LVAD, Impella RP RVAD INDICATION: Cardiogenic shock, recurrent Vfib CONSENT:The risks, benefits and alternative therapies for the above-mentioned procedure and for both sedation/analgesia as well as necessary blood product ad ministration, if indicated, as they pertain to this patient were discussed with the patient. The patient has indicated understanding and acceptance of the risks and procedures discussed. PROCEDURE: After the risks, benefits and alternatives of the above mentioned procedure explained in detail with the patient's family, consent was obtained. Patient was taken to the catheterization lab and prepped and draped in usual fashion. A 6-[place] sheath had previously been placed in the right femoral artery. Patient had diagnostic left heart catheterization which showed normal coronary arteries however left ventriculogram showed severe cardiomyopathy were with more basal anterior and inferior akinesis and ejection fraction approximately 25-30%. Given electrical instability and patient being unstable decision made to perform a right heart catheterization. Initially her blood pressure was noted to be on the higher end 130s over 90s which was felt possibly still related to the epinephrine. Some of electrical instability also felt possibly several related to epinephrine and therefore low dose of metoprolol was attempted. An 8-[place] sheath was placed into the right femoral vein using ultrasound guided axis. A [place] catheter was inserted into the right atrium, right ventricle, pulmonary artery and pulmonary PCWP Position. Cardiac Output/Cardiac Index was determined by thermodilution with severe decreased Cardiac Index at 0.77 L/min/m2. Patient additionally started become more hypotensive. Therefore decision made to perform Impella CP. The previously placed femoral arterial sheath was exchanged for 2 Perclose is in the 10 and 2 o'clock position. The 14-Guamanian sheath was placed. A pigtail catheter was inserted into the left ventricle. Over a 0.018 wire, an Impella CP was placed in the LV. Patient required low doses of Epinephrine and initially had lost pulsatility however recovered somewhat. Patient still with decreased CO/CI by thermodilution and [place] had decreased throughout procedure down to almost no PA pulsatility and patient having increasing suction alarms and had recurrent Vfib episodes. CO/CI was again performed by thermodilution and CI was still decreased at 0.9L/min/m2 which appeared mainly still related to RV failure. Therefore decision made to perform RV Impella. The right femoral venous sheath was exchanged and Perclose x 1 was placed and then upsized to a 23 mm venous sheath. Next a RP Impella Flex was placed over a 0.027 wire. An additional 6Fr sheath was placed in the right femoral vein and repeat right heart catheterization was performed. Repeat ANETTE cardiac output significantly improved to 7.1L/min, CI 3.9L/min/m2. Right femoral arterial angiogram through the sheath showed adequate flow with sheath not being obstructive and therefore was left in place. The patient tolerated the procedure well. Patient was transported to the ICU. Conscious Sedation: Patient was monitored under the direct supervision of myself for conscious sedation using Versed and fentanyl for a total duration of 105 minutes HEMODYNAMICS: Pre Impella placement on vent with FiO2 50% RA: 24 RV: 43/14 PA: 39/17 Ao: 89/72 LV: 102/23, LVEDP 42 FA oxygen saturation: 96% PA oxygen saturation: 39% RA oxygen saturation: 50% CO by thermodilution: 1.4L/min CI by thermodilution: 2.0 L/min/m2 Post Impella CP and Impella RP placement: RA: 18 RV: 48/8 PA: 53/41 FA oxygen saturation: 100% PA oxygen saturation: 75% CO by ANETTE: 7.1 L/min CI by ANETTE: 3.9 L/min/m2 FINAL IMPRESSION: 1. Biventricular failure and cardiogenic shock 2. Elevated left and right sided filling pressures 3. S/p placement of Impella CP LVAD, Impella RP RVAD PLAN: 1. Aggressive risk factor modification per most recent ACC/AHA guidelines. 2. 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 Discussed questionable allergy to steroids in the past and family denies any actual known anaphylaxis and more so did not feel comfortable with steroids. Therefore she was given methylprednisolone 1gm and will be continued on steroids. Additionally discussed with family transfer to tertiary center in case she needs upgrade or ECMO.
[2024-06-15 17:27] LABS: Glucose,Whole Blood 169 mg/dL (70-110)
[2024-06-15] MEDS ORDERED: IPRATROPIUM-ALBUTEROL 3 ML NEB INHALATION PRN (18:02)
[2024-06-15 18:10] LABS: Basophils % (A) 0 %; Eosinophils % (A) 0 %; HCT 33.8 % (34.0-46.0); HGB 11.1 gm/dL (11.4-16.0); Lymphocytes % (A) 7 %; MCH 29.5 pg (25.0-35.0); MCHC 32.9 g/dL (31.0-37.0); MCV 89.6 fL (80.0-100.0); Mean Platelet Volume 7.6; Monocytes # (A) 0.6 k/uL (0-1.0); Monocytes % (A) 4 %; Neutrophils # (A) 12.2 k/uL (1.3-7.7); Neutrophils % (A) 88 %; Platelet Count 238 k/uL (150-450); RBC 3.77 m/uL (3.80-5.40); RDW 13.1 % (11.5-15.5); WBC 13.8 k/uL (3.8-10.6)
[2024-06-15] MEDS: PIPERACILLIN-TAZOBACTAM 3.375 GM in SODIUM CHLORIDE 0.9% 100 ML IVPB STA (18:59)
[2024-06-15 19:00] LABS: African American GFR (CKD) >90 (>60 ml/min/1.73 sqM); Anion Gap 10 mmol/L; Blood Urea Nitrogen 9 mg/dL (7-17); C Reactive Protein 0.6 mg/dL (<1.0); Calcium 8.3 mg/dL (8.4-10.2); Carbon Dioxide 20 mmol/L (22-30); Chloride 105 mmol/L (98-107); Glucose 156 mg/dL (74-99); Magnesium 1.8 mg/dL (1.6-2.3); Non-African American GFR(CKD) 90 (>60 ml/min/1.73 sqM); Potassium 3.4 mmol/L (3.5-5.1); Sodium 135 mmol/L (137-145)
[2024-06-15] MEDS: VANCOMYCIN 1,500 MG in SODIUM CHLORIDE 0.9% 500 ML 500 ML IVPB SCH (19:00)
[2024-06-15] MEDS: AMIODARONE 450 MG in DEXTROSE 5% IN WATER 250 ML IV SCH (19:00)
--- NOTE | 2024-06-15 19:00 | XR ---
EXAMINATION TYPE: XR chest 1V portable DATE OF EXAM: 06/15/2024 6:21 PM COMPARISON: Chest radiographs from same day CLINICAL INDICATION: Female, 43 years old with history of Tube placement; [facility] TECHNIQUE: XR chest 1V portable Frontal view of the chest. FINDINGS: Lungs/Pleura: There is no evidence of pleural effusion, focal consolidation, or pneumothorax. Pulmonary vascularity: Unremarkable. Heart/mediastinum: Cardiomediastinal silhouette is unremarkable. Musculoskeletal: No acute osseous pathology. Other findings: None Lines/Tubes: Endotracheal tube with distal tip 4.1 cm above the braden. Nasogastric tube with side-port projecting over the distal esophagus. Suspected transaortic valve pacer device with tubing crossing projecting over the aortic valve. IMPRESSION: 1. Endotracheal tube in satisfactory position. 2. Suspected transaortic valve pacer device with tubing crossing the aortic valve. 3. Nasogastric tube side-port near the gastroesophageal junction consider advancement of at least 5 cm for optimal placement. [facility], , 06/15/2024 6:58 PM
[2024-06-15] MEDS: SODIUM BICARB (1 MEQ/ML) 12.5 ML in DEXTROSE 5% IN WATER 500 ML IV SCH (19:01)
[2024-06-15] MEDS: methylPREDNISolone SOD SUCCIN 1,000 MG in SODIUM CHLORIDE 0.9% 250 ML IVPB STA (19:01)
[2024-06-15] MEDS: PANTOPRAZOLE 40 MG/10 ML VIAL IVP SCH (19:03)
[2024-06-15 19:07] VITALS: BP 139/88
[2024-06-15 19:11] LABS: INR 1.2 (<1.2); Prothrombin Time 12.8 sec (10.0-12.5)
[2024-06-15] MEDS: IPRATROPIUM-ALBUTEROL 3 ML NEB INHALATION SCH (19:15)
[2024-06-15 19:18] LABS: Partial Thromboplastin Time 194.4 sec (22.0-30.0)
[2024-06-15 20:02] LABS: ABG Base Excess -2.1 mmol/L; ABG HCO3 23 mmol/L (21-25); ABG Oxygen Saturation 97.9 % (94-97); ABG PCO2 38 mmHg (35-45); ABG PH 7.39 (7.35-7.45); ABG PO2 99 mmHg (83-108); ABG TCO2 24 mmol/L (19-24)
[2024-06-15] MEDS: DOBUTamine DRIP 500 MG in DEXTROSE/WATER 1 250ML.BAG IV SCH (20:03)
[2024-06-15 20:13] LABS: Allen Test Performed? no
[2024-06-15 20:17] LABS: Allen Test Performed? NO
[2024-06-15 20:18] LABS: ABG HCO3 24 mmol/L (21-25); ABG PCO2 42 mmHg (35-45); ABG PH 7.36 (7.35-7.45); ABG PO2 42 mmHg (83-108); ABG TCO2 25 mmol/L (19-24)
[2024-06-15] MEDS ORDERED: levETIRAcetam IV 500 MG in SODIUM CHLORIDE 0.9% 250 ML IVPB SCH (21:00)
[2024-06-15] MEDS: CHLORHEXIDINE GLUCONATE 15 ML CUP MUCOUS MEM SCH (21:13)
[2024-06-15] MEDS: levETIRAcetam IV 500 MG/5 ML VIAL IVP SCH (21:13)
[2024-06-15 21:18] LABS: Partial Thromboplastin Time 77.3 sec (22.0-30.0)
[2024-06-15 21:52] LABS: Potassium 3.7 mmol/L (3.5-5.1)
[2024-06-15 22:41] LABS: Erythrocyte Sedimentation Rate 12 mm/Hr (0-20)
[2024-06-15] MEDS: POTASSIUM BICARBONATE/CIT AC 20 MEQ TABLET.EFF NG-TUBE SCH (23:15)
[2024-06-16 00:05] LABS: ABG Base Excess -1.2 mmol/L; ABG HCO3 24 mmol/L (21-25); ABG Oxygen Saturation 67.5 % (94-97); ABG PCO2 43 mmHg (35-45); ABG PH 7.36 (7.35-7.45); ABG TCO2 26 mmol/L (19-24)
[2024-06-16 00:06] LABS: ABG Base Excess -1.7 mmol/L; ABG HCO3 23 mmol/L (21-25); ABG Oxygen Saturation 99.4 % (94-97); ABG PCO2 37 mmHg (35-45); ABG PO2 145 mmHg (83-108); ABG TCO2 24 mmol/L (19-24)
[2024-06-16 00:33] LABS: ABG PO2 37 mmHg (83-108); Allen Test Performed? no
[2024-06-16 00:34] LABS: Allen Test Performed? no
[2024-06-16 00:51] LABS: Glucose,Whole Blood 186 mg/dL (70-110)
[2024-06-16 01:16] LABS: INR 1.2 (<1.2); Prothrombin Time 12.8 sec (10.0-12.5)
[2024-06-16 03:55] LABS: ABG Base Excess -2.1 mmol/L; ABG HCO3 23 mmol/L (21-25); ABG Oxygen Saturation 99.7 % (94-97); ABG PCO2 39 mmHg (35-45); ABG PH 7.38 (7.35-7.45); ABG PO2 164 mmHg (83-108); ABG TCO2 24 mmol/L (19-24)
[2024-06-16 03:59] LABS: Allen Test Performed? no
[2024-06-16 04:00] LABS: Allen Test Performed? no
[2024-06-16 04:01] LABS: ABG PCO2 43 mmHg (35-45); ABG PH 7.35 (7.35-7.45)
[2024-06-16 04:02] LABS: ABG HCO3 24 mmol/L (21-25); ABG PO2 37 mmHg (83-108); ABG TCO2 25 mmol/L (19-24)
[2024-06-16 05:05] LABS: Glucose,Whole Blood 190 mg/dL (70-110)
[2024-06-16 05:17] LABS: Basophils % (A) 0 %; Eosinophils # (A) 0.1 k/uL (0-0.7); Eosinophils % (A) 1 %; HCT 32.4 % (34.0-46.0); HGB 10.7 gm/dL (11.4-16.0); Lymphocytes # (A) 0.5 k/uL (1.0-4.8); Lymphocytes % (A) 5 %; MCH 29.6 pg (25.0-35.0); MCV 89.9 fL (80.0-100.0); Mean Platelet Volume 7.8; Monocytes # (A) 0.1 k/uL (0-1.0); Monocytes % (A) 1 %; Neutrophils # (A) 9.5 k/uL (1.3-7.7); Neutrophils % (A) 94 %; Platelet Count 207 k/uL (150-450); RBC 3.61 m/uL (3.80-5.40); RDW 13.2 % (11.5-15.5); WBC 10.2 k/uL (3.8-10.6)
[2024-06-16 05:45] LABS: ALT 118 U/L (4-34); AST 88 U/L (14-36); African American GFR (CKD) >90 (>60 ml/min/1.73 sqM); Albumin 2.8 g/dL (3.5-5.0); Alkaline Phosphatase 37 U/L (38-126); Anion Gap 5 mmol/L; Blood Urea Nitrogen 6 mg/dL (7-17); Calcium 8.5 mg/dL (8.4-10.2); Carbon Dioxide 22 mmol/L (22-30); Chloride 114 mmol/L (98-107); Glucose 180 mg/dL (74-99); LDH 656 U/L (120-246); Non-African American GFR(CKD) >90 (>60 ml/min/1.73 sqM); Potassium 4.2 mmol/L (3.5-5.1); Sodium 141 mmol/L (137-145); Total Bilirubin 0.3 mg/dL (0.2-1.3); Total Protein 5.4 g/dL (6.3-8.2)
--- NOTE | 2024-06-16 07:21 | XR ---
EXAMINATION TYPE: XR chest 1V portable DATE OF EXAM: 06/16/2024 5:28 AM COMPARISON: Chest radiograph from one day prior. CLINICAL INDICATION: Female, 43 years old with history of LVAD placement. Perform with HOB at 0 degre es.; [facility] TECHNIQUE: XR chest 1V portable Frontal view of the chest. FINDINGS: Lungs/Pleura: Improved aeration of the right lung apex. There is no evidence of pleural effusion, foc al consolidation, or pneumothorax. Pulmonary vascularity: Unremarkable. Heart/mediastinum: Cardiomediastinal silhouette is unremarkable. Musculoskeletal: No acute osseous pathology. Other findings: None Lines/Tubes: Endotracheal tube with distal tip 2.2cm above the braden. Nasogastric tube with its distal tip and side-port projecting under the diaphragm. Suspected left ventricular assist device with tubing crossing/projecting over the aortic valve. IMPRESSION: 1. Stable support tubes. 2. Improved aeration of the right lung apex. [facility], , 06/16/2024 7:19 AM
--- NOTE | 2024-06-16 07:35 | CA ---
Transthoracic Echo Report Name: Alejandro Angelo Age: 43 Gender: F : 1980 Exam Date: 06/15/2024 17:29 Exam Location: [facility] Ht (in): 62 Wt (lb): 177 Ordering Physician: Tal Conner DO ([email or web address]) Attending/Referring Phys: Shuffle Board Operator Veronica Doan RDCS Procedure CPT: Indications: Placement of Left Ventricular Assist Device Cardiac Hx: limied study Technical Quality: Fair Contrast 1: Total Dose (mL): 89 Contrast 2: Total Dose (mL): MEASUREMENTS (Male / Female) Normal Values FINDINGS Left Ventricle Left ventricular assist device in LVOT placed. Left ventricular ejection fraction is estimated at 45-50 %. Right Ventricle Reduced right ventricular global systolic function. Right Atrium Left Atrium Mitral Valve Aortic Valve Tricuspid Valve Pulmonic Valve Pericardium Left pleural effusion. Aorta CONCLUSIONS Improved LV systolic function compared to the echo done yesterday Left ventricular outflow tract has LV assist device there is a device noted in the right side also which is not very well visualized Previewed by: Dr. Stephon Lynch MD (Electronically Signed) Final Date: 16 June 2024 07:34
[2024-06-16] MEDS ORDERED: methylPREDNISolone SOD SUCCI 125 MG/2 ML VIAL IV ONE (08:00)
[2024-06-16 08:04] LABS: ABG Base Excess -1.5 mmol/L; ABG HCO3 23 mmol/L (21-25); ABG Oxygen Saturation 99.7 % (94-97); ABG PCO2 36 mmHg (35-45); ABG PH 7.41 (7.35-7.45); ABG PO2 164 mmHg (83-108); ABG TCO2 24 mmol/L (19-24)
[2024-06-16 08:05] LABS: ABG Base Excess -0.6 mmol/L; ABG HCO3 25 mmol/L (21-25); ABG Oxygen Saturation 69.9 % (94-97); ABG PCO2 43 mmHg (35-45); ABG PH 7.37 (7.35-7.45); ABG TCO2 26 mmol/L (19-24)
[2024-06-16 08:08] LABS: Allen Test Performed? no
[2024-06-16 08:09] LABS: ABG PO2 37 mmHg (83-108); Allen Test Performed? no
[2024-06-16 08:19] VITALS: TEMP 99.9
--- NOTE | 2024-06-16 08:22 | P.CNNES ---
History of Present Illness Consult date: 06/15/24 Requesting physician: Viral Clayton Reason for Consult: Possible seizure History of Present Illness: Patient is a 43-year-old female was brought to the hospital by EMS today at 8:19 AM for seizure-like activity, followed by cardiac arrest in the ER patient at present is intubated, sedated not able to provide history. As per EMS flowsheet when EMS arrived, found patient with altered mental status. Patient was alert and oriented x 2, which is not her normal. Her pupils were equal round and reacting. Lung sounds were clear and equal bilaterally. Patient's mentioned that patient rolled off the bed and that she hit the ground and her eyes rolled to the back of her head. mentioned that for about 30 seconds patient was unresponsive. She urinated in her pants. denied any shaking. hospital monitor showed normal sinus rhythm. Blood sugar 158. Blood pressure 102/62, pulse rate 76 respiration 18, saturation 98%. Patient was brought to the hospital. The ER patient could not recall what happened. The episode at home lasted for about 10 minutes. While patient was in triage, patient experienced another seizure-like activity. Patient was noted to have agonal respiration with no pulse. ACLS protocol was initiated for cardiac arrest, with concern for ventricular fibrillation arrest. Patient was given 1 round of CPR with epi and was taken to cardiac cath. During the cath, patient had 3 more episodes of V-fib arrest, for which she received shock each time. As per nursing report, the total downtime was about 4 minutes. Please refer to cardiology notes for further details. Patient underwent placement of right-sided Impella. Patient was loaded with Keppra 1500 mg IV push and then maintained on 500 mg twice daily. No further seizures reported. Cardiac cath report revealed biventricular failure and cardiogenic shock. Elevated left and right-sided filling pressures. Status post placement of Impella CP LVAD, Impella RP RVAD. 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 Patient was started on methylprednisolone 1 g. Patient needs to be transferred to tertiary care center in case she needs a bleed or ECMO. I spoke to family members including patient's mother and patient's sister, who provided with a history. They mention that patient has no history of atrial fibrillation. Patient has been in the hospital off and on for last 1 month, came to the ER about 5 or 6 times, complaining of "something wrong with her body", like panic attack anxiety but mainly symptoms on the left side involving the arm and leg. They mentioned that patient's sister at age 29 of diabetic coma although she was not diabetic. Patient does not take any medications except for BuSpar and hydroxyzine. No previous history of seizure disorder. Patient's family mentioned that patient has been complaining of pain in the neck and left arm hurting for last 2 weeks. Left arm was also weak for which she was given a muscle relaxer. Blood test shows normal CBC, normal basic metabolic panel with potassium 3.1, lactate 6.2, AST 155, ALT 179. Ammonia 29. Troponin 0.155. proBNP 50, UA negative. Urine drug screen negative. Blood alcohol level negative. Influenza, RSV, coronavirus PCR negative. Patient has been started on heparin drip. Her most recent PTT is 194.4 therefore heparin drip is put on hold. Renal functions remain normal. Chest x-ray showed no acute cardiopulmonary pr ocess. CT head revealed no acute intracranial process. I proceeded with CT head agree with the findings. EKG shows sinus tachycardia. Repeat EKG showed atrial fibrillation. 2D echo revealed moderate LV systolic dysfunction with an EF of 40 to 45%. Basal inferior wall and basal septum are hypokinetic. Moderate to severe TR. Mild AR. Right ventricular hypokinesis. Normal left atrial size. Patient does not smoke, does not drink. On review of records, patient has been to the ER multiple times. Review of Systems Patient not able to provide any review of systems. Other review of systems as per family members report in HPI. Past Medical History Past Medical History: Asthma, COPD Additional Past Medical History / Comment(s): bipolar, schizophrenia, +covid - 05/09, pt denies COPD History of Any Multi-Drug Resistant Organisms: None Reported Past Surgical History: Section Past Psychological History: Anxiety, Bipolar, Depression, Schizophrenia Smoking Status: Former smoker Past Alcohol Use History: Occasional, Rare Past Drug Use History: None Reported Medications and Allergies Home Medications Medication Instructions Recorded Confirmed Type Naproxen [Naprosyn] 375 mg PO Q12HR PRN #30 tablet 05/28/24 06/15/24 Rx polyethylene glycoL 3350 [Miralax] 17 gm PO DAILY PRN #15 packet 05/28/24 06/15/24 Rx Lactulose 10 gm PO DAILY PRN #473 ml 06/11/24 06/15/24 Rx Meloxicam [Mobic] 15 mg PO DAILY PRN #20 tab 06/11/24 06/15/24 Rx methocarbamoL [Robaxin] 1,000 mg PO TID PRN #30 tab 06/11/24 06/15/24 Rx Famotidine [Pepcid] 20 mg PO BID PRN 06/15/24 06/15/24 History Allergies Allergy/AdvReac Type Severity Reaction Status Date / Time ibuprofen [From Motrin] Allergy Nausea & Verified 06/15/24 10:59 Vomiting methylprednisolone Allergy Anaphylaxis Verified 06/15/24 10:59 prednisone Allergy Anaphylaxis Verified 06/15/24 10:59 sulfamethoxazole Allergy Unknown Verified 06/15/24 10:59 [From Bactrim] trimethoprim [From Bactrim] Allergy Unknown Verified 06/15/24 10:59 doxycycline AdvReac Nausea & Verified 06/15/24 10:59 Vomiting Physical Examination - Vital Signs Vital Signs: Vital Signs Temp Pulse Pulse Resp BP Pulse Ox FiO2 06/15/24 19:29 89 06/15/24 19:20 50 06/15/24 19:18 89 06/15/24 19:00 89 16 99 06/15/24 18:45 90 16 100 06/15/24 18:30 91 16 99 06/15/24 18:15 90 16 99 06/15/24 18:00 93 18 100 06/15/24 17:45 93 20 99 06/15/24 17:30 89 16 98 06/15/24 17:15 96.9 F L 90 16 139/88 100 50 06/15/24 14:18 70 18 89/49 98 06/15/24 14:10 68 18 92/58 100 06/15/24 14:00 67 18 91/52 98 06/15/24 13:50 65 18 91/54 98 06/15/24 13:40 71 18 89/64 100 06/15/24 13:28 69 18 97/51 98 06/15/24 13:25 70 18 113/61 100 06/15/24 13:15 66 18 93/59 96 06/15/24 12:55 71 18 75/43 100 06/15/24 12:50 76 18 70/40 100 06/15/24 12:43 67 18 66/42 98 06/15/24 12:25 70 18 65/30 98 06/15/24 11:51 76 18 81/60 100 06/15/24 11:43 78 20 85/56 100 06/15/24 11:30 88 06/15/24 11:19 84 18 96/63 100 06/15/24 11:00 112 H 18 94/61 100 06/15/24 10:54 50 06/15/24 10:40 106 H 18 131/95 100 06/15/24 10:30 126 H 20 118/90 100 06/15/24 10:19 100 06/15/24 10:13 89 18 83/57 100 06/15/24 09:39 100 06/15/24 08:24 97.9 F 73 18 89/59 100 Intake and Output 06/15/24 06/15/24 06/15/24 06:59 14:59 22:59 Intake Total 611.554 627.311 Output Total 300 Balance 611.554 327.311 Intake: IV 550 417 Lactated Ringers 1,000 ml 390 @ 130 mls/hr IV .[id number] [facility] Rx#:[id number] Lines 27 Intake, IV Titration 61.554 210.311 Amount DOBUTamine DRIP 500 mg In 7.948 Dextrose/Water 1 250ml. bag @ 9 MCG/KG/MIN 21.677 mls/hr IV .[id number] [facility] Rx#:[id number] Heparin Sod,Pork in 0.45% 61.015 NaCl 25,000 unit In 0.45 % NaCl 1 250ml.bag @ 12 UNITS/KG/HR 9.634 mls/hr IV .Q24H [facility] Rx#: [id number] Norepinephrine 32 mg In 9.394 41.348 Sodium Chloride 0.9% 218 ml @ 0.03 MCG/KG/MIN 1. 129 mls/hr IV .Q24H [facility] Rx#:[id number] Norepinephrine 4 mg In 2.906 Sodium Chloride 0.9% 250 ml @ 0.03 MCG/KG/MIN 9. 177 mls/hr IV .Q24H [facility] Rx#:[id number] propofoL 1,000 mg In 49.254 100 Empty Bag 1 bag @ 15 MCG/ KG/MIN 7.226 mls/hr IV . [id number] [facility] Rx#:[id number] Output: Urine 300 Other: Weight 80.286 kg ABP, PAP, CO, CI - Last 8 Hours Arterial Blood Pressure 136/68 Arterial Blood Pressure 133/67 Arterial Blood Pressure 136/67 Arterial Blood Pressure 132/65 Arterial Blood Pressure 132/66 Arterial Blood Pressure 149/65 Pulmonary Artery Pressure 39/14 Pulmonary Artery Pressure 38/14 Pulmonary Artery Pressure 38/15 Pulmonary Artery Pressure 38/13 Pulmonary Artery Pressure 38/14 Pulmonary Artery Pressure 40/15 Patient is a middle-aged Afro-[place] female, who is intubated, sedated on propofol 60 mcg/kg's per minute. Patient also is running lidocaine 2 mcg/min and dobutamine 6.5 mcg/kg/min and also amiodarone at 1 mg/min. Patient also on heparin drip. Patient intubated, sedated, unresponsive. Patient not responding to calling her name loudly, or with painful stimuli. GCS of 3. On cranial nerve examination, pupils are very small, but equal, round and reacting to light. Oculocephalics are absent. Corneals absent. Visual terrell cannot be tested. Face cannot be tested because patient is intubated. Patient is not breathing over the ventilator, set at 16. Patient does have a gag and cough reflex. On muscle strength testing, patient is not responding to painful stimuli. Deep tendon reflexes are hypoactive and plantars flat. Sensory to touch, nailbed pressure evoked no response. Cerebellar function cannot be assessed. Tone and bulk of muscles normal. No obvious seizure-like activity noted. Gait deferred.. On general examination, there is no carotid bruit or murmur, S1-S2 audible. Chest is clear on consultation. Symmetrical chest expansion. Abdomen is soft nontender. No organomegaly, bowel sounds present. Peripheral pulses are present. No peripheral edema. Results - Laboratory Findings CBC and BMP: 06/16/24 05:00 06/16/24 05:00 Abnormal Lab Findings: Abnormal Labs 06/15/24 06/15/24 06/15/24 08:53 09:43 09:43 WBC RBC Hgb Hct Neutrophils # PT INR APTT ABG pO2 ABG Total CO2 ABG O2 Saturation Sodium Potassium 3.1 L Carbon Dioxide 17 L Glucose 187 H POC Glucose (mg/dL) Plasma Lactic Acid Mars 6.2 H* Calcium AST 155 H ALT 179 H Troponin I Urine Appearance Cloudy H Urine Protein 3+ H Urine Glucose (UA) Urine Ketones 1+ H Urine Blood Urine RBC Amorphous Sediment Occasional H Urine Bacteria Rare H Urine Mucus Moderate H 06/15/24 06/15/24 06/15/24 09:43 10:44 10:47 WBC RBC Hgb Hct Neutrophils # PT INR APTT ABG pO2 336 H ABG Total CO2 ABG O2 Saturation >100.0 H Sodium Potassium Carbon Dioxide Glucose POC Glucose (mg/dL) Plasma Lactic Acid Mars Calcium AST ALT Troponin I 0.155 H* Urine Appearance Cloudy H Urine Protein 3+ H Urine Glucose (UA) 1+ H Urine Ketones 1+ H Urine Blood Small H Urine RBC 10 H Amorphous Sediment Occasional H Urine Bacteria Urine Mucus Few H 06/15/24 06/15/24 06/15/24 17:16 17:43 17:43 WBC 13.8 H RBC 3.77 L Hgb 11.1 L Hct 33.8 L Neutrophils # 12.2 H PT 12.8 H INR 1.2 H APTT 194.4 H* ABG pO2 ABG Total CO2 ABG O2 Saturation Sodium Potassium Carbon Dioxide Glucose POC Glucose (mg/dL) 169 H Plasma Lactic Acid Mars Calcium AST ALT Troponin I Urine Appearance Urine Protein Urine Glucose (UA) Urine Ketones Urine Blood Urine RBC Amorphous Sediment Urine Bacteria Urine Mucus 06/15/24 06/15/24 06/15/24 17:43 20:00 20:02 WBC RBC Hgb Hct Neutrophils # PT INR APTT ABG pO2 42 L* ABG Total CO2 25 H ABG O2 Saturation 97.9 H 76.0 L Sodium 135 L Potassium 3.4 L Carbon Dioxide 20 L Glucose 156 H POC Glucose (mg/dL) Plasma Lactic Acid Mars Calcium 8.3 L AST ALT Troponin I Urine Appearance Urine Protein Urine Glucose (UA) Urine Ketones Urine Blood Urine RBC Amorphous Sediment Urine Bacteria Urine Mucus Assessment and Plan Assessment: * New onset seizure-like activity, unclear cause. Rule out convulsions related to cardiac reasons. * Acute V-fib cardiac arrest status post CPR, with downtime of about 4 minutes as per nursing staff. * Acute hypoxic respiratory failure, on mechanical ventilation. * Non-STEMI * New onset atrial fibrillation * History of bipolar disorder * Recent hospital evaluation for atypical chest pain Plan: * Patient had presented with new onset seizure and had cardiac arrest in the ER. However the downtime was relatively short about 4 minutes. Neurological examination limited because of patient being sedated on propofol 60 mcg/kg's per minute. * CT head revealed no acute process. * Patient was loaded with Keppra 1500 mg IV followed by 500 mg twice daily. No further seizures reported. * Check EEG in the morning. * Patient is being transferred to [facility]. Patient has been accepted, but bed availability pending. * Other medical management as per ICU/cardiology team. * Discussed with family members and nursing staff in detail. * Seizure precautions. * DVT prophylaxis:, Patient on heparin. * Neurology will follow clinically. Thank you for the consult. Time with Patient: Greater than 30
[2024-06-16] MEDS: methylPREDNISolone SOD SUCCIN 1,000 MG in SODIUM CHLORIDE 0.9% 250 ML IVPB ONE (08:27)
[2024-06-16 09:06] VITALS: PULSE 71
[2024-06-16] MEDS: AMIODARONE 450 MG in DEXTROSE 5% IN WATER 250 ML IV SCH (10:00)
[2024-06-16 10:06] VITALS: RESP 16
--- NOTE | 2024-06-16 12:25 | P.PN ---
Subjective Progress Note Date: 06/16/24 Principal diagnosis: Cardiac arrest/cardiogenic shock This is a 43-year-old -[place] female, brought into the ER with what seems to be a loss of consciousness, questionable seizure, this was witnessed at home, fell off the bed, the patient herself did not recall what happened. But apparently patient was brought in and she had a witnessed seizure while in the hospital. Happened while EKG was being taken, patient was noted to have agonal respiration and no pulse. Patient was coded as per ACLS protocol, she had 1 defibrillation, she also had 1 epinephrine, and 1 round of CPR. Patient then had return of spontaneous circulation. In the meantime the patient was i ntubated by the ER physician and felt to have cardiac arrest/V-fib cardiac arrest on presentation, apparently may have been cleared by seizure which was witnessed. In the meantime the patient was intubated, mechanically ventilated, and the patient in the ER shortly after she was intubated. She is now on assist-control 16 tidal volume 400 FiO2 of 100% and PEEP of 5 ABG showed a pO2 of 336 pCO2 37 pH of 7.37 hence FiO2 was cut down to 50%. CT of the brain showed no evidence of acute intracranial process chest x-ray showed no evidence of active cardiopulmonary disease. Tracheal tube was noted to be 2.8 cm above the braden. Nasogastric tube was noted to be in proper position looking back at the hospital chart, patient was recently in the ER for what seems to be constipation, and on the chart there is mention of being bipolar and history of schizophrenia. Patient was also admitted to the hospital on 05/27/2024, and she was discharged home on 05/29/2024, we were not consulted on this patient during her last admission apparently she came in with chest pain, seen by cardiology on consultation/Dr. LYLE Triana she had relatively normal echocardiogram except for mild mitral tricuspid and aortic insufficiency and she had a CT angiogram of the chest showing no evidence of active disease and no evidence of thromboembolic disease. Her chest pain at the time was felt to be atypical Patient was seen today on 06/16/2024, patient remains in the, patient is critically ill. Remains intubated and mechanically ventilated she is on assist- control rate of 16 tidal volume 400 FiO2 50% and PEEP of 5 ABG showed a pO2 of 164 pCO2 39 pH of 7.38 patient underwent cardiac workup yesterday including a cardiac catheterization and echo cardiogram showing severe LV dysfunction but she was found to have relatively normal coronaries. Considering her severe LV dysfunction and cardiogenic shock, patient underwent placement of 2 Impella devices, 1 in the left ventricle and 1 in the right ventricle, today's cardiac output is 5 cardiac index is 2.7 CVP is 14 PA pressure 35/19. Patient had repeat echocardiogram this morning and it showed ejection fraction of 45 to 50%. Multiple drips including dobutamine, lidocaine, she is now off norepinephrine she is also on propofol at 40 mg/kg/min on heparin drip, and amiodarone 0.5 mg/min. EEG is pending cardiology is planning to transfer the patient today hopefully to [facility]. And plans are in progress. Family is at bedside, and I discussed her condition with her sister and her mom at bedside, made it clear that the patient is critically ill, and prognosis at this point is definitely guarded.j chest x-ray showed no evidence of pulmonary edema, left ventricular assist device noted and right ventricular assist device is also noted there is improved aeration of the right upper lobe today compared to yesterday as she had a bit of atelectasis in the right lower lobe seems to be clearing on the chest x-ray today.Labs today showed WC of 10.2 hemoglobin 10.7, basic metabolic profile is normal renal profile is normal Objective - Vital Signs Vital signs: Vital Signs Temp 99.9 F H 06/16/24 08:00 Pulse 71 06/16/24 10:00 Resp 16 06/16/24 10:00 BP 139/88 06/15/24 19:45 Pulse Ox 100 06/16/24 10:00 FiO2 50 06/16/24 08:15 Intake & Output 06/15/24 06/16/24 06/16/24 18:59 06:59 18:59 Intake Total 5039.896 6652.933 598.802 Output Total 200 2600 1200 Balance 877.466 691.933 -601.198 Weight 80.286 kg 86.9 kg Intake: IV 828 2608 576 0.9 normal saline 440 160 Lactated Ringers 1,000 ml 260 1560 130 @ 130 mls/hr IV .[id number] ONE Rx#:[id number] Lines 18 108 36 Vancomycin 1,500 mg In 500 Sodium Chloride 0.9% 500 ml 500 ml @ 167 mls/hr IVPB Q12H [facility] Rx#: [id number] methylPREDNISolone SOD 250 SUCCIN 1,000 mg In Sodium Chloride 0.9% 250 ml @ 250 mls/hr IVPB ONCE STA Rx#:[id number] Intake, IV Titration 249.466 683.933 22.802 Amount Amiodarone 450 mg In 77.502 Dextrose 5% in Water 250 ml @ 0.5 MG/MIN 16.667 mls/hr IV .Q15H [facility] Rx#: [id number] DOBUTamine DRIP 500 mg In 44.278 Dextrose/Water 1 250ml. bag @ 9 MCG/KG/MIN 21.677 mls/hr IV .[id number] [facility] Rx#:[id number] Heparin Sod,Pork in 0.45% 46.564 14.451 NaCl 25,000 unit In 0.45 % NaCl 1 250ml.bag @ 12 UNITS/KG/HR 9.634 mls/hr IV .Q24H [facility] Rx#: [id number] Lidocaine-D5w Pmx 2G/ 250 250Ml 2,000 mg In Dextrose/Water 1 250ml. bag @ 2 MG/MIN 15 mls/hr IV .[id number] [facility] Rx#: [id number] Norepinephrine 32 mg In 50.742 Sodium Chloride 0.9% 218 ml @ 0.03 MCG/KG/MIN 1. 129 mls/hr IV .Q24H [facility] Rx#:[id number] Norepinephrine 4 mg In 2.906 Sodium Chloride 0.9% 250 ml @ 0.03 MCG/KG/MIN 9. 177 mls/hr IV .Q24H [facility] Rx#:[id number] propofoL 1,000 mg In 149.254 297.702 22.802 Empty Bag 1 bag @ 15 MCG/ KG/MIN 7.226 mls/hr IV . [id number] [facility] Rx#:[id number] Output: Urine 200 2600 1200 Other: Voiding Method Indwelling Catheter Indwelling Catheter ABP, PAP, CO, CI - Last Documented Arterial Blood Pressure 110/66 Pulmonary Artery Pressure 36/18 Cardiac Output 5.7 Cardiac Index 2.9 - Exam GENERAl: Revealed 43-year-old female intubated, mechanically ventilated, sedated on propofol HEENT: Pupils are round and equally reacting to light. EOMI. No scleral icterus. No conjunctival pallor. Normocephalic, atraumatic. No pharyngeal erythema. No thyromegaly. Endo tracheal tube and orogastric tube are intact CARDIOVASCULAR: S1 and S2 present. No murmurs, rubs, or gallops. PULMONARY: Diminished breath sounds at the bases with minimal crackles no rhonchi no wheezes ABDOMEN: Soft, nontender, nondistended, normoactive bowel sounds. No palpable organomegaly. MUSCULOSKELETAL: No deformities EXTREMITIES: No clubbing edema or cyanosis, multiple catheters and lines noted in the right groin placed by cardiology in the [facility] yesterday. NEUROLOGICAL:: Could not assess, patient is sedated, intubated, mechanically ventilated. Psychiatric: Could not assess SKIN: No rashes. - Labs CBC & Chem 7: 06/16/24 05:00 06/16/24 05:00 Labs: Abnormal Lab Results - Last 24 Hours (Table) 06/15/24 06/15/24 06/15/24 Range/Units 10:44 17:16 17:43 WBC 13.8 H (3.8-10.6) k/uL RBC 3.77 L (3.80-5.40) m/uL Hgb 11.1 L (11.4-16.0) gm/dL Hct 33.8 L (34.0-46.0) % Neutrophils # 12.2 H (1.3-7.7) k/uL Lymphocytes # (1.0-4.8) k/uL PT (10.0-12.5) sec INR (<1.2) APTT (22.0-30.0) sec ABG pO2 336 H (83-108) mmHg ABG Total CO2 (19-24) mmol/L ABG O2 Saturation >100.0 H (94-97) % ABG Lactic Acid (0.5-1.6) mmol/L Hemoglobin (11.4-16.0) gm/dL Sodium (137-145) mmol/L Potassium (3.5-5.1) mmol/L Chloride (98-107) mmol/L Carbon Dioxide (22-30) mmol/L BUN (7-17) mg/dL Glucose (74-99) mg/dL POC Glucose (mg/dL) 169 H (70-110) mg/dL Calcium (8.4-10.2) mg/dL AST (14-36) U/L ALT (4-34) U/L Alkaline Phosphatase (38-126) U/L Lactate Dehydrogenase (120-246) U/L Total Protein (6.3-8.2) g/dL Albumin (3.5-5.0) g/dL 06/15/24 06/15/24 06/15/24 Range/Units 17:43 17:43 20:00 WBC (3.8-10.6) k/uL RBC (3.80-5.40) m/uL Hgb (11.4-16.0) gm/dL Hct (34.0-46.0) % Neutrophils # (1.3-7.7) k/uL Lymphocytes # (1.0-4.8) k/uL PT 12.8 H (10.0-12.5) sec INR 1.2 H (<1.2) APTT 194.4 H* (22.0-30.0) sec ABG pO2 (83-108) mmHg ABG Total CO2 (19-24) mmol/L ABG O2 Saturation 97.9 H (94-97) % ABG Lactic Acid (0.5-1.6) mmol/L Hemoglobin (11.4-16.0) gm/dL Sodium 135 L (137-145) mmol/L Potassium 3.4 L (3.5-5.1) mmol/L Chloride (98-107) mmol/L Carbon Dioxide 20 L (22-30) mmol/L BUN (7-17) mg/dL Glucose 156 H (74-99) mg/dL POC Glucose (mg/dL) (70-110) mg/dL Calcium 8.3 L (8.4-10.2) mg/dL AST (14-36) U/L ALT (4-34) U/L Alkaline Phosphatase (38-126) U/L Lactate Dehydrogenase (120-246) U/L Total Protein (6.3-8.2) g/dL Albumin (3.5-5.0) g/dL 06/15/24 06/15/24 06/15/24 Range/Units 20:02 20:47 20:47 WBC (3.8-10.6) k/uL RBC (3.80-5.40) m/uL Hgb (11.4-16.0) gm/dL Hct (34.0-46.0) % Neutrophils # (1.3-7.7) k/uL Lymphocytes # (1.0-4.8) k/uL PT (10.0-12.5) sec INR (<1.2) APTT 77.3 H (22.0-30.0) sec ABG pO2 42 L* (83-108) mmHg ABG Total CO2 25 H (19-24) mmol/L ABG O2 Saturation 76.0 L (94-97) % ABG Lactic Acid 3.3 H* (0.5-1.6) mmol/L Hemoglobin (11.4-16.0) gm/dL Sodium (137-145) mmol/L Potassium (3.5-5.1) mmol/L Chloride (98-107) mmol/L Carbon Dioxide (22-30) mmol/L BUN (7-17) mg/dL Glucose (74-99) mg/dL POC Glucose (mg/dL) (70-110) mg/dL Calcium (8.4-10.2) mg/dL AST (14-36) U/L ALT (4-34) U/L Alkaline Phosphatase (38-126) U/L Lactate Dehydrogenase (120-246) U/L Total Protein (6.3-8.2) g/dL Albumin (3.5-5.0) g/dL 06/15/24 06/16/24 06/16/24 Range/Units 20:47 00:03 00:04 WBC (3.8-10.6) k/uL RBC (3.80-5.40) m/uL Hgb (11.4-16.0) gm/dL Hct (34.0-46.0) % Neutrophils # (1.3-7.7) k/uL Lymphocytes # (1.0-4.8) k/uL PT (10.0-12.5) sec INR (<1.2) APTT (22.0-30.0) sec ABG pO2 37 L* 145 H (83-108) mmHg ABG Total CO2 26 H (19-24) mmol/L ABG O2 Saturation 67.5 L 99.4 H (94-97) % ABG Lactic Acid (0.5-1.6) mmol/L Hemoglobin 11.3 L (11.4-16.0) gm/dL Sodium (137-145) mmol/L Potassium (3.5-5.1) mmol/L Chloride (98-107) mmol/L Carbon Dioxide (22-30) mmol/L BUN (7-17) mg/dL Glucose (74-99) mg/dL POC Glucose (mg/dL) (70-110) mg/dL Calcium (8.4-10.2) mg/dL AST (14-36) U/L ALT (4-34) U/L Alkaline Phosphatase (38-126) U/L Lactate Dehydrogenase 770 H (120-246) U/L Total Protein (6.3-8.2) g/dL Albumin (3.5-5.0) g/dL 06/16/24 06/16/24 06/16/24 Range/Units 00:45 00:45 00:45 WBC (3.8-10.6) k/uL RBC (3.80-5.40) m/uL Hgb (11.4-16.0) gm/dL Hct (34.0-46.0) % Neutrophils # (1.3-7.7) k/uL Lymphocytes # (1.0-4.8) k/uL PT 12.8 H (10.0-12.5) sec INR 1.2 H (<1.2) APTT (22.0-30.0) sec ABG pO2 (83-108) mmHg ABG Total CO2 (19-24) mmol/L ABG O2 Saturation (94-97) % ABG Lactic Acid 2.4 H* (0.5-1.6) mmol/L Hemoglobin (11.4-16.0) gm/dL Sodium (137-145) mmol/L Potassium (3.5-5.1) mmol/L Chloride (98-107) mmol/L Carbon Dioxide (22-30) mmol/L BUN (7-17) mg/dL Glucose (74-99) mg/dL POC Glucose (mg/dL) (70-110) mg/dL Calcium (8.4-10.2) mg/dL AST (14-36) U/L ALT (4-34) U/L Alkaline Phosphatase (38-126) U/L Lactate Dehydrogenase 736 H (120-246) U/L Total Protein (6.3-8.2) g/dL Albumin (3.5-5.0) g/dL 06/16/24 06/16/24 06/16/24 Range/Units 00:50 02:15 03:52 WBC (3.8-10.6) k/uL RBC (3.80-5.40) m/uL Hgb (11.4-16.0) gm/dL Hct (34.0-46.0) % Neutrophils # (1.3-7.7) k/uL Lymphocytes # (1.0-4.8) k/uL PT (10.0-12.5) sec INR (<1.2) APTT 49.0 H (22.0-30.0) sec ABG pO2 37 L* (83-108) mmHg ABG Total CO2 25 H (19-24) mmol/L ABG O2 Saturation 68.0 L (94-97) % ABG Lactic Acid (0.5-1.6) mmol/L Hemoglobin (11.4-16.0) gm/dL Sodium (137-145) mmol/L Potassium (3.5-5.1) mmol/L Chloride (98-107) mmol/L Carbon Dioxide (22-30) mmol/L BUN (7-17) mg/dL Glucose (74-99) mg/dL POC Glucose (mg/dL) 186 H (70-110) mg/dL Calcium (8.4-10.2) mg/dL AST (14-36) U/L ALT (4-34) U/L Alkaline Phosphatase (38-126) U/L Lactate Dehydrogenase (120-246) U/L Total Protein (6.3-8.2) g/dL Albumin (3.5-5.0) g/dL 06/16/24 06/16/24 06/16/24 Range/Units 03:55 05:00 05:00 WBC (3.8-10.6) k/uL RBC (3.80-5.40) m/uL Hgb (11.4-16.0) gm/dL Hct (34.0-46.0) % Neutrophils # (1.3-7.7) k/uL Lymphocytes # (1.0-4.8) k/uL PT (10.0-12.5) sec INR (<1.2) APTT (22.0-30.0) sec ABG pO2 164 H (83-108) mmHg ABG Total CO2 (19-24) mmol/L ABG O2 Saturation 99.7 H (94-97) % ABG Lactic Acid 2.3 H* (0.5-1.6) mmol/L Hemoglobin 11.0 L (11.4-16.0) gm/dL Sodium (137-145) mmol/L Potassium (3.5-5.1) mmol/L Chloride 114 H (98-107) mmol/L Carbon Dioxide (22-30) mmol/L BUN 6 L (7-17) mg/dL Glucose 180 H (74-99) mg/dL POC Glucose (mg/dL) (70-110) mg/dL Calcium (8.4-10.2) mg/dL AST 88 H (14-36) U/L ALT 118 H (4-34) U/L Alkaline Phosphatase 37 L (38-126) U/L Lactate Dehydrogenase 656 H (120-246) U/L Total Protein 5.4 L (6.3-8.2) g/dL Albumin 2.8 L (3.5-5.0) g/dL 06/16/24 06/16/24 06/16/24 Range/Units 05:00 05:00 05:03 WBC (3.8-10.6) k/uL RBC 3.61 L (3.80-5.40) m/uL Hgb 10.7 L (11.4-16.0) gm/dL Hct 32.4 L (34.0-46.0) % Neutrophils # 9.5 H (1.3-7.7) k/uL Lymphocytes # 0.5 L (1.0-4.8) k/uL PT (10.0-12.5) sec INR (<1.2) APTT 45.9 H (22.0-30.0) sec ABG pO2 (83-108) mmHg ABG Total CO2 (19-24) mmol/L ABG O2 Saturation (94-97) % ABG Lactic Acid (0.5-1.6) mmol/L Hemoglobin (11.4-16.0) gm/dL Sodium (137-145) mmol/L Potassium (3.5-5.1) mmol/L Chloride (98-107) mmol/L Carbon Dioxide (22-30) mmol/L BUN (7-17) mg/dL Glucose (74-99) mg/dL POC Glucose (mg/dL) 190 H (70-110) mg/dL Calcium (8.4-10.2) mg/dL AST (14-36) U/L ALT (4-34) U/L Alkaline Phosphatase (38-126) U/L Lactate Dehydrogenase (120-246) U/L Total Protein (6.3-8.2) g/dL Albumin (3.5-5.0) g/dL 06/16/24 06/16/24 06/16/24 Range/Units 05:45 07:59 08:00 WBC (3.8-10.6) k/uL RBC (3.80-5.40) m/uL Hgb (11.4-16.0) gm/dL Hct (34.0-46.0) % Neutrophils # (1.3-7.7) k/uL Lymphocytes # (1.0-4.8) k/uL PT (10.0-12.5) sec INR (<1.2) APTT 45.0 H (22.0-30.0) sec ABG pO2 37 L* 164 H (83-108) mmHg ABG Total CO2 26 H (19-24) mmol/L ABG O2 Saturation 69.9 L 99.7 H (94-97) % ABG Lactic Acid (0.5-1.6) mmol/L Hemoglobin 10.7 L 10.7 L (11.4-16.0) gm/dL Sodium (137-145) mmol/L Potassium (3.5-5.1) mmol/L Chloride (98-107) mmol/L Carbon Dioxide (22-30) mmol/L BUN (7-17) mg/dL Glucose (74-99) mg/dL POC Glucose (mg/dL) (70-110) mg/dL Calcium (8.4-10.2) mg/dL AST (14-36) U/L ALT (4-34) U/L Alkaline Phosphatase (38-126) U/L Lactate Dehydrogenase (120-246) U/L Total Protein (6.3-8.2) g/dL Albumin (3.5-5.0) g/dL 06/16/24 06/16/24 Range/Units 08:45 09:08 WBC (3.8-10.6) k/uL RBC (3.80-5.40) m/uL Hgb (11.4-16.0) gm/dL Hct (34.0-46.0) % Neutrophils # (1.3-7.7) k/uL Lymphocytes # (1.0-4.8) k/uL PT (10.0-12.5) sec INR (<1.2) APTT (22.0-30.0) sec ABG pO2 (83-108) mmHg ABG Total CO2 (19-24) mmol/L ABG O2 Saturation (94-97) % ABG Lactic Acid 2.3 H* (0.5-1.6) mmol/L Hemoglobin (11.4-16.0) gm/dL Sodium (137-145) mmol/L Potassium (3.5-5.1) mmol/L Chloride (98-107) mmol/L Carbon Dioxide (22-30) mmol/L BUN (7-17) mg/dL Glucose (74-99) mg/dL POC Glucose (mg/dL) (70-110) mg/dL Calcium (8.4-10.2) mg/dL AST (14-36) U/L ALT (4-34) U/L Alkaline Phosphatase (38-126) U/L Lactate Dehydrogenase 687 H (120-246) U/L Total Protein (6.3-8.2) g/dL Albumin (3.5-5.0) g/dL Assessment and Plan Assessment: Impression: Cardiogenic shock With severe LV dysfunction requiring cardiac intervention and placement of left ventricular assist device/Impella and right ventricular assist device/Impella Acute hypoxic respiratory failure secondary to V-fib cardiac arrest New onset seizure, possible Non-ST elevation myocardial infarction History of bipolar disorder and schizophrenia Recent hospital evaluation for atypical chest pain Possible anoxic brain injury, too early to tell at this point. Patient had a very brief cardiac arrest in the ER. Recommendation: Continue ventilatory support Hemodynamic support as felt to be necessary and titrate accordingly including norepinephrine and dobutamine Continue amiodarone and she is also on lidocaine Patient is being considered for transfer to [facility], as a matter fact she has been accepted waiting for transfer process. GI and DVT prophylaxis Nutritional support, to be addressed/enteral feeding Continue nasogastric tube to low intermittent suction Neurology is performing EEG to address her seizure presentation patient is on propofol and she was placed on Keppra yesterday. Patient remains critically ill, prognosis is extremely poor and guarded, family updated on her condition at bedside. Critical care time is over 30 minutes Will continue to follow Time with Patient: Greater than 30 (111)
--- NOTE | 2024-06-16 12:26 | CA ---
Transthoracic Echo Report Name: Alejandro Angelo Age: 43 Gender: F : 1980 Exam Date: 06/16/2024 08:30 Exam Location: [facility] Ht (in): 62 Wt (lb): 191 Ordering Physician: Tal Conner DO ([email or web address]) Attending/Referring Phys: Tier Over Veronica Doan RDCS Procedure CPT: Indications: Impella device Cardiac Hx: Technical Quality: Good Contrast 1: Total Dose (mL): Contrast 2: Total Dose (mL): MEASUREMENTS (Male / Female) Normal Values 2D ECHO LV Diastolic Volume MOD BP 74.2 cm??? 67 - 155 / 56 - 104 cm??? LV Systolic Volume MOD BP 44.7 cm??? 22 - 58 / 19 - 49 cm??? LV Ejection Fraction MOD BP 39.7 % >= 55 % LV Cardiac Index MOD BP 1052.6 cm???/min???m??? LV Diastolic Volume MOD 4C 70.7 cm??? LV Systolic Volume MOD 4C 37.7 cm??? LV Ejection Fraction MOD 4C 46.7 % LV Cardiac Index MOD 4C 1180.5 cm???/min???m??? LV Diastolic Length 4C 7.5 cm LV Systolic Length 4C 6.0 cm LV Diastolic Volume MOD 2C 74.7 cm??? LV Systolic Volume MOD 2C 45.8 cm??? LV Ejection Fraction MOD 2C 38.7 % LV Cardiac Index MOD 2C 1033.9 cm???/min???m??? LV Diastolic Length 2C 7.8 cm LV Systolic Length 2C 7.1 cm RV Diastolic Basal Diameter 3.8 cm 2.0 - 2.8 cm DOPPLER TR Peak Velocity 270.9 cm/s TR Peak Gradient 29.4 mmHg Right Ventricular Systolic Press 43.0 mmHg FINDINGS Left Ventricle Left ventricular ejection fraction is estimated at 45-50 %. Mildly decreased left ventricular ejection fraction. Left ventricular assist device in place. Right Ventricle Right ventricular dilatation. Reduced right ventricular global systolic function. Right Atrium Left Atrium Mitral Valve Mild mitral regurgitation. Aortic Valve Mild aortic regurgitation. Tricuspid Valve [id number] tricuspid regurgitation. Pulmonic Valve Pericardium No pericardial effusion. Aorta CONCLUSIONS Mild LV systolic dysfunction RV systolic dysfunction seems improved compared to yesterday Mild mitral and aortic regurgitation Mild to moderate tricuspid regurgitation Chemical support device left ventricular outflow tract and in the right ventricle Previewed by: Dr. Stephon Lynch MD (Electronically Signed) Final Date: 16 June 2024 12:25
--- NOTE | 2024-06-17 09:07 | CONS ---
DONAVAN Allen is a 43-year-old lady with no significant past medical history who presented to [facility], brought in by an ambulance. She woke up from sleep suddenly and told her that she may be having seizures. She fell out of the bed and had a transient loss of consciousness. Apparently, this lasted for about 10 minutes, and she came to the emergency room. She was in the ER triage where they were trying to do an ECG, had another episode of what appeared like a seizure to them and they brought her in and she was found to have a cardiac arrest with no pulse and there was ventricular fibrillation. She was defibrillated and intubated. I was called around 11:30 as patient had episode of atrial fibrillation in spite of being on the amiodarone. I came to the ER and evaluated the patient. Her EKG shows sinus rhythm with nonspecific ST-T wave changes. The most recent EKG showed sinus rhythm without significant ST-T wave changes. The patient is hypotensive and is currently on Levophed. I am adding lidocaine to the amiodarone that she is on and an echocardiogram that we performed emergently shows LV systolic dysfunction and hypokinesis involving inferior wall. Due to this, I am taking the patient for emergent cardiac catheterization. I spoke to patient's mother, sister, and and informed them of the patient's condition. The patient has had several visits to the hospital and apparently had chest and left arm pain and was advised stress testing in the past, which has never been done. She had an echo at last admission 2 weeks ago that showed normal LV function. PAST MEDICAL HISTORY: Negative for hypertension, diabetes, dyslipidemia. MEDICATIONS: Include MiraLAX, Robaxin, Mobic, lactulose, and Pepcid. ALLERGIES: As charted. FAMILY HISTORY: I am unable to obtain from the patient. SOCIAL HISTORY: I am unable to obtain from the patient. REVIEW OF SYSTEMS: I am unable to obtain from the patient. EXAM: VITAL SIGNS: The patient is intubated on the vent. Heart rate is 70 beats per minute. Blood pressure is 93/50. The patient is mechanically ventilated and is saturating at 96%. CHEST: Reveals diminished air entry. I do not hear any crackles or rhonchi. HEART: Reveals first and second heart sounds. I am not getting any murmur. ABDOMEN: Soft. EXTREMITIES: Did not reveal any edema. LABORATORY DATA: Labs show that her hemoglobin is 13.4, platelet count is 357. Potassium is 3.1, creatinine is 0.8. Lactic acid is elevated. Urine drug screen is negative. Alcohol is negative. ASSESSMENT: 1. Status post cardiac arrest with recurrent episodes of ventricular fibrillation. 2. Hypokalemia. 3. Hypotension. PLAN: I asked the ER physician to supplement the potassium immediately. Continue the amiodarone and lidocaine. Advised him to start the patient on heparin and continue the Levophed for hypotension. I am going to take the patient for emergent cardiac catheterization. MMODL / IJN: [id number] /
--- NOTE | 2024-06-17 09:09 | CC ---
CARDIAC CATHETERIZATION REPORT INDICATION: Cardiac arrest with recurrent episodes of ventricular fibrillation. PROCEDURE NOTE: After obtaining informed consent, left heart catheterization, coronary angiogram and LV- gram were performed via the right femoral artery using standard Gini catheters. The patient had multiple episodes of ventricular fibrillation during the procedure and we had to do defibrillation. Consent was obtained from the patient's verbally prior to the procedure. Total sedation time was 25 minutes. FINDINGS: 1. Hemodynamics: Left ventricular end-diastolic pressure is 26 mm. There is no significant gradient across the aortic valve. 2. Left ventriculogram was performed in CROSS position, shows a mildly enlarged left ventricle with moderate to severe LV dysfunction with an ejection fraction of 35%. There is hypokinesis involving the basal inferior and anterior pearson with diffuse global hypokinesis. 3. Angiographic data: a.Right coronary artery is a large dominant vessel and is free of stenosis. Left main coronary artery is a normal-sized vessel and is free of disease, divides into left anterior descending coronary artery and circumflex coronary artery. LAD and its branches, circumflex coronary artery and its branches are free of significant stenosis. CONCLUSIONS: 1. Normal coronary arteries. 2. Cardiomyopathy with moderate LV systolic dysfunction. PLAN: Given the cardiogenic shock, need for pressors and recurrent episodes of ventricular fibrillation, I will ask the intervention to see if the ventricular assist device will help stabilize the patient. He is proceeding with a right heart catheterization, and if cardiac index is low, he will proceed with mechanical support. I reviewed these issues with the patient's family and they understand and are in agreement with the plans. MCKINLEY / SHANIN: [id number] /
--- NOTE | 2024-06-17 09:09 | HP ---
HISTORY AND PHYSICAL CHIEF COMPLAINT: Seizures and cardiac respiratory arrest. HISTORY OF PRESENT ILLNESS: This 43-year-old woman was admitted with loss of conscious and seizures. The patient suffered a cardiac respiratory arrest as well. The patient is seen by multiple consultants and a 2D echo with Doppler showed moderate LV dysfunction, ejection fraction 40% to 45%. with multiple other abnormalities. The patient is mechanically sedated in ICU at this time. The patient was initially admitted and workup including CT angio showed no evidence of any thromboembolic disease at that time. Please refer to the previous chart and consultation for further information. PAST MEDICAL HISTORY: History of asthma, COPD, bipolar, schizophrenia, rest of the history and chart is also reviewed. MEDICATIONS: MiraLAX. Dose and rest of medications reviewed. ALLERGIES: Ibuprofen. FAMILY HISTORY: Could not be taken. The patient is mechanically ventilated and sedated. SOCIAL HISTORY: Could not be taken. The patient is mechanically ventilated and sedated. REVIEW OF SYSTEMS: Could not be taken. The patient is mechanically ventilated and sedated. PHYSICAL EXAM: VITAL SIGNS: Pulse is 70, blood pressure 89/49, respirations 18. HEENT: Conjunctivae normal. NECK: No jugular venous distention. RESPIRATIONS: Breath sounds diminished at the bases. A few scattered rhonchi. ABDOMEN: Soft. LEGS: No edema. NERVOUS SYSTEM: The patient is mechanically sedated. LABS: Troponin 0.155. Rest of the labs are noted. ASSESSMENT: 1. Cardiac arrest and respiratory arrest. Possible cardiac arrhythmia. 2. Troponin 0.155. Possible acute phr-VI-kfvqrbt elevation myocardial infarction. 3. Seizure disorder. 4. Possible cardiomyopathy, ejection fraction 40% to 45%. 5. Moderate to severe tricuspid regurgitation. 6. Asthma, chronic obstructive pulmonary disease. 7. Bipolar, schizophrenia. 8. Anxiety, bipolar. RECOMMENDATION/DISCUSSION: This 43-year-old woman presented with multiple complex medical issues, we will monitor the patient closely. Continue the current management and symptomatic treatment. I would recommend mechanical ventilation and antiseizure medications. Cardiology, Neurology, Pulmonary Critical Care evaluations. Otherwise, prognosis extremely guarded because of multiple complex medical conditions. Repeat labs to be ordered. The drug screen is negative. COVID influenza and viral panel are also negative. There is no evidence of infection at this time. Chest x-ray which was reviewed personally showed no acute abnormality and CT brain also showed no acute abnormality. EKG showed nonspecific ST-T changes. MMODL / IJN: [id number] /
--- NOTE | 2024-06-17 09:11 | EEG ---
ELECTROENCEPHALOGRAM REPORT PREAMBLE: This is a 43-year-old female, who had some seizure-like activity, followed by cardiac arrest. This study is performed to evaluate for any epileptiform activity. EEG FINDINGS: This is a 21-channel portable EEG recorded with video component, utilizing 10/20 international system with referential and bipolar montages. The background consists of moderately well-developed, but not very well-regulated, mixed frequencies of 2 to 3 hertz delta with superimposed faster frequencies mixed theta and alpha activity seen in bihemispheric region. Background does not seem to be reactive to photic stimulation or any other activation process. Some sleep spindles were seen during middle part of the study. Very sporadic, generalized, sharply contoured wave, followed by brief suppression were seen. No electrographic seizure was recorded. IMPRESSION: Abnormal EEG due to background slowing of moderate degree. This is suggestive of generalized cerebral dysfunction as can be seen with toxic metabolic encephalopathy or related to diffuse structural brain abnormality. Clinical correlation is recommended. Very sporadic, generalized, sharply contoured waves were seen, followed by brief suppression at times. Although these does not appear classically epileptiform, I recommend repeat or preferable continuous EEG monitoring for further evaluation. No electrographic seizure was recorded. MMODL / IJN: [id number] /
--- NOTE | 2024-06-17 09:32 | DS ---
DISCHARGE SUMMARY FINAL DIAGNOSES: 1. Cardiac arrest with cardiogenic shock with ventricular fibrillation, possibly with severe left ventricular dysfunction requiring cardiac intervention and placement of the left and right ventricular assist devices. 2. Acute hypoxic respiratory failure, on mechanical ventilation. 3. Fmg-GZ-qfsojdk elevation myocardial infarction. 4. History of asthma. 5. History of chronic obstructive pulmonary disease. 6. History of bipolar, schizophrenia. DISCHARGE DISPOSITION: The patient will be transferred to [facility] for further evaluation and treatment. HISTORY OF PRESENT ILLNESS: This is a 43-year-old woman with a past medical history of multiple medical problems, who was admitted with cardiac arrest, possible seizures, and multiple complex medical issues. The patient also has ventricular fibrillation. Cardiology performed a cardiac catheterization and showed no obstructive lesions; however, the patient has significant LV and RV dysfunction. Impella devices were placed, and the patient was mechanically ventilated. The patient was subsequently transferred to [facility] for higher level of care. Prognosis was extremely guarded throughout the hospitalization. Please refer to the multiple consultations, cardiology notes, and pulmonary notes by Dr. Paul for further details. MMODL / IJN: [id number] /
== END 2024-06-16 11:25 | disposition short-term general hospital (02) | DRG 215 ==
LOC: EC 08:19 → 2SICU 11:42
PROVIDERS: ADMIT Internal Medicine; ATTEND Internal Medicine
PROC: 0BH17EZ Insertion of Endotracheal Airway into Trachea, Via Natural or Artificial Opening (ICD-10-PCS; 2024-06-15)
PROC: 5A2204Z Restoration of Cardiac Rhythm, Single (ICD-10-PCS; 2024-06-15)
PROC: 02HV33Z Insertion of Infusion Device into Superior Vena Cava, Percutaneous Approach (ICD-10-PCS; 2024-06-15)
PROC: B2111ZZ Fluoroscopy of Multiple Coronary Arteries using Low Osmolar Contrast (ICD-10-PCS; 2024-06-15)
PROC: B2151ZZ Fluoroscopy of Left Heart using Low Osmolar Contrast (ICD-10-PCS; 2024-06-15)
PROC: 4A10X4Z Monitoring of Central Nervous Electrical Activity, External Approach (ICD-10-PCS; 2024-06-15)
PROC: 4A023N8 Measurement of Cardiac Sampling and Pressure, Bilateral, Percutaneous Approach (ICD-10-PCS; 2024-06-15)
PROC: 5A1935Z Respiratory Ventilation, Less than 24 Consecutive Hours (ICD-10-PCS; principal; 2024-06-15 13:45)
PROC: 02H Heart and Great Vessels, Insertion (ICD-10-PCS; 2024-06-15 13:45)
PROC: 5A0221D Assistance with Cardiac Output using Impeller Pump, Continuous (ICD-10-PCS; 2024-06-15 13:45)
DX: I49.01 Ventricular fibrillation (principal); R57.0 Cardiogenic shock; J96.01 Acute respiratory failure with hypoxia; I21.4 Non-ST elevation (NSTEMI) myocardial infarction; I46.2 Cardiac arrest due to underlying cardiac condition; G40.909 Epilepsy, unspecified, not intractable, without status epilepticus; J44.9 Chronic obstructive pulmonary disease, unspecified; N18.9 Chronic kidney disease, unspecified; I08.3 Combined rheumatic disorders of mitral, aortic and tricuspid valves; F31.9 Bipolar disorder, unspecified; J98.11 Atelectasis; I48.91 Unspecified atrial fibrillation; I50.82 Biventricular heart failure; K59.00 Constipation, unspecified; W06.XXXA Fall from bed, initial encounter; Y92.009 Unspecified place in unspecified non-institutional (private) residence as the place of occurrence of the external cause; Z79.1 Long term (current) use of non-steroidal anti-inflammatories (NSAID); Z86.16 Personal history of COVID-19; Z87.891 Personal history of nicotine dependence; Z88.6 Allergy status to analgesic agent; F41.0 Panic disorder [episodic paroxysmal anxiety]; I42.9 Cardiomyopathy, unspecified; F20.9 Schizophrenia, unspecified; E87.6 Hypokalemia; Z86.19 Personal history of other infectious and parasitic diseases; Z88.2 Allergy status to sulfonamides
CPT/HCPCS: 33990; 36415; 36600; 70450; 71045; 80048; 80053; 80306; 80320; 81001; 81025; 82140; 82805; 82810; 83605; 83615; 83735; 83880; 84132; 84484; 85018; 85025; 85384; 85610; 85652; 85730; 86140; 87040; 87636; 93005; 93306; 93308; 93451; 94002; 94003; 94640; 95819; 96361; 96365; 96366; 96375; 99291